=== PATIENT | male | born 1970 | race Caucasian/White ===

== ENCOUNTER 2017-08-06 13:43 | Inpatient (IN) | payer OTHER ==
[2017-08-06 13:56] VITALS: BMI 22.1
--- NOTE | 2017-08-06 14:54 | HP ---
COWS - Scale Resting Pulse: 0= [place] 80 or Below Sweatin=Flushed/Facial Moisture Restless Observation: 3= Extraneous Movement Pupil Size: 1= Pupils >than Normal Bone or Joint Aches: 2= Severe Diffuse Aches Runny Nose/ Eye Tearin= Nasal Congestion GI Upset > 30mins: 1= Stomach Cramp Tremor Observation: 2= Slight Tremor Visible Yawning Observation: 1= 1-2x During Session Anxiety or Irritability: 2=Irritable/Anxious Goose Flesh Skin: 3=Piloerection COWS Score: 18 CIWA Score - CIWA Score Nausea/Vomitin Muscle Tremors: 3 Anxiety: 3 Agitation: 3 Paroxysmal Sweats: 3 Orientation: 0-Oriented Tacttile Disturbances: 1-Very Mild Itch/Numbness Auditory Disturbances: 0-None Visual Disturbances: 0-None Headache: 2-Mild CIWA-Ar Total Score: 17 Admission ROS BHS - HPI Chief Complaint: I want to stay clean Allergies/Adverse Reactions: Allergies Allergy/AdvReac Type Severity Reaction Status Date / Time No Known Allergies Allergy Verified 08/28/14 18:22 History of Present Illness: 47 y/o male with alcohol and opiate dependence presents for detox. His last treatment was in January of 2017 at [facility]. Exam Limitations: No Limitations - Ebola screening Have you traveled outside of the country in the last 21 days: No Have you had contact with anyone from an Ebola affected area: No Have you been sick,other than usual withdrawal symptoms: No Do you have a fever: No - Review of Systems Constitutional: Chills, Loss of Appetite, Changes in sleep EENT: reports: Blurred Vision, Nose Congestion Respiratory: reports: No Symptoms reported Cardiac: reports: Lightheadedness GI: reports: Poor Appetite, Poor Fluid Intake, Abdominal cramping : reports: No Symptoms Reported Musculoskeletal: reports: Back Pain, Joint Pain, Muscle Pain Integumentary: reports: No Symptoms Reported Neuro: reports: Headache, Tremors Endocrine: reports: No Symptoms Reported Hematology: reports: No Symptoms Reported Psychiatric: reports: Anxious, Depressed Other Systems: Reviewed and Negative Patient History - Patient Medical History Hx Anemia: No Hx Asthma: No Hx Chronic Obstructive Pulmonary Disease (COPD): No Hx Cancer: No Hx Cardiac Disorders: No Hx Congestive Heart Failure: No Hx Hypertension: No Hx Hypercholesterolemia: No Hx Pacemaker: No HX Cerebrovascular Accident: No Hx Seizures: No Hx Dementia: No Hx Diabetes: No Hx Gastrointestinal Disorders: No Hx Liver Disease: No Hx Genitourinary Disorders: No Hx Sexually Transmitted Disorders: No Hx Renal Disease (ESRD): No Hx Thyroid Disease: No Hx Human Immunodeficiency Virus (HIV): No Hx Hepatitis C: No Hx Depression: Yes Hx Suicide Attempt: No Hx Bipolar Disorder: No Hx Schizophrenia: No Other Medical History: Insomnia on Trazodone - Patient Surgical History Past Surgical History: No Hx Neurologic Surgery: No Hx Cataract Extraction: No Hx Cardiac Surgery: No Hx Lung Surgery: No Hx Breast Surgery: No Hx Breast Biopsy: No Hx Abdominal Surgery: No Hx Appendectomy: No Hx Cholecystectomy: No Hx Genitourinary Surgery: No Hx Section: No Hx Orthopedic Surgery: No Anesthesia Reaction: No - PPD History Previous Implant?: Yes Documented Results: Negative w/o proof Implanted On Prior R Admission?: Yes Date: 08/30/14 Results: 0 mm PPD to be Administered?: Yes - Smoking Cessation Smoking history: Current every day smoker Have you smoked in the past 12 months: Yes Aproximately how many cigarettes per day: 20 Cigars Per Day: 0 Hx Chewing Tobacco Use: No Initiated information on smoking cessation: Yes 'Breaking Loose' booklet given: 08/06/17 - Substance & Tx. History Hx Alcohol Use: Yes Hx Substance Use: Yes Substance Use Type: Alcohol, Heroin, Marijuana Hx Substance Use Treatment: Yes - Substances Abused Alcohol Route: Oral Frequency: Daily Amount used: 2 pints Age of first use: 16 Date of Last Use: 08/05/17 Heroin Route: Injection Frequency: Daily Amount used: 10 bags Age of first use: 21 Date of Last Use: 08/06/17 Marijuana/Hashish Route: Smoking Frequency: 3-6 times per week Amount used: 7 joints Age of first use: 14 Date of Last Use: 08/01/17 Family Disease History - Family Disease History Family Disease History: Heart Disease: Mother (htn,ovarian ca.), CA: Mother Admission Physical Exam BHS - Vital Signs Vital Signs: Vital Signs - 24 hr 08/06/17 13:49 Temperature 96.4 F L Pulse Rate 74 Respiratory 20 Rate Blood Pressure 123/77 - Physical General Appearance: Yes: No Apparent Distress, Appropriately Dressed HEENTM: Yes: EOMI, Hearing grossly Normal, Normal ENT Inspection, Normocephalic , Normal Voice, MADELYN Respiratory: Yes: Chest Non-Tender, Lungs Clear, Normal Breath Sounds, No Respiratory Distress, No Accessory Muscle Use Neck: Yes: No masses,lesions,Nodules, Trachea in good position Breast: Yes: Breast Exam Deferred Cardiology: Yes: Regular Rhythm, Regular Rate Abdominal: Yes: Normal Bowel Sounds, Non Tender, Soft Genitourinary: Yes: Within Normal Limits Back: Yes: Normal Inspection Extremities: Yes: Normal Capillary Refill, Normal Inspection, Normal Range of Motion, Non-Tender Neurological: Yes: wardrobe stylist II-XII NML intact, Fully Oriented, Alert, Motor Strength 5/5, Normal Mood/Affect, Normal Response Integumentary: Yes: Normal Color, Warm Lymphatic: Yes: Within Normal Limits - Diagnostic (1) Opioid dependence with withdrawal Current Visit: Yes Status: Acute (2) Alcohol dependence with uncomplicated withdrawal Current Visit: Yes Status: Acute (3) Nicotine dependence Current Visit: Yes Status: Acute Qualifiers: Nicotine product type: cigarettes Substance use status: uncomplicated Qualified Code(s): F17.210 - Nicotine dependence, cigarettes, uncomplicated (4) Marijuana dependence Current Visit: Yes Status: Acute (5) Insomnia Current Visit: Yes Status: Active BHS Breath Alcohol Content Breath Alcohol Content: 0 Urine Drug Screen - Results Drug Screen Negative: No Urine Drug Screen Results: OPI-Opiates
[2017-08-06] MEDS ORDERED: LOPERAMIDE HCL 2 MG CAPSULE PO PRN (15:02)
[2017-08-06] MEDS ORDERED: NICOTINE POLACRILEX 2 MG GUM BUC PRN (15:02)
[2017-08-06] MEDS ORDERED: chlordiazePOXIDE HCL 25 MG CAPSULE PO ONE (15:02)
[2017-08-06] MEDS ORDERED: MAGNESIUM CITRATE 300 ML BOTTLE PO PRN (15:02)
[2017-08-06] MEDS ORDERED: MAG HYDROX/AL HYDROX/SIMETH 30 ML UNIT-DOSE CUP PO PRN (15:02)
[2017-08-06] MEDS ORDERED: guaiFENesin/D-METHORPHAN HB 10 ML UNIT-DOSE CUPS PO PRN (15:02)
[2017-08-06] MEDS ORDERED: METHADONE HCL 10 MG TABLET (FOR DETOX USE ONLY) PO ONE ×2 (15:02→23:00)
[2017-08-06] MEDS ORDERED: MENTHOL/PHENOL 1 EACH UD MM PRN (15:02)
[2017-08-06] MEDS ORDERED: MAGNESIUM HYDROX 2400MG/30ML ORAL SUSPENSION 30 ML CUP PO PRN (15:02)
[2017-08-06] MEDS ORDERED: P-EPHED 60MG/TRIPROLIDI 2.5MG TABLET PO PRN (15:02)
[2017-08-06] MEDS ORDERED: METHADONE HCL 10 MG TABLET (FOR DETOX USE ONLY) ONE (18:05)
[2017-08-06] MEDS: NICOTINE 21 MG/24 HOURS TOPICAL PATCH TD SCH (18:10)
[2017-08-06] MEDS: chlordiazePOXIDE HCL 25 MG CAPSULE PO SCH ×2 (18:10→22:47)
[2017-08-06] MEDS: IBUPROFEN 400 MG TABLET (FP) PO PRN (18:15)
[2017-08-06] MEDS: THIAMINE HCL 100 MG TABLET (FP) PO SCH (22:47)
[2017-08-06] MEDS: diphenhydrAMINE HCL 50 MG CAPSULE PO PRN (22:49)
[2017-08-07 00:25] LABS: URINE APPEARANCE CLEAR; URINE BILIRUBIN NEGATIVE (NEGATIVE); URINE BLOOD 1+ (NEGATIVE); URINE COLOR YELLOW; URINE GLUCOSE (UA) NEGATIVE (NEGATIVE); URINE KETONE NEGATIVE (NEGATIVE); URINE LEUK ESTERASE NEGATIVE (NEGATIVE); URINE NITRITE NEGATIVE (NEGATIVE); URINE PROTEIN NEGATIVE (NEGATIVE); URINE UROBILINOGEN NEGATIVE mg/dL (0.2-1.0)
[2017-08-07 00:39] LABS: URINE MUCUS RARE; URINE RBC 6 /hpf (0-3); URINE WBC 2 /hpf (3-5)
[2017-08-07] MEDS: chlordiazePOXIDE HCL 25 MG CAPSULE PO SCH ×4 (05:57→22:29)
--- NOTE | 2017-08-07 09:54 | EKG ---
Test Reason : Blood Pressure : / mmHG Vent. Rate : 066 BPM Atrial Rate : 066 BPM P-R Int : 138 ms QRS Dur : 070 ms QT Int : 366 ms P-R-T Axes : 076 077 070 degrees QTc Int : 383 ms NORMAL SINUS RHYTHM POSSIBLE SEPTAL INFARCT , AGE UNDETERMINED NONSPECIFIC T WAVE ABNORMALITY ABNORMAL ECG NO PREVIOUS ECGS AVAILABLE Confirmed by MD MEG, ELSA ([id number]) on 08/07/2017 9:54:21 AM Referred By: Confirmed By:ELSA WEAVER MD
[2017-08-07 09:56] LABS: MCH 27.9 pg (25.7-33.7); MCHC 33.9 g/dl (32.0-35.9); MEAN CELL VOLUME 82.4 fl (80-96); MEAN PLT VOLUME 8.4 fl (7.5-11.1); PLATELET COUNT 137 K/MM3 (134-434); RDW 15.1 % (11.9-15.9); WHITE BLOOD COUNT 7.3 K/mm3 (4.0-10.0)
[2017-08-07] MEDS ORDERED: METHADONE HCL 10 MG TABLET (FOR DETOX USE ONLY) PO SCH (10:00)
[2017-08-07 10:17] LABS: ALBUMIN 3.3 g/dl (3.4-5.0); ALK PHOS 59 U/L (45-117); ANION GAP 8 (8-16); BILIRUBIN,TOTAL 0.5 mg/dL (0.2-1.0); CALCIUM 8.3 mg/dL (8.5-10.1); CO2 28 mmol/L (21-32); CREATININE 0.7 mg/dL (0.7-1.3); GLUCOSE,RANDOM 73 mg/dL (74-106); SGOT/AST 11 U/L (15-37); SGPT/ALT 18 U/L (12-78); TOT PROT 6.1 g/dl (6.4-8.2)
[2017-08-07] MEDS: PRENATAL VITAMINS W/ FOLIC ACID TABLET (FP) PO SCH (10:27)
[2017-08-07] MEDS: NICOTINE 21 MG/24 HOURS TOPICAL PATCH TD SCH (10:28)
[2017-08-07] MEDS: chlordiazePOXIDE HCL 25 MG CAPSULE PO PRN (14:47)
--- NOTE | 2017-08-07 14:55 | PN ---
S CIWA - CIWA Score Nausea/Vomitin Muscle Tremors: 4-Moderate,w/Arms Extend Anxiety: 4-Mod. Anxious/Guarded Agitation: 4-Moderately Restless Paroxysmal Sweats: 3 Orientation: 0-Oriented Tacttile Disturbances: 1-Very Mild Itch/Numbness Auditory Disturbances: 0-None Visual Disturbances: 0-None Headache: 1-Very Mild CIWA-Ar Total Score: 20 S COWS - Scale Resting Pulse: 0= [place] 80 or Below Sweatin=Flushed/Facial Moisture Restless Observation: 3= Extraneous Movement Pupil Size: 0= Normal to Room Light Bone or Joint Aches: 2= Severe Diffuse Aches Runny Nose/ Eye Tearin= Nasal Congestion GI Upset > 30mins: 1= Stomach Cramp Tremor Observation of Outstretched Hands: 2= Slight Tremor Visible Yawning Observation: 1= 1-2x During Session Anxiety or Irritability: 2=Irritable/Anxious Goose Flesh Skin: 0=Smooth Skin COWS Score: 14 S Progress Note (SOAP) Subjective: Body aches, sweating, chills, tremor, interrupted sleep, nausea Objective: 08/07/17 14:52 Last Vital Signs Temp Pulse Resp BP Pulse Ox 98.9 F 73 18 112/74 08/07/17 13:18 08/07/17 13:18 08/07/17 13:18 08/07/17 13:18 Laboratory Tests 08/06/17 08/07/17 08/07/17 21:19 07:50 07:50 WBC 7.3 RBC 4.03 Hgb 11.3 L D Hct 33.3 L MCV 82.4 MCH 27.9 MCHC 33.9 RDW 15.1 Plt Count 137 MPV 8.4 Sodium 140 Potassium 4.1 Chloride 104 Carbon Dioxide 28 Anion Gap 8 BUN 10 Creatinine 0.7 Creat Clearance w eGFR > 60 Random Glucose 73 L Calcium 8.3 L Total Bilirubin 0.5 AST 11 L D ALT 18 Alkaline Phosphatase 59 D Total Protein 6.1 L Albumin 3.3 L Urine Color Yellow Urine Appearance Clear Urine pH 5.0 D Ur Specific [place] 1.020 Urine Protein Negative Urine Glucose (UA) Negative Urine Ketones Negative Urine Blood 1+ H Urine Nitrite Negative Urine Bilirubin Negative Urine Urobilinogen Negative Ur Leukocyte Esterase Negative Urine RBC 6 Urine WBC 2 Urine Mucus Rare RPR Titer 08/07/17 07:50 WBC RBC Hgb Hct MCV MCH MCHC RDW Plt Count MPV Sodium Potassium Chloride Carbon Dioxide Anion Gap BUN Creatinine Creat Clearance w eGFR Random Glucose Calcium Total Bilirubin AST ALT Alkaline Phosphatase Total Protein Albumin Urine Color Urine Appearance Urine pH Ur Specific [place] Urine Protein Urine Glucose (UA) Urine Ketones Urine Blood Urine Nitrite Urine Bilirubin Urine Urobilinogen Ur Leukocyte Esterase Urine RBC Urine WBC Urine Mucus RPR Titer Nonreactive Labs noted: UA shows 1+ blood Assessment: 08/07/17 14:53 Withdrawal symptoms Noted with microscopic hematuria Plan: Continue detox Microscopic hematuria: encouraged to drink lots of water, repeat UA
[2017-08-07] MEDS: IBUPROFEN 400 MG TABLET (FP) PO PRN (17:52)
[2017-08-07] MEDS: THIAMINE HCL 100 MG TABLET (FP) PO SCH (22:28)
[2017-08-07] MEDS: diphenhydrAMINE HCL 50 MG CAPSULE PO PRN (22:29)
[2017-08-08] MEDS: chlordiazePOXIDE HCL 25 MG CAPSULE PO SCH ×2 (04:37→10:32)
[2017-08-08] MEDS: IBUPROFEN 400 MG TABLET (FP) PO PRN ×2 (04:37→10:30)
--- NOTE | 2017-08-08 10:26 | PN ---
S CIWA - CIWA Score Nausea/Vomitin Muscle Tremors: 4-Moderate,w/Arms Extend Anxiety: 4-Mod. Anxious/Guarded Agitation: 4-Moderately Restless Paroxysmal Sweats: 3 Orientation: 0-Oriented Tacttile Disturbances: 6-Extreme Hallucinations Visual Disturbances: 0-None Headache: 0-None Present S COWS - Scale Resting Pulse: 1= [place] 81-100 Sweatin= Chills/Flushing Restless Observation: 1= Difficult to Sit Still Pupil Size: 1= Pupils >than Normal Bone or Joint Aches: 1= Mild Discomfort Runny Nose/ Eye Tearin= Nasal Congestion GI Upset > 30mins: 2= Nausea/Diarrhea Tremor Observation of Outstretched Hands: 2= Slight Tremor Visible Yawning Observation: 1= 1-2x During Session Anxiety or Irritability: 2=Irritable/Anxious Goose Flesh Skin: 3=Piloerection COWS Score: 16 S Progress Note (SOAP) Subjective: nausea, sweats, interrupted sleep, anxiety, tremors Objective: 08/08/17 10:26 Vital Signs - 8 hr 08/08/17 08/08/17 08/08/17 03:36 06:24 09:10 Temperature 97.3 F L 98.7 F Pulse Rate 74 78 Respiratory 18 18 18 Rate Blood Pressure 129/85 107/72 Laboratory Tests 08/06/17 08/07/17 08/07/17 21:19 07:50 07:50 WBC 7.3 RBC 4.03 Hgb 11.3 L D Hct 33.3 L MCV 82.4 MCH 27.9 MCHC 33.9 RDW 15.1 Plt Count 137 MPV 8.4 Sodium 140 Potassium 4.1 Chloride 104 Carbon Dioxide 28 Anion Gap 8 BUN 10 Creatinine 0.7 Creat Clearance w eGFR > 60 Random Glucose 73 L Calcium 8.3 L Total Bilirubin 0.5 AST 11 L D ALT 18 Alkaline Phosphatase 59 D Total Protein 6.1 L Albumin 3.3 L Urine Color Yellow Urine Appearance Clear Urine pH 5.0 D Ur Specific [place] 1.020 Urine Protein Negative Urine Glucose (UA) Negative Urine Ketones Negative Urine Blood 1+ H Urine Nitrite Negative Urine Bilirubin Negative Urine Urobilinogen Negative Ur Leukocyte Esterase Negative Urine RBC 6 Urine WBC 2 Urine Mucus Rare RPR Titer 08/07/17 07:50 WBC RBC Hgb Hct MCV MCH MCHC RDW Plt Count MPV Sodium Potassium Chloride Carbon Dioxide Anion Gap BUN Creatinine Creat Clearance w eGFR Random Glucose Calcium Total Bilirubin AST ALT Alkaline Phosphatase Total Protein Albumin Urine Color Urine Appearance Urine pH Ur Specific [place] Urine Protein Urine Glucose (UA) Urine Ketones Urine Blood Urine Nitrite Urine Bilirubin Urine Urobilinogen Ur Leukocyte Esterase Urine RBC Urine WBC Urine Mucus RPR Titer Nonreactive Assessment: 08/08/17 10:26 withdrawal sx Plan: cont detox
[2017-08-08] MEDS: METHADONE HCL 5 MG TABLET (FOR DETOX USE ONLY) PO SCH (10:28)
[2017-08-08] MEDS: PRENATAL VITAMINS W/ FOLIC ACID TABLET (FP) PO SCH (10:28)
[2017-08-08] MEDS: NICOTINE 21 MG/24 HOURS TOPICAL PATCH TD SCH (10:29)
--- NOTE | 2017-08-08 11:01 | PN ---
BHS Progress Note Note: patient reports swollen painful tooth r side, start antibiotics, naprosy and protonix, referred for dental care when dischargeed
[2017-08-08] MEDS: AMOXICILLIN 250 MG CAPSULE PO SCH ×2 (13:03→22:16)
[2017-08-08] MEDS: PANTOPRAZOLE 40 MG TABLET (FP) PO SCH (13:04)
[2017-08-08] MEDS: NAPROXEN 500 MG TABLET (FP) PO SCH ×2 (13:04→22:17)
[2017-08-08] MEDS: chlordiazePOXIDE HCL 25 MG CAPSULE PO PRN (13:06)
--- NOTE | 2017-08-08 15:29 | CONSULT ---
[facility] Psychiatric Consult - Data Date of interview: 08/08/17 Admission source: [facility] Identifying data: Readmission to [facility] for this 47 y/o male seeking detox treatment on for alcohol,marihuana and heroin dependence.Patient is single without children,homeless,unemployed and supported on food stamps. Substance Abuse History: Confirmed by patient. Smoking Cessation. Smoking history: Current every day smoker. Have you smoked in the past 12 months: Yes. Aproximately how many cigarettes per day: 20. Cigars Per Day: 0. Hx Chewing Tobacco Use: No. Initiated information on smoking cessation: Yes. 'Breaking Loose' booklet given: 08/06/17. - Substance & Tx. History. Hx Alcohol Use: Yes. Hx Substance Use: Yes. Substance Use Type: Alcohol, Heroin, Marijuana. Hx Substance Use Treatment: Yes. - Substances Abused. Alcohol. Route: Oral. Frequency: Daily. Amount used: 2 pints. Age of first use: 16. Date of Last Use: 08/05/17. Heroin. Route: Injection. Frequency: Daily. Amount used: 10 bags. Age of first use: 21. Date of Last Use: 08/06/17. Marijuana /Hashish. Route: Smoking. Frequency: 3-6 times per week. Amount used: 7 joints. Age of first use: 14. Date of Last Use: 08/01/17 Medical History: Patient endorses good general health. Psychiatric History: Patient admits to one psychiatric hospitalization at [facility] in December 2016.Diagnosed with MDD and Anxiety Disorder.Mr Oconnor indicates that he sees a psychiatrist at [facility] in [facility] [place].Managed with zoloft " and another medication." No reported history of suicide attempts. Physical/Sexual Abuse/Trauma History: Patient denies. Additional Comment: Urine Drug Screen Results: OPI-Opiates.Noted. Mental Status Exam - Mental Status Exam Alert and Oriented to: Time, Place, Person Cognitive Function: Good Patient Appearance: Well Groomed Mood: Nervous, Withdrawn Affect: Mood Congruent Patient Behavior: Fatigued, Cooperative Speech Pattern: Clear (bilingual) Voice Loudness: Normal Thought Process: Goal Oriented Thought Disorder: Not Present Hallucinations: Denies Suicidal Ideation: Denies Homicidal Ideation: Denies Insight/Judgement: Poor Sleep: Poorly, Difficulty falling asleep (wants trazodone) Appetite: Good Muscle strength/Tone: Normal Gait/Station: Normal Psychiatric Findings - Problem List ([place] 1, 2,3) (1) Alcohol dependence with uncomplicated withdrawal Current Visit: Yes Status: Acute (2) Opioid dependence with withdrawal Current Visit: Yes Status: Acute (3) Nicotine dependence Current Visit: Yes Status: Acute Qualifiers: Nicotine product type: cigarettes Substance use status: in withdrawal Qualified Code(s): F17.213 - Nicotine dependence, cigarettes, with withdrawal (4) Drug-induced mood disorder Current Visit: Yes Status: Acute (5) Depressive disorder Current Visit: Yes Status: Chronic (6) Insomnia Current Visit: Yes Status: Chronic - Initial Treatment Plan Initial Treatment Plan: Psychoeducation.Detoxification.Medication : trazodone 100 mg po hs (patient's request).Patient is made aware of risk for priapism.He states that he has been on that medication for several years (self-medicated) .Good tolerability and efficacy,as per patient.Observation.
[2017-08-08] MEDS: chlordiazePOXIDE 5 MG CAPSULE PO SCH ×2 (17:47→22:17)
[2017-08-08] MEDS: ACETAMINOPHEN 325 MG TABLET (FP) PO PRN (17:49)
[2017-08-08 20:01] LABS: PH,URINE 7.5 (5.0-8.0); URINE APPEARANCE CLEAR; URINE BILIRUBIN NEGATIVE (NEGATIVE); URINE BLOOD NEGATIVE (NEGATIVE); URINE COLOR LT. YELLOW; URINE GLUCOSE (UA) NEGATIVE (NEGATIVE); URINE KETONE NEGATIVE (NEGATIVE); URINE LEUK ESTERASE NEGATIVE (NEGATIVE); URINE NITRITE NEGATIVE (NEGATIVE); URINE PROTEIN NEGATIVE (NEGATIVE); URINE UROBILINOGEN 0.2 mg/dL (0.2-1.0)
[2017-08-08] MEDS ORDERED: traZODone HCL 100 MG TABLET (FP) PO SCH (22:00)
[2017-08-08] MEDS: THIAMINE HCL 100 MG TABLET (FP) PO SCH (22:16)
[2017-08-08] MEDS: diphenhydrAMINE HCL 50 MG CAPSULE PO PRN (22:18)
[2017-08-09] MEDS: chlordiazePOXIDE 5 MG CAPSULE PO SCH ×2 (05:22→10:46)
[2017-08-09] MEDS: PANTOPRAZOLE 40 MG TABLET (FP) PO SCH (10:46)
[2017-08-09] MEDS: METHADONE HCL 5 MG TABLET (FOR DETOX USE ONLY) PO SCH (10:46)
[2017-08-09] MEDS: NAPROXEN 500 MG TABLET (FP) PO SCH ×2 (10:47→22:25)
[2017-08-09] MEDS: PRENATAL VITAMINS W/ FOLIC ACID TABLET (FP) PO SCH (10:47)
[2017-08-09] MEDS: NICOTINE 21 MG/24 HOURS TOPICAL PATCH TD SCH (10:47)
[2017-08-09] MEDS: AMOXICILLIN 250 MG CAPSULE PO SCH ×2 (10:47→22:24)
--- NOTE | 2017-08-09 11:55 | PN ---
S Progress Note (SOAP) Subjective: IRRITABILITY,AGITATIONS,ANXIETY,INTERMITTENT SLEEP Objective: 08/09/17 11:55 Vital Signs Temperature 96.5 F L 08/09/17 09:15 Pulse Rate 66 08/09/17 09:15 Respiratory Rate 18 08/09/17 09:15 Blood Pressure 96/61 08/09/17 09:15 O2 Sat by Pulse Oximetry (%) Laboratory Last Values WBC 7.3 K/mm3 (4.0-10.0) 08/07/17 07:50 RBC 4.03 M/mm3 (4.00-5.60) 08/07/17 07:50 Hgb 11.3 GM/dL (11.7-16.9) L D 08/07/17 07:50 Hct 33.3 % (35.4-49) L 08/07/17 07:50 MCV 82.4 fl (80-96) 08/07/17 07:50 MCH 27.9 pg (25.7-33.7) 08/07/17 07:50 MCHC 33.9 g/dl (32.0-35.9) 08/07/17 07:50 RDW 15.1 % (11.9-15.9) 08/07/17 07:50 Plt Count 137 K/MM3 (134-434) 08/07/17 07:50 MPV 8.4 fl (7.5-11.1) 08/07/17 07:50 Sodium 140 mmol/L (136-145) 08/07/17 07:50 Potassium 4.1 mmol/L (3.5-5.1) 08/07/17 07:50 Chloride 104 mmol/L (98-107) 08/07/17 07:50 Carbon Dioxide 28 mmol/L (21-32) 08/07/17 07:50 Anion Gap 8 (8-16) 08/07/17 07:50 BUN 10 mg/dL (7-18) 08/07/17 07:50 Creatinine 0.7 mg/dL (0.7-1.3) 08/07/17 07:50 Creat Clearance w eGFR > 60 (>60) 08/07/17 07:50 Random Glucose 73 mg/dL (74-106) L 08/07/17 07:50 Calcium 8.3 mg/dL (8.5-10.1) L 08/07/17 07:50 Total Bilirubin 0.5 mg/dL (0.2-1.0) 08/07/17 07:50 AST 11 U/L (15-37) L D 08/07/17 07:50 ALT 18 U/L (12-78) 08/07/17 07:50 Alkaline Phosphatase 59 U/L (45-117) D 08/07/17 07:50 Total Protein 6.1 g/dl (6.4-8.2) L 08/07/17 07:50 Albumin 3.3 g/dl (3.4-5.0) L 08/07/17 07:50 Urine Color Lt. yellow 08/08/17 15:39 Urine Appearance Clear 08/08/17 15:39 Urine pH 7.5 (5.0-8.0) D 08/08/17 15:39 Ur Specific [place] 1.015 (1.005-1.025) 08/08/17 15:39 Urine Protein Negative (NEGATIVE) 08/08/17 15:39 Urine Glucose (UA) Negative (NEGATIVE) 08/08/17 15:39 Urine Ketones Negative (NEGATIVE) 08/08/17 15:39 Urine Blood Negative (NEGATIVE) 08/08/17 15:39 Urine Nitrite Negative (NEGATIVE) 08/08/17 15:39 Urine Bilirubin Negative (NEGATIVE) 08/08/17 15:39 Urine Urobilinogen 0.2 mg/dL (0.2-1.0) 08/08/17 15:39 Ur Leukocyte Esterase Negative (NEGATIVE) 08/06/17 21:19 Urine RBC 6 /hpf (0-3) 08/06/17 21:19 Urine WBC 2 /hpf (3-5) 08/06/17 21:19 Urine Mucus Rare 08/06/17 21:19 RPR Titer Nonreactive (NONREACTIVE) 08/07/17 07:50 Assessment: 08/09/17 11:55 WITHDRAWAL SX Plan: CONTINUE DETOX
[2017-08-09] MEDS: ACETAMINOPHEN 325 MG TABLET (FP) PO PRN ×2 (13:38→17:25)
[2017-08-09] MEDS: chlordiazePOXIDE HCL 25 MG CAPSULE PO PRN (13:39)
[2017-08-09] MEDS: chlordiazePOXIDE HCL 10 MG CAPSULE PO SCH ×2 (17:22→22:25)
[2017-08-09] MEDS: traZODone HCL 50 MG TABLET (FP) PO SCH (22:25)
[2017-08-09] MEDS: THIAMINE HCL 100 MG TABLET (FP) PO SCH (22:25)
[2017-08-10] MEDS: chlordiazePOXIDE HCL 10 MG CAPSULE PO SCH ×2 (05:30→10:19)
[2017-08-10] MEDS ORDERED: METHADONE HCL 10 MG TABLET (FOR DETOX USE ONLY) PO SCH (10:00)
[2017-08-10] MEDS: PANTOPRAZOLE 40 MG TABLET (FP) PO SCH (10:19)
[2017-08-10] MEDS: PRENATAL VITAMINS W/ FOLIC ACID TABLET (FP) PO SCH (10:19)
[2017-08-10] MEDS: AMOXICILLIN 250 MG CAPSULE PO SCH ×2 (10:19→22:26)
[2017-08-10] MEDS: NICOTINE 21 MG/24 HOURS TOPICAL PATCH TD SCH (10:19)
[2017-08-10] MEDS: NAPROXEN 500 MG TABLET (FP) PO SCH ×2 (10:20→22:24)
--- NOTE | 2017-08-10 11:09 | PN ---
BHS Progress Note (SOAP) Subjective: SLIGHT ANXIETY,IRRITABILITY,"WOOZY". Objective: 08/10/17 11:08 Vital Signs Temperature 97.2 F L 08/10/17 09:55 Pulse Rate 71 08/10/17 09:55 Respiratory Rate 18 08/10/17 09:55 Blood Pressure 98/63 08/10/17 09:55 O2 Sat by Pulse Oximetry (%) Laboratory Last Values WBC 7.3 K/mm3 (4.0-10.0) 08/07/17 07:50 RBC 4.03 M/mm3 (4.00-5.60) 08/07/17 07:50 Hgb 11.3 GM/dL (11.7-16.9) L D 08/07/17 07:50 Hct 33.3 % (35.4-49) L 08/07/17 07:50 MCV 82.4 fl (80-96) 08/07/17 07:50 MCH 27.9 pg (25.7-33.7) 08/07/17 07:50 MCHC 33.9 g/dl (32.0-35.9) 08/07/17 07:50 RDW 15.1 % (11.9-15.9) 08/07/17 07:50 Plt Count 137 K/MM3 (134-434) 08/07/17 07:50 MPV 8.4 fl (7.5-11.1) 08/07/17 07:50 Sodium 140 mmol/L (136-145) 08/07/17 07:50 Potassium 4.1 mmol/L (3.5-5.1) 08/07/17 07:50 Chloride 104 mmol/L (98-107) 08/07/17 07:50 Carbon Dioxide 28 mmol/L (21-32) 08/07/17 07:50 Anion Gap 8 (8-16) 08/07/17 07:50 BUN 10 mg/dL (7-18) 08/07/17 07:50 Creatinine 0.7 mg/dL (0.7-1.3) 08/07/17 07:50 Creat Clearance w eGFR > 60 (>60) 08/07/17 07:50 Random Glucose 73 mg/dL (74-106) L 08/07/17 07:50 Calcium 8.3 mg/dL (8.5-10.1) L 08/07/17 07:50 Total Bilirubin 0.5 mg/dL (0.2-1.0) 08/07/17 07:50 AST 11 U/L (15-37) L D 08/07/17 07:50 ALT 18 U/L (12-78) 08/07/17 07:50 Alkaline Phosphatase 59 U/L (45-117) D 08/07/17 07:50 Total Protein 6.1 g/dl (6.4-8.2) L 08/07/17 07:50 Albumin 3.3 g/dl (3.4-5.0) L 08/07/17 07:50 Urine Color Lt. yellow 08/08/17 15:39 Urine Appearance Clear 08/08/17 15:39 Urine pH 7.5 (5.0-8.0) D 08/08/17 15:39 Ur Specific [place] 1.015 (1.005-1.025) 08/08/17 15:39 Urine Protein Negative (NEGATIVE) 08/08/17 15:39 Urine Glucose (UA) Negative (NEGATIVE) 08/08/17 15:39 Urine Ketones Negative (NEGATIVE) 08/08/17 15:39 Urine Blood Negative (NEGATIVE) 08/08/17 15:39 Urine Nitrite Negative (NEGATIVE) 08/08/17 15:39 Urine Bilirubin Negative (NEGATIVE) 08/08/17 15:39 Urine Urobilinogen 0.2 mg/dL (0.2-1.0) 08/08/17 15:39 Ur Leukocyte Esterase Negative (NEGATIVE) 08/06/17 21:19 Urine RBC 6 /hpf (0-3) 08/06/17 21:19 Urine WBC 2 /hpf (3-5) 08/06/17 21:19 Urine Mucus Rare 08/06/17 21:19 RPR Titer Nonreactive (NONREACTIVE) 08/07/17 07:50 Assessment: 08/10/17 11:08 WITHDRAWAL SX Plan: CONTINUE DETOX
[2017-08-10] MEDS: traZODone HCL 50 MG TABLET (FP) PO SCH (22:24)
[2017-08-10] MEDS: THIAMINE HCL 100 MG TABLET (FP) PO SCH (22:24)
[2017-08-11] MEDS ORDERED: METHADONE HCL 5 MG TABLET (FOR DETOX USE ONLY) PO SCH (06:00)
--- NOTE | 2017-08-11 08:42 | DS ---
[facility] Detox Discharge Summary Admission Date: 08/06/17 Discharge Date: 08/11/17 - History Present History: Alcohol Dependence, Opioid Dependence Additional Comments: DETOX COMPLETED. ALERT O X 3. NAD. PT ENCOURAGED TO FOLLOW UP WITH PMD. DR RESENDIZ [id number] [facility]. PT ALSO INSTRUCTED TO FOLLOW UP WITH HIS PHARMACY TO SCHEDULING ASSISTANT RX AMOXICILLIN RE: TOOTH INFECTION TO COMPLETE THERAPY. Pertinent Past History: TOOTH INFECTION - Physical Exam Results Vital Signs: Vital Signs Temperature 98.5 F 08/11/17 05:00 Pulse Rate 76 08/11/17 05:00 Respiratory Rate 16 08/11/17 05:00 Blood Pressure 99/69 08/11/17 05:00 O2 Sat by Pulse Oximetry (%) Pertinent Admission Physical Exam Findings: WITHDRAWAL SX Laboratory Last Values WBC 7.3 K/mm3 (4.0-10.0) 08/07/17 07:50 RBC 4.03 M/mm3 (4.00-5.60) 08/07/17 07:50 Hgb 11.3 GM/dL (11.7-16.9) L D 08/07/17 07:50 Hct 33.3 % (35.4-49) L 08/07/17 07:50 MCV 82.4 fl (80-96) 08/07/17 07:50 MCH 27.9 pg (25.7-33.7) 08/07/17 07:50 MCHC 33.9 g/dl (32.0-35.9) 08/07/17 07:50 RDW 15.1 % (11.9-15.9) 08/07/17 07:50 Plt Count 137 K/MM3 (134-434) 08/07/17 07:50 MPV 8.4 fl (7.5-11.1) 08/07/17 07:50 Sodium 140 mmol/L (136-145) 08/07/17 07:50 Potassium 4.1 mmol/L (3.5-5.1) 08/07/17 07:50 Chloride 104 mmol/L (98-107) 08/07/17 07:50 Carbon Dioxide 28 mmol/L (21-32) 08/07/17 07:50 Anion Gap 8 (8-16) 08/07/17 07:50 BUN 10 mg/dL (7-18) 08/07/17 07:50 Creatinine 0.7 mg/dL (0.7-1.3) 08/07/17 07:50 Creat Clearance w eGFR > 60 (>60) 08/07/17 07:50 Random Glucose 73 mg/dL (74-106) L 08/07/17 07:50 Calcium 8.3 mg/dL (8.5-10.1) L 08/07/17 07:50 Total Bilirubin 0.5 mg/dL (0.2-1.0) 08/07/17 07:50 AST 11 U/L (15-37) L D 08/07/17 07:50 ALT 18 U/L (12-78) 08/07/17 07:50 Alkaline Phosphatase 59 U/L (45-117) D 08/07/17 07:50 Total Protein 6.1 g/dl (6.4-8.2) L 08/07/17 07:50 Albumin 3.3 g/dl (3.4-5.0) L 08/07/17 07:50 Urine Color Lt. yellow 08/08/17 15:39 Urine Appearance Clear 08/08/17 15:39 Urine pH 7.5 (5.0-8.0) D 08/08/17 15:39 Ur Specific [place] 1.015 (1.005-1.025) 08/08/17 15:39 Urine Protein Negative (NEGATIVE) 08/08/17 15:39 Urine Glucose (UA) Negative (NEGATIVE) 08/08/17 15:39 Urine Ketones Negative (NEGATIVE) 08/08/17 15:39 Urine Blood Negative (NEGATIVE) 08/08/17 15:39 Urine Nitrite Negative (NEGATIVE) 08/08/17 15:39 Urine Bilirubin Negative (NEGATIVE) 08/08/17 15:39 Urine Urobilinogen 0.2 mg/dL (0.2-1.0) 08/08/17 15:39 Ur Leukocyte Esterase Negative (NEGATIVE) 08/06/17 21:19 Urine RBC 6 /hpf (0-3) 08/06/17 21:19 Urine WBC 2 /hpf (3-5) 08/06/17 21:19 Urine Mucus Rare 08/06/17 21:19 RPR Titer Nonreactive (NONREACTIVE) 08/07/17 07:50 TOOTHACHE/INFECTION - Treatment Hospital Course: Detox Protocol Followed, Detoxed Safely, Responded well, Discharged Condition Good - Medication Discharge Medications: Ambulatory Orders Trazodone HCl [Desyrel -] 150 mg PO HS 08/28/14 Trazodone HCl [Desyrel -] 150 mg PO HS #30 tablet 08/29/14 Trazodone HCl [Desyrel -] 150 mg PO HS #30 tablet 08/08/17 Amoxicillin - [Amoxicillin 250mg Capsule -] 750 mg PO BID #10 cap 08/11/17 - Diagnosis (1) Alcohol dependence with uncomplicated withdrawal Status: Acute (2) Nicotine dependence Status: Acute Qualifiers: Nicotine product type: cigarettes Substance use status: in withdrawal Qualified Code(s): F17.213 - Nicotine dependence, cigarettes, with withdrawal (3) Opioid dependence with withdrawal Status: Acute (4) Drug-induced mood disorder Status: Acute (5) Depressive disorder Status: Chronic (6) Insomnia Status: Chronic (7) Gingival abscess Status: Acute - AMA Did Patient Leave Against Medical Advice: No
[2017-08-11 09:57] VITALS: BP 112/77; PULSE 78; TEMP 97.8
[2017-08-11] MEDS: PRENATAL VITAMINS W/ FOLIC ACID TABLET (FP) PO SCH (10:15)
[2017-08-11] MEDS: NAPROXEN 500 MG TABLET (FP) PO SCH (10:16)
[2017-08-11] MEDS: AMOXICILLIN 250 MG CAPSULE PO SCH (10:16)
[2017-08-11] MEDS: PANTOPRAZOLE 40 MG TABLET (FP) PO SCH (10:16)
[2017-08-11] MEDS: NICOTINE 21 MG/24 HOURS TOPICAL PATCH TD SCH (10:16)
== END 2017-08-11 10:41 | disposition home or self-care (01) | DRG 773 ==
LOC: YASAS 13:43 → Y3N 16:34
PROVIDERS: ADMIT Internal Medicine Addiction Medicine; ATTEND Internal Medicine Addiction Medicine
PROC: HZ2ZZZZ Detoxification Services for Substance Abuse Treatment (ICD-10-PCS; principal; 2017-08-06)
DX: F11.23 Opioid dependence with withdrawal (principal); F10.230 Alcohol dependence with withdrawal, uncomplicated; F12.20 Cannabis dependence, uncomplicated; F17.213 Nicotine dependence, cigarettes, with withdrawal; F19.24 Other psychoactive substance dependence with psychoactive substance-induced mood disorder; F32.9 Major depressive disorder, single episode, unspecified; G47.00 Insomnia, unspecified; K05.219 Aggressive periodontitis, localized, unspecified severity
CPT/HCPCS: 36415; 80053; 81003; 81015; 85027; 86593; 93005; 93010

== ENCOUNTER 2017-10-06 10:41 | Inpatient (IN) | payer OTHER ==
[2017-10-06 11:53] VITALS: BMI 22.1
--- NOTE | 2017-10-06 15:00 | HP ---
COWS - Scale Resting Pulse: 1= [place] 81-100 Sweatin=Flushed/Facial Moisture Restless Observation: 1= Difficult to Sit Still Pupil Size: 0= Normal to Room Light Bone or Joint Aches: 2= Severe Diffuse Aches Runny Nose/ Eye Tearin= Runny Nose/Eyes GI Upset > 30mins: 1= Stomach Cramp Tremor Observation: 2= Slight Tremor Visible Yawning Observation: 2= >3x During Session Anxiety or Irritability: 2=Irritable/Anxious Goose Flesh Skin: 3=Piloerection COWS Score: 18 CIWA Score - CIWA Score Nausea/Vomitin-Mild Nausea/No Vomiting Muscle Tremors: 4-Moderate,w/Arms Extend Anxiety: 4-Mod. Anxious/Guarded Agitation: 4-Moderately Restless Paroxysmal Sweats: 3 Orientation: 0-Oriented Tacttile Disturbances: 0-None Auditory Disturbances: 0-None Visual Disturbances: 0-None Headache: 1-Very Mild CIWA-Ar Total Score: 17 Admission ROS S - HPI Chief Complaint: I am here for detox. Allergies/Adverse Reactions: Allergies Allergy/AdvReac Type Severity Reaction Status Date / Time Fish Containing Products Allergy Severe Swelling Verified 10/06/17 13:14 No Known Drug Allergies Allergy Verified 10/06/17 13:14 History of Present Illness: pt is a 47yr old male with a history of alcohol and heroin dependence seeking detox for treatment. Exam Limitations: No Limitations - Ebola screening Have you traveled outside of the country in the last 21 days: No Have you had contact with anyone from an Ebola affected area: No Have you been sick,other than usual withdrawal symptoms: No Do you have a fever: No - Review of Systems Constitutional: Chills, Diaphoresis, Loss of Appetite, Changes in sleep EENT: reports: Blurred Vision, Tearing, Nose Congestion Respiratory: reports: No Symptoms reported Cardiac: reports: No Symptoms Reported GI: reports: Diarrhea, Poor Appetite, Poor Fluid Intake : reports: No Symptoms Reported Musculoskeletal: reports: No Symptoms Reported Integumentary: reports: Flushing, Sweating Neuro: reports: Tingling, Tremors Endocrine: reports: Excessive Sweating, Flushing, Intolerance to Cold, Intolerance to Heat Hematology: reports: No Symptoms Reported Psychiatric: reports: Judgement Intact, Mood/Affect Appropiate, Orientated x3, Agitated, Anxious Other Systems: Reviewed and Negative Patient History - Patient Medical History Hx Anemia: No Hx Asthma: No Hx Chronic Obstructive Pulmonary Disease (COPD): No Hx Cancer: No Hx Cardiac Disorders: No Hx Congestive Heart Failure: No Hx Hypertension: No Hx Hypercholesterolemia: No Hx Pacemaker: No HX Cerebrovascular Accident: No Hx Seizures: No Hx Dementia: No Hx Diabetes: No Hx Gastrointestinal Disorders: No Hx Liver Disease: No Hx Genitourinary Disorders: No Hx Sexually Transmitted Disorders: No Hx Renal Disease (ESRD): No Hx Thyroid Disease: No Hx Human Immunodeficiency Virus (HIV): No (negative) Hx Hepatitis C: No (negative) Hx Depression: Yes Hx Suicide Attempt: No (denies) Hx Bipolar Disorder: No Hx Schizophrenia: No - Patient Surgical History Past Surgical History: No Hx Neurologic Surgery: No Hx Cataract Extraction: No Hx Cardiac Surgery: No Hx Lung Surgery: No Hx Breast Surgery: No Hx Breast Biopsy: No Hx Abdominal Surgery: No Hx Appendectomy: No Hx Cholecystectomy: No Hx Genitourinary Surgery: No Hx Section: No Hx Orthopedic Surgery: No Anesthesia Reaction: No - PPD History Previous Implant?: Yes Documented Results: Negative w/proof Implanted On Prior R Admission?: Yes Date: 08/08/17 Results: 0 MM PPD to be Administered?: No - Reproductive History Patient is a Female of Child Bearing Age (11 -55 yrs old): No - Smoking Cessation Smoking history: Current every day smoker Have you smoked in the past 12 months: Yes Aproximately how many cigarettes per day: 20 Cigars Per Day: 0 Hx Chewing Tobacco Use: No Initiated information on smoking cessation: Yes 'Breaking Loose' booklet given: 10/06/17 - Substance & Tx. History Hx Alcohol Use: Yes Hx Substance Use: Yes Substance Use Type: Alcohol, Heroin Hx Substance Use Treatment: Yes (last detox 08/14 [facility]) - Substances Abused Heroin Route: Injection Frequency: Daily Amount used: 10-12 BAGS Age of first use: 21 Date of Last Use: 10/06/17 Alcohol Route: Oral Frequency: Daily Amount used: 2 PINTS Age of first use: 16 Date of Last Use: 10/05/17 Family Disease History - Family Disease History Family Disease History: Heart Disease: Mother (htn,ovarian ca.), CA: Mother Admission Physical Exam BHS - Vital Signs Vital Signs: Vital Signs - 24 hr 10/06/17 11:51 Temperature 97.4 F L Pulse Rate 83 Respiratory 20 Rate Blood Pressure 122/80 - Physical General Appearance: Yes: Appropriately Dressed, Moderate Distress, Tremorous, Irritable, Sweating, Anxious HEENTM: Yes: Hearing grossly Normal, Normal Voice, Nasal Congestion, Rhinorrhea Respiratory: Yes: Lungs Clear, Normal Breath Sounds, No Respiratory Distress Neck: Yes: No masses,lesions,Nodules Breast: Yes: Within Normal Limits Cardiology: Yes: Regular Rhythm, Regular Rate, S1, S2 Abdominal: Yes: Normal Bowel Sounds, Non Tender, Soft Genitourinary: Yes: Within Normal Limits Back: Yes: Normal Inspection Musculoskeletal: Yes: full range of Motion, Back pain Extremities: Yes: Normal Capillary Refill, Normal Inspection, Tremors Neurological: Yes: Fully Oriented, Alert, Normal Response Integumentary: Yes: Normal Color, Diaphoresis, Track Patel Lymphatic: Yes: Within Normal Limits - Diagnostic (1) Alcohol dependence with uncomplicated withdrawal Current Visit: Yes Status: Chronic (2) Nicotine dependence Current Visit: Yes Status: Chronic Qualifiers: Nicotine product type: cigarettes Substance use status: uncomplicated Qualified Code(s): F17.210 - Nicotine dependence, cigarettes, uncomplicated (3) Opioid dependence with withdrawal Current Visit: Yes Status: Chronic Cleared for Admission [facility] - Detox or Rehab [facility] Level of Care: Medically Managed Detox Regimen/Protocol: Methadone/Librium [facility] Breath Alcohol Content Breath Alcohol Content: 0 Urine Drug Screen - Results Drug Screen Negative: No Urine Drug Screen Results: OPI-Opiates, BZO-Benzodiazepines
[2017-10-06] MEDS ORDERED: MAGNESIUM CITRATE 300 ML BOTTLE PO PRN (15:02)
[2017-10-06] MEDS ORDERED: MAG HYDROX/AL HYDROX/SIMETH 30 ML UNIT-DOSE CUP PO PRN (15:02)
[2017-10-06] MEDS ORDERED: MAGNESIUM HYDROX 2400MG/30ML ORAL SUSPENSION 30 ML CUP PO PRN (15:02)
[2017-10-06] MEDS ORDERED: guaiFENesin/D-METHORPHAN HB 10 ML UNIT-DOSE CUPS PO PRN (15:02)
[2017-10-06] MEDS ORDERED: IBUPROFEN 400 MG TABLET (FP) PO PRN (15:02)
[2017-10-06] MEDS ORDERED: LOPERAMIDE HCL 2 MG CAPSULE PO PRN (15:02)
[2017-10-06] MEDS ORDERED: NICOTINE POLACRILEX 4 MG GUM BC PRN (15:02)
[2017-10-06] MEDS ORDERED: P-EPHED 60MG/TRIPROLIDI 2.5MG TABLET PO PRN (15:02)
[2017-10-06] MEDS ORDERED: MENTHOL/PHENOL 1 EACH UD MM PRN (15:02)
[2017-10-06] MEDS ORDERED: ACETAMINOPHEN 325 MG TABLET (FP) PO PRN (15:02)
[2017-10-06] MEDS ORDERED: chlordiazePOXIDE HCL 25 MG CAPSULE PO ONE (15:39)
[2017-10-06] MEDS ORDERED: METHADONE HCL 10 MG TABLET (FOR DETOX USE ONLY) PO ONE ×2 (15:39→23:00)
[2017-10-06] MEDS: chlordiazePOXIDE HCL 25 MG CAPSULE PO SCH ×2 (17:13→22:51)
[2017-10-06 22:08] LABS: URINE APPEARANCE SLCLOUDY; URINE BILIRUBIN NEGATIVE (NEGATIVE); URINE BLOOD NEGATIVE (NEGATIVE); URINE COLOR YELLOW; URINE GLUCOSE (UA) NEGATIVE (NEGATIVE); URINE KETONE NEGATIVE (NEGATIVE); URINE NITRITE NEGATIVE (NEGATIVE); URINE PROTEIN NEGATIVE (NEGATIVE); URINE UROBILINOGEN NEGATIVE mg/dL (0.2-1.0)
[2017-10-06] MEDS: THIAMINE HCL 100 MG TABLET (FP) PO SCH (22:50)
[2017-10-07] MEDS: chlordiazePOXIDE HCL 25 MG CAPSULE PO SCH ×4 (05:50→22:20)
[2017-10-07 09:45] LABS: MCH 28.1 pg (25.7-33.7); MCHC 33.4 g/dl (32.0-35.9); MEAN CELL VOLUME 84.2 fl (80-96); MEAN PLT VOLUME 8.4 fl (7.5-11.1); PLATELET COUNT 170 K/MM3 (134-434); RDW 15.3 % (11.9-15.9); WHITE BLOOD COUNT 8.3 K/mm3 (4.0-10.0)
[2017-10-07] MEDS ORDERED: METHADONE HCL 10 MG TABLET (FOR DETOX USE ONLY) PO SCH (10:00)
--- NOTE | 2017-10-07 10:37 | PN ---
[facility] CIWA - CIWA Score Nausea/Vomitin Muscle Tremors: 3 Anxiety: 3 Agitation: 3 Paroxysmal Sweats: 1-Minimal Palms Moist Orientation: 0-Oriented Tacttile Disturbances: 1-Very Mild Itch/Numbness Auditory Disturbances: 1-Very Mild Visual Disturbances: 0-None Headache: 2-Mild CIWA-Ar Total Score: 17 BHS COWS - Scale Resting Pulse: 0= [place] 80 or Below Sweatin= Chills/Flushing Restless Observation: 3= Extraneous Movement Pupil Size: 1= Pupils >than Normal Bone or Joint Aches: 2= Severe Diffuse Aches Runny Nose/ Eye Tearin= Runny Nose/Eyes GI Upset > 30mins: 2= Nausea/Diarrhea Tremor Observation of Outstretched Hands: 2= Slight Tremor Visible Yawning Observation: 1= 1-2x During Session Anxiety or Irritability: 2=Irritable/Anxious Goose Flesh Skin: 0=Smooth Skin COWS Score: 16 S Progress Note (SOAP) Subjective: alert,irritable,anxious,interrupted sleep,pain in the body and back,tremor Objective: 10/07/17 10:35 Vital Signs Temperature 94.6 F L 10/07/17 10:18 Pulse Rate 73 10/07/17 10:18 Respiratory Rate 20 10/07/17 10:18 Blood Pressure 107/73 10/07/17 10:18 O2 Sat by Pulse Oximetry (%) ekg nsr,normal ecg Laboratory Last Values WBC 8.3 K/mm3 (4.0-10.0) 10/07/17 06:05 RBC 4.87 M/mm3 (4.00-5.60) D 10/07/17 06:05 Hgb 13.7 GM/dL (11.7-16.9) D 10/07/17 06:05 Hct 41.0 % (35.4-49) D 10/07/17 06:05 MCV 84.2 fl (80-96) 10/07/17 06:05 MCH 28.1 pg (25.7-33.7) 10/07/17 06:05 MCHC 33.4 g/dl (32.0-35.9) 10/07/17 06:05 RDW 15.3 % (11.9-15.9) 10/07/17 06:05 Plt Count 170 K/MM3 (134-434) D 10/07/17 06:05 MPV 8.4 fl (7.5-11.1) 10/07/17 06:05 Urine Color Yellow 10/06/17 21:50 Urine Appearance Slcloudy 10/06/17 21:50 Urine pH 5.0 (5.0-8.0) D 10/06/17 21:50 Ur Specific [place] 1.016 (1.001-1.035) 10/06/17 21:50 Urine Protein Negative (NEGATIVE) 10/06/17 21:50 Urine Glucose (UA) Negative (NEGATIVE) 10/06/17 21:50 Urine Ketones Negative (NEGATIVE) 10/06/17 21:50 Urine Blood Negative (NEGATIVE) 10/06/17 21:50 Urine Nitrite Negative (NEGATIVE) 10/06/17 21:50 Urine Bilirubin Negative (NEGATIVE) 10/06/17 21:50 Urine Urobilinogen Negative mg/dL (0.2-1.0) 10/06/17 21:50 labs pending Assessment: 10/07/17 10:36 withdrawal symptom Plan: continue detox
[2017-10-07 10:51] LABS: URINE LEUK ESTERASE Negative (NEGATIVE)
[2017-10-07] MEDS: PRENATAL VITAMINS W/ FOLIC ACID TABLET (FP) PO SCH (10:53)
[2017-10-07] MEDS: NICOTINE 21 MG/24 HOURS TOPICAL PATCH TD SCH (10:56)
[2017-10-07 11:09] LABS: ALBUMIN 4.1 g/dl (3.4-5.0); ANION GAP 5 (8-16); CALCIUM 8.4 mg/dL (8.5-10.1); CO2 31 mmol/L (21-32); GLUCOSE,RANDOM 95 mg/dL (74-106)
[2017-10-07 11:11] LABS: ALK PHOS 76 U/L (45-117); BILIRUBIN,TOTAL 0.8 mg/dL (0.2-1.0); SGOT/AST 15 U/L (15-37); SGPT/ALT 21 U/L (12-78); TOT PROT 7.3 g/dl (6.4-8.2)
[2017-10-07] MEDS: chlordiazePOXIDE HCL 25 MG CAPSULE PO PRN (14:22)
--- NOTE | 2017-10-07 17:45 | CONSULT ---
[facility] Psychiatric Consult - Data Date of interview: 10/07/17 Admission source: [facility] Identifying data: Another admission to [facility] for this 47 y/o male seeking detox treatment on for alcohol,marihuana and heroin dependence.Patient is single without children,homeless,unemployed and supported on food stamps. Substance Abuse History: Mr Oconnor admits to active use of alcohol,heroin and occasional exposure to cannabis. Smoking history: Current every day smoker. Have you smoked in the past 12 months: Yes. Aproximately how many cigarettes per day: 20. Cigars Per Day: 0. Hx Chewing Tobacco Use: No. Initiated information on smoking cessation: Yes. 'Breaking Loose' booklet given: . - Substance & Tx. History. Hx Alcohol Use: Yes. Hx Substance Use: Yes. Substance Use Type: Alcohol, Heroin. Hx Substance Use Treatment: Yes (last detox 08/14 [facility]). - Substances Abused. Heroin. Route: Injection. Frequency: Daily. Amount used: 10-12 BAGS. Age of first use: 21. Date of Last Use: 10/06/17. Alcohol. Route: Oral. Frequency: Daily. Amount used: 2 PINTS. Age of first use: 16. Date of Last Use: 10/05/17 Medical History: No report of medical problems. Psychiatric History: History of one psychiatric hospitalization at [facility] (December 2016).Diagnosed with MDD and Anxiety Disorder.Mr Oconnor indicates that he sees a psychiatrist at [facility] [place].Managed with zoloft and trazodone. No reported history of suicide attempts. Physical/Sexual Abuse/Trauma History: Patient denies. Additional Comment: Urine Drug Screen Results: OPI-Opiates, BZO- Benzodiazepines.Noted. Mental Status Exam - Mental Status Exam Alert and Oriented to: Time, Place, Person Cognitive Function: Good Patient Appearance: Well Groomed Mood: Hopeful, Euthymic Affect: Appropriate, Normal Range Patient Behavior: Fatigued, Appropriate, Cooperative Speech Pattern: Clear, Appropriate Voice Loudness: Normal Thought Process: Intact, Goal Oriented Thought Disorder: Not Present Hallucinations: Denies Suicidal Ideation: Denies Homicidal Ideation: Denies Insight/Judgement: Poor Sleep: Poorly, Difficulty falling asleep (wants trazodone) Appetite: Good Muscle strength/Tone: Normal Gait/Station: Normal Psychiatric Findings - Problem List ([place] 1, 2,3) (1) Alcohol dependence with uncomplicated withdrawal Current Visit: Yes Status: Acute (2) Opioid dependence with withdrawal Current Visit: Yes Status: Chronic (3) Nicotine dependence Current Visit: Yes Status: Acute Qualifiers: Nicotine product type: cigarettes Substance use status: uncomplicated Qualified Code(s): F17.210 - Nicotine dependence, cigarettes, uncomplicated (4) Drug-induced mood disorder Current Visit: Yes Status: Acute (5) Insomnia Current Visit: No Status: Acute - Initial Treatment Plan Initial Treatment Plan: Psychoeducation.Sleep hygiene.Detoxification in progress.Trazodone 100 mg po hs.Patient is made aware of potential for priapism.He agrees with this plan of care.Declines to resume sertraline.Observation.
[2017-10-07] MEDS: THIAMINE HCL 100 MG TABLET (FP) PO SCH (22:20)
[2017-10-08] MEDS: traZODone HCL 100 MG TABLET (FP) PO SCH ×2 (00:20→22:37)
[2017-10-08] MEDS: chlordiazePOXIDE HCL 25 MG CAPSULE PO SCH ×2 (06:20→10:50)
[2017-10-08] MEDS: PRENATAL VITAMINS W/ FOLIC ACID TABLET (FP) PO SCH (10:50)
[2017-10-08] MEDS: METHADONE HCL 5 MG TABLET (FOR DETOX USE ONLY) PO SCH (10:50)
[2017-10-08] MEDS: NICOTINE 21 MG/24 HOURS TOPICAL PATCH TD SCH (10:51)
--- NOTE | 2017-10-08 11:42 | PN ---
BHS COWS - Scale Resting Pulse: 0= [place] 80 or Below Sweatin= Chills/Flushing Restless Observation: 3= Extraneous Movement Pupil Size: 1= Pupils >than Normal Bone or Joint Aches: 2= Severe Diffuse Aches Runny Nose/ Eye Tearin= Runny Nose/Eyes GI Upset > 30mins: 2= Nausea/Diarrhea Tremor Observation of Outstretched Hands: 2= Slight Tremor Visible Yawning Observation: 1= 1-2x During Session Anxiety or Irritability: 2=Irritable/Anxious Goose Flesh Skin: 0=Smooth Skin COWS Score: 16 BHS Progress Note (SOAP) Subjective: alert,irritable,anxious,interrupted sleep,pain in the body and back Objective: 10/08/17 11:42 Vital Signs Temperature 97.3 F L 10/08/17 10:37 Pulse Rate 76 10/08/17 10:37 Respiratory Rate 18 10/08/17 10:37 Blood Pressure 116/79 10/08/17 10:37 O2 Sat by Pulse Oximetry (%) Laboratory Last Values WBC 8.3 K/mm3 (4.0-10.0) 10/07/17 06:05 RBC 4.87 M/mm3 (4.00-5.60) D 10/07/17 06:05 Hgb 13.7 GM/dL (11.7-16.9) D 10/07/17 06:05 Hct 41.0 % (35.4-49) D 10/07/17 06:05 MCV 84.2 fl (80-96) 10/07/17 06:05 MCH 28.1 pg (25.7-33.7) 10/07/17 06:05 MCHC 33.4 g/dl (32.0-35.9) 10/07/17 06:05 RDW 15.3 % (11.9-15.9) 10/07/17 06:05 Plt Count 170 K/MM3 (134-434) D 10/07/17 06:05 MPV 8.4 fl (7.5-11.1) 10/07/17 06:05 Sodium 138 mmol/L (136-145) 10/07/17 06:05 Potassium 4.2 mmol/L (3.5-5.1) 10/07/17 06:05 Chloride 102 mmol/L (98-107) 10/07/17 06:05 Carbon Dioxide 31 mmol/L (21-32) 10/07/17 06:05 Anion Gap 5 (8-16) L 10/07/17 06:05 BUN 10 mg/dL (7-18) 10/07/17 06:05 Creatinine 1.0 mg/dL (0.7-1.3) D 10/07/17 06:05 Creat Clearance w eGFR > 60 (>60) 10/07/17 06:05 Random Glucose 95 mg/dL (74-106) D 10/07/17 06:05 Calcium 8.4 mg/dL (8.5-10.1) L 10/07/17 06:05 Total Bilirubin 0.8 mg/dL (0.2-1.0) D 10/07/17 06:05 AST 15 U/L (15-37) D 10/07/17 06:05 ALT 21 U/L (12-78) 10/07/17 06:05 Alkaline Phosphatase 76 U/L (45-117) D 10/07/17 06:05 Total Protein 7.3 g/dl (6.4-8.2) 10/07/17 06:05 Albumin 4.1 g/dl (3.4-5.0) D 10/07/17 06:05 Urine Color Yellow 10/06/17 21:50 Urine Appearance Slcloudy 10/06/17 21:50 Urine pH 5.0 (5.0-8.0) D 10/06/17 21:50 Ur Specific [place] 1.016 (1.001-1.035) 10/06/17 21:50 Urine Protein Negative (NEGATIVE) 10/06/17 21:50 Urine Glucose (UA) Negative (NEGATIVE) 10/06/17 21:50 Urine Ketones Negative (NEGATIVE) 10/06/17 21:50 Urine Blood Negative (NEGATIVE) 10/06/17 21:50 Urine Nitrite Negative (NEGATIVE) 10/06/17 21:50 Urine Bilirubin Negative (NEGATIVE) 10/06/17 21:50 Urine Urobilinogen Negative mg/dL (0.2-1.0) 10/06/17 21:50 Ur Leukocyte Esterase Negative (NEGATIVE) 10/06/17 21:50 RPR Titer Nonreactive (NONREACTIVE) 10/07/17 06:05 Assessment: 10/08/17 11:43 withdrawal symptom Plan: continue detox
[2017-10-08] MEDS: chlordiazePOXIDE HCL 25 MG CAPSULE PO PRN (14:17)
[2017-10-08] MEDS: hydrOXYzine PAMOATE 50 MG CAPSULE (FP) PO PRN (14:17)
--- NOTE | 2017-10-08 16:46 | EKG ---
Test Reason : Blood Pressure : / mmHG Vent. Rate : 077 BPM Atrial Rate : 077 BPM P-R Int : 128 ms QRS Dur : 082 ms QT Int : 362 ms P-R-T Axes : 069 070 065 degrees QTc Int : 409 ms POOR DATA QUALITY, INTERPRETATION MAY BE ADVERSELY AFFECTED NORMAL SINUS RHYTHM NORMAL ECG WHEN COMPARED WITH ECG OF 06-AUG-2017 18:25, NO SIGNIFICANT CHANGE WAS FOUND Confirmed by BERNARDA WHYTE MD ([id number]) on 10/08/2017 4:45:56 PM Referred By: ASTRID WARD Confirmed By:BERNARDA WHYTE MD
[2017-10-08] MEDS: chlordiazePOXIDE 5 MG CAPSULE PO SCH ×2 (17:19→22:36)
[2017-10-08] MEDS: THIAMINE HCL 100 MG TABLET (FP) PO SCH (22:36)
[2017-10-09] MEDS: chlordiazePOXIDE 5 MG CAPSULE PO SCH ×2 (06:03→10:51)
--- NOTE | 2017-10-09 10:19 | PN ---
BHS Progress Note (SOAP) Subjective: alert,irritable,anxious,interrupted sleep,tremor,pain in the body Objective: 10/09/17 10:18 Vital Signs Temperature 98.1 F 10/09/17 06:07 Pulse Rate 70 10/09/17 06:07 Respiratory Rate 18 10/09/17 06:07 Blood Pressure 102/56 10/09/17 06:07 O2 Sat by Pulse Oximetry (%) Assessment: 10/09/17 10:18 withdrawal symptom Plan: continue detox
[2017-10-09] MEDS: hydrOXYzine PAMOATE 50 MG CAPSULE (FP) PO PRN ×2 (10:51→18:06)
[2017-10-09] MEDS: PRENATAL VITAMINS W/ FOLIC ACID TABLET (FP) PO SCH (10:51)
[2017-10-09] MEDS: METHADONE HCL 5 MG TABLET (FOR DETOX USE ONLY) PO SCH (10:51)
[2017-10-09] MEDS: NICOTINE 21 MG/24 HOURS TOPICAL PATCH TD SCH (10:56)
[2017-10-09] MEDS: chlordiazePOXIDE HCL 25 MG CAPSULE PO PRN (15:02)
[2017-10-09] MEDS: chlordiazePOXIDE HCL 10 MG CAPSULE PO SCH ×2 (18:06→22:30)
[2017-10-09] MEDS: THIAMINE HCL 100 MG TABLET (FP) PO SCH (22:30)
[2017-10-09] MEDS: traZODone HCL 100 MG TABLET (FP) PO SCH (22:30)
[2017-10-10] MEDS: chlordiazePOXIDE HCL 10 MG CAPSULE PO SCH ×2 (06:25→10:38)
--- NOTE | 2017-10-10 09:53 | PN ---
S Progress Note (SOAP) Subjective: alert,irritable,anxious,interrupted sleep Objective: 10/10/17 09:52 Vital Signs Temperature 97.5 F L 10/10/17 09:39 Pulse Rate 79 10/10/17 09:39 Respiratory Rate 18 10/10/17 09:39 Blood Pressure 106/70 10/10/17 09:39 O2 Sat by Pulse Oximetry (%) Assessment: 10/10/17 09:52 withdrawal symptom Plan: continue detox,discharge in am
[2017-10-10] MEDS ORDERED: METHADONE HCL 10 MG TABLET (FOR DETOX USE ONLY) PO SCH (10:00)
[2017-10-10] MEDS: PRENATAL VITAMINS W/ FOLIC ACID TABLET (FP) PO SCH (10:38)
[2017-10-10] MEDS: NICOTINE 21 MG/24 HOURS TOPICAL PATCH TD SCH (10:38)
[2017-10-10] MEDS: hydrOXYzine PAMOATE 50 MG CAPSULE (FP) PO PRN ×2 (10:40→22:10)
[2017-10-10] MEDS: traZODone HCL 100 MG TABLET (FP) PO SCH (22:09)
[2017-10-10] MEDS: THIAMINE HCL 100 MG TABLET (FP) PO SCH (22:09)
[2017-10-11] MEDS: hydrOXYzine PAMOATE 50 MG CAPSULE (FP) PO PRN ×2 (05:51→10:26)
[2017-10-11] MEDS ORDERED: METHADONE HCL 5 MG TABLET (FOR DETOX USE ONLY) PO SCH (06:00)
--- NOTE | 2017-10-11 08:52 | DS ---
[facility] Detox Discharge Summary Admission Date: 10/06/17 Discharge Date: 10/11/17 - History Present History: Alcohol Dependence, Opioid Dependence Additional Comments: follow up with after care program as arrangement Pertinent Past History: nicotine dependence - Physical Exam Results Vital Signs: Vital Signs Temperature 98.1 F 10/11/17 06:00 Pulse Rate 75 10/11/17 06:00 Respiratory Rate 18 10/11/17 06:00 Blood Pressure 106/65 10/11/17 06:00 O2 Sat by Pulse Oximetry (%) Pertinent Admission Physical Exam Findings: withdrawal symptom - Treatment Hospital Course: Detox Protocol Followed, Detoxed Safely, Responded well, Discharged Condition Good, Rehab Referral Accepted Patient has Accepted [facility] - Medication Discharge Medications: Ambulatory Orders Trazodone HCl [Desyrel -] 150 mg PO HS #30 tablet 08/08/17 - Diagnosis (1) Alcohol dependence with uncomplicated withdrawal Current Visit: Yes Status: Acute (2) Nicotine dependence Current Visit: Yes Status: Acute Qualifiers: Nicotine product type: cigarettes Substance use status: uncomplicated Qualified Code(s): F17.210 - Nicotine dependence, cigarettes, uncomplicated (3) Opioid dependence with withdrawal Current Visit: Yes Status: Chronic - AMA Did Patient Leave Against Medical Advice: No
[2017-10-11] MEDS: PRENATAL VITAMINS W/ FOLIC ACID TABLET (FP) PO SCH (10:24)
[2017-10-11] MEDS: NICOTINE 21 MG/24 HOURS TOPICAL PATCH TD SCH (10:24)
[2017-10-11 13:02] VITALS: BP 111/76; PULSE 90; TEMP 98.3
== END 2017-10-11 14:40 | disposition other institution (70) | DRG 773 ==
LOC: YASAS 10:41 → Y6N 15:24
PROVIDERS: ADMIT Internal Medicine; ATTEND Internal Medicine
PROC: HZ2ZZZZ Detoxification Services for Substance Abuse Treatment (ICD-10-PCS; principal; 2017-10-06)
DX: F11.23 Opioid dependence with withdrawal (principal); F10.230 Alcohol dependence with withdrawal, uncomplicated; F17.210 Nicotine dependence, cigarettes, uncomplicated; F19.24 Other psychoactive substance dependence with psychoactive substance-induced mood disorder; G47.00 Insomnia, unspecified; Z59.0 Homelessness
CPT/HCPCS: 36415; 80053; 81003; 85027; 86593; 93005; 93010

== ENCOUNTER 2017-10-11 14:44 | Inpatient (IN) | payer OTHER ==
[2017-10-11] MEDS ORDERED: LOPERAMIDE HCL 2 MG CAPSULE PO PRN (14:59)
[2017-10-11] MEDS ORDERED: NICOTINE POLACRILEX 2 MG GUM BUC PRN (14:59)
[2017-10-11] MEDS ORDERED: MAGNESIUM HYDROX 2400MG/30ML ORAL SUSPENSION 30 ML CUP PO PRN (14:59)
[2017-10-11] MEDS ORDERED: IBUPROFEN 400 MG TABLET (FP) PO PRN (14:59)
[2017-10-11] MEDS ORDERED: MENTHOL/PHENOL 1 EACH UD MM PRN (14:59)
[2017-10-11] MEDS ORDERED: MAGNESIUM CITRATE 300 ML BOTTLE PO PRN (14:59)
[2017-10-11] MEDS ORDERED: ACETAMINOPHEN 325 MG TABLET (FP) PO PRN (14:59)
[2017-10-11] MEDS ORDERED: guaiFENesin/D-METHORPHAN HB 10 ML UNIT-DOSE CUPS PO PRN (14:59)
[2017-10-11] MEDS ORDERED: P-EPHED 60MG/TRIPROLIDI 2.5MG TABLET PO PRN (14:59)
--- NOTE | 2017-10-11 14:59 | HP ---
[facility] Rehab Assess/Revision - Admission History Admitted to Rehab from: [facility] Date of Admission to Rehab: 10/11/2017 - Vital signs Vital Signs: as per medical record - Findings Detox History & Physical reviewed: Yes Concur with findings: Yes Inpatient Rehab Admission - Initial Determination Are CD services needed?: Yes Free of communicable disease: Yes Not in need of hospitalization: Yes - Rehab Admission Criteria Comorbidities: Yes Patient is meeting Inpatient Rehab admission criteria:: Yes
--- NOTE | 2017-10-11 15:21 | HP ---
Psychiatrist Admission - Data Date of interview: 10/11/17 Admission source: 6N Identifying data: This is the first 5N inpatient rehabilitation admision for this 47 year old single male who is unemployed, supported on food stamps and homeless. Medical History: Reports a good physical healith, smokes cigaretets 1 PPD. Psychiatric History: Patient reports that while attending outpatient treatment program he was referred to [facility] due to severe depression, crying spell in 01/14 was aditted for 7 days, discgnosed as MDD and Anxiety, treated with Zoloft and Atarax. Reports he sees the psychiatrist at [facility] in [place], reports most recent medications Tazodone 150 mg, seen by and continued meds. Physical/Sexual Abuse/Trauma History: Denies history of sexual, physical and verbal abuse. Allergies/Adverse Reactions: Allergies Allergy/AdvReac Type Severity Reaction Status Date / Time Fish Containing Products Allergy Severe Swelling Verified 10/06/17 13:14 No Known Drug Allergies Allergy Verified 10/06/17 13:14 Concur with the findings of this exam: Yes - Substance Abuse/Tx History Hx Alcohol Use: Yes (first drink at age of 16, daily 2 pints) Hx Substance Use: Yes Substance Use Type: Heroin (started at age of 21, daily injecting 10-12 bags) Hx Substance Use Treatment: Yes ([facility]) Mental Status Exam - Mental Status Exam Alert and Oriented to: Time, Place, Person Cognitive Function: Grossly Intact Patient Appearance: Well Groomed Mood: Sad, Anxious Affect: Appropriate, Mood Congruent Patient Behavior: Appropriate, Cooperative Speech Pattern: Clear, Appropriate Voice Loudness: Normal Thought Process: Intact, Goal Oriented Thought Disorder: Not Present Hallucinations: Denies Suicidal Ideation: Denies Homicidal Ideation: Denies Insight/Judgement: Fair Sleep: Fair Appetite: Fair Muscle strength/Tone: Normal Gait/Station: Normal Psychiatric Findings - Problem List ([place] 1, 2,3) (1) Alcohol dependence Current Visit: Yes Status: Acute (2) Opioid dependence Current Visit: Yes Status: Acute (3) Drug-induced mood disorder Current Visit: No Status: Acute (4) Nicotine dependence Current Visit: No Status: Acute Qualifiers: Nicotine product type: cigarettes Substance use status: uncomplicated Qualified Code(s): F17.210 - Nicotine dependence, cigarettes, uncomplicated - Initial Treatment Plan Initial Treatment Plan: Will continue his medications, monitor progress as needed.
[2017-10-11] MEDS: traZODone HCL 50 MG TABLET (FP) PO SCH (21:04)
[2017-10-11] MEDS: THIAMINE HCL 100 MG TABLET (FP) PO SCH (21:04)
[2017-10-11] MEDS: hydrOXYzine PAMOATE 50 MG CAPSULE (FP) PO PRN (21:05)
[2017-10-12] MEDS: PRENATAL VITAMINS W/ FOLIC ACID TABLET (FP) PO SCH (09:37)
[2017-10-12] MEDS: NICOTINE 14 MG/24 HOURS TOPICAL PATCH TD SCH (09:37)
[2017-10-12] MEDS: hydrOXYzine PAMOATE 50 MG CAPSULE (FP) PO PRN ×2 (09:38→21:04)
[2017-10-12 11:03] LABS: HIV 1 & 2 AB NEGATIVE; HIV 1 AGp24 NEGATIVE
[2017-10-12] MEDS: THIAMINE HCL 100 MG TABLET (FP) PO SCH (21:03)
[2017-10-12] MEDS: traZODone HCL 50 MG TABLET (FP) PO SCH (21:03)
[2017-10-12] MEDS: NAPROXEN 500 MG TABLET (FP) PO PRN (21:05)
[2017-10-13] MEDS: MAG HYDROX/AL HYDROX/SIMETH 30 ML UNIT-DOSE CUP PO PRN ×2 (04:05→18:41)
[2017-10-13] MEDS: PRENATAL VITAMINS W/ FOLIC ACID TABLET (FP) PO SCH (09:46)
[2017-10-13] MEDS: NAPROXEN 500 MG TABLET (FP) PO PRN ×2 (09:47→21:06)
[2017-10-13] MEDS: hydrOXYzine PAMOATE 50 MG CAPSULE (FP) PO PRN ×2 (09:47→21:06)
[2017-10-13] MEDS: NICOTINE 14 MG/24 HOURS TOPICAL PATCH TD SCH (09:48)
[2017-10-13] MEDS: THIAMINE HCL 100 MG TABLET (FP) PO SCH (21:06)
[2017-10-13] MEDS: traZODone HCL 50 MG TABLET (FP) PO SCH (21:06)
[2017-10-14] MEDS: NICOTINE 14 MG/24 HOURS TOPICAL PATCH TD SCH (09:37)
[2017-10-14] MEDS: PRENATAL VITAMINS W/ FOLIC ACID TABLET (FP) PO SCH (09:37)
[2017-10-14] MEDS: NAPROXEN 500 MG TABLET (FP) PO PRN ×2 (09:37→21:09)
[2017-10-14] MEDS: hydrOXYzine PAMOATE 50 MG CAPSULE (FP) PO PRN ×2 (09:37→21:09)
[2017-10-14] MEDS: traZODone HCL 50 MG TABLET (FP) PO SCH (21:08)
[2017-10-14] MEDS: THIAMINE HCL 100 MG TABLET (FP) PO SCH (21:08)
[2017-10-15] MEDS: hydrOXYzine PAMOATE 50 MG CAPSULE (FP) PO PRN ×2 (09:44→21:02)
[2017-10-15] MEDS: NICOTINE 14 MG/24 HOURS TOPICAL PATCH TD SCH (09:44)
[2017-10-15] MEDS: NAPROXEN 500 MG TABLET (FP) PO PRN ×2 (09:44→21:02)
[2017-10-15] MEDS: PRENATAL VITAMINS W/ FOLIC ACID TABLET (FP) PO SCH (09:44)
[2017-10-15] MEDS: traZODone HCL 50 MG TABLET (FP) PO SCH (21:02)
[2017-10-15] MEDS: THIAMINE HCL 100 MG TABLET (FP) PO SCH (21:02)
[2017-10-16 06:45] VITALS: TEMP 97.9
[2017-10-16] MEDS: NAPROXEN 500 MG TABLET (FP) PO PRN ×2 (09:39→21:08)
[2017-10-16] MEDS: PRENATAL VITAMINS W/ FOLIC ACID TABLET (FP) PO SCH (09:39)
[2017-10-16] MEDS: NICOTINE 14 MG/24 HOURS TOPICAL PATCH TD SCH (09:40)
[2017-10-16] MEDS: hydrOXYzine PAMOATE 50 MG CAPSULE (FP) PO PRN ×2 (09:40→21:08)
[2017-10-16] MEDS: traZODone HCL 50 MG TABLET (FP) PO SCH (21:06)
[2017-10-16] MEDS: THIAMINE HCL 100 MG TABLET (FP) PO SCH (21:06)
[2017-10-17] MEDS: PRENATAL VITAMINS W/ FOLIC ACID TABLET (FP) PO SCH (09:57)
[2017-10-17] MEDS: NICOTINE 14 MG/24 HOURS TOPICAL PATCH TD SCH (09:57)
[2017-10-17] MEDS: NAPROXEN 500 MG TABLET (FP) PO PRN ×2 (09:58→21:07)
[2017-10-17] MEDS: hydrOXYzine PAMOATE 50 MG CAPSULE (FP) PO PRN ×2 (09:58→21:07)
[2017-10-17] MEDS: THIAMINE HCL 100 MG TABLET (FP) PO SCH (21:08)
[2017-10-17] MEDS: traZODone HCL 50 MG TABLET (FP) PO SCH (21:08)
[2017-10-18 06:36] VITALS: BP 102/63; PULSE 79
[2017-10-18] MEDS: NAPROXEN 500 MG TABLET (FP) PO PRN (09:59)
[2017-10-18] MEDS: hydrOXYzine PAMOATE 50 MG CAPSULE (FP) PO PRN (09:59)
[2017-10-18] MEDS: NICOTINE 14 MG/24 HOURS TOPICAL PATCH TD SCH (09:59)
[2017-10-18] MEDS: PRENATAL VITAMINS W/ FOLIC ACID TABLET (FP) PO SCH (09:59)
--- NOTE | 2017-10-18 14:20 | PN ---
Psychiatric Progress Note Vital Signs: Vital Signs Period Temp Pulse Resp BP Sys/Morrell Pulse Ox Last 24 Hr 97.9 F 79 18-18 102/63 Date of Session: 10/18/17 Chief Complaint:: discharge visit HPI: Patient adressed Alcohol dependence, Opioid dependence , Nicotine dependence comorbid Drug-induced mood disorder. ROS: WNL Current Medications: Active Medications Generic Name Dose Route Start Last Admin Trade Name Freq PRN Reason Stop Dose Admin Acetaminophen 650 mg 10/11/17 14:59 10/12/17 09:38 Tylenol - PO 650 mg Q4H PRN Administration FEVER OR PAIN Al Hydroxide/Mg Hydroxide 30 ml 10/11/17 14:59 10/13/17 18:41 Mylanta Oral Suspension - PO 30 ml Q6H PRN Administration DYSPEPSIA Eucalyptus/Menthol/Phenol/Sorbitol 1 each 10/11/17 14:59 Cepastat Lozenge - MM Q4H PRN SORE THROAT Guaifenesin 10 ml 10/11/17 14:59 Robitussin Dm - PO Q6H PRN COUGH Hydroxyzine Pamoate 50 mg 10/11/17 14:59 10/18/17 09:59 Vistaril - PO 50 mg Q4H PRN Administration AGITATION Loperamide HCl 4 mg 10/11/17 14:59 Imodium - PO Q6H PRN DIARRHEA Magnesium Citrate 300 ml 10/11/17 14:59 Citroma - PO Q48H PRN CONSTIPATION Magnesium Hydroxide 30 ml 10/11/17 14:59 Milk Of Magnesia - PO DAILY PRN CONSTIPATION Naproxen 500 mg 10/12/17 15:11 10/18/17 09:59 Naprosyn - PO 500 mg BID PRN Administration PAIN Nicotine 14 mg 10/12/17 10:00 10/18/17 09:59 Nicoderm Patch - TD Not Given DAILY JEROME Nicotine Polacrilex 2 mg 10/11/17 14:59 Nicorette Gum - BUC Q2H PRN NICOTINE REPLACEMENT RX Multivit/Folic Acid/Iron 1 tab 10/12/17 10:00 10/18/17 09:59 Vitamins (Sjr) - PO 1 tab DAILY JEROME Administration Pseudoephedrine/Triprolidine 1 combo 10/11/17 14:59 Actifed - PO TID PRN NASAL CONGESTION Thiamine HCl 100 mg 10/11/17 22:00 10/17/17 21:08 Vitamin B1 - PO 100 mg HS JEROME Administration Trazodone HCl 150 mg 10/11/17 22:00 10/17/17 21:08 Desyrel - PO 150 mg HS JEROME Administration Current Side Effect: No Lab tests ordered: No Lab tests reviewed: Yes Provider note:: Patient requested to be discharged today, this is his 7's day of rehabilitation treatment, he currently on Trazodone 150 mg po hs, medication is well tolerated, no side-effects reported, scripts provided, patient is stable for discharge today. Encouraged patient to follow his referral for aftercare([facility]), patient verbalized understanding. Total face to face time:: 10 Mental Status Exam - Mental Status Exam Alert and Oriented to: Time, Place, Person Cognitive Function: Good Patient Appearance: Well Groomed Mood: Hopeful Affect: Appropriate, Mood Congruent Patient Behavior: Appropriate, Cooperative Speech Pattern: Clear, Appropriate Voice Loudness: Normal Thought Process: Intact, Goal Oriented Thought Disorder: Not Present Hallucinations: Denies Suicidal Ideation: Denies Homicidal Ideation: Denies Insight/Judgement: Fair Sleep: Fair Appetite: Fair Muscle strength/Tone: Normal Psychiatric Treatment Plan - Problem List (1) Alcohol dependence Current Visit: Yes (2) Opioid dependence Current Visit: Yes (3) Drug-induced mood disorder Current Visit: No (4) Nicotine dependence Current Visit: No Qualifiers: Nicotine product type: cigarettes Substance use status: uncomplicated Qualified Code(s): F17.210 - Nicotine dependence, cigarettes, uncomplicated
== END 2017-10-18 14:50 | disposition home or self-care (01) | DRG 772 ==
LOC: YASAS 14:44 → Y5N 14:45
PROVIDERS: ADMIT Psychiatry & Neurology Psychiatry; ATTEND Psychiatry & Neurology Psychiatry
PROC: HZ42ZZZ Group Counseling for Substance Abuse Treatment, Cognitive-Behavioral (ICD-10-PCS; principal; 2017-10-11)
DX: F11.20 Opioid dependence, uncomplicated (principal); F10.20 Alcohol dependence, uncomplicated; F17.210 Nicotine dependence, cigarettes, uncomplicated; F19.24 Other psychoactive substance dependence with psychoactive substance-induced mood disorder; F33.9 Major depressive disorder, recurrent, unspecified
CPT/HCPCS: 36415; 87389

== ENCOUNTER 2018-11-10 11:18 | Inpatient (IN) | payer OTHER ==
[2018-11-10 11:43] VITALS: BMI 24.0
--- NOTE | 2018-11-10 13:57 | HP ---
COWS - Scale Resting Pulse: 0= [place] 80 or Below Sweatin= Chills/Flushing Restless Observation: 1= Difficult to Sit Still Pupil Size: 1= Pupils >than Normal Bone or Joint Aches: 2= Severe Diffuse Aches Runny Nose/ Eye Tearin= Nasal Congestion GI Upset > 30mins: 2= Nausea/Diarrhea Tremor Observation: 1= Tremor [place], Not Seen Yawning Observation: 0= None Anxiety or Irritability: 1=Feels Anxious/Irritable Goose Flesh Skin: 0=Smooth Skin COWS Score: 10 CIWA Score Nausea/Vomitin Muscle Tremors: 2 Anxiety: 2 Agitation: 2 Paroxysmal Sweats: 3 Orientation: 0-Oriented Tacttile Disturbances: 2-Mild Itch/Numbness/Burn Auditory Disturbances: 0-None Visual Disturbances: 0-None Headache: 0-None Present CIWA-Ar Total Score: 14 - Admission Criteria [facility]ASAS Guidelines: Admission for Medically Managed Detox: Requires at least one of the followin. CIWA greater than 12 2. Seizures within the past 24 hours 3. Delirium tremens within the past 24 hours 4. Hallucinations within the past 24 hours 5. Acute intervention needed for co occurring medical disorder 6. Acute intervention needed for co occurring psychiatric disorder 7. Severe withdrawal that cannot be handled at a lower level of care (continued vomiting, continued diarrhea, abnormal vital signs) requiring intravenous medication and/or fluids 8. Patient presents the following: CIWA greater than 12 Admission Criteria Met: Admission criteria met Admission ROS [facility] Chief Complaint: i need to stop using drugs and alcohol . Allergies/Adverse Reactions: Allergies Allergy/AdvReac Type Severity Reaction Status Date / Time Fish Containing Products Allergy Severe Swelling Verified 11/10/18 13:57 No Known Drug Allergies Allergy Verified 11/10/18 13:57 History of Present Illness: 48 y/o m pt with a h/o opioid dep, chronic alcoholism and marijuana abuse seeking detox. Exam Limitations: No Limitations - Ebola screening Have you traveled outside of the country in the last 21 days: No Have you had contact with anyone from an Ebola affected area: No Have you been sick,other than usual withdrawal symptoms: No Do you have a fever: No - Review of Systems Constitutional: Malaise, Changes in sleep, Unintentional Wgt. Loss (10 lbs over 6 weeks) EENT: reports: Ear Pain (h/o infections and ear pain on left), Dental Problems ( multiple missing teeth), Other (c/o sore throat no fever) Respiratory: reports: No Symptoms reported Cardiac: reports: No Symptoms Reported GI: reports: Abdominal cramping : reports: Frequency Musculoskeletal: reports: Muscle Pain Integumentary: reports: Other (track fam montserrat cubital fossa) Neuro: reports: Headache Endocrine: reports: No Symptoms Reported Hematology: reports: No Symptoms Reported Psychiatric: reports: Depressed Other Systems: Reviewed and Negative Patient History - Patient Medical History Hx Anemia: No Hx Asthma: No Hx Chronic Obstructive Pulmonary Disease (COPD): No Hx Cancer: No Hx Cardiac Disorders: No Hx Congestive Heart Failure: No Hx Hypertension: No Hx Hypercholesterolemia: No Hx Pacemaker: No HX Cerebrovascular Accident: No Hx Seizures: No Hx Dementia: No Hx Diabetes: No Hx Gastrointestinal Disorders: No Hx Liver Disease: No Hx Genitourinary Disorders: No Hx Sexually Transmitted Disorders: No Hx Renal Disease (ESRD): No Hx Thyroid Disease: No Hx Human Immunodeficiency Virus (HIV): No (negative) Hx Hepatitis C: No (negative) Hx Depression: Yes (no meds x 6 months - was on zoloft ) Hx Suicide Attempt: No Hx Bipolar Disorder: No Hx Schizophrenia: No - Patient Surgical History Past Surgical History: No Hx Neurologic Surgery: No Hx Cataract Extraction: No Hx Cardiac Surgery: No Hx Lung Surgery: No Hx Breast Surgery: No Hx Breast Biopsy: No Hx Abdominal Surgery: No Hx Appendectomy: No Hx Cholecystectomy: No Hx Genitourinary Surgery: No Hx Section: No Hx Orthopedic Surgery: No Anesthesia Reaction: No - PPD History Previous Implant?: Yes Documented Results: Negative w/o proof Date: 08/08/17 Results: 0mm PPD to be Administered?: Yes - Reproductive History Patient is a Female of Child Bearing Age (11 -55 yrs old): No - Smoking Cessation Smoking history: Current every day smoker Have you smoked in the past 12 months: Yes Aproximately how many cigarettes per day: 20 Cigars Per Day: 0 Hx Chewing Tobacco Use: No Initiated information on smoking cessation: Yes 'Breaking Loose' booklet given: 11/10/18 - Substance & Tx. History Hx Alcohol Use: Yes Hx Substance Use: Yes Substance Use Type: Alcohol, Heroin Hx Substance Use Treatment: Yes ( [facility]) - Substances Abused Alcohol Route: Oral Frequency: Daily Amount used: beer 24 oz x 2 Age of first use: 15 Date of Last Use: 11/09/18 Heroin Route: Injection Frequency: Daily Amount used: 8 bags/d Age of first use: 21 Date of Last Use: 11/10/18 Marijuana/Hashish Route: Smoking Frequency: Daily Amount used: $10.00 Age of first use: 13 Date of Last Use: 11/03/18 Family Disease History - Family Disease History Family Disease History: Heart Disease: Mother (htn,ovarian ca.), CA: Mother Admission Physical Exam S - Vital Signs Vital Signs: Vital Signs - 24 hr 11/10/18 11:36 Temperature 97.6 F Pulse Rate 80 Respiratory 18 Rate Blood Pressure 128/71 48 y/o anxious m pt in nad ambulating well and cooperative with exam . - Physical General Appearance: Yes: No Apparent Distress, Appropriately Dressed, Thin, Anxious HEENTM: Yes: EOMI, Hearing grossly Normal, Normocephalic, Normal Voice, MADELYN, Nasal Congestion, Other (multiple missing teeth) Respiratory: Yes: Chest Non-Tender, Lungs Clear, Normal Breath Sounds, No Respiratory Distress Neck: Yes: Supple, Trachea in good position, Other (shoody cx nodes montserrat) Breast: Yes: Within Normal Limits Cardiology: Yes: Regular Rhythm, Regular Rate, S1, S2 Abdominal: Yes: Non Tender, Flat, Soft, Increased Bowel Sounds Genitourinary: Yes: Frequency Back: Yes: Decreased Range of Motion Musculoskeletal: Yes: Back pain, Muscle Pain (low back) Extremities: Yes: Within Normal Limits Neurological: Yes: restaurant hostess II-XII NML intact, Fully Oriented, Alert, Motor Strength 5/5, Finger to Nose, Depressed Affect Integumentary: Yes: Track Fam (montserrat arm/ cubital fossa) Lymphatic: Yes: Within Normal Limits - Diagnostic (1) Alcohol dependence with uncomplicated withdrawal Current Visit: No Status: Chronic (2) Marijuana dependence Current Visit: No Status: Chronic (3) Nicotine dependence Current Visit: No Status: Chronic Qualifiers: Nicotine product type: cigarettes Substance use status: uncomplicated Qualified Code(s): F17.210 - Nicotine dependence, cigarettes, uncomplicated (4) Opioid dependence Current Visit: No Status: Chronic Qualifiers: Substance use status: uncomplicated Qualified Code(s): F11.20 - Opioid dependence, uncomplicated (5) Depressive disorder Current Visit: Yes Status: Chronic Cleared for Admission [facility] - Detox or Rehab [facility] Level of Care: Medically Managed Detox Regimen/Protocol: Methadone/Librium [facility] Breath Alcohol Content Breath Alcohol Content: 0.013 Urine Drug Screen - Results Drug Screen Negative: No Urine Drug Screen Results: THC-Marijuana, OPI-Opiates, BZO-Benzodiazepines, MTD- Methadone, OXY-Oxycodone
[2018-11-10] MEDS ORDERED: IBUPROFEN 400 MG TABLET (FP) PO PRN (13:59)
[2018-11-10] MEDS ORDERED: P-EPHED 60MG/TRIPROLIDI 2.5MG TABLET PO PRN (13:59)
[2018-11-10] MEDS ORDERED: MAGNESIUM HYDROX 2400MG/30ML ORAL SUSPENSION 30 ML CUP PO PRN (13:59)
[2018-11-10] MEDS ORDERED: NICOTINE POLACRILEX 4 MG GUM BUC PRN (13:59)
[2018-11-10] MEDS ORDERED: LOPERAMIDE HCL 2 MG CAPSULE PO PRN (13:59)
[2018-11-10] MEDS ORDERED: hydrOXYzine PAMOATE 25 MG CAPSULE (FP) PO PRN (13:59)
[2018-11-10] MEDS ORDERED: MENTHOL/PHENOL 1 EACH UD MM PRN (13:59)
[2018-11-10] MEDS ORDERED: MAG HYDROX/AL HYDROX/SIMETH 30 ML UNIT-DOSE CUP PO PRN (13:59)
[2018-11-10] MEDS ORDERED: MAGNESIUM CITRATE 300 ML BOTTLE PO PRN (13:59)
[2018-11-10] MEDS ORDERED: ACETAMINOPHEN 325 MG TABLET (FP) PO PRN (13:59)
[2018-11-10] MEDS ORDERED: guaiFENesin/D-METHORPHAN HB 10 ML UNIT-DOSE CUPS PO PRN (13:59)
[2018-11-10] MEDS ORDERED: chlordiazePOXIDE HCL 25 MG CAPSULE PO PRN (13:59)
[2018-11-10] MEDS ORDERED: METHADONE HCL 10 MG TABLET (FOR DETOX USE ONLY) PO ONE ×2 (14:30→23:00)
--- NOTE | 2018-11-10 16:24 | CONSULT ---
[facility] Psychiatric Consult - Data Date of interview: 11/10/18 Admission source: [facility] Identifying data: Readmission to [facility] for this 48 y/o male seeking detoxification treatment on for alcohol, marihuana and heroin dependence. Patient is single without children, homeless, unemployed and deprived of income. Substance Abuse History: Confirmed by the patient in this interview. Details in current [facility] report : Smoking history: Current every day smoker. Have you smoked in the past 12 months: Yes. Aproximately how many cigarettes per day: 20. Cigars Per Day: 0. Hx Chewing Tobacco Use: No. Initiated information on smoking cessation: Yes. 'Breaking Loose' booklet given: 11/10/18. - Substance & Tx. History. Hx Alcohol Use: Yes. Hx Substance Use: Yes. Substance Use Type : Alcohol, Heroin. Hx Substance Use Treatment: Yes ([facility]). - Substances Abused. Alcohol. Route: Oral. Frequency: Daily. Amount used: beer 24 oz x 2. Age of first use: 15. Date of Last Use: 11/09/18. Heroin. Route: Injection. Frequency: Daily. Amount used: 8 bags/d. Age of first use: 21. Date of Last Use: 11/10/18. Marijuana/Hashish. Route: Smoking. Frequency: Daily. Amount used: $10.00. Age of first use: 13. Date of Last Use: 11/03/18 Medical History: Patient denies medical problems. Psychiatric History: Patient admits to a history of two psychiatric hospitalizations at [facility]. Diagnosed with MDD, PTSD and Anxiety Disorder. Mr Oconnor indicates that he used to see a psychiatrist at [facility] in [facility]. Managed, in the past, with zoloft and trazodone. Reported history of one suicide attempt via deliberate overdose with heroin (2016). No current psychiatric OPD care. Physical/Sexual Abuse/Trauma History: Patient declines to discuss this domain. Additional Comment: Urine Drug Screen Results: THC-Marijuana, OPI-Opiates, BZO- Benzodiazepines, MTD-Methadone, OXY-Oxycodone. Noted. Mental Status Exam - Mental Status Exam Alert and Oriented to: Time, Place, Person Cognitive Function: Good Patient Appearance: Well Groomed Mood: Nervous, Anxious Affect: Appropriate, Normal Range Patient Behavior: Fatigued, Cooperative Speech Pattern: Clear Voice Loudness: Normal Thought Process: Goal Oriented Thought Disorder: Not Present Hallucinations: Denies Suicidal Ideation: Denies Homicidal Ideation: Denies Insight/Judgement: Poor Sleep: Poorly, Difficulty falling asleep Appetite: Good Muscle strength/Tone: Normal Gait/Station: Normal Psychiatric Findings - Problem List (Ada 1, 2,3) (1) Opioid dependence with withdrawal Current Visit: Yes Status: Acute (2) Alcohol dependence with uncomplicated withdrawal Current Visit: Yes Status: Acute (3) Marijuana dependence Current Visit: Yes Status: Chronic (4) Nicotine dependence Current Visit: Yes Status: Chronic Qualifiers: Nicotine product type: cigarettes Substance use status: uncomplicated Qualified Code(s): F17.210 - Nicotine dependence, cigarettes, uncomplicated (5) Drug-induced mood disorder Current Visit: Yes Status: Acute (6) Insomnia Current Visit: Yes Status: Chronic - Initial Treatment Plan Initial Treatment Plan: Psychoeducation. Sleep hygiene. NA/AA meetings. Detoxification in progress. Trazodone 100 mg po hs. resumed at patient's request. Made aware of risk of priapism. Patient agrees to follow this careplan. Observation.
[2018-11-10] MEDS: chlordiazePOXIDE HCL 25 MG CAPSULE PO SCH ×2 (16:43→22:10)
[2018-11-10 18:08] LABS: URINE APPEARANCE CLEAR; URINE BILIRUBIN NEGATIVE (<2.0 mg/dL); URINE COLOR YELLOW; URINE GLUCOSE (UA) NEGATIVE (NEGATIVE); URINE KETONE NEGATIVE (NEGATIVE); URINE LEUK ESTERASE NEGATIVE (NEGATIVE); URINE NITRITE NEGATIVE (NEGATIVE); URINE PROTEIN 1+ (NEGATIVE); URINE UROBILINOGEN NEGATIVE mg/dL (0.2-1.0)
[2018-11-10 18:12] LABS: URINE MUCUS RARE
[2018-11-10] MEDS: THIAMINE HCL 100 MG TABLET (FP) PO SCH (22:10)
[2018-11-10] MEDS: MELATONIN 5 MG TABLETS PO PRN (23:21)
[2018-11-11] MEDS: chlordiazePOXIDE HCL 25 MG CAPSULE PO SCH ×4 (06:12→22:05)
[2018-11-11] MEDS ORDERED: METHADONE HCL 10 MG TABLET (FOR DETOX USE ONLY) PO SCH (10:00)
--- NOTE | 2018-11-11 10:07 | PN ---
[facility] CIWA - CIWA Score Nausea/Vomitin Muscle Tremors: 2 Anxiety: 2 Agitation: 2 Paroxysmal Sweats: 2 Orientation: 0-Oriented Tacttile Disturbances: 2-Mild Itch/Numbness/Burn Auditory Disturbances: 1-Very Mild Visual Disturbances: 0-None Headache: 1-Very Mild CIWA-Ar Total Score: 14 S COWS - Scale Resting Pulse: 0= [place] 80 or Below Sweatin= Chills/Flushing Restless Observation: 1= Difficult to Sit Still Pupil Size: 0= Normal to Room Light Bone or Joint Aches: 2= Severe Diffuse Aches Runny Nose/ Eye Tearin= Nasal Congestion GI Upset > 30mins: 2= Nausea/Diarrhea Tremor Observation of Outstretched Hands: 1= Tremor [place], Not Seen Yawning Observation: 0= None Anxiety or Irritability: 2=Irritable/Anxious Goose Flesh Skin: 0=Smooth Skin COWS Score: 10 S Progress Note (SOAP) Subjective: Tremors, sweats, body aches, interrupted sleep and cramps Objective: 11/11/18 10:06 Vital Signs 11/11/18 11/11/18 11/11/18 03:30 06:09 06:30 Temperature 97.2 F L Pulse Rate 63 Respiratory 18 18 18 Rate Blood Pressure 99/64 11/11/18 09:31 Temperature 97.3 F L Pulse Rate 69 Respiratory 18 Rate Blood Pressure 99/72 Laboratory Last Values Urine Color Yellow 11/10/18 15:15 Urine Appearance Clear 11/10/18 15:15 Urine pH 6.0 (5.0-8.0) 11/10/18 15:15 Ur Specific [place] 1.018 (1.010-1.035) 11/10/18 15:15 Urine Protein 1+ (NEGATIVE) H 11/10/18 15:15 Urine Glucose (UA) Negative (NEGATIVE) 11/10/18 15:15 Urine Ketones Negative (NEGATIVE) 11/10/18 15:15 Urine Blood Negative (NEGATIVE) 11/10/18 15:15 Urine Nitrite Negative (NEGATIVE) 11/10/18 15:15 Urine Bilirubin Negative (<2.0 mg/dL) 11/10/18 15:15 Urine Urobilinogen Negative mg/dL (0.2-1.0) 11/10/18 15:15 Ur Leukocyte Esterase Negative (NEGATIVE) 11/10/18 15:15 Urine WBC (Auto) 1 /hpf (3-5) 11/10/18 15:15 Urine RBC (Auto) 2 /hpf (0-3) 11/10/18 15:15 Urine Mucus Rare 11/10/18 15:15 Labs pending UA noted Assessment: 11/11/18 10:07 Withdrawal sx Plan: Continue detox
[2018-11-11] MEDS: NICOTINE 21 MG/24 HOURS TOPICAL PATCH TD SCH (10:38)
[2018-11-11] MEDS: PRENATAL VITAMINS W/ FOLIC ACID TABLET (FP) PO SCH (10:38)
[2018-11-11 10:41] LABS: HEMOGLOBIN 13.7 GM/dL (11.7-16.9); MCH 26.7 pg (25.7-33.7)
[2018-11-11 10:44] LABS: MCHC 32.7 g/dl (32.0-35.9); MEAN CELL VOLUME 81.8 fl (80-96); PLATELET COUNT 192 K/MM3 (134-434); RBC 5.13 M/mm3 (4.00-5.60)
[2018-11-11 10:51] LABS: ALBUMIN 4.5 g/dl (3.4-5.0); ALK PHOS 98 U/L (45-117); ANION GAP 4 MMOL/L (8-16); BILIRUBIN,TOTAL 0.5 mg/dL (0.2-1); BLOOD UREA NITROGEN 9 mg/dL (7-18); CALCIUM 9.3 mg/dL (8.5-10.1); CHLORIDE 101 mmol/L (98-107); CO2 32 mmol/L (21-32); GLUCOSE,RANDOM 99 mg/dL (74-106); POTASSIUM 4.4 mmol/L (3.5-5.1); SGOT/AST 42 U/L (15-37); SGPT/ALT 51 U/L (13-61); SODIUM 138 mmol/L (136-145)
[2018-11-11] MEDS ORDERED: traZODone HCL 100 MG TABLET (FP) PO SCH (22:00)
[2018-11-11] MEDS: MELATONIN 5 MG TABLETS PO PRN (22:05)
[2018-11-11] MEDS: THIAMINE HCL 100 MG TABLET (FP) PO SCH (22:05)
[2018-11-11] MEDS: traZODone HCL 50 MG TABLET (FP) PO SCH (23:29)
[2018-11-11] MEDS: cloNIDine HCL 0.1 MG TABLET PO PRN (23:29)
[2018-11-12] MEDS: chlordiazePOXIDE HCL 25 MG CAPSULE PO SCH ×2 (07:20→10:04)
[2018-11-12] MEDS: METHADONE HCL 5 MG TABLET (FOR DETOX USE ONLY) PO SCH (10:04)
[2018-11-12] MEDS: NICOTINE 21 MG/24 HOURS TOPICAL PATCH TD SCH (10:04)
[2018-11-12] MEDS: PRENATAL VITAMINS W/ FOLIC ACID TABLET (FP) PO SCH (10:04)
[2018-11-12] MEDS ORDERED: ONDANSETRON *ODT* 4 MG TABLET SL PRN (10:26)
--- NOTE | 2018-11-12 15:07 | PN ---
[facility] CIWA - CIWA Score Nausea/Vomitin-Mild Nausea/No Vomiting Muscle Tremors: 2 Anxiety: 2 Agitation: 2 Paroxysmal Sweats: 2 Orientation: 0-Oriented Tacttile Disturbances: 0-None Auditory Disturbances: 0-None Visual Disturbances: 0-None Headache: 0-None Present CIWA-Ar Total Score: 9 [facility] COWS - Scale Resting Pulse: 0= [place] 80 or Below Sweatin= Chills/Flushing Restless Observation: 1= Difficult to Sit Still Pupil Size: 0= Normal to Room Light Bone or Joint Aches: 1= Mild Discomfort Runny Nose/ Eye Tearin= Runny Nose/Eyes GI Upset > 30mins: 1= Stomach Cramp Tremor Observation of Outstretched Hands: 2= Slight Tremor Visible Yawning Observation: 1= 1-2x During Session Anxiety or Irritability: 2=Irritable/Anxious Goose Flesh Skin: 0=Smooth Skin COWS Score: 11 S Progress Note (SOAP) Subjective: Body aches, stomachache, diarrhea, nausea, anxious Objective: 11/12/18 15:04 Last Vital Signs Temp Pulse Resp BP Pulse Ox 97.4 F L 69 18 100/59 L 11/12/18 13:12 11/12/18 13:12 11/12/18 13:12 11/12/18 13:12 Laboratory Tests 11/10/18 11/11/18 11/11/18 15:15 05:30 05:30 WBC 8.0 RBC 5.13 Hgb 13.7 Hct 42.0 MCV 81.8 MCH 26.7 MCHC 32.7 RDW 14.0 Plt Count 192 MPV 9.0 Sickle Cell Screen Sodium 138 Potassium 4.4 Chloride 101 Carbon Dioxide 32 Anion Gap 4 L BUN 9 Creatinine 1.0 Creat Clearance w eGFR > 60 Random Glucose 99 Calcium 9.3 Total Bilirubin 0.5 AST 42 H ALT 51 Alkaline Phosphatase 98 Total Protein 8.0 Albumin 4.5 Urine Color Yellow Urine Appearance Clear Urine pH 6.0 Ur Specific [place] 1.018 Urine Protein 1+ H Urine Glucose (UA) Negative Urine Ketones Negative Urine Blood Negative Urine Nitrite Negative Urine Bilirubin Negative Urine Urobilinogen Negative Ur Leukocyte Esterase Negative Urine WBC (Auto) 1 Urine RBC (Auto) 2 Urine Mucus Rare RPR Titer HIV 1&2 Antibody Screen HIV P24 Antigen 1211/11/18 11/11/18 05:30 06:00 10:30 WBC RBC Hgb Hct MCV MCH MCHC RDW Plt Count MPV Sickle Cell Screen Positive Sodium Potassium Chloride Carbon Dioxide Anion Gap BUN Creatinine Creat Clearance w eGFR Random Glucose Calcium Total Bilirubin AST ALT Alkaline Phosphatase Total Protein Albumin Urine Color Urine Appearance Urine pH Ur Specific [place] Urine Protein Urine Glucose (UA) Urine Ketones Urine Blood Urine Nitrite Urine Bilirubin Urine Urobilinogen Ur Leukocyte Esterase Urine WBC (Auto) Urine RBC (Auto) Urine Mucus RPR Titer Nonreactive HIV 1&2 Antibody Screen Negative HIV P24 Antigen Negative Labs reviewed: abnormal UA Assessment: 11/12/18 15:05 Withdrawal symptoms Abnormal UA noted Plan: Continue detox Abnormal UA: encouraged PO water intake, repeat UA
[2018-11-12] MEDS: chlordiazePOXIDE 5 MG CAPSULE PO SCH ×2 (17:44→22:20)
[2018-11-12] MEDS: traZODone HCL 50 MG TABLET (FP) PO SCH (22:20)
[2018-11-12] MEDS: cloNIDine HCL 0.1 MG TABLET PO PRN (22:20)
[2018-11-12] MEDS: THIAMINE HCL 100 MG TABLET (FP) PO SCH (22:20)
[2018-11-12] MEDS: MELATONIN 5 MG TABLETS PO PRN (22:21)
[2018-11-13] MEDS: chlordiazePOXIDE 5 MG CAPSULE PO SCH ×2 (06:19→10:42)
--- NOTE | 2018-11-13 09:23 | PN ---
[facility] Progress Note (SOAP) Subjective: tremor sweat back aches body aches joints pain anxiety Objective: 11/13/18 09:20 Vital Signs Temperature 97 F L 11/13/18 05:54 Pulse Rate 61 11/13/18 05:54 Respiratory Rate 18 11/13/18 05:54 Blood Pressure 95/62 11/13/18 05:54 O2 Sat by Pulse Oximetry (%) Laboratory Last Values WBC 8.0 K/mm3 (4.0-10.0) 11/11/18 05:30 RBC 5.13 M/mm3 (4.00-5.60) 11/11/18 05:30 Hgb 13.7 GM/dL (11.7-16.9) 11/11/18 05:30 Hct 42.0 % (35.4-49) 11/11/18 05:30 MCV 81.8 fl (80-96) 11/11/18 05:30 MCH 26.7 pg (25.7-33.7) 11/11/18 05:30 MCHC 32.7 g/dl (32.0-35.9) 11/11/18 05:30 RDW 14.0 % (11.9-15.9) 11/11/18 05:30 Plt Count 192 K/MM3 (134-434) 11/11/18 05:30 MPV 9.0 fl (7.5-11.1) 11/11/18 05:30 Sickle Cell Screen Positive (NEGATIVE) 11/11/18 06:00 Sodium 138 mmol/L (136-145) 11/11/18 05:30 Potassium 4.4 mmol/L (3.5-5.1) 11/11/18 05:30 Chloride 101 mmol/L (98-107) 11/11/18 05:30 Carbon Dioxide 32 mmol/L (21-32) 11/11/18 05:30 Anion Gap 4 MMOL/L (8-16) L 11/11/18 05:30 BUN 9 mg/dL (7-18) 11/11/18 05:30 Creatinine 1.0 mg/dL (0.55-1.3) 11/11/18 05:30 Creat Clearance w eGFR > 60 (>60) 11/11/18 05:30 Random Glucose 99 mg/dL (74-106) 11/11/18 05:30 Calcium 9.3 mg/dL (8.5-10.1) 11/11/18 05:30 Total Bilirubin 0.5 mg/dL (0.2-1) 11/11/18 05:30 AST 42 U/L (15-37) H 11/11/18 05:30 ALT 51 U/L (13-61) 11/11/18 05:30 Alkaline Phosphatase 98 U/L (45-117) 11/11/18 05:30 Total Protein 8.0 g/dl (6.4-8.2) 11/11/18 05:30 Albumin 4.5 g/dl (3.4-5.0) 11/11/18 05:30 Urine Color Yellow 11/10/18 15:15 Urine Appearance Clear 11/10/18 15:15 Urine pH 6.0 (5.0-8.0) 11/10/18 15:15 Ur Specific [place] 1.018 (1.010-1.035) 11/10/18 15:15 Urine Protein 1+ (NEGATIVE) H 11/10/18 15:15 Urine Glucose (UA) Negative (NEGATIVE) 11/10/18 15:15 Urine Ketones Negative (NEGATIVE) 11/10/18 15:15 Urine Blood Negative (NEGATIVE) 11/10/18 15:15 Urine Nitrite Negative (NEGATIVE) 11/10/18 15:15 Urine Bilirubin Negative (<2.0 mg/dL) 11/10/18 15:15 Urine Urobilinogen Negative mg/dL (0.2-1.0) 11/10/18 15:15 Ur Leukocyte Esterase Negative (NEGATIVE) 11/10/18 15:15 Urine WBC (Auto) 1 /hpf (3-5) 11/10/18 15:15 Urine RBC (Auto) 2 /hpf (0-3) 11/10/18 15:15 Urine Mucus Rare 11/10/18 15:15 RPR Titer Nonreactive (NONREACTIVE) 11/11/18 05:30 HIV 1&2 Antibody Screen Negative 11/11/18 10:30 HIV P24 Antigen Negative 11/11/18 10:30 lab noted Assessment: 11/13/18 09:22 withdrawal sx Plan: [id number] detox
[2018-11-13] MEDS: PRENATAL VITAMINS W/ FOLIC ACID TABLET (FP) PO SCH (10:41)
[2018-11-13] MEDS: METHADONE HCL 5 MG TABLET (FOR DETOX USE ONLY) PO SCH (10:41)
[2018-11-13] MEDS: NICOTINE 21 MG/24 HOURS TOPICAL PATCH TD SCH (10:42)
[2018-11-13] MEDS: chlordiazePOXIDE HCL 10 MG CAPSULE PO SCH ×2 (18:14→22:18)
[2018-11-13] MEDS: THIAMINE HCL 100 MG TABLET (FP) PO SCH (22:18)
[2018-11-13] MEDS: traZODone HCL 50 MG TABLET (FP) PO SCH (22:18)
[2018-11-13] MEDS: MELATONIN 5 MG TABLETS PO PRN (22:19)
[2018-11-14] MEDS: chlordiazePOXIDE HCL 10 MG CAPSULE PO SCH ×2 (05:28→10:04)
--- NOTE | 2018-11-14 09:14 | PN ---
[facility] Progress Note (SOAP) Subjective: feeling better no body aches no tremor less sweat sleep better at night discuss aftercare with staff Objective: 11/14/18 09:13 Vital Signs Temperature 98.2 F 11/14/18 06:10 Pulse Rate 61 11/14/18 06:10 Respiratory Rate 18 11/14/18 06:10 Blood Pressure 100/64 11/14/18 06:10 O2 Sat by Pulse Oximetry (%) Laboratory Last Values WBC 8.0 K/mm3 (4.0-10.0) 11/11/18 05:30 RBC 5.13 M/mm3 (4.00-5.60) 11/11/18 05:30 Hgb 13.7 GM/dL (11.7-16.9) 11/11/18 05:30 Hct 42.0 % (35.4-49) 11/11/18 05:30 MCV 81.8 fl (80-96) 11/11/18 05:30 MCH 26.7 pg (25.7-33.7) 11/11/18 05:30 MCHC 32.7 g/dl (32.0-35.9) 11/11/18 05:30 RDW 14.0 % (11.9-15.9) 11/11/18 05:30 Plt Count 192 K/MM3 (134-434) 11/11/18 05:30 MPV 9.0 fl (7.5-11.1) 11/11/18 05:30 Sickle Cell Screen Positive (NEGATIVE) 11/11/18 06:00 Sodium 138 mmol/L (136-145) 11/11/18 05:30 Potassium 4.4 mmol/L (3.5-5.1) 11/11/18 05:30 Chloride 101 mmol/L (98-107) 11/11/18 05:30 Carbon Dioxide 32 mmol/L (21-32) 11/11/18 05:30 Anion Gap 4 MMOL/L (8-16) L 11/11/18 05:30 BUN 9 mg/dL (7-18) 11/11/18 05:30 Creatinine 1.0 mg/dL (0.55-1.3) 11/11/18 05:30 Creat Clearance w eGFR > 60 (>60) 11/11/18 05:30 Random Glucose 99 mg/dL (74-106) 11/11/18 05:30 Calcium 9.3 mg/dL (8.5-10.1) 11/11/18 05:30 Total Bilirubin 0.5 mg/dL (0.2-1) 11/11/18 05:30 AST 42 U/L (15-37) H 11/11/18 05:30 ALT 51 U/L (13-61) 11/11/18 05:30 Alkaline Phosphatase 98 U/L (45-117) 11/11/18 05:30 Total Protein 8.0 g/dl (6.4-8.2) 11/11/18 05:30 Albumin 4.5 g/dl (3.4-5.0) 11/11/18 05:30 Urine Color Yellow 11/10/18 15:15 Urine Appearance Clear 11/10/18 15:15 Urine pH 6.0 (5.0-8.0) 11/10/18 15:15 Ur Specific [place] 1.018 (1.010-1.035) 11/10/18 15:15 Urine Protein 1+ (NEGATIVE) H 11/10/18 15:15 Urine Glucose (UA) Negative (NEGATIVE) 11/10/18 15:15 Urine Ketones Negative (NEGATIVE) 11/10/18 15:15 Urine Blood Negative (NEGATIVE) 11/10/18 15:15 Urine Nitrite Negative (NEGATIVE) 11/10/18 15:15 Urine Bilirubin Negative (<2.0 mg/dL) 11/10/18 15:15 Urine Urobilinogen Negative mg/dL (0.2-1.0) 11/10/18 15:15 Ur Leukocyte Esterase Negative (NEGATIVE) 11/10/18 15:15 Urine WBC (Auto) 1 /hpf (3-5) 11/10/18 15:15 Urine RBC (Auto) 2 /hpf (0-3) 11/10/18 15:15 Urine Mucus Rare 11/10/18 15:15 RPR Titer Nonreactive (NONREACTIVE) 11/11/18 05:30 HIV 1&2 Antibody Screen Negative 11/11/18 10:30 HIV P24 Antigen Negative 11/11/18 10:30 lab noted Assessment: 11/14/18 09:14 mild withdrawal sx Plan: medically supervised detox
[2018-11-14] MEDS ORDERED: METHADONE HCL 10 MG TABLET (FOR DETOX USE ONLY) PO SCH (10:00)
[2018-11-14] MEDS: PRENATAL VITAMINS W/ FOLIC ACID TABLET (FP) PO SCH (10:04)
[2018-11-14] MEDS: NICOTINE 21 MG/24 HOURS TOPICAL PATCH TD SCH (10:04)
[2018-11-14 10:12] VITALS: BP 98/58; PULSE 60; TEMP 98.6
--- NOTE | 2018-11-14 13:29 | DS ---
[facility] Detox Discharge Summary Admission Date: 11/10/18 Discharge Date: 11/14/18 - History Present History: Alcohol Dependence, Opioid Dependence Additional Comments: 48 years old male admitted on 11/10/18 for alcohol and opiate withdrawal stabilization reported feeling much better after lunch preferred go home today and continue aftercare at [facility] tomorrow 11/15/18 alert no acute distress - Physical Exam Results Vital Signs: Vital Signs Temperature 98.6 F 11/14/18 10:11 Pulse Rate 60 11/14/18 10:11 Respiratory Rate 18 11/14/18 10:11 Blood Pressure 98/58 L 11/14/18 10:11 O2 Sat by Pulse Oximetry (%) Pertinent Admission Physical Exam Findings: alcohol and opiate withdrawal sx Vital Signs Temperature 98.6 F 11/14/18 10:11 Pulse Rate 60 11/14/18 10:11 Respiratory Rate 18 11/14/18 10:11 Blood Pressure 98/58 L 11/14/18 10:11 O2 Sat by Pulse Oximetry (%) Laboratory Last Values WBC 8.0 K/mm3 (4.0-10.0) 11/11/18 05:30 RBC 5.13 M/mm3 (4.00-5.60) 11/11/18 05:30 Hgb 13.7 GM/dL (11.7-16.9) 11/11/18 05:30 Hct 42.0 % (35.4-49) 11/11/18 05:30 MCV 81.8 fl (80-96) 11/11/18 05:30 MCH 26.7 pg (25.7-33.7) 11/11/18 05:30 MCHC 32.7 g/dl (32.0-35.9) 11/11/18 05:30 RDW 14.0 % (11.9-15.9) 11/11/18 05:30 Plt Count 192 K/MM3 (134-434) 11/11/18 05:30 MPV 9.0 fl (7.5-11.1) 11/11/18 05:30 Sickle Cell Screen Positive (NEGATIVE) 11/11/18 06:00 Sodium 138 mmol/L (136-145) 11/11/18 05:30 Potassium 4.4 mmol/L (3.5-5.1) 11/11/18 05:30 Chloride 101 mmol/L (98-107) 11/11/18 05:30 Carbon Dioxide 32 mmol/L (21-32) 11/11/18 05:30 Anion Gap 4 MMOL/L (8-16) L 11/11/18 05:30 BUN 9 mg/dL (7-18) 11/11/18 05:30 Creatinine 1.0 mg/dL (0.55-1.3) 11/11/18 05:30 Creat Clearance w eGFR > 60 (>60) 11/11/18 05:30 Random Glucose 99 mg/dL (74-106) 11/11/18 05:30 Calcium 9.3 mg/dL (8.5-10.1) 11/11/18 05:30 Total Bilirubin 0.5 mg/dL (0.2-1) 11/11/18 05:30 AST 42 U/L (15-37) H 11/11/18 05:30 ALT 51 U/L (13-61) 11/11/18 05:30 Alkaline Phosphatase 98 U/L (45-117) 11/11/18 05:30 Total Protein 8.0 g/dl (6.4-8.2) 11/11/18 05:30 Albumin 4.5 g/dl (3.4-5.0) 11/11/18 05:30 Urine Color Yellow 11/10/18 15:15 Urine Appearance Clear 11/10/18 15:15 Urine pH 6.0 (5.0-8.0) 11/10/18 15:15 Ur Specific Warren 1.018 (1.010-1.035) 11/10/18 15:15 Urine Protein 1+ (NEGATIVE) H 11/10/18 15:15 Urine Glucose (UA) Negative (NEGATIVE) 11/10/18 15:15 Urine Ketones Negative (NEGATIVE) 11/10/18 15:15 Urine Blood Negative (NEGATIVE) 11/10/18 15:15 Urine Nitrite Negative (NEGATIVE) 11/10/18 15:15 Urine Bilirubin Negative (<2.0 mg/dL) 11/10/18 15:15 Urine Urobilinogen Negative mg/dL (0.2-1.0) 11/10/18 15:15 Ur Leukocyte Esterase Negative (NEGATIVE) 11/10/18 15:15 Urine WBC (Auto) 1 /hpf (3-5) 11/10/18 15:15 Urine RBC (Auto) 2 /hpf (0-3) 11/10/18 15:15 Urine Mucus Rare 11/10/18 15:15 RPR Titer Nonreactive (NONREACTIVE) 11/11/18 05:30 HIV 1&2 Antibody Screen Negative 11/11/18 10:30 HIV P24 Antigen Negative 11/11/18 10:30 lab noted patient agrees to bring in lab results to [facility] aftercare - Treatment Hospital Course: Detox Protocol Followed, Detoxed Safely, Responded well, Discharged Condition Good, Rehab Referral Accepted Patient has Accepted a Rehab Referral to: [facility] - Medication Discharge Medications: Ambulatory Orders Ibuprofen 800 mg PO Q8H PRN 11/10/18 Trazodone HCl 150 mg PO HS 11/10/18 - Diagnosis (1) Alcohol dependence with uncomplicated withdrawal Current Visit: Yes Status: Acute (2) Drug-induced mood disorder Current Visit: Yes Status: Suspected (3) Opioid dependence with withdrawal Current Visit: Yes Status: Acute (4) Nicotine dependence Current Visit: Yes Status: Acute Qualifiers: Nicotine product type: cigarettes Substance use status: in withdrawal Qualified Code(s): F17.213 - Nicotine dependence, cigarettes, with withdrawal (5) Weight decreased Current Visit: Yes Status: Active - AMA Did Patient Leave Against Medical Advice: No
[2018-11-15] MEDS ORDERED: METHADONE HCL 5 MG TABLET (FOR DETOX USE ONLY) PO SCH (06:00)
== END 2018-11-14 14:14 | disposition home or self-care (01) | DRG 773 ==
LOC: YASAS 11:18 → Y3N 14:08
PROC: HZ2ZZZZ Detoxification Services for Substance Abuse Treatment (ICD-10-PCS; principal; 2018-11-10)
DX: F11.23 Opioid dependence with withdrawal (principal); F10.230 Alcohol dependence with withdrawal, uncomplicated; F12.20 Cannabis dependence, uncomplicated; F17.210 Nicotine dependence, cigarettes, uncomplicated; F19.24 Other psychoactive substance dependence with psychoactive substance-induced mood disorder; F32.9 Major depressive disorder, single episode, unspecified; F41.9 Anxiety disorder, unspecified; G47.00 Insomnia, unspecified; R82.90 Unspecified abnormal findings in urine; Z91.013 Allergy to seafood
CPT/HCPCS: 36415; 80053; 81003; 81015; 83021; 85027; 85660; 86593; 87389; J0735

== ENCOUNTER 2018-12-30 17:33 | Inpatient (IN) | payer OTHER ==
[2018-12-30 18:00] VITALS: BMI 23.6
--- NOTE | 2018-12-30 20:38 | HP ---
COWS - Scale Resting Pulse: 0= [place] 80 or Below Sweatin=Flushed/Facial Moisture Restless Observation: 1= Difficult to Sit Still Pupil Size: 0= Normal to Room Light Bone or Joint Aches: 2= Severe Diffuse Aches Runny Nose/ Eye Tearin= Runny Nose/Eyes GI Upset > 30mins: 1= Stomach Cramp Tremor Observation: 4= Gross Tremor/Twitching Yawning Observation: 1= 1-2x During Session Anxiety or Irritability: 2=Irritable/Anxious Goose Flesh Skin: 3=Piloerection COWS Score: 18 CIWA Score Nausea/Vomitin-Mild Nausea/No Vomiting Muscle Tremors: 4-Moderate,w/Arms Extend Anxiety: 3 Agitation: 4-Moderately Restless Paroxysmal Sweats: 1-Minimal Palms Moist Orientation: 0-Oriented Tacttile Disturbances: 0-None Auditory Disturbances: 0-None Visual Disturbances: 0-None Headache: 4-Moderately Severe CIWA-Ar Total Score: 17 - Admission Criteria OASAS Guidelines: Admission for Medically Managed Detox: Requires at least one of the followin. CIWA greater than 12 2. Seizures within the past 24 hours 3. Delirium tremens within the past 24 hours 4. Hallucinations within the past 24 hours 5. Acute intervention needed for co occurring medical disorder 6. Acute intervention needed for co occurring psychiatric disorder 7. Severe withdrawal that cannot be handled at a lower level of care (continued vomiting, continued diarrhea, abnormal vital signs) requiring intravenous medication and/or fluids 8. Admission ROS [facility] Chief Complaint: Heroin and alcohol withdrawal symptoms Allergies/Adverse Reactions: Allergies Allergy/AdvReac Type Severity Reaction Status Date / Time Fish Containing Products Allergy Severe Swelling Verified 12/30/18 21:09 No Known Drug Allergies Allergy Verified 12/30/18 21:09 History of Present Illness: 48 years old male with a long history of heroin and alcohol dependence is seeking admission to detox. Patient's last detox was 11/10/2018 - 11/14/2018 at [facility]. He reports 3 years of sobriety and a history of depression and anxiety. Patient denies suicide attempt and suicidal ideation at this time. Exam Limitations: No Limitations - Ebola screening Have you traveled outside of the country in the last 21 days: No (N) Have you had contact with anyone from an Ebola affected area: No Have you been sick,other than usual withdrawal symptoms: No Do you have a fever: No - Review of Systems Constitutional: Chills, Loss of Appetite, Malaise, Changes in sleep, Unintentional Wgt. Loss (Reports 15 pounds weight loss) EENT: reports: Sinus Pressure Respiratory: reports: No Symptoms reported Cardiac: reports: No Symptoms Reported GI: reports: Nausea, Poor Appetite, Poor Fluid Intake, Abdominal cramping : reports: No Symptoms Reported Musculoskeletal: reports: Back Pain, Joint Pain, Muscle Pain Integumentary: reports: Dryness, Flushing Neuro: reports: Tremors Endocrine: reports: No Symptoms Reported Hematology: reports: No Symptoms Reported Psychiatric: reports: Anxious, Depressed Other Systems: Reviewed and Negative Patient History - Patient Medical History Hx Anemia: No Hx Asthma: No Hx Chronic Obstructive Pulmonary Disease (COPD): No Hx Cancer: No Hx Cardiac Disorders: No Hx Congestive Heart Failure: No Hx Hypertension: No Hx Hypercholesterolemia: No Hx Pacemaker: No HX Cerebrovascular Accident: No Hx Seizures: No Hx Dementia: No Hx Diabetes: No Hx Gastrointestinal Disorders: No Hx Liver Disease: No Hx Genitourinary Disorders: No Hx Sexually Transmitted Disorders: No Hx Renal Disease (ESRD): No Hx Thyroid Disease: No Hx Human Immunodeficiency Virus (HIV): No (Negative 2017) Hx Hepatitis C: No (Negative) Hx Depression: Yes (no meds x 6 months - was on zoloft ) Hx Suicide Attempt: No (Denies suicidal ideation at this time) Hx Bipolar Disorder: No Hx Schizophrenia: No Other Medical History: Anxiety - Not on medication - Patient Surgical History Past Surgical History: No Hx Neurologic Surgery: No Hx Cataract Extraction: No Hx Cardiac Surgery: No Hx Lung Surgery: No Hx Breast Surgery: No Hx Breast Biopsy: No Hx Abdominal Surgery: No Hx Appendectomy: No Hx Cholecystectomy: No Hx Genitourinary Surgery: No Hx Section: No Hx Orthopedic Surgery: No Anesthesia Reaction: No - PPD History Previous Implant?: Yes Documented Results: Positive w/o proof Implanted On Prior R Admission?: Yes Date: 11/12/18 Results: 0mm PPD to be Administered?: No - Reproductive History Patient is a Female of Child Bearing Age (11 -55 yrs old): No (Male) - Smoking Cessation Smoking history: Current every day smoker Have you smoked in the past 12 months: Yes Aproximately how many cigarettes per day: 20 Cigars Per Day: 0 Hx Chewing Tobacco Use: No Initiated information on smoking cessation: Yes 'Breaking Loose' booklet given: 12/30/18 - Substance & Tx. History Hx Alcohol Use: Yes Hx Substance Use: Yes Substance Use Type: Alcohol, Heroin, Marijuana Hx Substance Use Treatment: Yes ([facility]) - Substances Abused Heroin Route: Injection Frequency: Daily Amount used: 10 bags Age of first use: 21 Date of Last Use: 12/30/18 Alcohol Route: Oral Frequency: Daily Amount used: VODKA - 2 PINTS, BEER 14 x 12 oz Age of first use: 15 Date of Last Use: 12/30/18 Marijuana/Hashish Route: Smoking Frequency: Daily Amount used: $10 Age of first use: 14 Date of Last Use: 12/29/18 Family Disease History - Family Disease History Family Disease History: Heart Disease: Mother (Htn,ovarian ca.), CA: Mother Admission Physical Exam [facility] - Vital Signs Vital Signs: Vital Signs - 24 hr 12/30/18 17:58 Temperature 98.2 F Pulse Rate 79 Respiratory 18 Rate Blood Pressure 132/82 - Physical General Appearance: Yes: Moderate Distress HEENTM: Yes: EOMI, Normal ENT Inspection, Normal Voice, MADELYN Respiratory: Yes: Lungs Clear, Normal Breath Sounds, No Respiratory Distress Neck: Yes: Supple Breast: Yes: Breast Exam Deferred Cardiology: Yes: Regular Rhythm, Regular Rate Abdominal: Yes: Normal Bowel Sounds Genitourinary: Yes: Within Normal Limits Back: Yes: Normal Inspection Musculoskeletal: Yes: Back pain, Muscle Pain Extremities: Yes: Tremors Neurological: Yes: Alert, Normal Mood/Affect Integumentary: Yes: Warm Lymphatic: Yes: Within Normal Limits - Diagnostic (1) Anxiety disorder Current Visit: Yes Status: Acute (2) Alcohol dependence with uncomplicated withdrawal Current Visit: Yes Status: Chronic (3) Nicotine dependence Current Visit: Yes Status: Chronic Qualifiers: Nicotine product type: cigarettes Substance use status: uncomplicated Qualified Code(s): F17.210 - Nicotine dependence, cigarettes, uncomplicated (4) Opioid dependence with withdrawal Current Visit: Yes Status: Chronic (5) DEPRESSION Status: Chronic (6) Marijuana dependence Current Visit: Yes Status: Chronic Cleared for Admission [facility] - Detox or Rehab [facility] Level of Care: Medically Managed Detox Regimen/Protocol: Methadone/Valium [facility] Breath Alcohol Content Breath Alcohol Content: 0 Urine Drug Screen - Results Drug Screen Negative: No Urine Drug Screen Results: THC-Marijuana, OPI-Opiates, BZO-Benzodiazepines, MTD- Methadone, OXY-Oxycodone, FEN-Fentanyl
[2018-12-30] MEDS ORDERED: LOPERAMIDE HCL 2 MG CAPSULE PO PRN (20:50)
[2018-12-30] MEDS ORDERED: MAG HYDROX/AL HYDROX/SIMETH 30 ML UNIT-DOSE CUP PO PRN (20:50)
[2018-12-30] MEDS ORDERED: MAGNESIUM CITRATE 300 ML BOTTLE PO PRN (20:50)
[2018-12-30] MEDS ORDERED: P-EPHED 60MG/TRIPROLIDI 2.5MG TABLET PO PRN (20:50)
[2018-12-30] MEDS ORDERED: MENTHOL/PHENOL 1 EACH UD MM PRN (20:50)
[2018-12-30] MEDS ORDERED: NICOTINE POLACRILEX 2 MG GUM BC PRN (20:50)
[2018-12-30] MEDS ORDERED: MAGNESIUM HYDROX 2400MG/30ML ORAL SUSPENSION 30 ML CUP PO PRN (20:50)
[2018-12-30] MEDS ORDERED: METHADONE HCL 10 MG TABLET (FOR DETOX USE ONLY) PO ONE ×2 (20:50→23:00)
[2018-12-30] MEDS ORDERED: IBUPROFEN 400 MG TABLET (FP) PO PRN (20:50)
[2018-12-30] MEDS ORDERED: MELATONIN 5 MG TABLETS PO PRN (22:00)
[2018-12-30] MEDS: THIAMINE HCL 100 MG TABLET (FP) PO SCH (22:44)
[2018-12-30] MEDS: chlordiazePOXIDE HCL 25 MG CAPSULE PO SCH (22:45)
[2018-12-31] MEDS: chlordiazePOXIDE HCL 25 MG CAPSULE PO SCH ×4 (06:22→22:18)
[2018-12-31] MEDS: ACETAMINOPHEN 325 MG TABLET (FP) PO PRN (06:22)
[2018-12-31] MEDS: guaiFENesin/D-METHORPHAN HB 10 ML UNIT-DOSE CUPS PO PRN (06:22)
[2018-12-31] MEDS ORDERED: METHADONE HCL 10 MG TABLET (FOR DETOX USE ONLY) PO SCH (10:00)
[2018-12-31] MEDS: PRENATAL VITAMINS W/ FOLIC ACID TABLET (FP) PO SCH (10:11)
[2018-12-31] MEDS: NICOTINE 14 MG/24 HOURS TOPICAL PATCH TD SCH (10:12)
[2018-12-31 10:28] LABS: ALBUMIN 4.4 g/dl (3.4-5.0); ALK PHOS 94 U/L (45-117); ANION GAP 10 MMOL/L (8-16); BILIRUBIN,TOTAL 0.7 mg/dL (0.2-1); BLOOD UREA NITROGEN 9 mg/dL (7-18); CALCIUM 8.8 mg/dL (8.5-10.1); CHLORIDE 98 mmol/L (98-107); CO2 27 mmol/L (21-32); GLUCOSE,RANDOM 83 mg/dL (74-106); POTASSIUM 4.3 mmol/L (3.5-5.1); SGOT/AST 21 U/L (15-37); SGPT/ALT 25 U/L (13-61); SODIUM 136 mmol/L (136-145); TOT PROT 7.9 g/dl (6.4-8.2)
[2018-12-31 10:38] LABS: HEMATOCRIT 42.3 % (35.4-49); HEMOGLOBIN 14.3 GM/dL (11.7-16.9); MCH 28.2 pg (25.7-33.7); MCHC 33.8 g/dl (32.0-35.9); MEAN CELL VOLUME 83.5 fl (80-96); MEAN PLT VOLUME 8.5 fl (7.5-11.1); PLATELET COUNT 156 K/MM3 (134-434); RBC 5.07 M/mm3 (4.00-5.60); RDW 15.4 % (11.9-15.9); WHITE BLOOD COUNT 7.5 K/mm3 (4.0-10.0)
--- NOTE | 2018-12-31 10:38 | CONSULT ---
[facility] Psychiatric Consult - Data Date of interview: 12/31/18 Admission source: [facility] Identifying data: Patient is a 38 y/o male, single, unemployed, homeless, shildless, receives public assistance Substance Abuse History: This is one of his multiple Detox admissions to [facility] for substance use disorder . his most recent detox treatment was in October 2918 prior relapsing. Admitted today for ETOH, marijuana, and heroin dependence. Drinks Vodka and beer daily , self-inject heroin. Refer to addiction counselor note for more detailed drug use history Medical History: He has no active medcial problem. No past surgical history Psychiatric History: He suffered from anxiety,depression and PTSD. He has been admitted twice to a psych benitez unit for his depression. His most recent psych hospitalixzation was July 2016. He reported one prior suicide attempt by OD of heroin. Currently denies feeling depressed , a litlle bit anxious , insomnia , denies suicide ideation or homicidal ideation. He has been non compliant with his out patient care, he is connected with [facility]" and his last vist at the clinic was 5 months ago. he is medicated with Trazodone Physical/Sexual Abuse/Trauma History: He denies history of abuse Additional Comment: Past history of incarceration and longterm time Mental Status Exam - Mental Status Exam Alert and Oriented to: Place, Person Cognitive Function: Fair Patient Appearance: Unkempt Mood: Anxious Affect: Appropriate Patient Behavior: Cooperative Speech Pattern: Clear Voice Loudness: Normal Thought Process: Intact Thought Disorder: Not Present Hallucinations: Denies Suicidal Ideation: Denies Homicidal Ideation: Denies Insight/Judgement: Poor Sleep: Poorly Appetite: Fair Muscle strength/Tone: Normal Gait/Station: Normal Psychiatric Findings - Problem List (Randall 1, 2,3) (1) Anxiety disorder Current Visit: Yes Status: Acute (2) Alcohol dependence with uncomplicated withdrawal Current Visit: Yes Status: Chronic (3) Marijuana dependence Current Visit: Yes Status: Chronic (4) Nicotine dependence Current Visit: Yes Status: Chronic Qualifiers: Nicotine product type: cigarettes Substance use status: uncomplicated Qualified Code(s): F17.210 - Nicotine dependence, cigarettes, uncomplicated (5) Insomnia Current Visit: No Status: Chronic (6) Opioid dependence Current Visit: No Status: Chronic Qualifiers: Substance use status: uncomplicated Qualified Code(s): F11.20 - Opioid dependence, uncomplicated (7) Drug-induced mood disorder Current Visit: No Status: Suspected
--- NOTE | 2018-12-31 12:39 | PN ---
[facility] CIWA - CIWA Score Nausea/Vomitin-Mild Nausea/No Vomiting Muscle Tremors: 3 Anxiety: 3 Agitation: 3 Paroxysmal Sweats: 1-Minimal Palms Moist Orientation: 1-Uncertain about Date Tacttile Disturbances: 0-None Auditory Disturbances: 0-None Visual Disturbances: 0-None Headache: 2-Mild CIWA-Ar Total Score: 14 [facility] COWS - Scale Resting Pulse: 1= [place] 81-100 Sweatin= Chills/Flushing Restless Observation: 0= Sits Still Pupil Size: 0= Normal to Room Light Bone or Joint Aches: 2= Severe Diffuse Aches Runny Nose/ Eye Tearin= Nasal Congestion GI Upset > 30mins: 2= Nausea/Diarrhea Tremor Observation of Outstretched Hands: 2= Slight Tremor Visible Yawning Observation: 1= 1-2x During Session Anxiety or Irritability: 1=Feels Anxious/Irritable Goose Flesh Skin: 3=Piloerection COWS Score: 14 [facility] Progress Note (SOAP) Subjective: body aches joints pain tremor sweating Objective: 12/31/18 12:41 Vital Signs Temperature 97.8 F 12/31/18 09:22 Pulse Rate 60 12/31/18 09:22 Respiratory Rate 18 12/31/18 09:22 Blood Pressure 108/70 12/31/18 09:22 O2 Sat by Pulse Oximetry (%) Laboratory Last Values WBC 7.5 K/mm3 (4.0-10.0) 12/31/18 07:50 RBC 5.07 M/mm3 (4.00-5.60) 12/31/18 07:50 Hgb 14.3 GM/dL (11.7-16.9) 12/31/18 07:50 Hct 42.3 % (35.4-49) 12/31/18 07:50 MCV 83.5 fl (80-96) 12/31/18 07:50 MCH 28.2 pg (25.7-33.7) 12/31/18 07:50 MCHC 33.8 g/dl (32.0-35.9) 12/31/18 07:50 RDW 15.4 % (11.9-15.9) 12/31/18 07:50 Plt Count 156 K/MM3 (134-434) 12/31/18 07:50 MPV 8.5 fl (7.5-11.1) 12/31/18 07:50 Sodium 136 mmol/L (136-145) 12/31/18 07:50 Potassium 4.3 mmol/L (3.5-5.1) 12/31/18 07:50 Chloride 98 mmol/L (98-107) 12/31/18 07:50 Carbon Dioxide 27 mmol/L (21-32) 12/31/18 07:50 Anion Gap 10 MMOL/L (8-16) 12/31/18 07:50 BUN 9 mg/dL (7-18) 12/31/18 07:50 Creatinine 1.0 mg/dL (0.55-1.3) 12/31/18 07:50 Creat Clearance w eGFR > 60 (>60) 12/31/18 07:50 Random Glucose 83 mg/dL (74-106) 12/31/18 07:50 Calcium 8.8 mg/dL (8.5-10.1) 12/31/18 07:50 Total Bilirubin 0.7 mg/dL (0.2-1) 12/31/18 07:50 AST 21 U/L (15-37) 12/31/18 07:50 ALT 25 U/L (13-61) 12/31/18 07:50 Alkaline Phosphatase 94 U/L (45-117) 12/31/18 07:50 Total Protein 7.9 g/dl (6.4-8.2) 12/31/18 07:50 Albumin 4.4 g/dl (3.4-5.0) 12/31/18 07:50 RPR Titer Nonreactive (NONREACTIVE) 12/31/18 07:50 HIV 1&2 Antibody Screen Negative 12/31/18 07:50 HIV P24 Antigen Negative 12/31/18 07:50 lab noted Assessment: 12/31/18 12:41 withdrawal sx Plan: continue detox
[2018-12-31] MEDS: chlordiazePOXIDE HCL 25 MG CAPSULE PO PRN (13:30)
[2018-12-31] MEDS: THIAMINE HCL 100 MG TABLET (FP) PO SCH (21:50)
[2018-12-31] MEDS: traZODone HCL 50 MG TABLET (FP) PO SCH (21:50)
[2019-01-01] MEDS: chlordiazePOXIDE HCL 25 MG CAPSULE PO SCH ×3 (05:56→17:40)
--- NOTE | 2019-01-01 09:15 | PN ---
[facility] CIWA - CIWA Score Nausea/Vomitin-No Nausea/No Vomiting Muscle Tremors: 3 Anxiety: 2 Agitation: 2 Paroxysmal Sweats: 1-Minimal Palms Moist Orientation: 0-Oriented Tacttile Disturbances: 1-Very Mild Itch/Numbness Auditory Disturbances: 0-None Visual Disturbances: 0-None Headache: 1-Very Mild CIWA-Ar Total Score: 10 [facility] COWS - Scale Resting Pulse: 0= [place] 80 or Below Sweatin= Chills/Flushing Restless Observation: 0= Sits Still Pupil Size: 0= Normal to Room Light Bone or Joint Aches: 1= Mild Discomfort Runny Nose/ Eye Tearin= Nasal Congestion GI Upset > 30mins: 2= Nausea/Diarrhea Tremor Observation of Outstretched Hands: 2= Slight Tremor Visible Yawning Observation: 1= 1-2x During Session Anxiety or Irritability: 2=Irritable/Anxious Goose Flesh Skin: 0=Smooth Skin COWS Score: 10 [facility] Progress Note (SOAP) Subjective: body aches mild tremor less sweating able to sleep through the night Objective: 01/01/19 09:17 Vital Signs Temperature 97 F L 01/01/19 09:02 Pulse Rate 65 01/01/19 09:02 Respiratory Rate 20 01/01/19 09:02 Blood Pressure 95/62 01/01/19 09:02 O2 Sat by Pulse Oximetry (%) Laboratory Last Values WBC 7.5 K/mm3 (4.0-10.0) 12/31/18 07:50 RBC 5.07 M/mm3 (4.00-5.60) 12/31/18 07:50 Hgb 14.3 GM/dL (11.7-16.9) 12/31/18 07:50 Hct 42.3 % (35.4-49) 12/31/18 07:50 MCV 83.5 fl (80-96) 12/31/18 07:50 MCH 28.2 pg (25.7-33.7) 12/31/18 07:50 MCHC 33.8 g/dl (32.0-35.9) 12/31/18 07:50 RDW 15.4 % (11.9-15.9) 12/31/18 07:50 Plt Count 156 K/MM3 (134-434) 12/31/18 07:50 MPV 8.5 fl (7.5-11.1) 12/31/18 07:50 Sodium 136 mmol/L (136-145) 12/31/18 07:50 Potassium 4.3 mmol/L (3.5-5.1) 12/31/18 07:50 Chloride 98 mmol/L (98-107) 12/31/18 07:50 Carbon Dioxide 27 mmol/L (21-32) 12/31/18 07:50 Anion Gap 10 MMOL/L (8-16) 12/31/18 07:50 BUN 9 mg/dL (7-18) 12/31/18 07:50 Creatinine 1.0 mg/dL (0.55-1.3) 12/31/18 07:50 Creat Clearance w eGFR > 60 (>60) 12/31/18 07:50 Random Glucose 83 mg/dL (74-106) 12/31/18 07:50 Calcium 8.8 mg/dL (8.5-10.1) 12/31/18 07:50 Total Bilirubin 0.7 mg/dL (0.2-1) 12/31/18 07:50 AST 21 U/L (15-37) 12/31/18 07:50 ALT 25 U/L (13-61) 12/31/18 07:50 Alkaline Phosphatase 94 U/L (45-117) 12/31/18 07:50 Total Protein 7.9 g/dl (6.4-8.2) 12/31/18 07:50 Albumin 4.4 g/dl (3.4-5.0) 12/31/18 07:50 RPR Titer Nonreactive (NONREACTIVE) 12/31/18 07:50 HIV 1&2 Antibody Screen Negative 12/31/18 07:50 HIV P24 Antigen Negative 12/31/18 07:50 lab noted Assessment: 01/01/19 09:17 withdrawal sx Plan: continue detox
[2019-01-01] MEDS: METHADONE HCL 5 MG TABLET (FOR DETOX USE ONLY) PO SCH (10:21)
[2019-01-01] MEDS: PRENATAL VITAMINS W/ FOLIC ACID TABLET (FP) PO SCH (10:21)
[2019-01-01] MEDS: NICOTINE 14 MG/24 HOURS TOPICAL PATCH TD SCH (10:23)
[2019-01-01] MEDS: guaiFENesin/D-METHORPHAN HB 10 ML UNIT-DOSE CUPS PO PRN (19:12)
[2019-01-01] MEDS: chlordiazePOXIDE HCL 25 MG CAPSULE PO PRN (19:17)
[2019-01-01] MEDS: traZODone HCL 50 MG TABLET (FP) PO SCH (23:16)
[2019-01-01] MEDS: chlordiazePOXIDE 5 MG CAPSULE PO SCH (23:16)
[2019-01-01] MEDS: THIAMINE HCL 100 MG TABLET (FP) PO SCH (23:16)
[2019-01-01] MEDS: ACETAMINOPHEN 325 MG TABLET (FP) PO PRN (23:19)
[2019-01-02] MEDS: chlordiazePOXIDE 5 MG CAPSULE PO SCH ×3 (07:08→17:25)
[2019-01-02] MEDS: PRENATAL VITAMINS W/ FOLIC ACID TABLET (FP) PO SCH (10:53)
[2019-01-02] MEDS: METHADONE HCL 5 MG TABLET (FOR DETOX USE ONLY) PO SCH (10:54)
[2019-01-02] MEDS: NICOTINE 14 MG/24 HOURS TOPICAL PATCH TD SCH (10:56)
--- NOTE | 2019-01-02 15:03 | PN ---
[facility] Progress Note (SOAP) Subjective: body ache tremor joints pain sweating restlessness Objective: 01/02/19 15:01 Vital Signs Temperature 96.0 F L 01/02/19 13:37 Pulse Rate 64 01/02/19 13:37 Respiratory Rate 20 01/02/19 13:37 Blood Pressure 88/63 L 01/02/19 13:37 O2 Sat by Pulse Oximetry (%) Laboratory Last Values WBC 7.5 K/mm3 (4.0-10.0) 12/31/18 07:50 RBC 5.07 M/mm3 (4.00-5.60) 12/31/18 07:50 Hgb 14.3 GM/dL (11.7-16.9) 12/31/18 07:50 Hct 42.3 % (35.4-49) 12/31/18 07:50 MCV 83.5 fl (80-96) 12/31/18 07:50 MCH 28.2 pg (25.7-33.7) 12/31/18 07:50 MCHC 33.8 g/dl (32.0-35.9) 12/31/18 07:50 RDW 15.4 % (11.9-15.9) 12/31/18 07:50 Plt Count 156 K/MM3 (134-434) 12/31/18 07:50 MPV 8.5 fl (7.5-11.1) 12/31/18 07:50 Sodium 136 mmol/L (136-145) 12/31/18 07:50 Potassium 4.3 mmol/L (3.5-5.1) 12/31/18 07:50 Chloride 98 mmol/L (98-107) 12/31/18 07:50 Carbon Dioxide 27 mmol/L (21-32) 12/31/18 07:50 Anion Gap 10 MMOL/L (8-16) 12/31/18 07:50 BUN 9 mg/dL (7-18) 12/31/18 07:50 Creatinine 1.0 mg/dL (0.55-1.3) 12/31/18 07:50 Creat Clearance w eGFR > 60 (>60) 12/31/18 07:50 Random Glucose 83 mg/dL (74-106) 12/31/18 07:50 Calcium 8.8 mg/dL (8.5-10.1) 12/31/18 07:50 Total Bilirubin 0.7 mg/dL (0.2-1) 12/31/18 07:50 AST 21 U/L (15-37) 12/31/18 07:50 ALT 25 U/L (13-61) 12/31/18 07:50 Alkaline Phosphatase 94 U/L (45-117) 12/31/18 07:50 Total Protein 7.9 g/dl (6.4-8.2) 12/31/18 07:50 Albumin 4.4 g/dl (3.4-5.0) 12/31/18 07:50 RPR Titer Nonreactive (NONREACTIVE) 12/31/18 07:50 HIV 1&2 Antibody Screen Negative 12/31/18 07:50 HIV P24 Antigen Negative 12/31/18 07:50 lab noted Assessment: 01/02/19 15:03 withdrawal sx Plan: continue detox
[2019-01-02] MEDS: guaiFENesin/D-METHORPHAN HB 10 ML UNIT-DOSE CUPS PO PRN (17:27)
[2019-01-02] MEDS: THIAMINE HCL 100 MG TABLET (FP) PO SCH (22:26)
[2019-01-02] MEDS: traZODone HCL 50 MG TABLET (FP) PO SCH (22:26)
[2019-01-02] MEDS: chlordiazePOXIDE HCL 10 MG CAPSULE PO SCH (22:26)
[2019-01-03] MEDS: chlordiazePOXIDE HCL 10 MG CAPSULE PO SCH ×2 (06:02→10:29)
[2019-01-03] MEDS ORDERED: METHADONE HCL 10 MG TABLET (FOR DETOX USE ONLY) PO SCH (10:00)
[2019-01-03] MEDS: PRENATAL VITAMINS W/ FOLIC ACID TABLET (FP) PO SCH (10:29)
[2019-01-03] MEDS: NICOTINE 14 MG/24 HOURS TOPICAL PATCH TD SCH (10:30)
[2019-01-03] MEDS: guaiFENesin/D-METHORPHAN HB 10 ML UNIT-DOSE CUPS PO PRN (10:31)
--- NOTE | 2019-01-03 11:08 | PN ---
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 mild tremor less body aches sleep better at night Objective: 01/03/19 11:10 Vital Signs Temperature 97.1 F L 01/03/19 09:11 Pulse Rate 59 L 01/03/19 09:11 Respiratory Rate 16 01/03/19 09:11 Blood Pressure 77/58 L 01/03/19 09:11 O2 Sat by Pulse Oximetry (%) Laboratory Last Values WBC 7.5 K/mm3 (4.0-10.0) 12/31/18 07:50 RBC 5.07 M/mm3 (4.00-5.60) 12/31/18 07:50 Hgb 14.3 GM/dL (11.7-16.9) 12/31/18 07:50 Hct 42.3 % (35.4-49) 12/31/18 07:50 MCV 83.5 fl (80-96) 12/31/18 07:50 MCH 28.2 pg (25.7-33.7) 12/31/18 07:50 MCHC 33.8 g/dl (32.0-35.9) 12/31/18 07:50 RDW 15.4 % (11.9-15.9) 12/31/18 07:50 Plt Count 156 K/MM3 (134-434) 12/31/18 07:50 MPV 8.5 fl (7.5-11.1) 12/31/18 07:50 Sodium 136 mmol/L (136-145) 12/31/18 07:50 Potassium 4.3 mmol/L (3.5-5.1) 12/31/18 07:50 Chloride 98 mmol/L (98-107) 12/31/18 07:50 Carbon Dioxide 27 mmol/L (21-32) 12/31/18 07:50 Anion Gap 10 MMOL/L (8-16) 12/31/18 07:50 BUN 9 mg/dL (7-18) 12/31/18 07:50 Creatinine 1.0 mg/dL (0.55-1.3) 12/31/18 07:50 Creat Clearance w eGFR > 60 (>60) 12/31/18 07:50 Random Glucose 83 mg/dL (74-106) 12/31/18 07:50 Calcium 8.8 mg/dL (8.5-10.1) 12/31/18 07:50 Total Bilirubin 0.7 mg/dL (0.2-1) 12/31/18 07:50 AST 21 U/L (15-37) 12/31/18 07:50 ALT 25 U/L (13-61) 12/31/18 07:50 Alkaline Phosphatase 94 U/L (45-117) 12/31/18 07:50 Total Protein 7.9 g/dl (6.4-8.2) 12/31/18 07:50 Albumin 4.4 g/dl (3.4-5.0) 12/31/18 07:50 RPR Titer Nonreactive (NONREACTIVE) 12/31/18 07:50 HIV 1&2 Antibody Screen Negative 12/31/18 07:50 HIV P24 Antigen Negative 12/31/18 07:50 lab noted Assessment: 01/03/19 11:10 mild withdrawal sx Plan: continue detox
[2019-01-03 13:04] VITALS: BP 111/72; PULSE 78; TEMP 96.1
--- NOTE | 2019-01-03 15:36 | DS ---
[facility] Detox Discharge Summary Admission Date: 12/30/18 Discharge Date: 01/03/19 - History Present History: Alcohol Dependence, Opioid Dependence Additional Comments: 48 years old male preferred begin chemical rehab process today that feeling better after lunch and napping able to manage mild alcohol and opiate withdrawal sx alert no acute distress denies suicidal ideation aftercare [facility] patient agrees to consider return to [facility] for [facility] admission Pertinent Past History: encourage the patient keeps a list of medication in his wallet and bring the list of medication to aftercare appointment brings the medication bottles to medical mental follow up appointments - Physical Exam Results Vital Signs: Vital Signs Temperature 96.1 F L 01/03/19 13:03 Pulse Rate 78 01/03/19 13:03 Respiratory Rate 16 01/03/19 13:03 Blood Pressure 111/72 01/03/19 13:03 O2 Sat by Pulse Oximetry (%) Pertinent Admission Physical Exam Findings: alcohol and opiate withdrawal sx Laboratory Last Values WBC 7.5 K/mm3 (4.0-10.0) 12/31/18 07:50 RBC 5.07 M/mm3 (4.00-5.60) 12/31/18 07:50 Hgb 14.3 GM/dL (11.7-16.9) 12/31/18 07:50 Hct 42.3 % (35.4-49) 12/31/18 07:50 MCV 83.5 fl (80-96) 12/31/18 07:50 MCH 28.2 pg (25.7-33.7) 12/31/18 07:50 MCHC 33.8 g/dl (32.0-35.9) 12/31/18 07:50 RDW 15.4 % (11.9-15.9) 12/31/18 07:50 Plt Count 156 K/MM3 (134-434) 12/31/18 07:50 MPV 8.5 fl (7.5-11.1) 12/31/18 07:50 Sodium 136 mmol/L (136-145) 12/31/18 07:50 Potassium 4.3 mmol/L (3.5-5.1) 12/31/18 07:50 Chloride 98 mmol/L (98-107) 12/31/18 07:50 Carbon Dioxide 27 mmol/L (21-32) 12/31/18 07:50 Anion Gap 10 MMOL/L (8-16) 12/31/18 07:50 BUN 9 mg/dL (7-18) 12/31/18 07:50 Creatinine 1.0 mg/dL (0.55-1.3) 12/31/18 07:50 Creat Clearance w eGFR > 60 (>60) 12/31/18 07:50 Random Glucose 83 mg/dL (74-106) 12/31/18 07:50 Calcium 8.8 mg/dL (8.5-10.1) 12/31/18 07:50 Total Bilirubin 0.7 mg/dL (0.2-1) 12/31/18 07:50 AST 21 U/L (15-37) 12/31/18 07:50 ALT 25 U/L (13-61) 12/31/18 07:50 Alkaline Phosphatase 94 U/L (45-117) 12/31/18 07:50 Total Protein 7.9 g/dl (6.4-8.2) 12/31/18 07:50 Albumin 4.4 g/dl (3.4-5.0) 12/31/18 07:50 RPR Titer Nonreactive (NONREACTIVE) 12/31/18 07:50 HIV 1&2 Antibody Screen Negative 12/31/18 07:50 HIV P24 Antigen Negative 12/31/18 07:50 lab noted - Treatment Hospital Course: Detox Protocol Followed, Detoxed Safely, Responded well, Discharged Condition Good, Rehab Referral Accepted Patient has Accepted a Rehab Referral to: [facility] - Medication Discharge Medications: Ambulatory Orders Ibuprofen 800 mg PO Q8H PRN 11/10/18 Trazodone HCl 150 mg PO HS 11/10/18 Naloxone HCl [Narcan] 4 mg NS ASDIR PRN #1 spray 01/03/19 - Diagnosis (1) Alcohol dependence with uncomplicated withdrawal Current Visit: Yes Status: Acute (2) Nicotine dependence Current Visit: Yes Status: Acute Qualifiers: Nicotine product type: cigarettes Substance use status: in withdrawal Qualified Code(s): F17.213 - Nicotine dependence, cigarettes, with withdrawal (3) Opioid dependence with withdrawal Current Visit: Yes Status: Acute (4) Weight decreased Current Visit: Yes Status: Active - AMA Did Patient Leave Against Medical Advice: No
[2019-01-04] MEDS ORDERED: METHADONE HCL 5 MG TABLET (FOR DETOX USE ONLY) PO SCH (06:00)
== END 2019-01-03 15:41 | disposition home or self-care (01) | DRG 773 ==
LOC: YASAS 17:33 → Y3N 20:50
PROVIDERS: ADMIT Neuromusculoskeletal Medicine & OMM; ATTEND Neuromusculoskeletal Medicine & OMM
PROC: HZ2ZZZZ Detoxification Services for Substance Abuse Treatment (ICD-10-PCS; principal; 2018-12-30)
DX: F11.23 Opioid dependence with withdrawal (principal); F10.230 Alcohol dependence with withdrawal, uncomplicated; F12.20 Cannabis dependence, uncomplicated; F17.213 Nicotine dependence, cigarettes, with withdrawal; F41.9 Anxiety disorder, unspecified; F19.24 Other psychoactive substance dependence with psychoactive substance-induced mood disorder; F32.9 Major depressive disorder, single episode, unspecified; G47.00 Insomnia, unspecified; Z91.013 Allergy to seafood
CPT/HCPCS: 36415; 80053; 85027; 86593; 87389

== ENCOUNTER 2019-03-09 19:42 | Inpatient (IN) | payer OTHER ==
[2019-03-09 20:49] VITALS: BMI 24.3
--- NOTE | 2019-03-09 22:27 | HP ---
COWS - Scale Resting Pulse: 0= [place] 80 or Below Sweatin=Flushed/Facial Moisture Restless Observation: 3= Extraneous Movement Pupil Size: 2= Moderately Dilated (Pupils = 6 mm) Bone or Joint Aches: 1= Mild Discomfort Runny Nose/ Eye Tearin= Runny Nose/Eyes (Runny nose) GI Upset > 30mins: 0= None Tremor Observation: 2= Slight Tremor Visible Yawning Observation: 0= None Anxiety or Irritability: 1=Feels Anxious/Irritable Goose Flesh Skin: 0=Smooth Skin COWS Score: 13 CIWA Score Nausea/Vomitin-No Nausea/No Vomiting Muscle Tremors: 4-Moderate,w/Arms Extend Anxiety: 1-Mildly Anxious Agitation: 4-Moderately Restless Paroxysmal Sweats: 3 Orientation: 0-Oriented Tacttile Disturbances: 0-None Auditory Disturbances: 0-None Visual Disturbances: 0-None Headache: 2-Mild CIWA-Ar Total Score: 14 - Admission Criteria [facility]ASAS Guidelines: Admission for Medically Managed Detox: Requires at least one of the followin. CIWA greater than 12 2. Seizures within the past 24 hours 3. Delirium tremens within the past 24 hours 4. Hallucinations within the past 24 hours 5. Acute intervention needed for co occurring medical disorder 6. Acute intervention needed for co occurring psychiatric disorder 7. Severe withdrawal that cannot be handled at a lower level of care (continued vomiting, continued diarrhea, abnormal vital signs) requiring intravenous medication and/or fluids 8. Patient presents the following: CIWA greater than 12 Admission Criteria Met: Admission criteria met Admission ROS [facility] Chief Complaint: Here for heroin and alcohol withdrawal. Allergies/Adverse Reactions: Allergies Allergy/AdvReac Type Severity Reaction Status Date / Time Fish Containing Products Allergy Severe Swelling Verified 03/09/19 20:35 No Known Drug Allergies Allergy Verified 03/09/19 20:35 History of Present Illness: Here for detox. Heroin use began at age 21. Uses IV. [facility] does not share needles or works. [facility] has a Narcan Kit at home. Alcohol use began at age 16. Xanax use began at age 42. Just 1-2 pieces 2-3x/wk Cocaine use began at age 17. A few times a month. [facility] sometimes binges. Marijuana use began at age 14. Nicotine use began at age 14. He reports 3 years of sobriety. [facility] has been struggling the past few months and relapsed after 2 days last [facility] discharge. Hx: Blackouts. Denies overdoses. PMHx: Hole in ear drum. Denies other significant PMH. MHHx: Depression, Anxiety. Patient denies suicidal ideation at this time. Patient Name: Thomas Oconnor Date: 1970 Address: [address] [place] [address] Sex: Male Rx Written Rx Dispensed Drug Quantity Days Supply Prescriber Name 03/01/2019 03/02/2019 chlordiazepoxide 25 mg capsule 8 2 Pedro Taylor Exam Limitations: No Limitations - Ebola screening Have you traveled outside of the country in the last 21 days: No (N) Have you had contact with anyone from an Ebola affected area: No Do you have a fever: No - Review of Systems Constitutional: Chills, Diaphoresis, Changes in sleep (Difficulty falling asleep ) EENT: reports: Blurred Vision, Nose Congestion, Dental Problems (poor dentition. No dental pain. Chews and swallows ok), Other (States has a hole in ( L) eardrum - occ severe ear pain when water gets in ear. No pain at this time.) Respiratory: reports: No Symptoms reported Cardiac: reports: No Symptoms Reported GI: reports: No Symptoms Reported : reports: No Symptoms Reported Musculoskeletal: reports: Back Pain (r/t withdrawal), Other (States body aches r /t withdrawal) Integumentary: reports: No Symptoms Reported Neuro: reports: Headache (frontal), Tremors Endocrine: reports: No Symptoms Reported Hematology: reports: No Symptoms Reported Psychiatric: reports: Judgement Intact, Orientated x3, Agitated, Anxious, Depressed (Denies thoughts of harming self or others.) Patient History - Patient Medical History Hx Anemia: No Hx Asthma: No Hx Chronic Obstructive Pulmonary Disease (COPD): No Hx Cancer: No Hx Cardiac Disorders: No Hx Congestive Heart Failure: No Hx Hypertension: No Hx Hypercholesterolemia: No Hx Pacemaker: No HX Cerebrovascular Accident: No Hx Seizures: No Hx Dementia: No Hx Diabetes: No Hx Gastrointestinal Disorders: No Hx Liver Disease: No Hx Genitourinary Disorders: No Hx Sexually Transmitted Disorders: No Hx Renal Disease (ESRD): No Hx Thyroid Disease: No Hx Human Immunodeficiency Virus (HIV): No (Negative 2017) Hx Hepatitis C: No (Negative) Hx Depression: Yes (no meds x 6 months - was on zoloft ) Hx Suicide Attempt: No (Denies suicidal ideation at this time) Hx Bipolar Disorder: No Hx Schizophrenia: No - Patient Surgical History Past Surgical History: No Hx Neurologic Surgery: No Hx Cataract Extraction: No Hx Cardiac Surgery: No Hx Lung Surgery: No Hx Breast Surgery: No Hx Breast Biopsy: No Hx Abdominal Surgery: No Hx Appendectomy: No Hx Cholecystectomy: No Hx Genitourinary Surgery: No Hx Section: No Hx Orthopedic Surgery: No Anesthesia Reaction: No - PPD History Previous Implant?: Yes Documented Results: Negative w/proof Implanted On Prior [facility] Admission?: Yes Date: 11/12/18 Results: 0mm PPD to be Administered?: No - Smoking Cessation Smoking history: Current every day smoker Have you smoked in the past 12 months: Yes Aproximately how many cigarettes per day: 20 Cigars Per Day: 0 Hx Chewing Tobacco Use: No Initiated information on smoking cessation: Yes 'Breaking Loose' booklet given: 03/09/19 - Substance & Tx. History Hx Alcohol Use: Yes Hx Substance Use: Yes Substance Use Type: Alcohol, Cocaine, Heroin, Marijuana, Opiates, Tranquilizers (xanax) Hx Substance Use Treatment: Yes (detox, rehab) - Substances abused Heroin Substance route: Injection Frequency: Daily Amount used: 6 to 7 bags Age of first use: 21 Date of last use: 03/09/19 Alcohol Substance route: Oral Frequency: Daily Amount used: 1 to 1 and a half pint Age of first use: 16 Date of last use: 03/09/19 Marijuana/Hashish Substance route: Smoking Frequency: Daily Amount used: 2 blunts Age of first use: 14 Date of last use: 03/08/19 Alprazolam (Xanax) Substance route: Oral Frequency: 1-2 times per week Amount used: 1 pill Age of first use: 42 Date of last use: 03/07/19 Family Disease History - Family Disease History Family Disease History: Heart Disease: Mother (Htn,ovarian ca.), CA: Mother Admission Physical Exam BHS - Vital Signs Vital Signs: Vital Signs - 24 hr 03/09/19 20:35 Temperature 99.4 F Pulse Rate 76 Respiratory 20 Rate Blood Pressure 117/82 - Physical General Appearance: Yes: Nourished, Mild Distress, Tremorous, Irritable, Sweating, Anxious HEENTM: Yes: EOMI, Hearing grossly Normal, Normocephalic, MADELYN (Pupils = 6 mm), Pharynx Normal Respiratory: Yes: Lungs Clear, Normal Breath Sounds, No Respiratory Distress Neck: Yes: No masses,lesions,Nodules, Supple Breast: Yes: Breast Exam Deferred Cardiology: Yes: Regular Rhythm, Regular Rate, S1, S2 Abdominal: Yes: Non Tender, Soft, Increased Bowel Sounds Genitourinary: Yes: Within Normal Limits Back: Yes: Normal Inspection Musculoskeletal: Yes: full range of Motion, Gait Steady Extremities: Yes: Normal Capillary Refill, Normal Range of Motion, Tremors Neurological: Yes: .net programmer II-XII NML intact, Fully Oriented, Alert, Motor Strength 5/5, Normal Mood/Affect Integumentary: Yes: Normal Color, Warm Lymphatic: Yes: Within Normal Limits - Diagnostic (1) Sedative, hypnotic or anxiolytic use disorder, mild, abuse Current Visit: Yes Status: Chronic (2) Alcohol dependence with uncomplicated withdrawal Current Visit: Yes Status: Acute (3) Nicotine dependence Current Visit: Yes Status: Chronic Qualifiers: Nicotine product type: cigarettes Substance use status: in withdrawal Qualified Code(s): F17.213 - Nicotine dependence, cigarettes, with withdrawal (4) Opioid dependence with withdrawal Current Visit: Yes Status: Acute (5) Marijuana dependence Current Visit: Yes Status: Chronic (6) Cocaine abuse Current Visit: Yes Status: Chronic (7) Insomnia Current Visit: Yes Status: Chronic Cleared for Admission [facility] - Detox or Rehab [facility] Level of Care: Medically Managed Detox Regimen/Protocol: Methadone/Librium Breathalyzer - Breathalyzer Breathalyzer: 0 Urine Drug Screen - Test Device Lot number: [id number] Expiration date: 10/27/20 - Control Is test valid?: Yes - Results Drug screen NEGATIVE: No Urine drug screen results: THC-Marijuana, HIMANSHU-Cocaine, FEN-Fentanyl, MOP-Opiates , BZO-Benzodiazepines Inpatient Rehab Admission - Rehab Decision to Admit Inpatient rehab admission?: No
[2019-03-09] MEDS ORDERED: NICOTINE POLACRILEX 2 MG GUM BUC PRN (23:24)
[2019-03-09] MEDS ORDERED: guaiFENesin 200 MG/10 ML 10 ML UNIT-DOSE CUPS PO PRN (23:24)
[2019-03-09] MEDS ORDERED: ACETAMINOPHEN 325 MG TABLET (FP) PO PRN ×2 (23:24)
[2019-03-09] MEDS ORDERED: BISMUTH SUBSALICYLATE 524 MG/30 ML UD PO PRN (23:24)
[2019-03-09] MEDS ORDERED: MENTHOL/PHENOL 1 EACH UD MM PRN (23:24)
[2019-03-09] MEDS ORDERED: MAG HYDROX/AL HYDROX/SIMETH 30 ML UNIT-DOSE CUP PO PRN (23:24)
[2019-03-09] MEDS ORDERED: MAGNESIUM CITRATE 300 ML BOTTLE PO PRN (23:24)
[2019-03-09] MEDS ORDERED: MAGNESIUM HYDROX 2400MG/30ML ORAL SUSPENSION 30 ML CUP PO PRN (23:24)
[2019-03-10] MEDS ORDERED: chlordiazePOXIDE HCL 25 MG CAPSULE PO ONE (00:12)
[2019-03-10] MEDS ORDERED: cloNIDine HCL 0.1 MG TABLET PO PRN (00:12)
[2019-03-10] MEDS ORDERED: METHADONE HCL 5 MG TABLET (FOR DETOX USE ONLY) PO ONE ×2 (00:12→10:00)
[2019-03-10] MEDS ORDERED: chlordiazePOXIDE HCL 10 MG CAPSULE PO PRN (00:12)
[2019-03-10] MEDS ORDERED: NALOXONE HCL 0.4 MG/ML VIAL IVPUSH PRN (00:12)
[2019-03-10] MEDS: MELATONIN 5 MG TABLETS PO PRN (00:26)
[2019-03-10] MEDS: IBUPROFEN 400 MG TABLET (FP) PO PRN ×2 (00:35→22:41)
[2019-03-10] MEDS ORDERED: traZODone HCL 100 MG TABLET (FP) PO ONE (00:44)
[2019-03-10] MEDS: chlordiazePOXIDE HCL 25 MG CAPSULE PO SCH ×3 (05:32→22:36)
[2019-03-10] MEDS: PRENATAL VITAMINS W/ FOLIC ACID TABLET (FP) PO SCH (10:34)
[2019-03-10] MEDS: NICOTINE 21 MG/24 HOURS TOPICAL PATCH TD SCH (10:36)
[2019-03-10 10:59] LABS: ALBUMIN 3.5 g/dl (3.4-5.0); ALK PHOS 71 U/L (45-117); ANION GAP 5 MMOL/L (8-16); BILIRUBIN,TOTAL 0.5 mg/dL (0.2-1); BLOOD UREA NITROGEN 12 mg/dL (7-18); CHLORIDE 104 mmol/L (98-107); CO2 32 mmol/L (21-32); GLUCOSE,RANDOM 84 mg/dL (74-106); POTASSIUM 3.9 mmol/L (3.5-5.1); SGOT/AST 22 U/L (15-37); SGPT/ALT 24 U/L (13-61); SODIUM 140 mmol/L (136-145); TOT PROT 6.1 g/dl (6.4-8.2)
[2019-03-10 11:05] LABS: HEMATOCRIT 36.2 % (35.4-49); HEMOGLOBIN 12.2 GM/dL (11.7-16.9); MCH 27.8 pg (25.7-33.7); MCHC 33.7 g/dl (32.0-35.9); MEAN CELL VOLUME 82.3 fl (80-96); MEAN PLT VOLUME 8.7 fl (7.5-11.1); PLATELET COUNT 142 K/MM3 (134-434); RDW 14.9 % (11.9-15.9); WHITE BLOOD COUNT 5.9 K/mm3 (4.0-10.0)
--- NOTE | 2019-03-10 14:26 | PN ---
S CIWA - CIWA Score Nausea/Vomitin-No Nausea/No Vomiting Muscle Tremors: 2 Anxiety: 3 Agitation: 0-Normal Activity Paroxysmal Sweats: 3 Orientation: 0-Oriented Tacttile Disturbances: 2-Mild Itch/Numbness/Burn Auditory Disturbances: 0-None Visual Disturbances: 3-Moderate Sensitivity Headache: 0-None Present CIWA-Ar Total Score: 13 BHS COWS - Scale Resting Pulse: 0= [place] 80 or Below Sweatin= Chills/Flushing Restless Observation: 0= Sits Still Pupil Size: 1= Pupils >than Normal Bone or Joint Aches: 2= Severe Diffuse Aches Runny Nose/ Eye Tearin= Nasal Congestion GI Upset > 30mins: 0= None Tremor Observation of Outstretched Hands: 0= None Yawning Observation: 1= 1-2x During Session Anxiety or Irritability: 2=Irritable/Anxious Goose Flesh Skin: 3=Piloerection COWS Score: 11 S Progress Note (SOAP) Subjective: Body Aches, Anxious, Interrupted Sleep, Nasal Congestion. Objective: PATIENT A & O X 3, OBSERVED AMBULATING ON UNIT. IN NO ACUTE DISTRESS. 03/10/19 14:25 Vital Signs Temperature 97.2 F L 03/10/19 10:25 Pulse Rate 66 03/10/19 10:25 Respiratory Rate 18 03/10/19 10:25 Blood Pressure 106/73 03/10/19 10:25 O2 Sat by Pulse Oximetry (%) Laboratory Tests 03/10/19 03/10/19 03/10/19 07:30 07:30 07:30 WBC 5.9 RBC 4.40 Hgb 12.2 Hct 36.2 MCV 82.3 MCH 27.8 MCHC 33.7 RDW 14.9 Plt Count 142 MPV 8.7 Sodium 140 Potassium 3.9 Chloride 104 Carbon Dioxide 32 Anion Gap 5 L BUN 12 Creatinine 1.0 Creat Clearance w eGFR 80.44 Random Glucose 84 Calcium 8.0 L Total Bilirubin 0.5 AST 22 ALT 24 Alkaline Phosphatase 71 Total Protein 6.1 L Albumin 3.5 RPR Titer Nonreactive HIV 1&2 Antibody Screen HIV P24 Antigen 03/10/19 07:30 WBC RBC Hgb Hct MCV MCH MCHC RDW Plt Count MPV Sodium Potassium Chloride Carbon Dioxide Anion Gap BUN Creatinine Creat Clearance w eGFR Random Glucose Calcium Total Bilirubin AST ALT Alkaline Phosphatase Total Protein Albumin RPR Titer HIV 1&2 Antibody Screen Negative HIV P24 Antigen Negative LABS NOTED. Assessment: 03/10/19 14:25 WITHDRAWAL SYMPTOMS. HYPOCALCEMIA. Plan: CONTINUE DETOX. OSCAL, 500 MG PO BID.
--- NOTE | 2019-03-10 14:44 | CONSULT ---
[facility] Psychiatric Consult - Data Date of interview: 03/10/19 Admission source: [facility] Identifying data: This is one of multiple admissions to [facility] for this 48 y/ o male self-referred for detoxification treatment (alcohol, marihuana, heroin). Patient is single without children, homeless, unemployed and deprived of income. Substance Abuse History: Confirmed by the patient in this interview. Details in the current [facility] report : Smoking history: Current every day smoker. Have you smoked in the past 12 months: Yes. Aproximately how many cigarettes per day: 20. Cigars Per Day: 0. Hx Chewing Tobacco Use: No. Initiated information on smoking cessation: Yes. 'Breaking Loose' booklet given: 03/09/19. - Substance & Tx. History. Hx Alcohol Use: Yes. Hx Substance Use: Yes. Substance Use Type : Alcohol, Cocaine, Heroin, Marijuana, Opiates, Tranquilizers (xanax). Hx Substance Use Treatment: Yes (detox, rehab). - Substances abused. Heroin. Substance route: Injection. Frequency: Daily. Amount used: 6 to 7 bags. Age of first use: 21. Date of last use: 03/09/19. Alcohol. Substance route: Oral. Frequency: Daily. Amount used: 1 to 1 and a half pint. Age of first use : 16. Date of last use: 03/09/19. Marijuana/Hashish. Substance route: Smoking. Frequency: Daily. Amount used: 2 blunts. Age of first use: 14. Date of last use: 03/08/19. Alprazolam (Xanax). Substance route: Oral. Frequency: 1-2 times per week. Amount used: 1 pill. Age of first use: 42. Date of last use: 03/07/19. Family Disease History Medical History: Patient endorses good general health. Psychiatric History: History of two psychiatric hospitalizations at [facility]. Diagnosed with MDD, PTSD and Anxiety Disorder. Mr Oconnor indicates that he used to see a psychiatrist at [facility] in [facility]. Managed, in the past, with zoloft and trazodone. Patient requests to resume trazodone but not sertraline (side-effects). History of one suicide attempt via deliberate overdose with heroin (2015). No psychiatric OPD care for more than six months (self-report). Physical/Sexual Abuse/Trauma History: Not discussed. Patient declines. Additional Comment: Urine drug screen results: THC-Marijuana, HIMANSHU-Cocaine, FEN- Fentanyl, MOP-Opiates, BZO-Benzodiazepines. Noted. Mental Status Exam - Mental Status Exam Alert and Oriented to: Time, Place, Person Cognitive Function: Good Patient Appearance: Well Groomed Mood: Apprehensive (mildly anxious), Hopeful Affect: Appropriate, Normal Range Patient Behavior: Fatigued, Appropriate, Cooperative Speech Pattern: Appropriate, Rambling Voice Loudness: Normal Thought Process: Goal Oriented Thought Disorder: Not Present Hallucinations: Denies Suicidal Ideation: Denies Homicidal Ideation: Denies Insight/Judgement: Poor Sleep: Poorly, Difficulty falling asleep Appetite: Good Muscle strength/Tone: Normal Gait/Station: Normal Psychiatric Findings - Problem List ([place] 1, 2,3) (1) Alcohol dependence with uncomplicated withdrawal Current Visit: Yes Status: Acute (2) Opioid dependence with withdrawal Current Visit: Yes Status: Acute (3) Sedative, hypnotic or anxiolytic use disorder, mild, abuse Current Visit: Yes Status: Chronic (4) Cocaine abuse Current Visit: Yes Status: Chronic (5) Marijuana dependence Current Visit: Yes Status: Chronic (6) Nicotine dependence Current Visit: Yes Status: Chronic Qualifiers: Nicotine product type: cigarettes Substance use status: in withdrawal Qualified Code(s): F17.213 - Nicotine dependence, cigarettes, with withdrawal (7) Drug-induced mood disorder Current Visit: Yes Status: Chronic (8) Insomnia Current Visit: Yes Status: Chronic (9) Non-compliance Current Visit: Yes Status: Chronic - Initial Treatment Plan Initial Treatment Plan: Psychoeducation. Sleep hygiene. Detoxification in progress. AA/NA meetings. Support. Groups. Relapse prevention (MAT) : discussed with the patient. Trazodone 100 mg po hs. Ordered at patient's specific request. Mr Oconnor is made aware of the risk of priapism. No prior history of adverse event from trazodone (self-report). Consent (verbal) granted to MD. Floyd
[2019-03-10] MEDS: THIAMINE HCL 100 MG TABLET (FP) PO SCH (22:35)
[2019-03-10] MEDS: traZODone HCL 100 MG TABLET (FP) PO SCH (22:36)
[2019-03-10] MEDS: CALCIUM 500MG/VIT-D 200 UNITS COMBO TABLET (FP) PO SCH (22:36)
[2019-03-10] MEDS: METHOCARBAMOL 500 MG TABLET PO PRN (22:38)
[2019-03-11] MEDS: chlordiazePOXIDE 5 MG CAPSULE PO SCH ×3 (05:59→21:50)
[2019-03-11] MEDS ORDERED: METHADONE HCL 5 MG TABLET (FOR DETOX USE ONLY) PO ONE (10:00)
[2019-03-11] MEDS: PRENATAL VITAMINS W/ FOLIC ACID TABLET (FP) PO SCH (10:06)
[2019-03-11] MEDS: CALCIUM 500MG/VIT-D 200 UNITS COMBO TABLET (FP) PO SCH ×2 (10:06→22:15)
[2019-03-11] MEDS: NICOTINE 21 MG/24 HOURS TOPICAL PATCH TD SCH (10:07)
[2019-03-11] MEDS: IBUPROFEN 600 MG TABLET (FP) PO PRN ×2 (10:08→22:14)
--- NOTE | 2019-03-11 15:40 | PN ---
[facility] CIWA - CIWA Score Nausea/Vomitin-Mild Nausea/No Vomiting Muscle Tremors: 1-None Visible, but [place] Anxiety: 3 Agitation: 2 Paroxysmal Sweats: 1-Minimal Palms Moist Orientation: 0-Oriented Tacttile Disturbances: 0-None Auditory Disturbances: 0-None Visual Disturbances: 0-None Headache: 1-Very Mild CIWA-Ar Total Score: 9 BHS COWS - Scale Resting Pulse: 0= [place] 80 or Below Sweatin= Chills/Flushing Restless Observation: 0= Sits Still Pupil Size: 0= Normal to Room Light Bone or Joint Aches: 1= Mild Discomfort Runny Nose/ Eye Tearin= None GI Upset > 30mins: 1= Stomach Cramp Tremor Observation of Outstretched Hands: 2= Slight Tremor Visible Yawning Observation: 1= 1-2x During Session Anxiety or Irritability: 2=Irritable/Anxious Goose Flesh Skin: 0=Smooth Skin COWS Score: 8 S Progress Note (SOAP) Subjective: patient wants more methadone that he had 15 mg yesterday and today 15 mg again patient wants increase his methadone dosage irritable aggressive threatening 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 patient dose not want librium but higher dose of methadone discuss methadone assisted maintenance treatment program Objective: 03/11/19 15:44 Vital Signs Temperature 97.9 F 03/11/19 09:33 Pulse Rate 63 03/11/19 09:33 Respiratory Rate 18 03/11/19 09:33 Blood Pressure 95/62 03/11/19 09:33 O2 Sat by Pulse Oximetry (%) Laboratory Last Values WBC 5.9 K/mm3 (4.0-10.0) 03/10/19 07:30 RBC 4.40 M/mm3 (4.00-5.60) 03/10/19 07:30 Hgb 12.2 GM/dL (11.7-16.9) 03/10/19 07:30 Hct 36.2 % (35.4-49) 03/10/19 07:30 MCV 82.3 fl (80-96) 03/10/19 07:30 MCH 27.8 pg (25.7-33.7) 03/10/19 07:30 MCHC 33.7 g/dl (32.0-35.9) 03/10/19 07:30 RDW 14.9 % (11.9-15.9) 03/10/19 07:30 Plt Count 142 K/MM3 (134-434) 03/10/19 07:30 MPV 8.7 fl (7.5-11.1) 03/10/19 07:30 Sodium 140 mmol/L (136-145) 03/10/19 07:30 Potassium 3.9 mmol/L (3.5-5.1) 03/10/19 07:30 Chloride 104 mmol/L (98-107) 03/10/19 07:30 Carbon Dioxide 32 mmol/L (21-32) 03/10/19 07:30 Anion Gap 5 MMOL/L (8-16) L 03/10/19 07:30 BUN 12 mg/dL (7-18) 03/10/19 07:30 Creatinine 1.0 mg/dL (0.55-1.3) 03/10/19 07:30 Creat Clearance w eGFR 80.44 (>60) 03/10/19 07:30 Random Glucose 84 mg/dL (74-106) 03/10/19 07:30 Calcium 8.0 mg/dL (8.5-10.1) L 03/10/19 07:30 Total Bilirubin 0.5 mg/dL (0.2-1) 03/10/19 07:30 AST 22 U/L (15-37) 03/10/19 07:30 ALT 24 U/L (13-61) 03/10/19 07:30 Alkaline Phosphatase 71 U/L (45-117) 03/10/19 07:30 Total Protein 6.1 g/dl (6.4-8.2) L 03/10/19 07:30 Albumin 3.5 g/dl (3.4-5.0) 03/10/19 07:30 RPR Titer Nonreactive (NONREACTIVE) 03/10/19 07:30 HIV 1&2 Antibody Screen Negative 03/10/19 07:30 HIV P24 Antigen Negative 03/10/19 07:30 lab noted Assessment: 03/11/19 15:44 withdrawal sx Plan: continue detox
[2019-03-11] MEDS: traZODone HCL 100 MG TABLET (FP) PO SCH (22:15)
[2019-03-11] MEDS: THIAMINE HCL 100 MG TABLET (FP) PO SCH (22:15)
[2019-03-11] MEDS: MELATONIN 5 MG TABLETS PO PRN (22:15)
[2019-03-12] MEDS ORDERED: chlordiazePOXIDE HCL 10 MG CAPSULE PO PRN (05:00)
[2019-03-12] MEDS: chlordiazePOXIDE HCL 10 MG CAPSULE PO SCH ×3 (05:19→22:34)
[2019-03-12] MEDS: IBUPROFEN 600 MG TABLET (FP) PO PRN ×3 (05:19→22:38)
[2019-03-12] MEDS: METHOCARBAMOL 500 MG TABLET PO PRN ×3 (05:20→22:39)
[2019-03-12] MEDS ORDERED: METHADONE HCL 10 MG TABLET (FOR DETOX USE ONLY) PO ONE (10:00)
[2019-03-12] MEDS: CALCIUM 500MG/VIT-D 200 UNITS COMBO TABLET (FP) PO SCH ×2 (10:25→22:35)
[2019-03-12] MEDS: PRENATAL VITAMINS W/ FOLIC ACID TABLET (FP) PO SCH (10:25)
[2019-03-12] MEDS: NICOTINE 21 MG/24 HOURS TOPICAL PATCH TD SCH (10:27)
--- NOTE | 2019-03-12 10:40 | EKG ---
Test Reason : Blood Pressure : / mmHG Vent. Rate : 068 BPM Atrial Rate : 068 BPM P-R Int : 130 ms QRS Dur : 082 ms QT Int : 370 ms P-R-T Axes : 066 052 054 degrees QTc Int : 393 ms NORMAL SINUS RHYTHM NORMAL ECG WHEN COMPARED WITH ECG OF 06-OCT-2017 17:24, NO SIGNIFICANT CHANGE WAS FOUND Confirmed by CHANTELLE BAHENA MD ([id number]) on 03/12/2019 10:39:48 AM Referred By: MARLEEN BAUTISTA Confirmed By:CHANTELLE BAHENA MD
--- NOTE | 2019-03-12 13:22 | PN ---
[facility] CIWA - CIWA Score Nausea/Vomitin-No Nausea/No Vomiting Muscle Tremors: 1-None Visible, but [place] Anxiety: 1-Mildly Anxious Agitation: 1-Slight > Activity Paroxysmal Sweats: 1-Minimal Palms Moist Orientation: 1-Uncertain about Date Tacttile Disturbances: 0-None Auditory Disturbances: 0-None Visual Disturbances: 0-None Headache: 0-None Present CIWA-Ar Total Score: 5 S COWS - Scale Resting Pulse: 0= [place] 80 or Below Sweatin= Chills/Flushing Restless Observation: 0= Sits Still Pupil Size: 0= Normal to Room Light Bone or Joint Aches: 1= Mild Discomfort Runny Nose/ Eye Tearin= Nasal Congestion GI Upset > 30mins: 1= Stomach Cramp Tremor Observation of Outstretched Hands: 0= None Yawning Observation: 0= None Anxiety or Irritability: 0= None Goose Flesh Skin: 0=Smooth Skin COWS Score: 4 S Progress Note (SOAP) Subjective: feeling better mild anxious and restlessness treated with clonidin with good effect Objective: 03/12/19 13:29 Vital Signs Temperature 96.7 F L 03/12/19 13:13 Pulse Rate 64 03/12/19 13:13 Respiratory Rate 18 03/12/19 13:13 Blood Pressure 107/74 03/12/19 13:13 O2 Sat by Pulse Oximetry (%) Laboratory Last Values WBC 5.9 K/mm3 (4.0-10.0) 03/10/19 07:30 RBC 4.40 M/mm3 (4.00-5.60) 03/10/19 07:30 Hgb 12.2 GM/dL (11.7-16.9) 03/10/19 07:30 Hct 36.2 % (35.4-49) 03/10/19 07:30 MCV 82.3 fl (80-96) 03/10/19 07:30 MCH 27.8 pg (25.7-33.7) 03/10/19 07:30 MCHC 33.7 g/dl (32.0-35.9) 03/10/19 07:30 RDW 14.9 % (11.9-15.9) 03/10/19 07:30 Plt Count 142 K/MM3 (134-434) 03/10/19 07:30 MPV 8.7 fl (7.5-11.1) 03/10/19 07:30 Sodium 140 mmol/L (136-145) 03/10/19 07:30 Potassium 3.9 mmol/L (3.5-5.1) 03/10/19 07:30 Chloride 104 mmol/L (98-107) 03/10/19 07:30 Carbon Dioxide 32 mmol/L (21-32) 03/10/19 07:30 Anion Gap 5 MMOL/L (8-16) L 03/10/19 07:30 BUN 12 mg/dL (7-18) 03/10/19 07:30 Creatinine 1.0 mg/dL (0.55-1.3) 03/10/19 07:30 Creat Clearance w eGFR 80.44 (>60) 03/10/19 07:30 Random Glucose 84 mg/dL (74-106) 03/10/19 07:30 Calcium 8.0 mg/dL (8.5-10.1) L 03/10/19 07:30 Total Bilirubin 0.5 mg/dL (0.2-1) 03/10/19 07:30 AST 22 U/L (15-37) 03/10/19 07:30 ALT 24 U/L (13-61) 03/10/19 07:30 Alkaline Phosphatase 71 U/L (45-117) 03/10/19 07:30 Total Protein 6.1 g/dl (6.4-8.2) L 03/10/19 07:30 Albumin 3.5 g/dl (3.4-5.0) 03/10/19 07:30 RPR Titer Nonreactive (NONREACTIVE) 03/10/19 07:30 HIV 1&2 Antibody Screen Negative 03/10/19 07:30 HIV P24 Antigen Negative 03/10/19 07:30 lab noted Assessment: 03/12/19 13:30 mild alcohol and opiate withdrawal sx Plan: continue detox
[2019-03-12] MEDS: THIAMINE HCL 100 MG TABLET (FP) PO SCH (22:35)
[2019-03-12] MEDS: traZODone HCL 100 MG TABLET (FP) PO SCH (22:35)
[2019-03-13] MEDS: METHOCARBAMOL 500 MG TABLET PO PRN (05:29)
[2019-03-13] MEDS: chlordiazePOXIDE HCL 10 MG CAPSULE PO SCH (05:29)
[2019-03-13] MEDS: IBUPROFEN 600 MG TABLET (FP) PO PRN (05:30)
[2019-03-13] MEDS ORDERED: METHADONE HCL 5 MG TABLET (FOR DETOX USE ONLY) PO ONE (06:00)
[2019-03-13 06:16] VITALS: BP 101/59; PULSE 59; TEMP 98.1
--- NOTE | 2019-03-13 10:08 | DS ---
[facility] Detox Discharge Summary Admission Date: 03/09/19 Discharge Date: 03/13/19 - History Present History: Alcohol Dependence, Opioid Dependence Additional Comments: 48 years old male admitted on 03/09/19 for alcohol and opiate withdrawal stabilization completed detox regimen aftercare [facility] Pertinent Past History: bring in medication list and lab report to aftercare appointment - Physical Exam Results Vital Signs: Vital Signs Temperature 98.1 F 03/13/19 06:16 Pulse Rate 59 L 03/13/19 06:16 Respiratory Rate 18 03/13/19 06:16 Blood Pressure 101/59 L 03/13/19 06:16 O2 Sat by Pulse Oximetry (%) Pertinent Admission Physical Exam Findings: alcohol and opiate withdrawal sx Laboratory Last Values WBC 5.9 K/mm3 (4.0-10.0) 03/10/19 07:30 RBC 4.40 M/mm3 (4.00-5.60) 03/10/19 07:30 Hgb 12.2 GM/dL (11.7-16.9) 03/10/19 07:30 Hct 36.2 % (35.4-49) 03/10/19 07:30 MCV 82.3 fl (80-96) 03/10/19 07:30 MCH 27.8 pg (25.7-33.7) 03/10/19 07:30 MCHC 33.7 g/dl (32.0-35.9) 03/10/19 07:30 RDW 14.9 % (11.9-15.9) 03/10/19 07:30 Plt Count 142 K/MM3 (134-434) 03/10/19 07:30 MPV 8.7 fl (7.5-11.1) 03/10/19 07:30 Sodium 140 mmol/L (136-145) 03/10/19 07:30 Potassium 3.9 mmol/L (3.5-5.1) 03/10/19 07:30 Chloride 104 mmol/L (98-107) 03/10/19 07:30 Carbon Dioxide 32 mmol/L (21-32) 03/10/19 07:30 Anion Gap 5 MMOL/L (8-16) L 03/10/19 07:30 BUN 12 mg/dL (7-18) 03/10/19 07:30 Creatinine 1.0 mg/dL (0.55-1.3) 03/10/19 07:30 Creat Clearance w eGFR 80.44 (>60) 03/10/19 07:30 Random Glucose 84 mg/dL (74-106) 03/10/19 07:30 Calcium 8.0 mg/dL (8.5-10.1) L 03/10/19 07:30 Total Bilirubin 0.5 mg/dL (0.2-1) 03/10/19 07:30 AST 22 U/L (15-37) 03/10/19 07:30 ALT 24 U/L (13-61) 03/10/19 07:30 Alkaline Phosphatase 71 U/L (45-117) 03/10/19 07:30 Total Protein 6.1 g/dl (6.4-8.2) L 03/10/19 07:30 Albumin 3.5 g/dl (3.4-5.0) 03/10/19 07:30 RPR Titer Nonreactive (NONREACTIVE) 03/10/19 07:30 HIV 1&2 Antibody Screen Negative 03/10/19 07:30 HIV P24 Antigen Negative 03/10/19 07:30 lab noted - Treatment Hospital Course: Detox Protocol Followed, Detoxed Safely, Responded well, Discharged Condition Good, Rehab Referral Accepted Patient has Accepted a [facility] Ref[facility] - Medication Discharge Medications: Ambulatory Orders Ibuprofen 800 mg PO Q8H PRN 11/10/18 Trazodone HCl 150 mg PO HS 11/10/18 Naloxone HCl [Narcan] 4 mg NS ASDIR PRN #1 spray 01/03/19 - Diagnosis (1) Alcohol dependence with uncomplicated withdrawal Status: Acute (2) Opioid dependence with withdrawal Status: Acute (3) Nicotine dependence Status: Acute Qualifiers: Nicotine product type: cigarettes Substance use status: in withdrawal Qualified Code(s): F17.213 - Nicotine dependence, cigarettes, with withdrawal - AMA Did Patient Leave Against Medical Advice: No
== END 2019-03-13 08:55 | disposition home or self-care (01) | DRG 773 ==
LOC: YASAS 19:42 → Y3N 23:13
PROVIDERS: ADMIT Surgery; ATTEND Surgery
PROC: HZ2ZZZZ Detoxification Services for Substance Abuse Treatment (ICD-10-PCS; principal; 2019-03-09)
DX: F10.230 Alcohol dependence with withdrawal, uncomplicated (principal); F11.23 Opioid dependence with withdrawal; F13.10 Sedative, hypnotic or anxiolytic abuse, uncomplicated; F14.10 Cocaine abuse, uncomplicated; F12.20 Cannabis dependence, uncomplicated; F17.213 Nicotine dependence, cigarettes, with withdrawal; F19.24 Other psychoactive substance dependence with psychoactive substance-induced mood disorder; F41.8 Other specified anxiety disorders; F32.9 Major depressive disorder, single episode, unspecified; E83.51 Hypocalcemia; G47.00 Insomnia, unspecified; Z91.013 Allergy to seafood; Z91.19 Patient's noncompliance with other medical treatment and regimen
CPT/HCPCS: 36415; 80053; 85027; 86593; 87389; 93005; 93010; J0735

== ENCOUNTER 2019-04-17 16:55 | Inpatient (IN) | payer OTHER ==
[2019-04-17 21:32] VITALS: BMI 23.6
[2019-04-17] MEDS ORDERED: METHADONE HCL 10 MG TABLET (FOR DETOX USE ONLY) PO ONE (23:00)
--- NOTE | 2019-04-17 23:40 | HP ---
COWS - Scale Resting Pulse: 1= [place] 81-100 Sweatin=Flushed/Facial Moisture Restless Observation: 0= Sits Still Pupil Size: 1= Pupils >than Normal Bone or Joint Aches: 4=Acute Joint/Muscle Pain Runny Nose/ Eye Tearin= Runny Nose/Eyes GI Upset > 30mins: 2= Nausea/Diarrhea Tremor Observation: 4= Gross Tremor/Twitching Yawning Observation: 0= None Anxiety or Irritability: 4=Extreme Anxiety Goose Flesh Skin: 0=Smooth Skin COWS Score: 20 CIWA Score Nausea/Vomitin Muscle Tremors: 4-Moderate,w/Arms Extend Anxiety: 4-Mod. Anxious/Guarded Agitation: 4-Moderately Restless Paroxysmal Sweats: 2 Orientation: 0-Oriented Tacttile Disturbances: 0-None Auditory Disturbances: 0-None Visual Disturbances: 0-None Headache: 3-Moderate CIWA-Ar Total Score: 19 - Admission Criteria [facility] Guidelines: Admission for Medically Managed Detox: Requires at least one of the followin. CIWA greater than 12 2. Seizures within the past 24 hours 3. Delirium tremens within the past 24 hours 4. Hallucinations within the past 24 hours 5. Acute intervention needed for co occurring medical disorder 6. Acute intervention needed for co occurring psychiatric disorder 7. Severe withdrawal that cannot be handled at a lower level of care (continued vomiting, continued diarrhea, abnormal vital signs) requiring intravenous medication and/or fluids 8. Admission [facility] Chief Complaint: Heroin and alcohol withdrawal symptoms Allergies/Adverse Reactions: Allergies Allergy/AdvReac Type Severity Reaction Status Date / Time Fish Containing Products Allergy Severe Swelling Verified 04/17/19 19:30 No Known Drug Allergies Allergy Verified 04/17/19 19:30 History of Present Illness: 48 years old male with a long history of alcohol and heroin dependence is seeking admission to detox. Patient was in detox for the period 03/09/2019 - . He reports 3 years of sobriety. He reports history of depression and anxiety. Denies suicidal ideation at this time Exam Limitations: No Limitations - Ebola screening Have you traveled outside of the country in the last 21 days: No (N) Have you had contact with anyone from an Ebola affected area: No Do you have a fever: No - Review of Systems Constitutional: Chills, Loss of Appetite, Malaise, Night Sweats EENT: reports: Sinus Pressure Respiratory: reports: No Symptoms reported Cardiac: reports: No Symptoms Reported GI: reports: Nausea, Poor Appetite, Poor Fluid Intake, Abdominal cramping : reports: No Symptoms Reported Musculoskeletal: reports: Back Pain, Joint Pain Integumentary: reports: Dryness, Flushing Neuro: reports: Tremors Endocrine: reports: No Symptoms Reported Hematology: reports: No Symptoms Reported Psychiatric: reports: Judgement Intact, Mood/Affect Appropiate, Orientated x3, Anxious Other Systems: Reviewed and Negative Patient History - Patient Medical History Hx Anemia: No Hx Asthma: No Hx Chronic Obstructive Pulmonary Disease (COPD): No Hx Cancer: No Hx Cardiac Disorders: No Hx Congestive Heart Failure: No Hx Hypertension: No Hx Hypercholesterolemia: No Hx Pacemaker: No HX Cerebrovascular Accident: No Hx Seizures: No Hx Dementia: No Hx Diabetes: No Hx Gastrointestinal Disorders: No Hx Liver Disease: No Hx Genitourinary Disorders: No Hx Sexually Transmitted Disorders: No Hx Renal Disease (ESRD): No Hx Thyroid Disease: No Hx Human Immunodeficiency Virus (HIV): No (Negative 2017) Hx Hepatitis C: No (Negative) Hx Depression: Yes (no meds x 6 months - was on zoloft ) Hx Suicide Attempt: No (Denies suicidal ideation at this time) Hx Bipolar Disorder: No Hx Schizophrenia: No Other Medical History: Anxiety - Not on medication - Patient Surgical History Past Surgical History: No Hx Neurologic Surgery: No Hx Cataract Extraction: No Hx Cardiac Surgery: No Hx Lung Surgery: No Hx Breast Surgery: No Hx Breast Biopsy: No Hx Abdominal Surgery: No Hx Appendectomy: No Hx Cholecystectomy: No Hx Genitourinary Surgery: No Hx Section: No Hx Orthopedic Surgery: No Anesthesia Reaction: No - PPD History Previous Implant?: Yes Documented Results: Negative w/proof Date: 11/12/18 Results: 0mm PPD to be Administered?: No - Reproductive History Patient is a Female of Child Bearing Age (11 -55 yrs old): No (male) - Smoking Cessation Smoking history: Current every day smoker Have you smoked in the past 12 months: Yes Aproximately how many cigarettes per day: 20 Cigars Per Day: 0 Hx Chewing Tobacco Use: No Initiated information on smoking cessation: Yes 'Breaking Loose' booklet given: 04/17/19 - Substance & Tx. History Hx Alcohol Use: Yes Hx Substance Use: Yes Substance Use Type: Alcohol, Heroin, Opiates - Substances abused Heroin Substance route: Injection Frequency: Daily Amount used: 6 to 7 bags Age of first use: 21 Date of last use: 04/17/19 Alcohol Substance route: Oral Frequency: Daily Amount used: 1 to 1 and a half pint Age of first use: 16 Date of last use: 04/17/19 Marijuana/Hashish Substance route: Smoking Frequency: Daily Amount used: 2 blunts Age of first use: 14 Date of last use: 04/17/19 Alprazolam (Xanax) Substance route: Oral Frequency: 1-2 times per week Amount used: 1 pill Age of first use: 42 Date of last use: 04/17/19 Family Disease History - Family Disease History Family Disease History: Heart Disease: Mother (Htn,ovarian ca.), CA: Mother Admission Physical Exam [facility] - Vital Signs Vital Signs: Vital Signs - 24 hr 04/17/19 04/17/19 19:27 21:29 Temperature 98.2 F 98.2 F Pulse Rate 94 H 94 H Respiratory 18 18 Rate Blood Pressure 117/79 117/79 - Physical General Appearance: Yes: Moderate Distress, Tremorous, Anxious HEENTM: Yes: Within Normal Limits Respiratory: Yes: Lungs Clear, Normal Breath Sounds, No Respiratory Distress Neck: Yes: Supple Breast: Yes: Breast Exam Deferred Cardiology: Yes: Tachycardia Abdominal: Yes: Normal Bowel Sounds Genitourinary: Yes: Within Normal Limits Back: Yes: Normal Inspection Musculoskeletal: Yes: Back pain, Muscle Pain Extremities: Yes: Tremors Neurological: Yes: Within Normal Limits, Alert, Normal Mood/Affect Integumentary: Yes: Warm Lymphatic: Yes: Within Normal Limits - Diagnostic (1) Anxiety Current Visit: Yes Status: Chronic (2) Alcohol dependence with uncomplicated withdrawal Current Visit: Yes Status: Chronic (3) Nicotine dependence Current Visit: Yes Status: Chronic Qualifiers: Nicotine product type: cigarettes Substance use status: in withdrawal Qualified Code(s): F17.213 - Nicotine dependence, cigarettes, with withdrawal (4) Opioid dependence with withdrawal Current Visit: Yes Status: Chronic (5) DEPRESSION Current Visit: Yes Status: Chronic Cleared for Admission [facility] - Detox or Rehab [facility] Level of Care: Medically Managed Detox Regimen/Protocol: Methadone/Librium Breathalyzer - Breathalyzer Breathalyzer: 0 Urine Drug Screen - Test Device Lot number: [id number] Expiration date: 12/27/20 - Control Is test valid?: Yes - Results Drug screen NEGATIVE: No Urine drug screen results: FEN-Fentanyl, MOP-Opiates, MTD-Methadone, BZO- Benzodiazepines Inpatient Rehab Admission - Rehab Decision to Admit Inpatient rehab admission?: No
[2019-04-17] MEDS ORDERED: cloNIDine HCL 0.1 MG TABLET PO PRN (23:56)
[2019-04-17] MEDS ORDERED: MAG HYDROX/AL HYDROX/SIMETH 30 ML UNIT-DOSE CUP PO PRN (23:56)
[2019-04-17] MEDS ORDERED: NICOTINE POLACRILEX 2 MG GUM BUC PRN (23:56)
[2019-04-17] MEDS ORDERED: ACETAMINOPHEN 325 MG TABLET (FP) PO PRN ×2 (23:56)
[2019-04-17] MEDS ORDERED: BISMUTH SUBSALICYLATE 524 MG/30 ML UD PO PRN (23:56)
[2019-04-17] MEDS ORDERED: MAGNESIUM HYDROX 2400MG/30ML ORAL SUSPENSION 30 ML CUP PO PRN (23:56)
[2019-04-17] MEDS ORDERED: MAGNESIUM CITRATE 300 ML BOTTLE PO PRN (23:56)
[2019-04-17] MEDS ORDERED: hydrOXYzine PAMOATE 25 MG CAPSULE (FP) PO PRN (23:56)
[2019-04-17] MEDS ORDERED: MENTHOL/PHENOL 1 EACH UD MM PRN (23:56)
[2019-04-17] MEDS ORDERED: MELATONIN 5 MG TABLETS PO PRN (23:56)
[2019-04-17] MEDS ORDERED: IBUPROFEN 400 MG TABLET (FP) PO PRN (23:56)
[2019-04-18] MEDS ORDERED: METHADONE HCL 10 MG TABLET PO ONE (03:06)
[2019-04-18] MEDS ORDERED: METHADONE HCL 10 MG TABLET (FOR DETOX USE ONLY) PO ONE ×2 (03:15→10:00)
[2019-04-18] MEDS: chlordiazePOXIDE HCL 25 MG CAPSULE PO PRN ×2 (03:20→13:30)
[2019-04-18] MEDS: chlordiazePOXIDE HCL 25 MG CAPSULE PO SCH ×5 (03:25→22:19)
--- NOTE | 2019-04-18 10:19 | PN ---
S CIWA - CIWA Score Nausea/Vomitin-Mild Nausea/No Vomiting Muscle Tremors: 4-Moderate,w/Arms Extend Anxiety: 4-Mod. Anxious/Guarded Agitation: 4-Moderately Restless Paroxysmal Sweats: 1-Minimal Palms Moist Orientation: 1-Uncertain about Date Tacttile Disturbances: 0-None Auditory Disturbances: 0-None Visual Disturbances: 0-None Headache: 0-None Present CIWA-Ar Total Score: 15 [facility] COWS - Scale Resting Pulse: 0= [place] 80 or Below Sweatin= Chills/Flushing Restless Observation: 0= Sits Still Pupil Size: 0= Normal to Room Light Bone or Joint Aches: 1= Mild Discomfort Runny Nose/ Eye Tearin= None GI Upset > 30mins: 2= Nausea/Diarrhea Tremor Observation of Outstretched Hands: 2= Slight Tremor Visible Yawning Observation: 4= Several Times/Minute Anxiety or Irritability: 1=Feels Anxious/Irritable Goose Flesh Skin: 3=Piloerection COWS Score: 14 [facility] Progress Note (SOAP) Subjective: ambulating on hallway social with peers on hallway request ensure due to feeling nausea after regular food Objective: 04/18/19 10:18 Vital Signs Temperature 96.8 F L 04/18/19 09:15 Pulse Rate 78 04/18/19 09:15 Respiratory Rate 20 04/18/19 09:15 Blood Pressure 100/69 04/18/19 09:15 O2 Sat by Pulse Oximetry (%) 04/18/19 10:18 lab pending Assessment: 04/18/19 10:19 withdrawal sx Plan: continue detox
[2019-04-18] MEDS: PRENATAL VITAMINS W/ FOLIC ACID TABLET (FP) PO SCH (10:21)
[2019-04-18] MEDS: NICOTINE 14 MG/24 HOURS TOPICAL PATCH TD SCH (10:21)
[2019-04-18 10:31] LABS: HEMATOCRIT 39.6 % (35.4-49); HEMOGLOBIN 13.2 GM/dL (11.7-16.9); MCH 27.7 pg (25.7-33.7); MCHC 33.4 g/dl (32.0-35.9); MEAN CELL VOLUME 83.1 fl (80-96); MEAN PLT VOLUME 8.9 fl (7.5-11.1); PLATELET COUNT 162 K/MM3 (134-434); RBC 4.77 M/mm3 (4.00-5.60); RDW 14.5 % (11.9-15.9); WHITE BLOOD COUNT 5.9 K/mm3 (4.0-10.0)
[2019-04-18 10:36] LABS: BILIRUBIN,TOTAL 0.5 mg/dL (0.2-1); POTASSIUM 4.7 mmol/L (3.5-5.1)
--- NOTE | 2019-04-18 17:38 | CONSULT ---
[facility] Psychiatric Consult - Data Date of interview: 04/18/19 Admission source: [facility] Identifying data: Readmission to [facility] for this 48 y/o male seeking detoxification treatment (alcohol, marihuana, heroin). Patient is single without children, homeless, unemployed and supported on welfare. Substance Abuse History: Confirmed by patient in this interview. Refer to current [facility] report for details : Smoking history: Current every day smoker. Have you smoked in the past 12 months: Yes. Aproximately how many cigarettes per day: 20. Cigars Per Day: 0. Hx Chewing Tobacco Use: No. Initiated information on smoking cessation: Yes. 'Breaking Loose' booklet given: . - Substance & Tx. History. Hx Alcohol Use: Yes. Hx Substance Use: Yes. Substance Use Type: Alcohol, Heroin, Opiates. - Substances abused. Heroin. Substance route: Injection. Frequency: Daily. Amount used: 6 to 7 bags. Age of first use: 21. Date of last use: 04/17/19. Alcohol. Substance route : Oral. Frequency: Daily. Amount used: 1 to 1 and a half pint. Age of first use: 16. Date of last use: 04/17/19. Marijuana/Hashish. Substance route: Smoking. Frequency: Daily. Amount used: 2 blunts. Age of first use: 14. Date of last use: 04/17/19. Alprazolam (Xanax). Substance route: Oral. Frequency: 1-2 times per week. Amount used: 1 pill. Age of first use: 42. Date of last use: 04/17/19 Medical History: No medical problems reported by the patient. Endorses good health. Psychiatric History: No changes in psychiatric profile since encounter of : patient presents with a history of two psychiatric hospitalizations at [facility]. Diagnosed with MDD, PTSD and Anxiety Disorder. Mr Oconnor used to see a psychiatrist at [facility] in [facility]. Managed , in the past, with zoloft and trazodone. Patient requests to resume both medications in this hospital course. History of one suicide attempt via deliberate overdose with heroin (2016). No psychiatric OPD care for more than six months (self-report). Physical/Sexual Abuse/Trauma History: Patient denies. Additional Comment: Urine drug screen results: FEN-Fentanyl, MOP-Opiates, MTD- Methadone, BZO-Benzodiazepines. Noted. Mental Status Exam - Mental Status Exam Alert and Oriented to: Time, Place, Person Cognitive Function: Good Patient Appearance: Well Groomed Mood: Hopeful Affect: Appropriate, Mood Congruent, Normal Range Patient Behavior: Fatigued, Appropriate, Cooperative Speech Pattern: Clear Voice Loudness: Normal Thought Process: Intact, Goal Oriented Thought Disorder: Not Present Hallucinations: Denies Suicidal Ideation: Denies Homicidal Ideation: Denies Insight/Judgement: Poor Sleep: Poorly, Difficulty falling asleep Appetite: Good Muscle strength/Tone: Normal Gait/Station: Normal Psychiatric Findings - Problem List ([place] 1, 2,3) (1) Alcohol dependence with uncomplicated withdrawal Current Visit: Yes Status: Acute (2) Opioid dependence with withdrawal Current Visit: Yes Status: Chronic (3) Nicotine dependence Current Visit: Yes Status: Chronic Qualifiers: Nicotine product type: cigarettes Substance use status: in withdrawal Qualified Code(s): F17.213 - Nicotine dependence, cigarettes, with withdrawal (4) Substance induced mood disorder Current Visit: Yes Status: Chronic (5) History of depression Current Visit: Yes Status: Chronic (6) Insomnia Current Visit: Yes Status: Chronic (7) Non-compliance Current Visit: Yes Status: Chronic - Initial Treatment Plan Initial Treatment Plan: Psychoeducation. Sleep hygiene. Detoxification. Medications : zoloft 50 mg po daily + trazodone 150 mg po hs. Ordered at patient 's request. Made aware of side effects/benefits, including risk of prapism, sexual dysfunction and suicidal ideation. Mr Oconnor consented verbally to resuming these drugs. Observation.
[2019-04-18] MEDS: traZODone HCL 50 MG TABLET (FP) PO SCH (22:19)
[2019-04-18] MEDS: THIAMINE HCL 100 MG TABLET (FP) PO SCH (22:19)
[2019-04-19] MEDS: chlordiazePOXIDE HCL 25 MG CAPSULE PO SCH ×3 (07:38→17:55)
[2019-04-19] MEDS ORDERED: METHADONE HCL 10 MG TABLET (FOR DETOX USE ONLY) PO ONE (10:00)
[2019-04-19] MEDS: NICOTINE 14 MG/24 HOURS TOPICAL PATCH TD SCH (10:39)
[2019-04-19] MEDS: SERTRALINE HCL 50 MG TABLET (FP) PO SCH (10:40)
[2019-04-19] MEDS: PRENATAL VITAMINS W/ FOLIC ACID TABLET (FP) PO SCH (10:40)
--- NOTE | 2019-04-19 14:00 | PN ---
[facility] CIWA - CIWA Score Nausea/Vomitin-Mild Nausea/No Vomiting Muscle Tremors: 3 Anxiety: 1-Mildly Anxious Agitation: 3 Paroxysmal Sweats: 1-Minimal Palms Moist Orientation: 1-Uncertain about Date Tacttile Disturbances: 0-None Auditory Disturbances: 0-None Visual Disturbances: 0-None Headache: 1-Very Mild CIWA-Ar Total Score: 11 BHS COWS - Scale Resting Pulse: 0= [place] 80 or Below Sweatin= Chills/Flushing Restless Observation: 1= Difficult to Sit Still Pupil Size: 0= Normal to Room Light Bone or Joint Aches: 1= Mild Discomfort Runny Nose/ Eye Tearin= Nasal Congestion GI Upset > 30mins: 1= Stomach Cramp Tremor Observation of Outstretched Hands: 2= Slight Tremor Visible Yawning Observation: 2= >3x During Session Anxiety or Irritability: 2=Irritable/Anxious Goose Flesh Skin: 0=Smooth Skin COWS Score: 11 [facility] Progress Note (SOAP) Subjective: patient fears of relapse once been discharged to the community encourage the patient to discuss aftercare with staff strong recommend medication assisted maintenance treatment program Objective: 04/19/19 14:15 Vital Signs Temperature 97.3 F L 04/19/19 14:14 Pulse Rate 65 04/19/19 14:14 Respiratory Rate 18 04/19/19 14:14 Blood Pressure 106/73 04/19/19 14:14 O2 Sat by Pulse Oximetry (%) Laboratory Last Values WBC 5.9 K/mm3 (4.0-10.0) 04/18/19 07:00 RBC 4.77 M/mm3 (4.00-5.60) 04/18/19 07:00 Hgb 13.2 GM/dL (11.7-16.9) 04/18/19 07:00 Hct 39.6 % (35.4-49) 04/18/19 07:00 MCV 83.1 fl (80-96) 04/18/19 07:00 MCH 27.7 pg (25.7-33.7) 04/18/19 07:00 MCHC 33.4 g/dl (32.0-35.9) 04/18/19 07:00 RDW 14.5 % (11.9-15.9) 04/18/19 07:00 Plt Count 162 K/MM3 (134-434) 04/18/19 07:00 MPV 8.9 fl (7.5-11.1) 04/18/19 07:00 Sodium 138 mmol/L (136-145) 04/18/19 07:00 Potassium 4.7 mmol/L (3.5-5.1) 04/18/19 07:00 Chloride 102 mmol/L (98-107) 04/18/19 07:00 Carbon Dioxide 32 mmol/L (21-32) 04/18/19 07:00 Anion Gap 5 MMOL/L (8-16) L 04/18/19 07:00 BUN 13 mg/dL (7-18) 04/18/19 07:00 Creatinine 1.0 mg/dL (0.55-1.3) 04/18/19 07:00 Est GFR (CKD-EPI)AfAm 104.15 04/18/19 07:00 Est GFR (CKD-EPI)NonAf 89.86 04/18/19 07:00 Random Glucose 99 mg/dL (74-106) 04/18/19 07:00 Calcium 9.0 mg/dL (8.5-10.1) 04/18/19 07:00 Total Bilirubin 0.5 mg/dL (0.2-1) 04/18/19 07:00 AST 23 U/L (15-37) 04/18/19 07:00 ALT 26 U/L (13-61) 04/18/19 07:00 Alkaline Phosphatase 83 U/L (45-117) 04/18/19 07:00 Total Protein 7.0 g/dl (6.4-8.2) 04/18/19 07:00 Albumin 4.0 g/dl (3.4-5.0) 04/18/19 07:00 RPR Titer Nonreactive (NONREACTIVE) 04/18/19 07:00 lab noted Assessment: 04/19/19 14:16 withdrawal sx Plan: continue detox
[2019-04-19] MEDS ORDERED: chlordiazePOXIDE HCL 10 MG CAPSULE PO PRN (23:00)
[2019-04-19] MEDS: chlordiazePOXIDE HCL 10 MG CAPSULE PO SCH (23:05)
[2019-04-19] MEDS: THIAMINE HCL 100 MG TABLET (FP) PO SCH (23:05)
[2019-04-19] MEDS: traZODone HCL 50 MG TABLET (FP) PO SCH (23:05)
[2019-04-19] MEDS: METHOCARBAMOL 500 MG TABLET PO PRN (23:06)
[2019-04-20] MEDS: chlordiazePOXIDE HCL 10 MG CAPSULE PO SCH ×4 (05:54→22:20)
[2019-04-20] MEDS ORDERED: METHADONE HCL 10 MG TABLET (FOR DETOX USE ONLY) PO ONE (10:00)
[2019-04-20] MEDS: PRENATAL VITAMINS W/ FOLIC ACID TABLET (FP) PO SCH (10:19)
[2019-04-20] MEDS: SERTRALINE HCL 50 MG TABLET (FP) PO SCH (10:19)
[2019-04-20] MEDS: NICOTINE 14 MG/24 HOURS TOPICAL PATCH TD SCH (10:19)
--- NOTE | 2019-04-20 17:37 | PN ---
[facility] CIWA - CIWA Score Nausea/Vomitin-No Nausea/No Vomiting Muscle Tremors: None Anxiety: 0-No Anxiety, at Ease Agitation: 1-Slight > Activity Paroxysmal Sweats: No Perspiration Orientation: 0-Oriented Tacttile Disturbances: 0-None Auditory Disturbances: 0-None Visual Disturbances: 0-None Headache: 0-None Present CIWA-Ar Total Score: 1 S COWS - Scale Resting Pulse: 0= [place] 80 or Below Sweatin= No chills or Flushing Restless Observation: 1= Difficult to Sit Still Pupil Size: 0= Normal to Room Light Bone or Joint Aches: 0= None Runny Nose/ Eye Tearin= None GI Upset > 30mins: 0= None Tremor Observation of Outstretched Hands: 0= None Yawning Observation: 1= 1-2x During Session Anxiety or Irritability: 0= None Goose Flesh Skin: 0=Smooth Skin COWS Score: 2 S Progress Note (SOAP) Subjective: Patient denies current Withdrawal / Detox symptoms and reports that he feels well overall at this time. Objective: PATIENT A & O X 3. IN NO ACUTE DISTRESS. 04/20/19 17:36 Vital Signs Temperature 98.1 F 04/20/19 17:06 Pulse Rate 71 04/20/19 17:06 Respiratory Rate 17 04/20/19 17:06 Blood Pressure 90/57 L 04/20/19 17:06 O2 Sat by Pulse Oximetry (%) Laboratory Tests 04/18/19 04/18/19 04/18/19 07:00 07:00 07:00 WBC 5.9 RBC 4.77 Hgb 13.2 Hct 39.6 MCV 83.1 MCH 27.7 MCHC 33.4 RDW 14.5 Plt Count 162 MPV 8.9 Sodium 138 Potassium 4.7 Chloride 102 Carbon Dioxide 32 Anion Gap 5 L BUN 13 Creatinine 1.0 Est GFR (CKD-EPI)AfAm 104.15 Est GFR (CKD-EPI)NonAf 89.86 Random Glucose 99 Calcium 9.0 Total Bilirubin 0.5 AST 23 ALT 26 Alkaline Phosphatase 83 Total Protein 7.0 Albumin 4.0 RPR Titer Nonreactive LABS NOTED. Assessment: 04/20/19 17:37 WITHDRAWAL SYMPTOMS. Plan: CONTINUE DETOX. PATIENT SCHEDULED FOR D/C TOMORROW AM.
[2019-04-20] MEDS: THIAMINE HCL 100 MG TABLET (FP) PO SCH (22:20)
[2019-04-20] MEDS: traZODone HCL 50 MG TABLET (FP) PO SCH (22:20)
[2019-04-21] MEDS ORDERED: METHADONE HCL 5 MG TABLET (FOR DETOX USE ONLY) PO ONE (06:00)
[2019-04-21 09:38] VITALS: BP 101/61; PULSE 70; TEMP 97.2
[2019-04-21] MEDS: METHOCARBAMOL 500 MG TABLET PO PRN (10:26)
[2019-04-21] MEDS: chlordiazePOXIDE HCL 10 MG CAPSULE PO SCH (10:26)
[2019-04-21] MEDS: SERTRALINE HCL 50 MG TABLET (FP) PO SCH (10:26)
[2019-04-21] MEDS: NICOTINE 14 MG/24 HOURS TOPICAL PATCH TD SCH (10:27)
[2019-04-21] MEDS: PRENATAL VITAMINS W/ FOLIC ACID TABLET (FP) PO SCH (10:27)
--- NOTE | 2019-04-21 11:28 | PN ---
S Progress Note (SOAP) Subjective: Back pain, anxious about discharge Objective: 04/21/19 11:27 Vital Signs 04/21/19 04/21/19 04/21/19 03:30 07:14 09:38 Temperature 98.2 F 97.2 F L Pulse Rate 66 70 Respiratory 18 18 18 Rate Blood Pressure 93/56 L 101/61 Laboratory Last Values WBC 5.9 K/mm3 (4.0-10.0) 04/18/19 07:00 RBC 4.77 M/mm3 (4.00-5.60) 04/18/19 07:00 Hgb 13.2 GM/dL (11.7-16.9) 04/18/19 07:00 Hct 39.6 % (35.4-49) 04/18/19 07:00 MCV 83.1 fl (80-96) 04/18/19 07:00 MCH 27.7 pg (25.7-33.7) 04/18/19 07:00 MCHC 33.4 g/dl (32.0-35.9) 04/18/19 07:00 RDW 14.5 % (11.9-15.9) 04/18/19 07:00 Plt Count 162 K/MM3 (134-434) 04/18/19 07:00 MPV 8.9 fl (7.5-11.1) 04/18/19 07:00 Sodium 138 mmol/L (136-145) 04/18/19 07:00 Potassium 4.7 mmol/L (3.5-5.1) 04/18/19 07:00 Chloride 102 mmol/L (98-107) 04/18/19 07:00 Carbon Dioxide 32 mmol/L (21-32) 04/18/19 07:00 Anion Gap 5 MMOL/L (8-16) L 04/18/19 07:00 BUN 13 mg/dL (7-18) 04/18/19 07:00 Creatinine 1.0 mg/dL (0.55-1.3) 04/18/19 07:00 Est GFR (CKD-EPI)AfAm 104.15 04/18/19 07:00 Est GFR (CKD-EPI)NonAf 89.86 04/18/19 07:00 Random Glucose 99 mg/dL (74-106) 04/18/19 07:00 Calcium 9.0 mg/dL (8.5-10.1) 04/18/19 07:00 Total Bilirubin 0.5 mg/dL (0.2-1) 04/18/19 07:00 AST 23 U/L (15-37) 04/18/19 07:00 ALT 26 U/L (13-61) 04/18/19 07:00 Alkaline Phosphatase 83 U/L (45-117) 04/18/19 07:00 Total Protein 7.0 g/dl (6.4-8.2) 04/18/19 07:00 Albumin 4.0 g/dl (3.4-5.0) 04/18/19 07:00 RPR Titer Nonreactive (NONREACTIVE) 04/18/19 07:00 Labs noted Assessment: 04/21/19 11:27 Withdrawal sx resolved Plan: Possible discharge later today Continue monitoring
--- NOTE | 2019-04-21 13:38 | DS ---
[facility] Detox Discharge Summary Admission Date: 04/18/19 Discharge Date: 04/21/19 - History Present History: Alcohol Dependence, Opioid Dependence Pertinent Past History: Depression Illicit drug use - Physical Exam Results Vital Signs: Vital Signs Temperature 97.2 F L 04/21/19 09:38 Pulse Rate 70 04/21/19 09:38 Respiratory Rate 18 04/21/19 09:38 Blood Pressure 101/61 04/21/19 09:38 O2 Sat by Pulse Oximetry (%) Pertinent Admission Physical Exam Findings: Withdrawal sx Laboratory Last Values WBC 5.9 K/mm3 (4.0-10.0) 04/18/19 07:00 RBC 4.77 M/mm3 (4.00-5.60) 04/18/19 07:00 Hgb 13.2 GM/dL (11.7-16.9) 04/18/19 07:00 Hct 39.6 % (35.4-49) 04/18/19 07:00 MCV 83.1 fl (80-96) 04/18/19 07:00 MCH 27.7 pg (25.7-33.7) 04/18/19 07:00 MCHC 33.4 g/dl (32.0-35.9) 04/18/19 07:00 RDW 14.5 % (11.9-15.9) 04/18/19 07:00 Plt Count 162 K/MM3 (134-434) 04/18/19 07:00 MPV 8.9 fl (7.5-11.1) 04/18/19 07:00 Sodium 138 mmol/L (136-145) 04/18/19 07:00 Potassium 4.7 mmol/L (3.5-5.1) 04/18/19 07:00 Chloride 102 mmol/L (98-107) 04/18/19 07:00 Carbon Dioxide 32 mmol/L (21-32) 04/18/19 07:00 Anion Gap 5 MMOL/L (8-16) L 04/18/19 07:00 BUN 13 mg/dL (7-18) 04/18/19 07:00 Creatinine 1.0 mg/dL (0.55-1.3) 04/18/19 07:00 Est GFR (CKD-EPI)AfAm 104.15 04/18/19 07:00 Est GFR (CKD-EPI)NonAf 89.86 04/18/19 07:00 Random Glucose 99 mg/dL (74-106) 04/18/19 07:00 Calcium 9.0 mg/dL (8.5-10.1) 04/18/19 07:00 Total Bilirubin 0.5 mg/dL (0.2-1) 04/18/19 07:00 AST 23 U/L (15-37) 04/18/19 07:00 ALT 26 U/L (13-61) 04/18/19 07:00 Alkaline Phosphatase 83 U/L (45-117) 04/18/19 07:00 Total Protein 7.0 g/dl (6.4-8.2) 04/18/19 07:00 Albumin 4.0 g/dl (3.4-5.0) 04/18/19 07:00 RPR Titer Nonreactive (NONREACTIVE) 04/18/19 07:00 - Treatment Hospital Course: Detox Protocol Followed, Detoxed Safely, Responded well, Discharged Condition Good, Rehab Referral Accepted - Medication Discharge Medications: Ambulatory Orders Trazodone HCl 150 mg PO HS 11/10/18 Sertraline HCl [Zoloft] 50 mg PO DAILY 04/17/19 - Diagnosis (1) Alcohol dependence with uncomplicated withdrawal Current Visit: Yes Status: Acute (2) Anxiety Current Visit: Yes Status: Chronic (3) DEPRESSION Current Visit: Yes Status: Chronic (4) Insomnia Current Visit: Yes Status: Chronic (5) Nicotine dependence Current Visit: Yes Status: Chronic Qualifiers: Nicotine product type: cigarettes Substance use status: in withdrawal Qualified Code(s): F17.213 - Nicotine dependence, cigarettes, with withdrawal (6) Opioid dependence with withdrawal Current Visit: Yes Status: Chronic - AMA Did Patient Leave Against Medical Advice: No
== END 2019-04-21 11:25 | disposition home or self-care (01) | DRG 773 ==
LOC: YASAS 16:55 → Y3N 04-18 01:13
PROVIDERS: ADMIT Surgery; ATTEND Surgery
PROC: HZ2ZZZZ Detoxification Services for Substance Abuse Treatment (ICD-10-PCS; principal; 2019-04-18)
DX: F11.23 Opioid dependence with withdrawal (principal); F10.230 Alcohol dependence with withdrawal, uncomplicated; F17.213 Nicotine dependence, cigarettes, with withdrawal; F41.9 Anxiety disorder, unspecified; F32.9 Major depressive disorder, single episode, unspecified; F19.24 Other psychoactive substance dependence with psychoactive substance-induced mood disorder; G47.00 Insomnia, unspecified; R00.0 Tachycardia, unspecified; Z91.013 Allergy to seafood; Z91.19 Patient's noncompliance with other medical treatment and regimen
CPT/HCPCS: 36415; 80053; 85027; 86593; J0735

== ENCOUNTER 2019-06-01 20:19 | Inpatient (IN) | payer OTHER ==
[2019-06-01 22:06] VITALS: BMI 22.1
--- NOTE | 2019-06-01 23:14 | HP ---
COWS - Scale Resting Pulse: 0= [place] 80 or Below Sweatin=Flushed/Facial Moisture Restless Observation: 1= Difficult to Sit Still Pupil Size: 2= Moderately Dilated Bone or Joint Aches: 1= Mild Discomfort Runny Nose/ Eye Tearin= Runny Nose/Eyes GI Upset > 30mins: 2= Nausea/Diarrhea Tremor Observation: 2= Slight Tremor Visible Yawning Observation: 0= None Anxiety or Irritability: 2=Irritable/Anxious Goose Flesh Skin: 0=Smooth Skin COWS Score: 14 CIWA Score Nausea/Vomitin Muscle Tremors: 1-None Visible, but [place] Anxiety: 3 Agitation: 2 Paroxysmal Sweats: 2 Orientation: 0-Oriented Tacttile Disturbances: 0-None Auditory Disturbances: 0-None Visual Disturbances: 0-None Headache: 0-None Present CIWA-Ar Total Score: 11 - Admission Criteria OASAS Guidelines: Admission for Medically Managed Detox: Requires at least one of the followin. CIWA greater than 12 2. Seizures within the past 24 hours 3. Delirium tremens within the past 24 hours 4. Hallucinations within the past 24 hours 5. Acute intervention needed for co occurring medical disorder 6. Acute intervention needed for co occurring psychiatric disorder 7. Severe withdrawal that cannot be handled at a lower level of care (continued vomiting, continued diarrhea, abnormal vital signs) requiring intravenous medication and/or fluids 8. Admission ROS [facility] Chief Complaint: im having very hard times Allergies/Adverse Reactions: Allergies Allergy/AdvReac Type Severity Reaction Status Date / Time Fish Containing Products Allergy Severe Swelling Verified 06/01/19 21:55 No Known Drug Allergies Allergy Verified 06/01/19 21:55 History of Present Illness: 14 yo began using substances heroin use began age 21 has had intermittent periods of abstinence prior episode of mmtp 8-10 bags iv uses benzo's ocassionally - Ebola screening Have you traveled outside of the country in the last 21 days: No Have you had contact with anyone from an Ebola affected area: No - Review of Systems Constitutional: Loss of Appetite, Unintentional Wgt. Loss Patient History - Patient Medical History Hx Anemia: No Hx Asthma: No Hx Chronic Obstructive Pulmonary Disease (COPD): No Hx Cancer: No Hx Cardiac Disorders: No Hx Congestive Heart Failure: No Hx Hypertension: No Hx Hypercholesterolemia: No Hx Pacemaker: No HX Cerebrovascular Accident: No Hx Seizures: No Hx Dementia: No Hx Diabetes: No Hx Gastrointestinal Disorders: No Hx Liver Disease: No Hx Genitourinary Disorders: No Hx Sexually Transmitted Disorders: No Hx Renal Disease (ESRD): No Hx Thyroid Disease: No Hx Human Immunodeficiency Virus (HIV): No (Negative 2018) Hx Hepatitis C: No (Negative) Hx Depression: Yes (no meds x 6 months - was on zoloft ) Hx Suicide Attempt: No (Denies suicidal ideation at this time) Hx Bipolar Disorder: No Hx Schizophrenia: No Other Medical History: perforated eardrum - Patient Surgical History Past Surgical History: No Hx Neurologic Surgery: No Hx Cataract Extraction: No Hx Cardiac Surgery: No Hx Lung Surgery: No Hx Breast Surgery: No Hx Breast Biopsy: No Hx Abdominal Surgery: No Hx Appendectomy: No Hx Cholecystectomy: No Hx Genitourinary Surgery: No Hx Section: No Hx Orthopedic Surgery: No Anesthesia Reaction: No - PPD History Date: 11/12/18 Results: 0mm - Smoking Cessation Smoking history: Current every day smoker Have you smoked in the past 12 months: Yes Aproximately how many cigarettes per day: 20 Cigars Per Day: 0 Hx Chewing Tobacco Use: No Initiated information on smoking cessation: Yes 'Breaking Loose' booklet given: 06/01/19 - Substances abused Heroin Substance route: Injection Frequency: Daily Amount used: 6 to 7 bags Age of first use: 21 Date of last use: 06/01/19 Alcohol Substance route: Oral Frequency: Daily Amount used: 1 to 1 and a half pint Age of first use: 16 Date of last use: 05/30/19 Marijuana/Hashish Substance route: Smoking Frequency: Daily Amount used: 2 blunts Age of first use: 14 Date of last use: 05/30/19 Alprazolam (Xanax) Substance route: Oral Frequency: 1-2 times per week Amount used: 1 pill Age of first use: 42 Date of last use: 05/23/19 Family Disease History - Family Disease History Family Disease History: Heart Disease: Mother (Htn,ovarian ca.), CA: Mother Admission Physical Exam BHS - Vital Signs Vital Signs: Vital Signs - 24 hr 06/01/19 21:58 Temperature 98.8 F Pulse Rate 78 Respiratory 16 Rate Blood Pressure 105/75 - Physical General Appearance: Yes: Disheveled, Mild Distress, Irritable, Sweating, Anxious HEENTM: Yes: EOMI, Normocephalic Respiratory: Yes: Within Normal Limits Neck: Yes: Within Normal Limits Breast: Yes: Breast Exam Deferred Cardiology: Yes: Within Normal Limits Abdominal: Yes: Normal Bowel Sounds, Non Tender, Flat Genitourinary: Yes: Within Normal Limits Back: Yes: Within Normal Limits, Normal Inspection Musculoskeletal: Yes: Within Normal Limits, full range of Motion Extremities: Yes: Normal Capillary Refill Neurological: Yes: Within Normal Limits, 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 NML intact Integumentary: Yes: Within Normal Limits Lymphatic: Yes: Within Normal Limits - Diagnostic (1) Weight decreased Current Visit: Yes Status: Active (2) Drug-induced mood disorder Current Visit: No Status: Chronic (3) Opioid dependence with withdrawal Current Visit: Yes Status: Chronic Breathalyzer - Breathalyzer Breathalyzer: 0 Urine Drug Screen - Test Device Lot number: [id number] Expiration date: 01/25/21 - Control Is test valid?: Yes - Results Drug screen NEGATIVE: No Urine drug screen results: THC-Marijuana, FEN-Fentanyl, MOP-Opiates, OXY- Oxycodone, MTD-Methadone, BZO-Benzodiazepines Inpatient Rehab Admission - Rehab Decision to Admit Inpatient rehab admission?: No
[2019-06-01] MEDS ORDERED: METHADONE HCL 10 MG TABLET (FOR DETOX USE ONLY) PO ONE (23:30)
[2019-06-01] MEDS ORDERED: MAGNESIUM CITRATE 300 ML BOTTLE PO PRN (23:30)
[2019-06-01] MEDS ORDERED: METHOCARBAMOL 500 MG TABLET PO PRN (23:30)
[2019-06-01] MEDS ORDERED: MAG HYDROX/AL HYDROX/SIMETH 30 ML UNIT-DOSE CUP PO PRN (23:30)
[2019-06-01] MEDS ORDERED: MAGNESIUM HYDROX 2400MG/30ML ORAL SUSPENSION 30 ML CUP PO PRN (23:30)
[2019-06-01] MEDS ORDERED: ACETAMINOPHEN 325 MG TABLET (FP) PO PRN ×2 (23:30)
[2019-06-01] MEDS ORDERED: MENTHOL/PHENOL 1 EACH UD MM PRN (23:30)
[2019-06-01] MEDS ORDERED: cloNIDine HCL 0.1 MG TABLET PO PRN (23:30)
[2019-06-01] MEDS ORDERED: hydrOXYzine PAMOATE 25 MG CAPSULE (FP) PO PRN (23:30)
[2019-06-01] MEDS ORDERED: BISMUTH SUBSALICYLATE 524 MG/30 ML UD PO PRN (23:30)
[2019-06-02] MEDS: diazePAM 5 MG TABLET PO PRN ×2 (00:42→11:23)
[2019-06-02] MEDS: MELATONIN 5 MG TABLETS PO PRN (00:42)
[2019-06-02] MEDS ORDERED: METHADONE HCL 5 MG TABLET (FOR DETOX USE ONLY) ONE (09:45)
[2019-06-02] MEDS ORDERED: METHADONE HCL 10 MG TABLET (FOR DETOX USE ONLY) ONE (09:45)
[2019-06-02] MEDS ORDERED: METHADONE (DETOX) 20 MG, METHADONE (DETOX) 5 MG PO ONE (10:00)
--- NOTE | 2019-06-02 10:13 | PN ---
S CIWA - CIWA Score Nausea/Vomitin-No Nausea/No Vomiting Muscle Tremors: 2 Anxiety: 3 Agitation: 2 Paroxysmal Sweats: 3 Orientation: 0-Oriented Tacttile Disturbances: 0-None Auditory Disturbances: 0-None Visual Disturbances: 0-None Headache: 2-Mild CIWA-Ar Total Score: 12 BHS COWS - Scale Resting Pulse: 0= [place] 80 or Below Sweatin=Flushed/Facial Moisture Restless Observation: 1= Difficult to Sit Still Pupil Size: 0= Normal to Room Light Bone or Joint Aches: 4=Acute Joint/Muscle Pain Runny Nose/ Eye Tearin= None GI Upset > 30mins: 0= None Tremor Observation of Outstretched Hands: 2= Slight Tremor Visible Yawning Observation: 1= 1-2x During Session Anxiety or Irritability: 2=Irritable/Anxious Goose Flesh Skin: 0=Smooth Skin COWS Score: 12 BHS Progress Note (SOAP) Subjective: c/o sweats, irritability, anxiety, headache, and body aches. Objective: 06/02/19 10:12 Vital Signs 06/02/19 06/02/19 06/02/19 03:30 07:42 09:17 Temperature 97.7 F 98.1 F Pulse Rate 62 64 Respiratory 18 18 18 Rate Blood Pressure 108/74 98/68 Labs pending. Assessment: 06/02/19 10:12 AOX3, in no acute respiratory distress. Full ROM, ambulating in the unit. withdrawal symptoms Plan: continue detox. increase fluids.
[2019-06-02 11:10] LABS: ALBUMIN 3.7 g/dl (3.4-5.0); BILIRUBIN,TOTAL 0.8 mg/dL (0.2-1); BLOOD UREA NITROGEN 8.4 mg/dL (7-18); CALCIUM 9.3 mg/dL (8.5-10.1); CREATININE 0.8 mg/dL (0.55-1.3)
[2019-06-02 11:12] LABS: HEMATOCRIT 36.5 % (35.4-49); HEMOGLOBIN 12.4 GM/dL (11.7-16.9); MCH 27.8 pg (25.7-33.7); MCHC 33.9 g/dl (32.0-35.9); MEAN CELL VOLUME 82.3 fl (80-96); MEAN PLT VOLUME 8.9 fl (7.5-11.1); RBC 4.44 M/mm3 (4.00-5.60); RDW 13.9 % (11.9-15.9); WHITE BLOOD COUNT 8.2 K/mm3 (4.0-10.0)
[2019-06-02] MEDS: PRENATAL VITAMINS W/ FOLIC ACID TABLET (FP) PO SCH (11:23)
[2019-06-02 12:16] LABS: PLATELET COUNT 184 K/MM3 (134-434)
[2019-06-02] MEDS: THIAMINE HCL 100 MG TABLET (FP) PO SCH (23:12)
[2019-06-03] MEDS ORDERED: METHADONE HCL 10 MG TABLET (FOR DETOX USE ONLY) PO ONE (10:00)
[2019-06-03] MEDS: PRENATAL VITAMINS W/ FOLIC ACID TABLET (FP) PO SCH (10:17)
[2019-06-03] MEDS: diazePAM 5 MG TABLET PO PRN ×2 (10:20→22:42)
[2019-06-03] MEDS: IBUPROFEN 400 MG TABLET (FP) PO PRN ×2 (10:41→22:45)
--- NOTE | 2019-06-03 14:18 | PN ---
S CIWA - CIWA Score Nausea/Vomitin (Stomach Cramping.) Muscle Tremors: 2 Anxiety: 3 Agitation: 1-Slight > Activity Paroxysmal Sweats: No Perspiration Orientation: 0-Oriented Tacttile Disturbances: 2-Mild Itch/Numbness/Burn Auditory Disturbances: 0-None Visual Disturbances: 1-Very Mild Sensitivity Headache: 0-None Present CIWA-Ar Total Score: 11 S COWS - Scale Resting Pulse: 0= [place] 80 or Below Sweatin= No chills or Flushing Restless Observation: 1= Difficult to Sit Still Pupil Size: 0= Normal to Room Light Bone or Joint Aches: 2= Severe Diffuse Aches Runny Nose/ Eye Tearin= None GI Upset > 30mins: 1= Stomach Cramp Tremor Observation of Outstretched Hands: 0= None Yawning Observation: 1= 1-2x During Session Anxiety or Irritability: 2=Irritable/Anxious Goose Flesh Skin: 3=Piloerection COWS Score: 10 S Progress Note (SOAP) Subjective: Anxious, Body Aches, Interrupted Sleep, Stomach Cramping. Objective: PATIENT A & O X 3, OBSERVED AMBULATING ON UNIT UNASSISTED. IN NO ACUTE DISTRESS. 06/03/19 14:18 Vital Signs Temperature 97.9 F 06/03/19 13:16 Pulse Rate 76 06/03/19 13:16 Respiratory Rate 18 06/03/19 13:16 Blood Pressure 121/75 06/03/19 13:16 O2 Sat by Pulse Oximetry (%) Laboratory Tests 06/02/19 06/02/19 06/02/19 08:00 08:00 08:00 WBC 8.2 RBC 4.44 Hgb 12.4 Hct 36.5 MCV 82.3 MCH 27.8 MCHC 33.9 RDW 13.9 Plt Count 184 MPV 8.9 Sodium 138 Potassium 4.0 Chloride 102 Carbon Dioxide 30 Anion Gap 5 L BUN 8.4 Creatinine 0.8 Est GFR (CKD-EPI)AfAm 124.16 Est GFR (CKD-EPI)NonAf 107.13 Random Glucose 91 Calcium 9.3 Total Bilirubin 0.8 AST 22 ALT 24 Alkaline Phosphatase 84 Total Protein 7.0 Albumin 3.7 RPR Titer Nonreactive LABS NOTED. Assessment: 06/03/19 14:19 WITHDRAWAL SYMPTOMS. Plan: CONTINUE DETOX.
--- NOTE | 2019-06-03 14:46 | CONSULT ---
[facility] Psychiatric Consult - Data Date of interview: 06/03/19 Admission source: [facility] Identifying data: Patient is a 49 year old single male, without children, unemployed, homeless, and is not receiving financial assistance. This is one of multiple admissions for patient. Patient admitted to for opiate dependence. Substance Abuse History: Smoking Cessation. Smoking history: Current every day smoker. Have you smoked in the past 12 months: Yes. Aproximately how many cigarettes per day: 20. Cigars Per Day: 0. Hx Chewing Tobacco Use: No. Initiated information on smoking cessation: Yes. 'Breaking Loose' booklet given : 06/01/19. - Substances abused. Heroin. Substance route: Injection. Frequency: Daily. Amount used: 6 to 7 bags. Age of first use: 21. Date of last use: 06/01/19. Alcohol. Substance route: Oral. Frequency: Daily. Amount used: 1 to 1 and a half pint. Age of first use: 16. Date of last use: 05/30/19. Marijuana/Hashish. Substance route: Smoking. Frequency: Daily. Amount used: 2 blunts. Age of first use: 14. Date of last use: 05/30/19. Alprazolam (Xanax). Substance route: Oral. Frequency: 1-2 times per week. Amount used: 1 pill. Age of first use: 42. Date of last use: 05/23/19 Medical History: Perforated eardrum Psychiatric History: Patient reports h/o multiple psychiatric hospitalization most recently in December of 2018 for depression at [facility] ( all psychiatric hospitalizations have occured at [facility]). He reports a diagnosis of depression and was treated with zoloft 50mg + Trazodone 150mg HS. Mr. Oconnor most recent outpatient psychiatric care was provided four months ago at [facility]. He reports last taking zoloft 2-3 months ago although he continues to accept trazodone. He reports having multiple prescriptions of trazodone. At present, patient is experiencing difficulty sleeping. Physical/Sexual Abuse/Trauma History: denies. Mental Status Exam - Mental Status Exam Alert and Oriented to: Time, Place, Person Cognitive Function: Good Patient Appearance: Well Groomed Mood: Withdrawn Affect: Mood Congruent Patient Behavior: Cooperative Speech Pattern: Clear Voice Loudness: Moderately Soft/Quiet Thought Process: Intact, Goal Oriented Thought Disorder: Not Present Hallucinations: Denies Suicidal Ideation: Denies Homicidal Ideation: Denies Insight/Judgement: Poor Sleep: Poorly Appetite: Fair Muscle strength/Tone: Normal Gait/Station: Normal Psychiatric Findings - Problem List ([place] 1, 2,3) (1) Substance-induced sleep disorder Current Visit: Yes Status: Acute (2) Opioid dependence with withdrawal Current Visit: Yes Status: Acute (3) Non-compliance Current Visit: Yes Status: Chronic (4) Substance induced mood disorder Current Visit: Yes Status: Acute - Initial Treatment Plan Initial Treatment Plan: Psychoeducation provided. Detoxification in progress. Will order Trazodone 100mg HS. Benefits and side effects discussed. Verbal consent given.
[2019-06-03] MEDS ORDERED: traZODone HCL 100 MG TABLET (FP) PO SCH (22:00)
[2019-06-03] MEDS: THIAMINE HCL 100 MG TABLET (FP) PO SCH (22:41)
[2019-06-03] MEDS: MELATONIN 5 MG TABLETS PO PRN (22:42)
[2019-06-04] MEDS ORDERED: METHADONE HCL 10 MG TABLET (FOR DETOX USE ONLY) ONE (09:01)
[2019-06-04] MEDS ORDERED: METHADONE HCL 5 MG TABLET (FOR DETOX USE ONLY) ONE (09:01)
[2019-06-04] MEDS ORDERED: METHADONE (DETOX) 10 MG, METHADONE (DETOX) 5 MG PO ONE (10:00)
[2019-06-04] MEDS: PRENATAL VITAMINS W/ FOLIC ACID TABLET (FP) PO SCH (10:15)
[2019-06-04] MEDS: diazePAM 5 MG TABLET PO PRN ×2 (10:17→22:35)
--- NOTE | 2019-06-04 12:45 | PN ---
Psychiatric Progress Note Vital Signs: Vital Signs Period Temp Pulse Resp BP Sys/Morrell Pulse Ox Last 24 Hr 97.7 F-98.1 F 57-78 18-18 90-121/60-79 Date of Session: 06/04/19 Chief Complaint:: " can my trazodone be increased." HPI: Patient admitted to for opiate dependence. Patient is currently reporting difficulty sleeping through the night. ROS: Patient is coherent, alert and oriented X3. Current Medications: Active Medications Generic Name Dose Route Start Last Admin Trade Name Freq PRN Reason Stop Dose Admin Acetaminophen 650 mg 06/01/19 23:30 Tylenol - PO Q6H PRN PAIN LEVEL 4 - 6 Acetaminophen 650 mg 06/01/19 23:30 Tylenol - PO Q6H PRN FEVER Al Hydroxide/Mg Hydroxide 30 ml 06/01/19 23:30 Mylanta Oral Suspension - PO Q6H PRN DYSPEPSIA Bismuth Subsalicylate 524 mg 06/01/19 23:30 Pepto-Bismol - PO Q1H PRN DIARRHEA Diazepam 5 mg 06/01/19 23:33 06/04/19 10:17 Valium - PO 5 mg Q6H PRN Administration WITHDRAWAL(CONT SUBST) Eucalyptus/Menthol/Phenol/Sorbitol 1 each 06/01/19 23:30 Cepastat Lozenge - MM 06/07/19 23:31 Q4H PRN SORE THROAT Hydroxyzine Pamoate 25 mg 06/01/19 23:30 06/03/19 10:45 Vistaril - PO 06/07/19 23:31 25 mg Q6H PRN Administration For Anxiety Ibuprofen 400 mg 06/01/19 23:30 06/03/19 22:45 Motrin - PO 400 mg Q6H PRN Administration PAIN LEVEL 1 - 3 Magnesium Citrate 300 ml 06/01/19 23:30 Citroma - PO Q48H PRN CONSTIPATION Magnesium Hydroxide 30 ml 06/01/19 23:30 Milk Of Magnesia - PO PRN PRN CONSTIPATION Melatonin 5 mg 06/01/19 23:30 06/03/19 22:42 Melatonin PO 5 mg HS PRN Administration INSOMNIA Methadone HCl 5 mg 06/06/19 06:00 Dolophine - PO 06/06/19 06:01 ONCE@0600 ONE Methadone HCl 10 mg 06/05/19 10:00 Dolophine - PO 06/05/19 10:01 ONCE ONE Methocarbamol 500 mg 06/01/19 23:30 Robaxin - PO 06/07/19 23:31 Q6H PRN MUSCLE SPASMS Multivit/Folic Acid/Iron 1 tab 06/02/19 10:00 06/04/19 10:15 Vitamins (Sjr) - PO 1 tab DAILY JEROME Administration Thiamine HCl 100 mg 06/02/19 22:00 06/03/19 22:41 Vitamin B1 - PO 100 mg HS JEROME Administration Trazodone HCl 100 mg 06/03/19 22:00 06/03/19 22:40 Desyrel - PO 100 mg HS JEROME Administration Medication(s) Change(s): Yes. Current Side Effect: No Lab tests ordered: No Lab tests reviewed: Yes Provider note:: Patient able to tolerate trazodone 100mg. No complaints of dizziness or oversedation. Patient reports taking trazodone 150mg HS at home. Will d/c trazodone 100mg and order trazodone 150mg. Benefits and side effects discussed. Verbal consent given. Total face to face time:: 25 Mental Status Exam - Mental Status Exam Alert and Oriented to: Time, Place, Person Cognitive Function: Good Patient Appearance: Well Groomed Mood: Euthymic Affect: Mood Congruent Patient Behavior: Cooperative Speech Pattern: Appropriate Voice Loudness: Normal Thought Process: Goal Oriented Thought Disorder: Not Present Hallucinations: Denies Suicidal Ideation: Denies Homicidal Ideation: Denies Insight/Judgement: Poor Sleep: Poorly Appetite: Fair Muscle strength/Tone: Normal Gait/Station: Normal Psychiatric Treatment Plan - Problem List (1) Substance-induced sleep disorder Current Visit: Yes (2) Opioid dependence with withdrawal Current Visit: Yes (3) Non-compliance Current Visit: Yes (4) Substance induced mood disorder Current Visit: Yes
[2019-06-04] MEDS ORDERED: IBUPROFEN 400 MG TABLET (FP) PO PRN (13:33)
--- NOTE | 2019-06-04 13:38 | PN ---
S CIWA - CIWA Score Nausea/Vomitin-No Nausea/No Vomiting Muscle Tremors: 3 Anxiety: 4-Mod. Anxious/Guarded Agitation: 0-Normal Activity Paroxysmal Sweats: 3 Orientation: 0-Oriented Tacttile Disturbances: 0-None Auditory Disturbances: 3-Moderate Harsh/Frighten Visual Disturbances: 0-None Headache: 0-None Present CIWA-Ar Total Score: 13 S COWS - Scale Resting Pulse: 0= [place] 80 or Below Sweatin= Chills/Flushing Restless Observation: 0= Sits Still Pupil Size: 0= Normal to Room Light Bone or Joint Aches: 2= Severe Diffuse Aches Runny Nose/ Eye Tearin= None GI Upset > 30mins: 0= None Tremor Observation of Outstretched Hands: 2= Slight Tremor Visible Yawning Observation: 1= 1-2x During Session Anxiety or Irritability: 2=Irritable/Anxious Goose Flesh Skin: 3=Piloerection COWS Score: 11 S Progress Note (SOAP) Subjective: Body Aches, Sweating, Sensitivity To Sounds, Chills, Tremors, Interrupted Sleep. Objective: PATIENT A & O X 3, OBSERVED AMBULATING ON UNIT UNASSISTED. IN NO ACUTE DISTRESS. 06/04/19 13:36 Vital Signs Temperature 97.9 F 06/04/19 09:27 Pulse Rate 78 06/04/19 09:27 Respiratory Rate 18 06/04/19 09:27 Blood Pressure 107/65 06/04/19 09:27 O2 Sat by Pulse Oximetry (%) Laboratory Tests 06/02/19 06/02/19 06/02/19 08:00 08:00 08:00 WBC 8.2 RBC 4.44 Hgb 12.4 Hct 36.5 MCV 82.3 MCH 27.8 MCHC 33.9 RDW 13.9 Plt Count 184 MPV 8.9 Sodium 138 Potassium 4.0 Chloride 102 Carbon Dioxide 30 Anion Gap 5 L BUN 8.4 Creatinine 0.8 Est GFR (CKD-EPI)AfAm 124.16 Est GFR (CKD-EPI)NonAf 107.13 Random Glucose 91 Calcium 9.3 Total Bilirubin 0.8 AST 22 ALT 24 Alkaline Phosphatase 84 Total Protein 7.0 Albumin 3.7 RPR Titer Nonreactive LABS NOTED. Assessment: 06/04/19 13:37 WITHDRAWAL SYMPTOMS. Plan: CONTINUE DETOX. INCREASE DAILY PO WATER INTAKE.
[2019-06-04] MEDS: THIAMINE HCL 100 MG TABLET (FP) PO SCH (22:35)
[2019-06-04] MEDS: traZODone HCL 50 MG TABLET (FP) PO SCH (22:36)
[2019-06-04] MEDS: hydrOXYzine HCL 25 MG TABLET (FP) PO PRN (22:41)
[2019-06-05] MEDS: PRENATAL VITAMINS W/ FOLIC ACID TABLET (FP) PO SCH (09:34)
[2019-06-05] MEDS: hydrOXYzine HCL 25 MG TABLET (FP) PO PRN ×2 (09:39→22:44)
[2019-06-05] MEDS: diazePAM 5 MG TABLET PO PRN ×2 (09:39→22:44)
[2019-06-05] MEDS ORDERED: METHADONE HCL 10 MG TABLET (FOR DETOX USE ONLY) PO ONE (10:00)
--- NOTE | 2019-06-05 12:00 | PN ---
BHS COWS - Scale Resting Pulse: 0= [place] 80 or Below Sweatin= No chills or Flushing Restless Observation: 1= Difficult to Sit Still Pupil Size: 1= Pupils >than Normal Bone or Joint Aches: 1= Mild Discomfort Runny Nose/ Eye Tearin= Nasal Congestion GI Upset > 30mins: 1= Stomach Cramp Tremor Observation of Outstretched Hands: 1= Tremor [place], Not Seen Yawning Observation: 1= 1-2x During Session Anxiety or Irritability: 1=Feels Anxious/Irritable Goose Flesh Skin: 0=Smooth Skin COWS Score: 8 BHS Progress Note (SOAP) Subjective: alert,irritable,anxious,interrupted sleep,pain in the body Objective: 06/05/19 12:02 Vital Signs Temperature 98.6 F 06/05/19 09:33 Pulse Rate 68 06/05/19 09:33 Respiratory Rate 18 06/05/19 09:33 Blood Pressure 99/73 06/05/19 09:33 O2 Sat by Pulse Oximetry (%) Assessment: 06/05/19 12:02 withdrawal symptom Plan: continue detox,discharge in am
[2019-06-05] MEDS: traZODone HCL 50 MG TABLET (FP) PO SCH (22:43)
[2019-06-05] MEDS: THIAMINE HCL 100 MG TABLET (FP) PO SCH (22:44)
[2019-06-05] MEDS: MELATONIN 5 MG TABLETS PO PRN (22:44)
[2019-06-06] MEDS ORDERED: METHADONE HCL 5 MG TABLET (FOR DETOX USE ONLY) PO ONE (06:00)
[2019-06-06 06:25] VITALS: TEMP 97.7
--- NOTE | 2019-06-06 09:00 | DS ---
[facility] Detox Discharge Summary Admission Date: 06/01/19 Discharge Date: 06/06/19 - History Present History: Alcohol Dependence, Cannabis Dependence, Cocaine Dependence, Opioid Dependence - Physical Exam Results Vital Signs: Vital Signs Temperature 97.7 F 06/06/19 06:24 Pulse Rate 60 06/06/19 06:24 Respiratory Rate 18 06/06/19 06:24 Blood Pressure 98/61 06/06/19 06:24 O2 Sat by Pulse Oximetry (%) - Treatment Hospital Course: Detox Protocol Followed, Detoxed Safely, Responded well, Discharged Condition Good, Rehab Referral Accepted - Medication Discharge Medications: Ambulatory Orders Trazodone HCl 150 mg PO HS 11/10/18 Sertraline HCl [Zoloft] 50 mg PO DAILY 04/17/19 - Diagnosis (1) Opioid dependence with withdrawal Current Visit: Yes Status: Chronic (2) Substance induced mood disorder Current Visit: Yes Status: Acute (3) Substance-induced sleep disorder Current Visit: Yes Status: Acute (4) Alcohol dependence with uncomplicated withdrawal Current Visit: Yes Status: Chronic (5) Anxiety disorder Current Visit: No Status: Acute (6) Cocaine abuse Current Visit: Yes Status: Chronic (7) Depressive disorder Current Visit: No Status: Chronic (8) History of depression Current Visit: No Status: Chronic (9) Marijuana dependence Current Visit: Yes Status: Chronic (10) Nicotine dependence Current Visit: Yes Status: Chronic Qualifiers: Nicotine product type: cigarettes Substance use status: uncomplicated Qualified Code(s): F17.210 - Nicotine dependence, cigarettes, uncomplicated (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
[2019-06-06 09:27] VITALS: BP 90/65; PULSE 66
[2019-06-06] MEDS: PRENATAL VITAMINS W/ FOLIC ACID TABLET (FP) PO SCH (10:33)
== END 2019-06-06 10:57 | disposition home or self-care (01) | DRG 773 ==
LOC: YASAS 20:19 → Y6N 23:38
PROVIDERS: ADMIT Surgery; ATTEND Surgery
PROC: HZ2ZZZZ Detoxification Services for Substance Abuse Treatment (ICD-10-PCS; principal; 2019-06-01)
DX: F11.23 Opioid dependence with withdrawal (principal); F10.230 Alcohol dependence with withdrawal, uncomplicated; F14.20 Cocaine dependence, uncomplicated; F12.20 Cannabis dependence, uncomplicated; F13.10 Sedative, hypnotic or anxiolytic abuse, uncomplicated; F17.210 Nicotine dependence, cigarettes, uncomplicated; F19.24 Other psychoactive substance dependence with psychoactive substance-induced mood disorder; F19.282 Other psychoactive substance dependence with psychoactive substance-induced sleep disorder; F41.8 Other specified anxiety disorders; F32.9 Major depressive disorder, single episode, unspecified; Z91.013 Allergy to seafood; Z91.19 Patient's noncompliance with other medical treatment and regimen
CPT/HCPCS: 36415; 80053; 85027; 86593

== ENCOUNTER 2019-08-02 15:26 | Inpatient (IN) | payer OTHER ==
--- NOTE | 2019-08-02 23:32 | HP ---
COWS - Scale Resting Pulse: 0= [place] 80 or Below Sweatin=Flushed/Facial Moisture Restless Observation: 1= Difficult to Sit Still Pupil Size: 1= Pupils >than Normal Bone or Joint Aches: 4=Acute Joint/Muscle Pain Runny Nose/ Eye Tearin= Runny Nose/Eyes GI Upset > 30mins: 1= Stomach Cramp Tremor Observation: 2= Slight Tremor Visible Yawning Observation: 1= 1-2x During Session Anxiety or Irritability: 2=Irritable/Anxious Goose Flesh Skin: 0=Smooth Skin COWS Score: 16 CIWA Score Nausea/Vomitin Muscle Tremors: 3 Anxiety: 3 Agitation: 3 Paroxysmal Sweats: 3 Orientation: 0-Oriented Tacttile Disturbances: 0-None Auditory Disturbances: 0-None Visual Disturbances: 0-None Headache: 3-Moderate CIWA-Ar Total Score: 17 - Admission Criteria OASAS Guidelines: Admission for Medically Managed Detox: Requires at least one of the followin. CIWA greater than 12 2. Seizures within the past 24 hours 3. Delirium tremens within the past 24 hours 4. Hallucinations within the past 24 hours 5. Acute intervention needed for co occurring medical disorder 6. Acute intervention needed for co occurring psychiatric disorder 7. Severe withdrawal that cannot be handled at a lower level of care (continued vomiting, continued diarrhea, abnormal vital signs) requiring intravenous medication and/or fluids 8. Admission [facility] Chief Complaint: Heroin and alcohol withdrawal symptoms Allergies/Adverse Reactions: Allergies Allergy/AdvReac Type Severity Reaction Status Date / Time Fish Containing Products Allergy Severe Swelling Verified 08/02/19 21:43 No Known Drug Allergies Allergy Verified 08/02/19 21:43 History of Present Illness: 49 years old male with 26 years of heroin dependence and 33 years of alcohol dependence is seeking admission to detox. Patient reports that his last detox was 2 months ago at this facility and that he started using again due to problems. He reports history of depression and anxiety. Patient denies suicide attempt / suicidal ideation at this time Exam Limitations: No Limitations - Ebola screening Have you traveled outside of the country in the last 21 days: No (N) Have you had contact with anyone from an Ebola affected area: No Do you have a fever: No - Review of Systems Constitutional: Chills, Loss of Appetite, Malaise, Changes in sleep EENT: reports: No Symptoms Reported, Sinus Pressure Respiratory: reports: No Symptoms reported Cardiac: reports: No Symptoms Reported GI: reports: Nausea, Poor Appetite, Poor Fluid Intake, Abdominal cramping : reports: No Symptoms Reported Musculoskeletal: reports: Back Pain, Joint Pain, Muscle Pain Integumentary: reports: Dryness, Flushing Neuro: reports: Tremors Endocrine: reports: No Symptoms Reported Hematology: reports: No Symptoms Reported Psychiatric: reports: No Sypmtoms Reported, Anxious, Depressed Other Systems: Reviewed and Negative Patient History - Patient Medical History Hx Anemia: No Hx Asthma: No Hx Chronic Obstructive Pulmonary Disease (COPD): No Hx Cancer: No Hx Cardiac Disorders: No Hx Congestive Heart Failure: No Hx Hypertension: No Hx Hypercholesterolemia: No Hx Pacemaker: No HX Cerebrovascular Accident: No Hx Seizures: No Hx Dementia: No Hx Diabetes: No Hx Gastrointestinal Disorders: No Hx Liver Disease: No Hx Genitourinary Disorders: No Hx Sexually Transmitted Disorders: No Hx Renal Disease (ESRD): No Hx Thyroid Disease: No Hx Human Immunodeficiency Virus (HIV): No (Negative 2017) Hx Hepatitis C: No (Negative) Hx Depression: Yes (no meds x 6 months - was on zoloft ) Hx Suicide Attempt: No (Denies suicidal ideation at this time) Hx Bipolar Disorder: No Hx Schizophrenia: No Other Medical History: Anxiety - Not on medication - Patient Surgical History Past Surgical History: No Hx Neurologic Surgery: No Hx Cataract Extraction: No Hx Cardiac Surgery: No Hx Lung Surgery: No Hx Breast Surgery: No Hx Breast Biopsy: No Hx Abdominal Surgery: No Hx Appendectomy: No Hx Cholecystectomy: No Hx Genitourinary Surgery: No Hx Section: No Hx Orthopedic Surgery: No Anesthesia Reaction: No - PPD History Date: 11/12/18 Results: 0mm - Smoking Cessation Smoking history: Current every day smoker Have you smoked in the past 12 months: Yes Aproximately how many cigarettes per day: 20 Cigars Per Day: 0 Hx Chewing Tobacco Use: No Initiated information on smoking cessation: Yes 'Breaking Loose' booklet given: 08/02/19 - Substances abused Heroin Substance route: Injection Frequency: Daily Amount used: 10 bags Age of first use: 21 Date of last use: 08/02/19 Alcohol Substance route: Oral Frequency: Daily Amount used: 1 pint and half of vodka and 10 beers Age of first use: 16 Date of last use: 08/02/19 Marijuana/Hashish Substance route: Smoking Frequency: Daily Amount used: 2 blunts Age of first use: 14 Date of last use: 08/01/19 Alprazolam (Xanax) Substance route: Oral Frequency: 3-6 times per week Amount used: 4 mg total Age of first use: 42 Date of last use: 07/30/19 Family Disease History - Family Disease History Family Disease History: Heart Disease: Mother (Htn,ovarian ca.), [place]: Mother Admission Physical Exam [facility] - Vital Signs Vital Signs: Vital Signs - 24 hr 08/02/19 21:49 Temperature 98.6 F Pulse Rate 72 Respiratory 16 Rate Blood Pressure 132/80 - Physical General Appearance: Yes: Moderate Distress, Tremorous, Irritable, Anxious HEENTM: Yes: Within Normal Limits Respiratory: Yes: Lungs Clear, Normal Breath Sounds, No Respiratory Distress Neck: Yes: Supple Breast: Yes: Breast Exam Deferred Cardiology: Yes: Regular Rhythm, Regular Rate Abdominal: Yes: Normal Bowel Sounds, Soft Genitourinary: Yes: Within Normal Limits Back: Yes: Normal Inspection Musculoskeletal: Yes: Back pain, Muscle Pain, Muscle weakness Extremities: Yes: Tremors Neurological: Yes: Within Normal Limits Integumentary: Yes: Warm Lymphatic: Yes: Within Normal Limits - Diagnostic (1) Anxiety disorder Current Visit: Yes Status: Chronic (2) Alcohol dependence with uncomplicated withdrawal Current Visit: Yes Status: Chronic (3) Cocaine abuse Current Visit: Yes Status: Chronic (4) Depressive disorder Current Visit: Yes Status: Chronic (5) Marijuana dependence Current Visit: No Status: Chronic (6) Nicotine dependence Current Visit: Yes Status: Chronic Qualifiers: Nicotine product type: cigarettes Substance use status: uncomplicated Qualified Code(s): F17.210 - Nicotine dependence, cigarettes, uncomplicated (7) Opioid dependence with withdrawal Current Visit: Yes Status: Chronic (8) Sedative, hypnotic or anxiolytic use disorder, mild, abuse Current Visit: Yes Status: Chronic Cleared for Admission [facility] - Detox or Rehab [facility] Level of Care: Medically Managed Detox Regimen/Protocol: Methadone/Librium Claeared for Rehab Admission: No Breathalyzer - Breathalyzer Breathalyzer: 0 Urine Drug Screen - Test Device Lot number: [id number] Expiration date: 05/31/21 - Control Is test valid?: Yes - Results Drug screen NEGATIVE: No Urine drug screen results: THC-Marijuana, FEN-Fentanyl, MOP-Opiates, OXY- Oxycodone, MTD-Methadone, BZO-Benzodiazepines Inpatient Rehab Admission - Rehab Decision to Admit Inpatient rehab admission?: No
[2019-08-02] MEDS ORDERED: hydrOXYzine PAMOATE 25 MG CAPSULE (FP) PO PRN (23:39)
[2019-08-02] MEDS ORDERED: IBUPROFEN 400 MG TABLET (FP) PO PRN (23:39)
[2019-08-02] MEDS ORDERED: BISMUTH SUBSALICYLATE 524 MG/30 ML UD PO PRN (23:39)
[2019-08-02] MEDS ORDERED: MENTHOL/PHENOL 1 EACH UD MM PRN (23:39)
[2019-08-02] MEDS ORDERED: MAGNESIUM CITRATE 300 ML BOTTLE PO PRN (23:39)
[2019-08-02] MEDS ORDERED: ACETAMINOPHEN 325 MG TABLET (FP) PO PRN ×2 (23:39)
[2019-08-02] MEDS ORDERED: METHOCARBAMOL 500 MG TABLET PO PRN (23:39)
[2019-08-02] MEDS ORDERED: MAGNESIUM HYDROX 2400MG/30ML ORAL SUSPENSION 30 ML CUP PO PRN (23:39)
[2019-08-02] MEDS ORDERED: MAG HYDROX/AL HYDROX/SIMETH 30 ML UNIT-DOSE CUP PO PRN (23:39)
[2019-08-02] MEDS ORDERED: NICOTINE POLACRILEX 2 MG GUM BUC PRN (23:39)
[2019-08-02] MEDS ORDERED: MELATONIN 5 MG TABLETS PO PRN (23:39)
[2019-08-02] MEDS ORDERED: chlordiazePOXIDE HCL 25 MG CAPSULE PO PRN (23:43)
[2019-08-02] MEDS ORDERED: cloNIDine HCL 0.1 MG TABLET PO PRN (23:43)
[2019-08-02] MEDS ORDERED: METHADONE HCL 10 MG TABLET (FOR DETOX USE ONLY) PO ONE (23:57)
[2019-08-03] MEDS ORDERED: METHADONE HCL 10 MG TABLET PO ONE (01:39)
[2019-08-03] MEDS: chlordiazePOXIDE HCL 25 MG CAPSULE PO SCH ×5 (01:41→22:15)
[2019-08-03] MEDS ORDERED: METHADONE (DETOX) 20 MG, METHADONE (DETOX) 5 MG PO ONE (10:00)
[2019-08-03] MEDS ORDERED: METHADONE HCL 10 MG TABLET (FOR DETOX USE ONLY) ONE (10:14)
[2019-08-03] MEDS ORDERED: METHADONE HCL 5 MG TABLET (FOR DETOX USE ONLY) ONE (10:15)
[2019-08-03] MEDS: PRENATAL VITAMINS W/ FOLIC ACID TABLET (FP) PO SCH (10:35)
[2019-08-03] MEDS: NICOTINE 14 MG/24 HOURS TOPICAL PATCH TD SCH (10:38)
[2019-08-03] MEDS ORDERED: TRIMETHOBENZAMIDE HCL 300 MG CAPSULE PO PRN (11:24)
[2019-08-03 12:09] LABS: HEMATOCRIT 35.6 % (35.4-49); HEMOGLOBIN 12.1 GM/dL (11.7-16.9); MCH 28.2 pg (25.7-33.7); MCHC 33.9 g/dl (32.0-35.9); MEAN CELL VOLUME 83.1 fl (80-96); MEAN PLT VOLUME 9.3 fl (7.5-11.1); PLATELET COUNT 127 K/MM3 (134-434); RBC 4.29 M/mm3 (4.00-5.60); RDW 14.9 % (11.9-15.9); WHITE BLOOD COUNT 5.3 K/mm3 (4.0-10.0)
[2019-08-03 12:22] LABS: ALBUMIN 3.5 g/dl (3.4-5.0); BILIRUBIN,TOTAL 0.5 mg/dL (0.2-1); BLOOD UREA NITROGEN 7.3 mg/dL (7-18); CALCIUM 8.8 mg/dL (8.5-10.1); CREATININE 0.8 mg/dL (0.55-1.3); TOT PROT 6.7 g/dl (6.4-8.2)
--- NOTE | 2019-08-03 12:36 | CONSULT ---
[facility] Psychiatric Consult - Data Date of interview: 08/03/19 Admission source: [facility] Identifying data: Readmission to [facility] for this 48 y/o male seeking detoxification treatment (alcohol, marihuana, xanax, heroin). Patient is single without children, homeless, unemployed and supported on welfare. Substance Abuse History: Discussed in this interview. Patient confirms use of alcohol and heroin. Details as follows : Smoking history: Current every day smoker. Have you smoked in the past 12 months: Yes. Aproximately how many cigarettes per day: 20. Cigars Per Day: 0. Hx Chewing Tobacco Use: No. Initiated information on smoking cessation: Yes. 'Breaking Loose' booklet given : 08/02/19. - Substances abused. Heroin. Substance route: Injection. Frequency: Daily. Amount used: 10 bags. Age of first use: 21. Date of last use: 08/02/19. Alcohol. Substance route: Oral. Frequency: Daily. Amount used: 1 pint and half of vodka and 10 beers. Age of first use: 16. Date of last use: 08/02/19. Marijuana/Hashish. Substance route: Smoking. Frequency : Daily. Amount used: 2 blunts. Age of first use: 14. Date of last use: 08/01. Alprazolam (Xanax). Substance route: Oral. Frequency: 3-6 times per week. Amount used: 4 mg total. Age of first use: 42. Date of last use: Medical History: Patient denies medical problems. Psychiatric History: History of psychiatric hospitalizations at [facility] [place]. Patient is diagnosed with MDD, PTSD and Anxiety Disorder. Mr Oconnor reports his medications as follows : trazodone 150 mg/hs + gabapentin 300 mg/tid + zyprexa 10 mg/hs. He admits to being in OPD treatment at the [facility] mental health clinic in [facility]. History of one suicide attempt via deliberate overdose with heroin (2016). Physical/Sexual Abuse/Trauma History: Patient denies. Additional Comment: Urine drug screen results: THC-Marijuana, FEN-Fentanyl, MOP- Opiates, OXY-Oxycodone, MTD-Methadone, BZO-Benzodiazepines. Noted. Mental Status Exam - Mental Status Exam Alert and Oriented to: Time, Place, Person Cognitive Function: Good Patient Appearance: Well Groomed Mood: Nervous, Withdrawn Affect: Mood Congruent, Constricted Patient Behavior: Fatigued, Cooperative Speech Pattern: Clear Voice Loudness: Normal Thought Process: Intact, Goal Oriented Thought Disorder: Not Present Hallucinations: Denies Suicidal Ideation: Denies Homicidal Ideation: Denies Insight/Judgement: Poor Sleep: Poorly, Difficulty falling asleep Appetite: Good Muscle strength/Tone: Normal Gait/Station: Normal Psychiatric Findings - Problem List ([place] 1, 2,3) (1) Alcohol dependence with uncomplicated withdrawal Current Visit: Yes Status: Acute (2) Opioid dependence with withdrawal Current Visit: Yes Status: Acute (3) Sedative, hypnotic or anxiolytic use disorder, mild, abuse Current Visit: Yes Status: Chronic (4) Marijuana dependence Current Visit: Yes Status: Chronic (5) Nicotine dependence Current Visit: Yes Status: Chronic Qualifiers: Nicotine product type: cigarettes Substance use status: uncomplicated Qualified Code(s): F17.210 - Nicotine dependence, cigarettes, uncomplicated (6) Substance induced mood disorder Current Visit: Yes Status: Chronic (7) Mood disorder Current Visit: Yes Status: Chronic (8) Insomnia Current Visit: Yes Status: Chronic (9) Non-compliance Current Visit: Yes Status: Chronic - Initial Treatment Plan Initial Treatment Plan: Psychoeducation. Sleep hygiene. Detoxification. Aa/NA meetings. Resumed : trazodone 150 mg po hs + olanzapine 10 mg po hs. Side effects/benefits of these medications are discussed with patient. Mr Oconnor is made aware of risk of metabolic syndrome and priapism (in particular). gave verbal consent to MD. Harrison.
--- NOTE | 2019-08-03 16:34 | PN ---
S CIWA - CIWA Score Nausea/Vomitin Muscle Tremors: 3 Anxiety: 3 Agitation: 1-Slight > Activity Paroxysmal Sweats: No Perspiration Orientation: 0-Oriented Tacttile Disturbances: 0-None Auditory Disturbances: 2-Mild Harshness/Frighten Visual Disturbances: 0-None Headache: 0-None Present CIWA-Ar Total Score: 12 BHS COWS - Scale Resting Pulse: 1= [place] 81-100 Sweatin= No chills or Flushing Restless Observation: 1= Difficult to Sit Still Pupil Size: 0= Normal to Room Light Bone or Joint Aches: 2= Severe Diffuse Aches Runny Nose/ Eye Tearin= None GI Upset > 30mins: 2= Nausea/Diarrhea Tremor Observation of Outstretched Hands: 2= Slight Tremor Visible Yawning Observation: 1= 1-2x During Session Anxiety or Irritability: 2=Irritable/Anxious Goose Flesh Skin: 3=Piloe[place] COWS Score: 14 BHS Progress Note (SOAP) Subjective: Nausea, Tremors, Body Aches, Anxious. Objective: PATIENT A & O X 3, OBSERVED AMBULATING ON UNIT UNASSISTED. IN NO ACUTE DISTRESS. 08/03/19 16:31 Vital Signs Temperature 97.1 F L 08/03/19 13:41 Pulse Rate 81 08/03/19 13:41 Respiratory Rate 18 08/03/19 13:41 Blood Pressure 122/82 08/03/19 13:41 O2 Sat by Pulse Oximetry (%) Laboratory Tests 08/03/19 08/03/19 08/03/19 08:50 08:50 08:50 WBC 5.3 RBC 4.29 Hgb 12.1 Hct 35.6 MCV 83.1 MCH 28.2 MCHC 33.9 RDW 14.9 Plt Count 127 L D MPV 9.3 Sodium 140 Potassium 5.0 Chloride 106 Carbon Dioxide 31 Anion Gap 4 L BUN 7.3 Creatinine 0.8 Est GFR (CKD-EPI)AfAm 123.29 Est GFR (CKD-EPI)NonAf 106.38 Random Glucose 70 L Calcium 8.8 Total Bilirubin 0.5 AST 31 ALT 22 Alkaline Phosphatase 74 Total Protein 6.7 Albumin 3.5 RPR Titer Nonreactive LABS NOTED. Assessment: 08/03/19 16:33 WITHDRAWAL SYMPTOMS. THROMBOCYTOPENIA. Plan: CONTINUE DETOX. PRN TIGAN PO FOR NAUSEA.
[2019-08-03] MEDS: OLANZapine 10 MG TABLET PO SCH (22:15)
[2019-08-03] MEDS: THIAMINE HCL 100 MG TABLET (FP) PO SCH (22:15)
[2019-08-03] MEDS: traZODone HCL 50 MG TABLET (FP) PO SCH (22:15)
[2019-08-04] MEDS: chlordiazePOXIDE HCL 25 MG CAPSULE PO SCH ×4 (07:55→22:13)
[2019-08-04] MEDS ORDERED: METHADONE HCL 10 MG TABLET (FOR DETOX USE ONLY) PO ONE (10:00)
[2019-08-04] MEDS: SERTRALINE HCL 50 MG TABLET (FP) PO SCH (10:57)
[2019-08-04] MEDS: NICOTINE 14 MG/24 HOURS TOPICAL PATCH TD SCH (10:57)
[2019-08-04] MEDS: PRENATAL VITAMINS W/ FOLIC ACID TABLET (FP) PO SCH (10:57)
--- NOTE | 2019-08-04 15:56 | PN ---
S CIWA - CIWA Score Nausea/Vomitin Muscle Tremors: 3 Anxiety: 2 Agitation: 2 Paroxysmal Sweats: No Perspiration Orientation: 0-Oriented Tacttile Disturbances: 1-Very Mild Itch/Numbness Auditory Disturbances: 0-None Visual Disturbances: 1-Very Mild Sensitivity Headache: 0-None Present CIWA-Ar Total Score: 11 BHS COWS - Scale Resting Pulse: 0= [place] 80 or Below Sweatin= Chills/Flushing Restless Observation: 1= Difficult to Sit Still Pupil Size: 0= Normal to Room Light Bone or Joint Aches: 2= Severe Diffuse Aches Runny Nose/ Eye Tearin= None GI Upset > 30mins: 2= Nausea/Diarrhea Tremor Observation of Outstretched Hands: 2= Slight Tremor Visible Yawning Observation: 1= 1-2x During Session Anxiety or Irritability: 2=Irritable/Anxious Goose Flesh Skin: 0=Smooth Skin COWS Score: 11 S Progress Note (SOAP) Subjective: Nausea (Improving), Tremors, Body Aches. Objective: PATIENT A & O X 3, OBSERVED AMBULATING ON DETOX UNIT UNASSISTED. IN NO ACUTE DISTRESS. 08/04/19 15:58 Vital Signs Temperature 98.0 F 08/04/19 13:42 Pulse Rate 57 L 08/04/19 13:42 Respiratory Rate 16 08/04/19 13:42 Blood Pressure 100/73 08/04/19 13:42 O2 Sat by Pulse Oximetry (%) Laboratory Tests 08/03/19 08/03/19 08/03/19 08:50 08:50 08:50 WBC 5.3 RBC 4.29 Hgb 12.1 Hct 35.6 MCV 83.1 MCH 28.2 MCHC 33.9 RDW 14.9 Plt Count 127 L D MPV 9.3 Sodium 140 Potassium 5.0 Chloride 106 Carbon Dioxide 31 Anion Gap 4 L BUN 7.3 Creatinine 0.8 Est GFR (CKD-EPI)AfAm 123.29 Est GFR (CKD-EPI)NonAf 106.38 Random Glucose 70 L Calcium 8.8 Total Bilirubin 0.5 AST 31 ALT 22 Alkaline Phosphatase 74 Total Protein 6.7 Albumin 3.5 RPR Titer Nonreactive LABS NOTED. Assessment: 08/04/19 15:58 WITHDRAWAL SYMPTOMS. THROMBOCYTOPENIA. Plan: CONTINUE DETOX.
[2019-08-04] MEDS: traZODone HCL 50 MG TABLET (FP) PO SCH (22:13)
[2019-08-04] MEDS: OLANZapine 10 MG TABLET PO SCH (22:14)
[2019-08-04] MEDS: THIAMINE HCL 100 MG TABLET (FP) PO SCH (22:14)
[2019-08-05] MEDS ORDERED: chlordiazePOXIDE HCL 10 MG CAPSULE PO PRN
[2019-08-05] MEDS: chlordiazePOXIDE HCL 10 MG CAPSULE PO SCH ×4 (06:54→23:07)
[2019-08-05] MEDS ORDERED: METHADONE HCL 10 MG TABLET (FOR DETOX USE ONLY) ONE (09:54)
[2019-08-05] MEDS ORDERED: METHADONE HCL 5 MG TABLET (FOR DETOX USE ONLY) ONE (09:55)
[2019-08-05] MEDS ORDERED: METHADONE (DETOX) 10 MG, METHADONE (DETOX) 5 MG PO ONE (10:00)
[2019-08-05] MEDS: SERTRALINE HCL 50 MG TABLET (FP) PO SCH (10:45)
[2019-08-05] MEDS: PRENATAL VITAMINS W/ FOLIC ACID TABLET (FP) PO SCH (10:45)
--- NOTE | 2019-08-05 11:51 | PN ---
S CIWA - CIWA Score Nausea/Vomitin-Mild Nausea/No Vomiting Muscle Tremors: 3 Anxiety: 2 Agitation: 2 Paroxysmal Sweats: 1-Minimal Palms Moist Orientation: 0-Oriented Tacttile Disturbances: 0-None Auditory Disturbances: 0-None Visual Disturbances: 0-None Headache: 0-None Present CIWA-Ar Total Score: 9 BHS COWS - Scale Resting Pulse: 0= [place] 80 or Below Sweatin= Chills/Flushing Restless Observation: 0= Sits Still Pupil Size: 0= Normal to Room Light Bone or Joint Aches: 1= Mild Discomfort Runny Nose/ Eye Tearin= Nasal Congestion GI Upset > 30mins: 1= Stomach Cramp Tremor Observation of Outstretched Hands: 2= Slight Tremor Visible Yawning Observation: 1= 1-2x During Session Anxiety or Irritability: 2=Irritable/Anxious Goose Flesh Skin: 0=Smooth Skin COWS Score: 9 S Progress Note (SOAP) Subjective: 49 years old male multiple patient [facility] admission since 2017 was admitted on 08/02/19 for alcohol and opiate withdrawal sx management doing well with librium and methadone detox regimen discuss aftercare with staff prefers [facility] Objective: 08/05/19 12:06 Vital Signs Temperature 97.8 F 08/05/19 11:12 Pulse Rate 72 08/05/19 11:12 Respiratory Rate 18 08/05/19 11:12 Blood Pressure 65/63 L 08/05/19 11:12 O2 Sat by Pulse Oximetry (%) Laboratory Last Values WBC 5.3 K/mm3 (4.0-10.0) 08/03/19 08:50 RBC 4.29 M/mm3 (4.00-5.60) 08/03/19 08:50 Hgb 12.1 GM/dL (11.7-16.9) 08/03/19 08:50 Hct 35.6 % (35.4-49) 08/03/19 08:50 MCV 83.1 fl (80-96) 08/03/19 08:50 MCH 28.2 pg (25.7-33.7) 08/03/19 08:50 MCHC 33.9 g/dl (32.0-35.9) 08/03/19 08:50 RDW 14.9 % (11.9-15.9) 08/03/19 08:50 Plt Count 127 K/MM3 (134-434) L D 08/03/19 08:50 MPV 9.3 fl (7.5-11.1) 08/03/19 08:50 Sodium 140 mmol/L (136-145) 08/03/19 08:50 Potassium 5.0 mmol/L (3.5-5.1) 08/03/19 08:50 Chloride 106 mmol/L (98-107) 08/03/19 08:50 Carbon Dioxide 31 mmol/L (21-32) 08/03/19 08:50 Anion Gap 4 MMOL/L (8-16) L 08/03/19 08:50 BUN 7.3 mg/dL (7-18) 08/03/19 08:50 Creatinine 0.8 mg/dL (0.55-1.3) 08/03/19 08:50 Est GFR (CKD-EPI)AfAm 123.29 08/03/19 08:50 Est GFR (CKD-EPI)NonAf 106.38 08/03/19 08:50 Random Glucose 70 mg/dL (74-106) L 08/03/19 08:50 Calcium 8.8 mg/dL (8.5-10.1) 08/03/19 08:50 Total Bilirubin 0.5 mg/dL (0.2-1) 08/03/19 08:50 AST 31 U/L (15-37) 08/03/19 08:50 ALT 22 U/L (13-61) 08/03/19 08:50 Alkaline Phosphatase 74 U/L (45-117) 08/03/19 08:50 Total Protein 6.7 g/dl (6.4-8.2) 08/03/19 08:50 Albumin 3.5 g/dl (3.4-5.0) 08/03/19 08:50 RPR Titer Nonreactive (NONREACTIVE) 08/03/19 08:50 lab noted Assessment: 08/05/19 12:06 alcohol and opiate withdrawal sx alert 08/05/19 12:07 S1S2 regular rate rhythm encourage oral fluid Plan: continue libirum and methadone detox
[2019-08-05] MEDS: NICOTINE 14 MG/24 HOURS TOPICAL PATCH TD SCH (12:11)
[2019-08-05] MEDS: OLANZapine 10 MG TABLET PO SCH (23:06)
[2019-08-05] MEDS: THIAMINE HCL 100 MG TABLET (FP) PO SCH (23:07)
[2019-08-05] MEDS: traZODone HCL 50 MG TABLET (FP) PO SCH (23:07)
[2019-08-06] MEDS: chlordiazePOXIDE HCL 10 MG CAPSULE PO SCH ×2 (07:35→17:29)
[2019-08-06] MEDS ORDERED: METHADONE HCL 10 MG TABLET (FOR DETOX USE ONLY) PO ONE (10:00)
[2019-08-06] MEDS: SERTRALINE HCL 50 MG TABLET (FP) PO SCH (10:36)
[2019-08-06] MEDS: PRENATAL VITAMINS W/ FOLIC ACID TABLET (FP) PO SCH (10:36)
[2019-08-06] MEDS: NICOTINE 14 MG/24 HOURS TOPICAL PATCH TD SCH (10:38)
--- NOTE | 2019-08-06 14:28 | PN ---
S CIWA - CIWA Score Nausea/Vomitin-No Nausea/No Vomiting Muscle Tremors: 2 Anxiety: 2 Agitation: 2 Paroxysmal Sweats: No Perspiration Orientation: 0-Oriented Tacttile Disturbances: 0-None Auditory Disturbances: 0-None Visual Disturbances: 0-None Headache: 0-None Present CIWA-Ar Total Score: 6 BHS COWS - Scale Resting Pulse: 0= [place] 80 or Below Sweatin= Chills/Flushing Restless Observation: 1= Difficult to Sit Still Pupil Size: 0= Normal to Room Light Bone or Joint Aches: 1= Mild Discomfort Runny Nose/ Eye Tearin= None GI Upset > 30mins: 0= None Tremor Observation of Outstretched Hands: 1= Tremor [place], Not Seen Yawning Observation: 1= 1-2x During Session Anxiety or Irritability: 1=Feels Anxious/Irritable Goose Flesh Skin: 0=Smooth Skin COWS Score: 6 S Progress Note (SOAP) Subjective: doing well with librium and methadone detox regimen less tremor mild body ache sleep better at night Objective: 08/06/19 14:29 Vital Signs Temperature 97.8 F 08/06/19 09:40 Pulse Rate 61 08/06/19 09:40 Respiratory Rate 18 08/06/19 09:40 Blood Pressure 101/65 08/06/19 09:40 O2 Sat by Pulse Oximetry (%) Laboratory Last Values WBC 5.3 K/mm3 (4.0-10.0) 08/03/19 08:50 RBC 4.29 M/mm3 (4.00-5.60) 08/03/19 08:50 Hgb 12.1 GM/dL (11.7-16.9) 08/03/19 08:50 Hct 35.6 % (35.4-49) 08/03/19 08:50 MCV 83.1 fl (80-96) 08/03/19 08:50 MCH 28.2 pg (25.7-33.7) 08/03/19 08:50 MCHC 33.9 g/dl (32.0-35.9) 08/03/19 08:50 RDW 14.9 % (11.9-15.9) 08/03/19 08:50 Plt Count 127 K/MM3 (134-434) L D 08/03/19 08:50 MPV 9.3 fl (7.5-11.1) 08/03/19 08:50 Sodium 140 mmol/L (136-145) 08/03/19 08:50 Potassium 5.0 mmol/L (3.5-5.1) 08/03/19 08:50 Chloride 106 mmol/L (98-107) 08/03/19 08:50 Carbon Dioxide 31 mmol/L (21-32) 08/03/19 08:50 Anion Gap 4 MMOL/L (8-16) L 08/03/19 08:50 BUN 7.3 mg/dL (7-18) 08/03/19 08:50 Creatinine 0.8 mg/dL (0.55-1.3) 08/03/19 08:50 Est GFR (CKD-EPI)AfAm 123.29 08/03/19 08:50 Est GFR (CKD-EPI)NonAf 106.38 08/03/19 08:50 Random Glucose 70 mg/dL (74-106) L 08/03/19 08:50 Calcium 8.8 mg/dL (8.5-10.1) 08/03/19 08:50 Total Bilirubin 0.5 mg/dL (0.2-1) 08/03/19 08:50 AST 31 U/L (15-37) 08/03/19 08:50 ALT 22 U/L (13-61) 08/03/19 08:50 Alkaline Phosphatase 74 U/L (45-117) 08/03/19 08:50 Total Protein 6.7 g/dl (6.4-8.2) 08/03/19 08:50 Albumin 3.5 g/dl (3.4-5.0) 08/03/19 08:50 RPR Titer Nonreactive (NONREACTIVE) 08/03/19 08:50 lab noted Assessment: 08/06/19 14:30 alcohol and opiate withdrawal sx Plan: continue libirum and methadone detox
[2019-08-06] MEDS: traZODone HCL 50 MG TABLET (FP) PO SCH (22:09)
[2019-08-06] MEDS: THIAMINE HCL 100 MG TABLET (FP) PO SCH (22:09)
[2019-08-06] MEDS: OLANZapine 10 MG TABLET PO SCH (22:09)
[2019-08-07] MEDS ORDERED: chlordiazePOXIDE HCL 10 MG CAPSULE PO ONE (05:00)
[2019-08-07] MEDS ORDERED: METHADONE HCL 5 MG TABLET (FOR DETOX USE ONLY) PO ONE (06:00)
[2019-08-07 06:18] VITALS: BP 99/53; PULSE 58; TEMP 98.2
[2019-08-07] MEDS: SERTRALINE HCL 50 MG TABLET (FP) PO SCH (09:34)
[2019-08-07] MEDS: NICOTINE 14 MG/24 HOURS TOPICAL PATCH TD SCH (09:34)
[2019-08-07] MEDS: PRENATAL VITAMINS W/ FOLIC ACID TABLET (FP) PO SCH (09:34)
--- NOTE | 2019-08-07 11:17 | DS ---
[facility] Detox Discharge Summary Admission Date: 08/02/19 Discharge Date: 08/07/19 - History Present History: Alcohol Dependence, Opioid Dependence Additional Comments: 49 years old male multiple patient [facility] admission since 2017 was admitted on 08/02/19 for alcohol and opiate withdrawal sx management did well with librium and methadone detox regimen seen by psychiatrist treated with zyprexa and trazodone tolerate well no complication through out the detox stay patient is alert oriented x 3 cardiac S1S2 regular rhythm respiratory clear lung sound bilaterally on auscultation abdomen soft no rebound tenderness - Physical Exam Results Vital Signs: Vital Signs Temperature 98.2 F 08/07/19 06:17 Pulse Rate 58 L 08/07/19 06:17 Respiratory Rate 18 08/07/19 06:17 Blood Pressure 99/53 L 08/07/19 06:17 O2 Sat by Pulse Oximetry (%) Pertinent Admission Physical Exam Findings: alcohol and opiate withdrawal sx Laboratory Last Values WBC 5.3 K/mm3 (4.0-10.0) 08/03/19 08:50 RBC 4.29 M/mm3 (4.00-5.60) 08/03/19 08:50 Hgb 12.1 GM/dL (11.7-16.9) 08/03/19 08:50 Hct 35.6 % (35.4-49) 08/03/19 08:50 MCV 83.1 fl (80-96) 08/03/19 08:50 MCH 28.2 pg (25.7-33.7) 08/03/19 08:50 MCHC 33.9 g/dl (32.0-35.9) 08/03/19 08:50 RDW 14.9 % (11.9-15.9) 08/03/19 08:50 Plt Count 127 K/MM3 (134-434) L D 08/03/19 08:50 MPV 9.3 fl (7.5-11.1) 08/03/19 08:50 Sodium 140 mmol/L (136-145) 08/03/19 08:50 Potassium 5.0 mmol/L (3.5-5.1) 08/03/19 08:50 Chloride 106 mmol/L (98-107) 08/03/19 08:50 Carbon Dioxide 31 mmol/L (21-32) 08/03/19 08:50 Anion Gap 4 MMOL/L (8-16) L 08/03/19 08:50 BUN 7.3 mg/dL (7-18) 08/03/19 08:50 Creatinine 0.8 mg/dL (0.55-1.3) 08/03/19 08:50 Est GFR (CKD-EPI)AfAm 123.29 08/03/19 08:50 Est GFR (CKD-EPI)NonAf 106.38 08/03/19 08:50 Random Glucose 70 mg/dL (74-106) L 08/03/19 08:50 Calcium 8.8 mg/dL (8.5-10.1) 08/03/19 08:50 Total Bilirubin 0.5 mg/dL (0.2-1) 08/03/19 08:50 AST 31 U/L (15-37) 08/03/19 08:50 ALT 22 U/L (13-61) 08/03/19 08:50 Alkaline Phosphatase 74 U/L (45-117) 08/03/19 08:50 Total Protein 6.7 g/dl (6.4-8.2) 08/03/19 08:50 Albumin 3.5 g/dl (3.4-5.0) 08/03/19 08:50 RPR Titer Nonreactive (NONREACTIVE) 08/03/19 08:50 lab noted - Treatment Hospital Course: Detox Protocol Followed, Detoxed Safely, Responded well, Discharged Condition Good, Rehab Referral Accepted Patient has Accepted a Rehab Referral to: [facility] - Medication Discharge Medications: Ambulatory Orders Trazodone HCl 150 mg PO HS 11/10/18 Sertraline HCl [Zoloft] 50 mg PO DAILY 04/17/19 Gabapentin 300 mg PO TID 08/02/19 Olanzapine [Zyprexa] 10 mg PO HS 08/02/19 hydrOXYzine HCL [Atarax -] 25 mg PO TID PRN 08/02/19 - Diagnosis (1) Alcohol dependence with uncomplicated withdrawal Status: Acute (2) Opioid dependence with withdrawal Status: Acute (3) Nicotine dependence Status: Acute Qualifiers: Nicotine product type: cigarettes Substance use status: in withdrawal Qualified Code(s): F17.213 - Nicotine dependence, cigarettes, with withdrawal (4) Substance induced mood disorder Status: Suspected - AMA Did Patient Leave Against Medical Advice: No CIWA Score - CIWA Score Nausea/Vomitin-No Nausea/No Vomiting Muscle Tremors: 1-None Visible, but [place] Anxiety: 1-Mildly Anxious Agitation: 1-Slight > Activity Paroxysmal Sweats: No Perspiration Orientation: 0-Oriented Tacttile Disturbances: 0-None Auditory Disturbances: 0-None Visual Disturbances: 0-None Headache: 0-None Present CIWA-Ar Total Score: 3 COWS (PN) - Opiate Withdrawal Resting Pulse: 0= [place] 80 or Below Sweatin= Chills/Flushing Restless Observation: 0= Sits Still Pupil Size: 0= Normal to Room Light Bone or Joint Aches: 0= None Runny Nose/ Eye Tearin= None GI Upset > 30mins: 0= None Tremor Observation of Outstretched Hands: 1= Tremor [place], Not Seen Yawning Observation: 0= None Anxiety or Irritability: 1=Feels Anxious/Irritable Goose Flesh Skin: 0=Smooth Skin COWS Score: 3
== END 2019-08-07 09:36 | disposition home or self-care (01) | DRG 773 ==
LOC: YASAS 15:26 → Y3N 23:53
PROVIDERS: ADMIT Surgery; ATTEND Surgery
PROC: HZ2ZZZZ Detoxification Services for Substance Abuse Treatment (ICD-10-PCS; principal; 2019-08-02)
DX: F10.230 Alcohol dependence with withdrawal, uncomplicated (principal); F11.23 Opioid dependence with withdrawal; F13.10 Sedative, hypnotic or anxiolytic abuse, uncomplicated; F12.20 Cannabis dependence, uncomplicated; F17.213 Nicotine dependence, cigarettes, with withdrawal; F19.24 Other psychoactive substance dependence with psychoactive substance-induced mood disorder; F39 Unspecified mood [affective] disorder; F41.8 Other specified anxiety disorders; F32.9 Major depressive disorder, single episode, unspecified; D69.6 Thrombocytopenia, unspecified; G47.00 Insomnia, unspecified; Z91.19 Patient's noncompliance with other medical treatment and regimen
CPT/HCPCS: 36415; 80053; 85027; 86593

== ENCOUNTER 2019-09-14 14:51 | Inpatient (IN) | payer OTHER ==
[2019-09-14 17:32] VITALS: BMI 23.9
--- NOTE | 2019-09-14 19:34 | HP ---
"COWS - Scale Resting Pulse: 0= [place] 80 or Below Sweatin=Flushed/Facial Moisture Restless Observation: 3= Extraneous Movement Pupil Size: 1= Pupils >than Normal ((L) pupil = 3 mm (R) pupil = 4 mm) Bone or Joint Aches: 1= Mild Discomfort Runny Nose/ Eye Tearin= Nasal Congestion GI Upset > 30mins: 2= Nausea/Diarrhea (Nausea w/o diarrhea) Tremor Observation: 4= Gross Tremor/Twitching Yawning Observation: 1= 1-2x During Session Anxiety or Irritability: 1=Feels Anxious/Irritable Goose Flesh Skin: 0=Smooth Skin COWS Score: 16 CIWA Score Nausea/Vomitin-Mild Nausea/No Vomiting Muscle Tremors: 4-Moderate,w/Arms Extend Anxiety: 1-Mildly Anxious Agitation: 4-Moderately Restless Paroxysmal Sweats: 3 (Increased facial moisture) Orientation: 0-Oriented Tacttile Disturbances: 0-None Auditory Disturbances: 0-None Visual Disturbances: 0-None Headache: 0-None Present CIWA-Ar Total Score: 13 - Admission Criteria OASAS Guidelines: Admission for Medically Managed Detox: Requires at least one of the followin. CIWA greater than 12 2. Seizures within the past 24 hours 3. Delirium tremens within the past 24 hours 4. Hallucinations within the past 24 hours 5. Acute intervention needed for co occurring medical disorder 6. Acute intervention needed for co occurring psychiatric disorder 7. Severe withdrawal that cannot be handled at a lower level of care (continued vomiting, continued diarrhea, abnormal vital signs) requiring intravenous medication and/or fluids 8. Admitting History and Physical - Smoking History Smoking history: Current every day smoker Have you smoked in the past 12 months: Yes Aproximately how many cigarettes per day: 20 - Alcohol/Substance Use Hx Alcohol Use: Yes Admission ROS S - [facility] Chief Complaint: States feeling sick. Trying to stop using heroin and alcohol, and everything. Allergies/Adverse Reactions: Allergies Allergy/AdvReac Type Severity Reaction Status Date / Time Fish Containing Products Allergy Severe Swelling Verified 08/02/19 21:43 No Known Drug Allergies Allergy Verified 08/02/19 21:43 History of Present Illness: 49 yo presents w/ withdrawal symptoms seeking detox for opiate, alcohol, and Xanax use disorder. States relapsed mid-July. Utox: + THC/FEN/MOP/OXY/MTD/BZO LAURIE: 0.0 Heroin use began at age 21. Uses IV. States current use is 10-12 bags/day. [facility] does not share needles or works. States on a MMTP in 2003-; Never been on Suboxone. Encouraged to consider MAT. Methadone - illicit use. [facility] bought a 20 mg pill 3 days ago. [facility] has a Narcan Kit at home. Alcohol use began at age 16. Current use 1-1.5 pints/day w/ beer. Xanax use began at age 42. Just 1 stick 2-3x/wk Marijuana use began at age 14. 1-2 blunts/day. Nicotine use began at age 14. Smokes 1 PPD. He reports 3 years of sobriety [id number]. Hx: Blackouts. Denies seizures. Last overdose 2015. Overdose risks discussed- PMHx: Denies other significant PMH. 08/03/19: RPR: Non-reactive 03/09/19: EKG: NSR MHHx: Depression, Anxiety. [facility] has a MH Provider and sees monthly. On MH meds. Patient denies suicidal ideation at this time. Patient Name: Thomas Oconnor Date: 1970 Address: [place] [address] Sex: Male Rx Written Rx Dispensed Drug Quantity Days Supply Prescriber Name 08/08/2019 08/09/2019 chlordiazepoxide 25 mg capsule 8 2 Ivy George MD 04/09/2019 04/10/2019 chlordiazepoxide 25 mg capsule 8 2 Colby Borja ( FLORECITA) 03/01/2019 03/02/2019 chlordiazepoxide 25 mg capsule 8 2 Pedro Taylor Search Terms: Thomas Oconnor, 1970 Search Date: 09/14/2019 07:34:51 PM States Searched: [place], [place], [place], [place], [place], [place], [place], [place] The Drug Utilization Report below displays the controlled substance prescriptions, if any, that were dispensed in the indicated state(s). The information displayed on this report is compiled from requests submitted to other states' PMPs, and accurately reflects the information as returned by them. Blank taylor indicate data not provided by other state. This report was requested by: Kasia Arriaga | Reference #: [id number] There are no results for the search terms that you entered. Exam Limitations: No Limitations - Ebola screening Have you traveled outside of the country in the last 21 days: No Have you had contact with anyone from an Ebola affected area: No Have you been sick,other than usual withdrawal symptoms: No Do you have a fever: No - Review of Systems Constitutional: Chills, Diaphoresis, Changes in sleep (Difficulty falling and staying asleep) EENT: reports: Nose Congestion, Other (Perforated (L) ear drum.) Respiratory: reports: No Symptoms reported Cardiac: reports: No Symptoms Reported GI: reports: Nausea, Indigestion (Heart burn at night) : reports: No Symptoms Reported Musculoskeletal: reports: Back Pain (r/t withdrawals), Joint Pain (r/t withdrawals), Muscle Pain (r/t withdrawals) Integumentary: reports: No Symptoms Reported Neuro: reports: Tremors Endocrine: reports: Increased Thirst Hematology: reports: No Symptoms Reported Psychiatric: reports: Mood/Affect Appropiate, Orientated x3, Agitated, Anxious ( increases when feels withdrawal), Depressed (Feeling down. Denies thoughts of harming self or others.) Patient History - Patient Medical History Hx Anemia: No Hx Asthma: No Hx Chronic Obstructive Pulmonary Disease (COPD): No Hx Cancer: No Hx Cardiac Disorders: No Hx Congestive Heart Failure: No Hx Hypertension: No Hx Hypercholesterolemia: No Hx Pacemaker: No HX Cerebrovascular Accident: No Hx Seizures: No Hx Dementia: No Hx Diabetes: No Hx Gastrointestinal Disorders: No Hx Liver Disease: No Hx Genitourinary Disorders: No Hx Sexually Transmitted Disorders: No Hx Renal Disease (ESRD): No Hx Thyroid Disease: No Hx Human Immunodeficiency Virus (HIV): No (Negative 2018) Hx Hepatitis C: No (Negative) Hx Depression: Yes (no meds x 6 months - was on zoloft ) Hx Suicide Attempt: No (Denies suicidal ideation at this time) Hx Bipolar Disorder: No Hx Schizophrenia: No - Patient Surgical History Past Surgical History: No Hx Neurologic Surgery: No Hx Cataract Extraction: No Hx Cardiac Surgery: No Hx Lung Surgery: No Hx Breast Surgery: No Hx Breast Biopsy: No Hx Abdominal Surgery: No Hx Appendectomy: No Hx Cholecystectomy: No Hx Genitourinary Surgery: No Hx Section: No Hx Orthopedic Surgery: No Anesthesia Reaction: No - PPD History Previous Implant?: Yes Documented Results: Negative w/proof Implanted On Prior [facility] Admission?: Yes Date: 11/12/18 Results: 0mm PPD to be Administered?: No - Smoking Cessation Smoking history: Current every day smoker Have you smoked in the past 12 months: Yes Aproximately how many cigarettes per day: 20 Cigars Per Day: 0 Hx Chewing Tobacco Use: No Initiated information on smoking cessation: Yes 'Breaking Loose' booklet given: 09/14/19 - Substance & Tx. History Hx Alcohol Use: Yes Hx Substance Use: Yes Substance Use Type: Alcohol, Heroin, Marijuana, Opiates, Tranquilizers (xANAX) Hx Substance Use Treatment: Yes (detox, rehab, past MMTP ) - Substances abused Heroin Substance route: Injection Frequency: Daily Amount used: 10 to 12 bags Age of first use: 21 Date of last use: 09/14/19 Alcohol Substance route: Oral Frequency: Daily Amount used: 1 pint and half of vodka and 10 beers Age of first use: 16 Date of last use: 09/14/19 Marijuana/Hashish Substance route: Smoking Frequency: Daily Amount used: 2 blunts Age of first use: 14 Date of last use: 09/13/19 Alprazolam (Xanax) Substance route: Oral Frequency: 3-6 times per week Amount used: 4 mg total Age of first use: 42 Date of last use: 09/10/19 Admission Physical Exam BHS - Vital Signs Vital Signs: Vital Signs - 24 hr 09/14/19 17:23 Temperature 98.4 F Pulse Rate 69 Respiratory 18 Rate Blood Pressure 120/76 - Physical General Appearance: Yes: Nourished (BMI = 23.9), Mild Distress, Tremorous, Sweating (Increased facial moisture) HEENTM: Yes: EOMI (Jerking movement of eyes upon lateral gaze), Hearing grossly Normal, Normocephalic, Normal Voice, Pharynx Normal, Nasal Congestion, Other ((L ) pupil = 3 mm (R) pupil = 4 mm) Respiratory: Yes: Lungs Clear (Pulse Ox = 99 %), Normal Breath Sounds, No Respiratory Distress Neck: Yes: No masses,lesions,Nodules, Supple Breast: Yes: Breast Exam Deferred Cardiology: Yes: Regular Rhythm, Regular Rate, S1, S2 Abdominal: Yes: Non Tender, Flat, Soft, Increased Bowel Sounds Genitourinary: Yes: Within Normal Limits Back: Yes: Normal Inspection Musculoskeletal: Yes: full range of Motion, Gait Steady Extremities: Yes: Normal Capillary Refill (Peripheral pulses +), Normal Range of Motion, Tremors 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 NML intact (Jerking movement of eyes upon lateral gaze), Fully Oriented, Alert, Motor Strength 5/5, Normal Response Integumentary: Yes: Normal Color, Warm, Diaphoresis (Increased facial moisture) Lymphatic: Yes: Within Normal Limits - Diagnostic (1) Unspecified nystagmus Current Visit: Yes Status: Acute (2) Alcohol dependence with uncomplicated withdrawal Current Visit: Yes Status: Acute (3) Nicotine dependence Current Visit: Yes Status: Chronic Qualifiers: Nicotine product type: cigarettes Substance use status: in withdrawal Qualified Code(s): F17.213 - Nicotine dependence, cigarettes, with withdrawal (4) Opioid dependence with withdrawal Current Visit: Yes Status: Acute (5) Marijuana dependence Current Visit: Yes Status: Chronic (6) Sedative, hypnotic or anxiolytic use disorder, mild, abuse Current Visit: Yes Status: Acute (7) Heartburn Current Visit: Yes Status: Chronic Cleared for Admission [facility] - Detox or Rehab [facility] Level of Care: Medically Managed Detox Regimen/Protocol: Methadone/Librium Claeared for Rehab Admission: No Breathalyzer - Breathalyzer Breathalyzer: 0 Urine Drug Screen - Test Device Lot number: [id number] Expiration date: 04/27/21 - Control Is test valid?: Yes - Results Drug screen NEGATIVE: Yes Urine drug screen results: THC-Marijuana, FEN-Fentanyl, MOP-Opiates, OXY- Oxycodone, MTD-Methadone, BZO-Benzodiazepines Inpatient Rehab Admission - Rehab Decision to Admit Inpatient rehab admission?: No"
[2019-09-14] MEDS ORDERED: ACETAMINOPHEN 325 MG TABLET (FP) PO PRN ×2 (20:07)
[2019-09-14] MEDS ORDERED: IBUPROFEN 400 MG TABLET (FP) PO PRN (20:07)
[2019-09-14] MEDS ORDERED: cloNIDine HCL 0.1 MG TABLET PO PRN (20:07)
[2019-09-14] MEDS ORDERED: MELATONIN 5 MG TABLETS PO PRN (20:07)
[2019-09-14] MEDS ORDERED: METHADONE HCL 10 MG TABLET (FOR DETOX USE ONLY) PO ONE (20:07)
[2019-09-14] MEDS ORDERED: MAGNESIUM CITRATE 300 ML BOTTLE PO PRN (20:07)
[2019-09-14] MEDS ORDERED: chlordiazePOXIDE HCL 10 MG CAPSULE PO PRN (20:07)
[2019-09-14] MEDS ORDERED: MAGNESIUM HYDROX 2400MG/30ML ORAL SUSPENSION 30 ML CUP PO PRN (20:07)
[2019-09-14] MEDS ORDERED: BISMUTH SUBSALICYLATE 524 MG/30 ML UD PO PRN (20:07)
[2019-09-14] MEDS ORDERED: NICOTINE POLACRILEX 2 MG GUM BUC PRN (20:07)
[2019-09-14] MEDS ORDERED: MENTHOL/PHENOL 1 EACH UD MM PRN (20:07)
[2019-09-14] MEDS ORDERED: MAG HYDROX/AL HYDROX/SIMETH 30 ML UNIT-DOSE CUP PO PRN (20:07)
[2019-09-14] MEDS ORDERED: OLANZapine 10 MG TABLET PO ONE (20:19)
[2019-09-14] MEDS: METHOCARBAMOL 500 MG TABLET PO PRN (21:32)
[2019-09-14] MEDS: PANTOPRAZOLE 20 MG TABLET (FP) PO SCH (21:33)
[2019-09-14] MEDS: THIAMINE HCL 100 MG TABLET (FP) PO SCH (21:33)
[2019-09-14] MEDS: chlordiazePOXIDE HCL 25 MG CAPSULE PO SCH (21:33)
[2019-09-14] MEDS ORDERED: traZODone HCL 100 MG TABLET (FP) PO ONE (22:00)
[2019-09-15] MEDS: chlordiazePOXIDE HCL 25 MG CAPSULE PO SCH ×3 (06:10→22:20)
[2019-09-15] MEDS ORDERED: METHADONE HCL 10 MG TABLET (FOR DETOX USE ONLY) ONE (08:18)
[2019-09-15] MEDS ORDERED: METHADONE HCL 5 MG TABLET (FOR DETOX USE ONLY) ONE (08:18)
[2019-09-15] MEDS ORDERED: METHADONE (DETOX) 20 MG, METHADONE (DETOX) 5 MG PO ONE (10:00)
[2019-09-15] MEDS: NICOTINE 21 MG/24 HOURS TOPICAL PATCH TD SCH (10:37)
[2019-09-15] MEDS: PRENATAL VITAMINS W/ FOLIC ACID TABLET (FP) PO SCH (10:37)
[2019-09-15] MEDS: METHOCARBAMOL 500 MG TABLET PO PRN ×2 (10:38→22:24)
--- NOTE | 2019-09-15 13:57 | PN ---
[facility] CIWA - CIWA Score Nausea/Vomitin-Mild Nausea/No Vomiting Muscle Tremors: 2 Anxiety: 2 Agitation: 2 Paroxysmal Sweats: 2 Orientation: 0-Oriented Tacttile Disturbances: 0-None Auditory Disturbances: 0-None Visual Disturbances: 0-None Headache: 1-Very Mild CIWA-Ar Total Score: 10 BHS COWS - Scale Resting Pulse: 2= [place] 101-120 Sweatin= Chills/Flushing Restless Observation: 3= Extraneous Movement Pupil Size: 1= Pupils >than Normal Bone or Joint Aches: 2= Severe Diffuse Aches Runny Nose/ Eye Tearin= Runny Nose/Eyes GI Upset > 30mins: 2= Nausea/Diarrhea Tremor Observation of Outstretched Hands: 1= Tremor [place], Not Seen Yawning Observation: 1= 1-2x During Session Anxiety or Irritability: 1=Feels Anxious/Irritable Goose Flesh Skin: 3=Piloerection COWS Score: 19 S Progress Note (SOAP) Subjective: pt came in yesterday, requesting ensure O: Vital Signs - 24 hr 09/14/19 09/14/19 09/15/19 17:23 21:19 00:35 Temperature 98.4 F 98.2 F Pulse Rate 69 62 Respiratory 18 18 18 Rate Blood Pressure 120/76 120/81 09/15/19 09/15/19 09/15/19 03:30 06:14 13:19 Temperature 97.1 F L 97.5 F L Pulse Rate 55 L 59 L Respiratory 18 18 18 Rate Blood Pressure 93/65 95/57 L a/p: continue alcohol and heroin detox; pt doing well ensure wiht meals
--- NOTE | 2019-09-15 17:44 | CONSULT ---
[facility] Psychiatric Consult - Data Date of interview: 09/15/19 Admission source: [facility] Identifying data: Another admission to [facility] for this 49 y/o male self-referred for detoxification treatment. YENY issues : alcohol, marihuana, xanax, heroin, nicotine. Patient is single without children, homeless (intermediate) , unemployed and supported on welfare. Substance Abuse History: Details in current [facility] report. Discussed with the patient. Smoking history: Current every day smoker. Have you smoked in the past 12 months: Yes. Aproximately how many cigarettes per day: 20. Cigars Per Day: 0. Hx Chewing Tobacco Use: No. Initiated information on smoking cessation : Yes. 'Breaking Loose' booklet given: 09/14/19. - Substance & Tx. History. Hx Alcohol Use: Yes. Hx Substance Use: Yes. Substance Use Type: Alcohol, Heroin, Marijuana, Opiates, Tranquilizers (xANAX). Hx Substance Use Treatment: Yes (detox, rehab, past MMTP ). - Substances abused. Heroin. Substance route: Injection. Frequency: Daily. Amount used: 10 to 12 bags. Age of first use: 21. Date of last use: 09/14/19. Alcohol. Substance route: Oral. Frequency: Daily. Amount used: 1 pint and half of vodka and 10 beers. Age of first use: 16. Date of last use: 09/14/19. Marijuana/Hashish. Substance route: Smoking. Frequency: Daily. Amount used: 2 blunts. Age of first use: 14. Date of last use: 09/13/19. Alprazolam (Xanax). Substance route: Oral. Frequency: 3-6 times per week. Amount used: 4 mg total. Age of first use: 42. Date of last use: 09/10/19 Medical History: Patient endorses good general health. Psychiatric History: Multiple psychiatric hospitalizations at [facility]. Patient is diagnosed with MDD, PTSD and Anxiety Disorder. Mr Oconnor reports his medications as follows : zoloft 100 mg/day + trazodone 100 mg/ hs + gabapentin 300 mg/tid + zyprexa 10 mg/hs. Currently in OPD care at the [facility] outpatient program in [facility]. In this interview, the patient denies history of suicide attempts (records, however, indicate a history of one suicide attempt via deliberate overdose with heroin in 2016). Physical/Sexual Abuse/Trauma History: Patient denies. Additional Comment: Urine drug screen results: THC-Marijuana, FEN-Fentanyl, MOP- Opiates, OXY-Oxycodone, MTD-Methadone, BZO-Benzodiazepines. Noted. Mental Status Exam - Mental Status Exam Alert and Oriented to: Time, Place, Person Cognitive Function: Grossly Intact Patient Appearance: Unkempt, Disheveled Mood: Nervous, Withdrawn Affect: Mood Congruent, Constricted Patient Behavior: Fatigued, Cooperative Speech Pattern: Clear Voice Loudness: Normal Thought Process: Goal Oriented Thought Disorder: Not Present Hallucinations: Denies Suicidal Ideation: Denies Homicidal Ideation: Denies Insight/Judgement: Poor Sleep: Poorly, Difficulty falling asleep Appetite: Good Gait/Station: Normal Psychiatric Findings - Problem List ([place] 1, 2,3) (1) Alcohol dependence with uncomplicated withdrawal Current Visit: Yes Status: Acute (2) Opioid dependence with withdrawal Current Visit: Yes Status: Acute (3) Marijuana dependence Current Visit: Yes Status: Chronic (4) Sedative, hypnotic or anxiolytic use disorder, mild, abuse Current Visit: Yes Status: Chronic (5) Nicotine dependence Current Visit: Yes Status: Chronic Qualifiers: Nicotine product type: cigarettes Substance use status: in withdrawal Qualified Code(s): F17.213 - Nicotine dependence, cigarettes, with withdrawal (6) History of depression Current Visit: Yes Status: Chronic (7) Substance induced mood disorder Current Visit: Yes Status: Chronic (8) Insomnia Current Visit: Yes Status: Chronic (9) Non-compliance Current Visit: Yes Status: Chronic - Initial Treatment Plan Initial Treatment Plan: Psychoeducation. Sleep hygiene. Detoxification. Medications reconciled. Ordered : trazodone 100 mg po hs + olanzapine 10 mg po hs + zoloft 50 mg po daily + gabapentin 300 mg po tid. Side effects/benefits of each drug are discussed with the patient. Mr Oconnor is in agreement with this plan of care. Verbal consent is granted to MD. Harrison.
[2019-09-15] MEDS: PANTOPRAZOLE 20 MG TABLET (FP) PO SCH (20:20)
[2019-09-15] MEDS: traZODone HCL 50 MG TABLET (FP) PO SCH (22:20)
[2019-09-15] MEDS: THIAMINE HCL 100 MG TABLET (FP) PO SCH (22:20)
[2019-09-15] MEDS: GABAPENTIN 300 MG CAPSULE (FP) PO SCH (22:20)
[2019-09-15] MEDS: OLANZapine 10 MG TABLET PO SCH (22:20)
[2019-09-16] MEDS: GABAPENTIN 300 MG CAPSULE (FP) PO SCH ×3 (06:30→22:18)
[2019-09-16] MEDS: chlordiazePOXIDE 5 MG CAPSULE PO SCH ×3 (06:30→22:18)
[2019-09-16] MEDS ORDERED: METHADONE HCL 10 MG TABLET (FOR DETOX USE ONLY) PO ONE (10:00)
[2019-09-16] MEDS ORDERED: SERTRALINE HCL 25 MG TABLET (FP) PO SCH (10:00)
[2019-09-16] MEDS: PRENATAL VITAMINS W/ FOLIC ACID TABLET (FP) PO SCH (10:51)
[2019-09-16] MEDS: NICOTINE 21 MG/24 HOURS TOPICAL PATCH TD SCH (10:51)
[2019-09-16 11:02] LABS: BASO % 0.5 % (0-2.0); EOS % 4.2 % (0-4.5); HEMATOCRIT 38.5 % (35.4-49); HEMOGLOBIN 13.1 GM/dL (11.7-16.9); LYMPH % 46.7 % (8-40); MCH 28.2 pg (25.7-33.7); MEAN CELL VOLUME 82.9 fl (80-96); MEAN PLT VOLUME 8.4 fl (7.5-11.1); MONO % 5.9 % (3.8-10.2); NEUT % 42.7 % (42.8-82.8); PLATELET COUNT 149 K/MM3 (134-434); RBC 4.64 M/mm3 (4.00-5.60); RDW 14.4 % (11.9-15.9); WHITE BLOOD COUNT 5.4 K/mm3 (4.0-10.0)
[2019-09-16 11:09] LABS: ALBUMIN 3.7 g/dl (3.4-5.0); BILIRUBIN,TOTAL 0.4 mg/dL (0.2-1); BLOOD UREA NITROGEN 12.2 mg/dL (7-18); CALCIUM 8.8 mg/dL (8.5-10.1); POTASSIUM 4.2 mmol/L (3.5-5.1); TOT PROT 6.6 g/dl (6.4-8.2)
--- NOTE | 2019-09-16 11:16 | PN ---
[facility] CIWA - CIWA Score Nausea/Vomitin-Mild Nausea/No Vomiting Muscle Tremors: 2 Anxiety: 3 Agitation: 2 Paroxysmal Sweats: 1-Minimal Palms Moist Orientation: 0-Oriented Tacttile Disturbances: 1-Very Mild Itch/Numbness Auditory Disturbances: 0-None Visual Disturbances: 0-None Headache: 0-None Present CIWA-Ar Total Score: 10 BHS COWS - Scale Resting Pulse: 0= [place] 80 or Below Sweatin= Chills/Flushing Restless Observation: 0= Sits Still Pupil Size: 0= Normal to Room Light Bone or Joint Aches: 1= Mild Discomfort Runny Nose/ Eye Tearin= Nasal Congestion GI Upset > 30mins: 2= Nausea/Diarrhea (no diarrhea) Tremor Observation of Outstretched Hands: 2= Slight Tremor Visible Yawning Observation: 2= >3x During Session Anxiety or Irritability: 2=Irritable/Anxious Goose Flesh Skin: 3=Piloerection COWS Score: 14 S Progress Note (SOAP) Subjective: doing well with librium and methadone detox regimen tolerate ensure well with some solid food resting on bed feeling tired Objective: 09/16/19 11:15 Vital Signs Temperature 96.8 F L 09/16/19 06:35 Pulse Rate 55 L 09/16/19 06:35 Respiratory Rate 18 09/16/19 06:35 Blood Pressure 99/51 L 09/16/19 06:35 O2 Sat by Pulse Oximetry (%) Laboratory Last Values WBC 5.4 K/mm3 (4.0-10.0) 09/16/19 08:00 RBC 4.64 M/mm3 (4.00-5.60) 09/16/19 08:00 Hgb 13.1 GM/dL (11.7-16.9) 09/16/19 08:00 Hct 38.5 % (35.4-49) 09/16/19 08:00 MCV 82.9 fl (80-96) 09/16/19 08:00 MCH 28.2 pg (25.7-33.7) 09/16/19 08:00 MCHC 34.0 g/dl (32.0-35.9) 09/16/19 08:00 RDW 14.4 % (11.9-15.9) 09/16/19 08:00 Plt Count 149 K/MM3 (134-434) 09/16/19 08:00 MPV 8.4 fl (7.5-11.1) 09/16/19 08:00 Absolute Neuts (auto) 2.3 K/mm3 (1.5-8.0) 09/16/19 08:00 Neutrophils % 42.7 % (42.8-82.8) L 09/16/19 08:00 Lymphocytes % 46.7 % (8-40) H 09/16/19 08:00 Monocytes % 5.9 % (3.8-10.2) 09/16/19 08:00 Eosinophils % 4.2 % (0-4.5) 09/16/19 08:00 Basophils % 0.5 % (0-2.0) 09/16/19 08:00 Nucleated RBC % 0 % (0-0) 09/16/19 08:00 Sodium 141 mmol/L (136-145) 09/16/19 08:00 Potassium 4.2 mmol/L (3.5-5.1) 09/16/19 08:00 Chloride 106 mmol/L (98-107) 09/16/19 08:00 Carbon Dioxide 30 mmol/L (21-32) 09/16/19 08:00 Anion Gap 6 MMOL/L (8-16) L 09/16/19 08:00 BUN 12.2 mg/dL (7-18) 09/16/19 08:00 Creatinine 1.0 mg/dL (0.55-1.3) 09/16/19 08:00 Est GFR (CKD-EPI)AfAm 103.42 09/16/19 08:00 Est GFR (CKD-EPI)NonAf 89.23 09/16/19 08:00 Random Glucose 74 mg/dL (74-106) 09/16/19 08:00 Calcium 8.8 mg/dL (8.5-10.1) 09/16/19 08:00 Total Bilirubin 0.4 mg/dL (0.2-1) 09/16/19 08:00 AST 13 U/L (15-37) L 09/16/19 08:00 ALT 23 U/L (13-61) 09/16/19 08:00 Alkaline Phosphatase 79 U/L (45-117) 09/16/19 08:00 Total Protein 6.6 g/dl (6.4-8.2) 09/16/19 08:00 Albumin 3.7 g/dl (3.4-5.0) 09/16/19 08:00 lab noted ambulating from bed to bathroom steady gait Assessment: 09/16/19 11:15 alcohol benzo and opiate withdrawal sx Plan: continue librium and methadone detox regimen
[2019-09-16] MEDS: THIAMINE HCL 100 MG TABLET (FP) PO SCH (22:18)
[2019-09-16] MEDS: traZODone HCL 50 MG TABLET (FP) PO SCH (22:18)
[2019-09-16] MEDS: PANTOPRAZOLE 20 MG TABLET (FP) PO SCH (22:18)
[2019-09-16] MEDS: OLANZapine 10 MG TABLET PO SCH (22:18)
[2019-09-17] MEDS ORDERED: chlordiazePOXIDE HCL 10 MG CAPSULE PO PRN
[2019-09-17] MEDS: GABAPENTIN 300 MG CAPSULE (FP) PO SCH ×3 (06:21→22:33)
[2019-09-17] MEDS: chlordiazePOXIDE HCL 10 MG CAPSULE PO SCH ×3 (06:21→22:33)
[2019-09-17] MEDS ORDERED: METHADONE HCL 5 MG TABLET (FOR DETOX USE ONLY) ONE (09:53)
[2019-09-17] MEDS ORDERED: METHADONE HCL 10 MG TABLET (FOR DETOX USE ONLY) ONE (09:53)
[2019-09-17] MEDS ORDERED: METHADONE (DETOX) 10 MG, METHADONE (DETOX) 5 MG PO ONE (10:00)
[2019-09-17] MEDS: SERTRALINE HCL 50 MG TABLET (FP) PO SCH (10:12)
[2019-09-17] MEDS: PRENATAL VITAMINS W/ FOLIC ACID TABLET (FP) PO SCH (10:12)
[2019-09-17] MEDS: NICOTINE 21 MG/24 HOURS TOPICAL PATCH TD SCH (10:12)
--- NOTE | 2019-09-17 12:12 | PN ---
[facility] CIWA - CIWA Score Nausea/Vomitin-Mild Nausea/No Vomiting Muscle Tremors: 3 Anxiety: 2 Agitation: 2 Paroxysmal Sweats: 1-Minimal Palms Moist Orientation: 0-Oriented Tacttile Disturbances: 1-Very Mild Itch/Numbness Auditory Disturbances: 0-None Visual Disturbances: 0-None Headache: 0-None Present CIWA-Ar Total Score: 10 BHS COWS - Scale Resting Pulse: 0= [place] 80 or Below Sweatin= Chills/Flushing Restless Observation: 0= Sits Still Pupil Size: 0= Normal to Room Light Bone or Joint Aches: 1= Mild Discomfort Runny Nose/ Eye Tearin= Nasal Congestion GI Upset > 30mins: 2= Nausea/Diarrhea (no diarrhea) Tremor Observation of Outstretched Hands: 2= Slight Tremor Visible Yawning Observation: 1= 1-2x During Session Anxiety or Irritability: 2=Irritable/Anxious Goose Flesh Skin: 0=Smooth Skin COWS Score: 10 S Progress Note (SOAP) Subjective: doing well with librium and methadone detox regimen 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 Objective: 09/17/19 12:11 Vital Signs Temperature 97.2 F L 09/17/19 09:05 Pulse Rate 56 L 09/17/19 09:05 Respiratory Rate 16 09/17/19 09:05 Blood Pressure 97/55 L 09/17/19 09:05 O2 Sat by Pulse Oximetry (%) Laboratory Last Values WBC 5.4 K/mm3 (4.0-10.0) 09/16/19 08:00 RBC 4.64 M/mm3 (4.00-5.60) 09/16/19 08:00 Hgb 13.1 GM/dL (11.7-16.9) 09/16/19 08:00 Hct 38.5 % (35.4-49) 09/16/19 08:00 MCV 82.9 fl (80-96) 09/16/19 08:00 MCH 28.2 pg (25.7-33.7) 09/16/19 08:00 MCHC 34.0 g/dl (32.0-35.9) 09/16/19 08:00 RDW 14.4 % (11.9-15.9) 09/16/19 08:00 Plt Count 149 K/MM3 (134-434) 09/16/19 08:00 MPV 8.4 fl (7.5-11.1) 09/16/19 08:00 Absolute Neuts (auto) 2.3 K/mm3 (1.5-8.0) 09/16/19 08:00 Neutrophils % 42.7 % (42.8-82.8) L 09/16/19 08:00 Lymphocytes % 46.7 % (8-40) H 09/16/19 08:00 Monocytes % 5.9 % (3.8-10.2) 09/16/19 08:00 Eosinophils % 4.2 % (0-4.5) 09/16/19 08:00 Basophils % 0.5 % (0-2.0) 09/16/19 08:00 Nucleated RBC % 0 % (0-0) 09/16/19 08:00 Sodium 141 mmol/L (136-145) 09/16/19 08:00 Potassium 4.2 mmol/L (3.5-5.1) 09/16/19 08:00 Chloride 106 mmol/L (98-107) 09/16/19 08:00 Carbon Dioxide 30 mmol/L (21-32) 09/16/19 08:00 Anion Gap 6 MMOL/L (8-16) L 09/16/19 08:00 BUN 12.2 mg/dL (7-18) 09/16/19 08:00 Creatinine 1.0 mg/dL (0.55-1.3) 09/16/19 08:00 Est GFR (CKD-EPI)AfAm 103.42 09/16/19 08:00 Est GFR (CKD-EPI)NonAf 89.23 09/16/19 08:00 Random Glucose 74 mg/dL (74-106) 09/16/19 08:00 Calcium 8.8 mg/dL (8.5-10.1) 09/16/19 08:00 Total Bilirubin 0.4 mg/dL (0.2-1) 09/16/19 08:00 AST 13 U/L (15-37) L 09/16/19 08:00 ALT 23 U/L (13-61) 09/16/19 08:00 Alkaline Phosphatase 79 U/L (45-117) 09/16/19 08:00 Total Protein 6.6 g/dl (6.4-8.2) 09/16/19 08:00 Albumin 3.7 g/dl (3.4-5.0) 09/16/19 08:00 lab noted Assessment: 09/17/19 12:12 alcohol benzo opiate withdrawal sx Plan: continue librium and methadone detox regimen
[2019-09-17] MEDS: traZODone HCL 50 MG TABLET (FP) PO SCH (22:32)
[2019-09-17] MEDS: THIAMINE HCL 100 MG TABLET (FP) PO SCH (22:32)
[2019-09-17] MEDS: OLANZapine 10 MG TABLET PO SCH (22:33)
[2019-09-17] MEDS: PANTOPRAZOLE 20 MG TABLET (FP) PO SCH (22:33)
[2019-09-18] MEDS ORDERED: chlordiazePOXIDE HCL 10 MG CAPSULE PO ONE (05:00)
[2019-09-18] MEDS: GABAPENTIN 300 MG CAPSULE (FP) PO SCH ×3 (06:41→21:42)
[2019-09-18] MEDS: SERTRALINE HCL 50 MG TABLET (FP) PO SCH (09:39)
[2019-09-18] MEDS: METHOCARBAMOL 500 MG TABLET PO PRN (09:40)
[2019-09-18] MEDS: PRENATAL VITAMINS W/ FOLIC ACID TABLET (FP) PO SCH (09:40)
[2019-09-18] MEDS: NICOTINE 21 MG/24 HOURS TOPICAL PATCH TD SCH (09:40)
[2019-09-18] MEDS ORDERED: METHADONE HCL 10 MG TABLET (FOR DETOX USE ONLY) PO ONE (10:00)
--- NOTE | 2019-09-18 12:38 | PN ---
[facility] CIWA - CIWA Score Nausea/Vomitin-No Nausea/No Vomiting Muscle Tremors: 2 Anxiety: 2 Agitation: 1-Slight > Activity Paroxysmal Sweats: 1-Minimal Palms Moist Orientation: 0-Oriented Tacttile Disturbances: 0-None Auditory Disturbances: 0-None Visual Disturbances: 0-None Headache: 0-None Present CIWA-Ar Total Score: 6 BHS COWS - Scale Resting Pulse: 0= [place] 80 or Below Sweatin= Chills/Flushing Restless Observation: 0= Sits Still Pupil Size: 0= Normal to Room Light Bone or Joint Aches: 1= Mild Discomfort Runny Nose/ Eye Tearin= Nasal Congestion GI Upset > 30mins: 1= Stomach Cramp Tremor Observation of Outstretched Hands: 1= Tremor [place], Not Seen Yawning Observation: 0= None Anxiety or Irritability: 1=Feels Anxious/Irritable Goose Flesh Skin: 0=Smooth Skin COWS Score: 6 [facility] Progress Note (SOAP) Subjective: doing well with librium and methadone detox regimen ate breakfast less tremor mild body ache Objective: 09/18/19 12:53 Vital Signs Temperature 96.7 F L 09/18/19 09:22 Pulse Rate 53 L 09/18/19 09:22 Respiratory Rate 18 09/18/19 09:22 Blood Pressure 90/57 L 09/18/19 09:22 O2 Sat by Pulse Oximetry (%) Laboratory Last Values WBC 5.4 K/mm3 (4.0-10.0) 09/16/19 08:00 RBC 4.64 M/mm3 (4.00-5.60) 09/16/19 08:00 Hgb 13.1 GM/dL (11.7-16.9) 09/16/19 08:00 Hct 38.5 % (35.4-49) 09/16/19 08:00 MCV 82.9 fl (80-96) 09/16/19 08:00 MCH 28.2 pg (25.7-33.7) 09/16/19 08:00 MCHC 34.0 g/dl (32.0-35.9) 09/16/19 08:00 RDW 14.4 % (11.9-15.9) 09/16/19 08:00 Plt Count 149 K/MM3 (134-434) 09/16/19 08:00 MPV 8.4 fl (7.5-11.1) 09/16/19 08:00 Absolute Neuts (auto) 2.3 K/mm3 (1.5-8.0) 09/16/19 08:00 Neutrophils % 42.7 % (42.8-82.8) L 09/16/19 08:00 Lymphocytes % 46.7 % (8-40) H 09/16/19 08:00 Monocytes % 5.9 % (3.8-10.2) 09/16/19 08:00 Eosinophils % 4.2 % (0-4.5) 09/16/19 08:00 Basophils % 0.5 % (0-2.0) 09/16/19 08:00 Nucleated RBC % 0 % (0-0) 09/16/19 08:00 Sodium 141 mmol/L (136-145) 09/16/19 08:00 Potassium 4.2 mmol/L (3.5-5.1) 09/16/19 08:00 Chloride 106 mmol/L (98-107) 09/16/19 08:00 Carbon Dioxide 30 mmol/L (21-32) 09/16/19 08:00 Anion Gap 6 MMOL/L (8-16) L 09/16/19 08:00 BUN 12.2 mg/dL (7-18) 09/16/19 08:00 Creatinine 1.0 mg/dL (0.55-1.3) 09/16/19 08:00 Est GFR (CKD-EPI)AfAm 103.42 09/16/19 08:00 Est GFR (CKD-EPI)NonAf 89.23 09/16/19 08:00 Random Glucose 74 mg/dL (74-106) 09/16/19 08:00 Calcium 8.8 mg/dL (8.5-10.1) 09/16/19 08:00 Total Bilirubin 0.4 mg/dL (0.2-1) 09/16/19 08:00 AST 13 U/L (15-37) L 09/16/19 08:00 ALT 23 U/L (13-61) 09/16/19 08:00 Alkaline Phosphatase 79 U/L (45-117) 09/16/19 08:00 Total Protein 6.6 g/dl (6.4-8.2) 09/16/19 08:00 Albumin 3.7 g/dl (3.4-5.0) 09/16/19 08:00 lab noted Assessment: 09/18/19 12:54 alcohol benzo opiate withdrawal sx Plan: continue librium and methadone detox regimen
[2019-09-18] MEDS: PANTOPRAZOLE 20 MG TABLET (FP) PO SCH (21:42)
[2019-09-18] MEDS: OLANZapine 10 MG TABLET PO SCH (21:42)
[2019-09-18] MEDS: traZODone HCL 50 MG TABLET (FP) PO SCH (21:42)
[2019-09-18] MEDS: THIAMINE HCL 100 MG TABLET (FP) PO SCH (21:42)
[2019-09-19] MEDS ORDERED: METHADONE HCL 5 MG TABLET (FOR DETOX USE ONLY) PO ONE ×2 (06:00→12:30)
[2019-09-19] MEDS: GABAPENTIN 300 MG CAPSULE (FP) PO SCH ×2 (06:06→13:32)
[2019-09-19 09:10] VITALS: BP 107/63; PULSE 54; TEMP 97
[2019-09-19] MEDS: PRENATAL VITAMINS W/ FOLIC ACID TABLET (FP) PO SCH (10:19)
[2019-09-19] MEDS: SERTRALINE HCL 50 MG TABLET (FP) PO SCH (10:19)
[2019-09-19] MEDS: NICOTINE 21 MG/24 HOURS TOPICAL PATCH TD SCH (10:21)
--- NOTE | 2019-09-19 12:29 | DS ---
[facility] Detox Discharge Summary Admission Date: 09/14/19 Discharge Date: 09/19/19 - History Present History: Alcohol Dependence, Opioid Dependence, Sedative Dependence Additional Comments: 49 years old male admitted on 09/14/19 for alcohol benzo opiate withdrawal sx management did well with librium and methadone detox regimen no complication through out the detox stay alert oriented x 3 cardiac s1s2 regular rate rhythm respiratory clear lung bilaterally on auscultation abdomen soft no rebound tenderness Pertinent Past History: Mar indicates no methadone 5 mg today reorder methadone 5mg now - Physical Exam Results Vital Signs: Vital Signs Temperature 97.0 F L 09/19/19 09:09 Pulse Rate 54 L 09/19/19 09:09 Respiratory Rate 18 09/19/19 09:09 Blood Pressure 107/63 09/19/19 09:09 O2 Sat by Pulse Oximetry (%) Pertinent Admission Physical Exam Findings: alcohol benzo opiate withdrawal sx Laboratory Last Values WBC 5.4 K/mm3 (4.0-10.0) 09/16/19 08:00 RBC 4.64 M/mm3 (4.00-5.60) 09/16/19 08:00 Hgb 13.1 GM/dL (11.7-16.9) 09/16/19 08:00 Hct 38.5 % (35.4-49) 09/16/19 08:00 MCV 82.9 fl (80-96) 09/16/19 08:00 MCH 28.2 pg (25.7-33.7) 09/16/19 08:00 MCHC 34.0 g/dl (32.0-35.9) 09/16/19 08:00 RDW 14.4 % (11.9-15.9) 09/16/19 08:00 Plt Count 149 K/MM3 (134-434) 09/16/19 08:00 MPV 8.4 fl (7.5-11.1) 09/16/19 08:00 Absolute Neuts (auto) 2.3 K/mm3 (1.5-8.0) 09/16/19 08:00 Neutrophils % 42.7 % (42.8-82.8) L 09/16/19 08:00 Lymphocytes % 46.7 % (8-40) H 09/16/19 08:00 Monocytes % 5.9 % (3.8-10.2) 09/16/19 08:00 Eosinophils % 4.2 % (0-4.5) 09/16/19 08:00 Basophils % 0.5 % (0-2.0) 09/16/19 08:00 Nucleated RBC % 0 % (0-0) 09/16/19 08:00 Sodium 141 mmol/L (136-145) 09/16/19 08:00 Potassium 4.2 mmol/L (3.5-5.1) 09/16/19 08:00 Chloride 106 mmol/L (98-107) 09/16/19 08:00 Carbon Dioxide 30 mmol/L (21-32) 09/16/19 08:00 Anion Gap 6 MMOL/L (8-16) L 09/16/19 08:00 BUN 12.2 mg/dL (7-18) 09/16/19 08:00 Creatinine 1.0 mg/dL (0.55-1.3) 09/16/19 08:00 Est GFR (CKD-EPI)AfAm 103.42 09/16/19 08:00 Est GFR (CKD-EPI)NonAf 89.23 09/16/19 08:00 Random Glucose 74 mg/dL (74-106) 09/16/19 08:00 Calcium 8.8 mg/dL (8.5-10.1) 09/16/19 08:00 Total Bilirubin 0.4 mg/dL (0.2-1) 09/16/19 08:00 AST 13 U/L (15-37) L 09/16/19 08:00 ALT 23 U/L (13-61) 09/16/19 08:00 Alkaline Phosphatase 79 U/L (45-117) 09/16/19 08:00 Total Protein 6.6 g/dl (6.4-8.2) 09/16/19 08:00 Albumin 3.7 g/dl (3.4-5.0) 09/16/19 08:00 lab noted - Treatment Hospital Course: Detox Protocol Followed, Detoxed Safely, Responded well, Discharged Condition Good, Rehab Referral Accepted Patient has Accepted [facility] - Medication Discharge Medications: Ambulatory Orders Trazodone HCl 150 mg PO HS 11/10/18 Sertraline HCl [Zoloft] 50 mg PO DAILY 04/17/19 Gabapentin 300 mg PO TID 08/02/19 Olanzapine [Zyprexa] 10 mg PO HS 08/02/19 hydrOXYzine HCL [Atarax -] 25 mg PO TID PRN 08/02/19 Naloxone HCl [Narcan] 4 mg NS ASDIR PRN #1 spray 09/17/19 - Diagnosis (1) Alcohol dependence with uncomplicated withdrawal Current Visit: Yes Status: Acute (2) Opioid dependence with withdrawal Current Visit: Yes Status: Acute (3) Nicotine dependence Current Visit: Yes Status: Acute Qualifiers: Nicotine product type: cigarettes Substance use status: in withdrawal Qualified Code(s): F17.213 - Nicotine dependence, cigarettes, with withdrawal (4) Sedative, hypnotic or anxiolytic use disorder, mild, abuse Current Visit: Yes Status: Acute (5) Substance induced mood disorder Current Visit: Yes Status: Suspected - AMA Did Patient Leave Against Medical Advice: No CIWA Score - CIWA Score Nausea/Vomitin-No Nausea/No Vomiting Muscle Tremors: 1-None Visible, but [place] Anxiety: 1-Mildly Anxious Agitation: 0-Normal Activity Paroxysmal Sweats: No Perspiration Orientation: 0-Oriented Tacttile Disturbances: 0-None Auditory Disturbances: 0-None Visual Disturbances: 0-None Headache: 0-None Present CIWA-Ar Total Score: 2 COWS (PN) - Opiate Withdrawal Resting Pulse: 0= [place] 80 or Below Sweatin= Chills/Flushing Restless Observation: 0= Sits Still Pupil Size: 0= Normal to Room Light Bone or Joint Aches: 0= None Runny Nose/ Eye Tearin= None GI Upset > 30mins: 0= None Tremor Observation of Outstretched Hands: 1= Tremor [place], Not Seen Yawning Observation: 0= None Anxiety or Irritability: 1=Feels Anxious/Irritable Goose Flesh Skin: 0=Smooth Skin COWS Score: 3
== END 2019-09-19 13:45 | disposition home or self-care (01) | DRG 773 ==
LOC: YASAS 14:51 → Y3N 20:40
PROVIDERS: ADMIT Allergy & Immunology; ATTEND Allergy & Immunology
PROC: HZ2ZZZZ Detoxification Services for Substance Abuse Treatment (ICD-10-PCS; principal; 2019-09-14)
DX: F11.23 Opioid dependence with withdrawal (principal); F10.230 Alcohol dependence with withdrawal, uncomplicated; F13.230 Sedative, hypnotic or anxiolytic dependence with withdrawal, uncomplicated; F12.20 Cannabis dependence, uncomplicated; F17.213 Nicotine dependence, cigarettes, with withdrawal; F19.24 Other psychoactive substance dependence with psychoactive substance-induced mood disorder; G47.00 Insomnia, unspecified; H55.00 Unspecified nystagmus; R12 Heartburn; Z91.19 Patient's noncompliance with other medical treatment and regimen; Z91.013 Allergy to seafood
CPT/HCPCS: 36415; 80053; 85025

== ENCOUNTER 2019-12-18 14:33 | Inpatient (IN) | payer OTHER ==
[2019-12-18 16:07] VITALS: BMI 25.1
--- NOTE | 2019-12-18 20:23 | HP ---
COWS - Scale Resting Pulse: 1= [place] 81-100 Sweatin=Flushed/Facial Moisture Restless Observation: 1= Difficult to Sit Still Pupil Size: 0= Normal to Room Light Bone or Joint Aches: 4=Acute Joint/Muscle Pain Runny Nose/ Eye Tearin= Runny Nose/Eyes GI Upset > 30mins: 1= Stomach Cramp Tremor Observation: 2= Slight Tremor Visible Yawning Observation: 1= 1-2x During Session Anxiety or Irritability: 2=Irritable/Anxious Goose Flesh Skin: 3=Piloerection COWS Score: 19 CIWA Score Nausea/Vomitin-Mild Nausea/No Vomiting Muscle Tremors: 4-Moderate,w/Arms Extend Anxiety: 3 Agitation: 4-Moderately Restless Paroxysmal Sweats: 2 Orientation: 0-Oriented Tacttile Disturbances: 0-None Auditory Disturbances: 0-None Visual Disturbances: 0-None Headache: 4-Moderately Severe CIWA-Ar Total Score: 18 - Admission Criteria OASAS Guidelines: Admission for Medically Managed Detox: Requires at least one of the followin. CIWA greater than 12 2. Seizures within the past 24 hours 3. Delirium tremens within the past 24 hours 4. Hallucinations within the past 24 hours 5. Acute intervention needed for co occurring medical disorder 6. Acute intervention needed for co occurring psychiatric disorder 7. Severe withdrawal that cannot be handled at a lower level of care (continued vomiting, continued diarrhea, abnormal vital signs) requiring intravenous medication and/or fluids 8. Admitting History and Physical - Smoking History Smoking history: Current every day smoker Have you smoked in the past 12 months: Yes Aproximately how many cigarettes per day: 20 - Alcohol/Substance Use Hx Alcohol Use: Yes History of Substance Use: reports: Heroin, Marijuana, Prescription, Tranquilizers - Social History ADL: Independent History of Recent Travel: No Admission [facility] Chief Complaint: Heroin and alcohol withdrawal symptoms Allergies/Adverse Reactions: Allergies Allergy/AdvReac Type Severity Reaction Status Date / Time Fish Containing Products Allergy Severe Swelling Verified 12/18/19 15:59 No Known Drug Allergies Allergy Verified 12/18/19 15:59 History of Present Illness: 49 years old male with 28 years of heroin dependence and 35 years of alcohol dependence is seeking admission to detox. Patient has been admitted multiple times in detox, last for the period 11/05/2019 - 11/10/2019. He reports that he relapsed immediately after discharge. He denies past medical history and reports psych. of depression, PTSD and anxiety. He denies suicidal ideation at this time. Confidential Drug Utilization Report Search Terms: faiza Oconnor, 1970 Search Date: 12/18/2019 08:14:51 PM The Drug Utilization Report below displays all of the controlled substance prescriptions, if any, that your patient has filled in the last twelve months. The information displayed on this report is compiled from pharmacy submissions to the Department, and accurately reflects the information as submitted by the pharmacies. You have not added a [facility]UNA number. Keeping your ARUNA number(s) up to date on the My ARUNA Numbers page will enable the separation of your prescriptions from others ' in the search results. Others' Prescriptions Patient Name: Faiza Oconnor Date: 1970 Address: [place] [address] Sex: Male Rx Written Rx Dispensed Drug Quantity Days Supply Prescriber Name 12/04/2019 12/05/2019 chlordiazepoxide 25 mg capsule 8 2 Pedro Taylor 08/08/2019 08/09/2019 chlordiazepoxide 25 mg capsule 8 2 Ivy George MD 04/09/2019 04/10/2019 chlordiazepoxide 25 mg capsule 8 2 Colby Sotelo) 03/01/2019 03/02/2019 chlordiazepoxide 25 mg capsule 8 2 Pedro Taylor * - Drugs marked with an asterisk are compound drugs. If the compound drug is made up of more than one controlled substance, then each controlled substance will be a separate row in the table. - Ebola screening Have you traveled outside of the country in the last 21 days: No (N) Have you had contact with anyone from an Ebola affected area: No Do you have a fever: No - Review of Systems Constitutional: Chills, Loss of Appetite, Malaise, Night Sweats, Changes in sleep EENT: reports: Sinus Pressure Respiratory: reports: No Symptoms reported Cardiac: reports: No Symptoms Reported GI: reports: Nausea, Poor Fluid Intake, Abdominal cramping : reports: No Symptoms Reported Musculoskeletal: reports: Back Pain Integumentary: reports: Dryness, Flushing Neuro: reports: Headache, Tremors Endocrine: reports: No Symptoms Reported Hematology: reports: No Symptoms Reported Psychiatric: reports: Orientated x3, Anxious, Depressed Other Systems: Reviewed and Negative Patient History - Patient Medical History Hx Anemia: No Hx Asthma: No Hx Chronic Obstructive Pulmonary Disease (COPD): No Hx Cancer: No Hx Cardiac Disorders: No Hx Congestive Heart Failure: No Hx Hypertension: No Hx Hypercholesterolemia: No Hx Pacemaker: No HX Cerebrovascular Accident: No Hx Seizures: No Hx Dementia: No Hx Diabetes: No Hx Gastrointestinal Disorders: No Hx Liver Disease: No Hx Genitourinary Disorders: No Hx Sexually Transmitted Disorders: No Hx Renal Disease (ESRD): No Hx Thyroid Disease: No Hx Human Immunodeficiency Virus (HIV): No (Negative 2018) Hx Hepatitis C: No (Negative) Hx Depression: Yes Hx Suicide Attempt: No (Denies suicidal ideation at this time) Hx Bipolar Disorder: No Hx Schizophrenia: No Other Medical History: Anxiety - Patient Surgical History Past Surgical History: No Hx Neurologic Surgery: No Hx Cataract Extraction: No Hx Cardiac Surgery: No Hx Lung Surgery: No Hx Abdominal Surgery: No Hx Appendectomy: No Hx Cholecystectomy: No Hx Genitourinary Surgery: No Hx Orthopedic Surgery: No Anesthesia Reaction: No - PPD History Previous Implant?: Yes Documented Results: Negative w/proof Implanted On Prior [facility] Admission?: Yes Date: 11/06/18 Results: 0mm PPD to be Administered?: Yes - Reproductive History Patient is a Female of Child Bearing Age (11 -55 yrs old): No (male) - Smoking Cessation Smoking history: Current every day smoker Have you smoked in the past 12 months: Yes Aproximately how many cigarettes per day: 20 Cigars Per Day: 0 Hx Chewing Tobacco Use: No Initiated information on smoking cessation: Yes 'Breaking Loose' booklet given: 12/18/19 - Substance & Tx. History Hx Alcohol Use: Yes Hx Substance Use: Yes Substance Use Type: Heroin, Marijuana, Opiates Hx Substance Use Treatment: Yes ([facility]) - Substances abused Heroin Substance route: Injection Frequency: Daily Amount used: 10 BAGS Age of first use: 21 Date of last use: 12/18/19 Alcohol Substance route: Oral Frequency: Daily Amount used: VODKA- 1PT, BEERS- 6 CANS OF 12 OZ BEERS Age of first use: 14 Date of last use: 12/18/19 Admission Physical Exam BHS - Vital Signs Vital Signs: Vital Signs - 24 hr 12/18/19 12/18/19 15:58 17:39 Temperature 97.6 F 97.6 F Pulse Rate 88 88 Respiratory 18 18 Rate Blood Pressure 137/75 137/75 - Physical General Appearance: Yes: Moderate Distress, Tremorous, Sweating, Anxious HEENTM: Yes: Within Normal Limits Respiratory: Yes: Lungs Clear, Normal Breath Sounds, No Respiratory Distress Neck: Yes: Within Normal Limits Breast: Yes: Breast Exam Deferred Cardiology: Yes: Regular Rhythm, Regular Rate Abdominal: Yes: Normal Bowel Sounds, Soft Genitourinary: Yes: Within Normal Limits Back: Yes: Normal Inspection Musculoskeletal: Yes: Within Normal Limits Extremities: Yes: Normal Inspection Neurological: Yes: Within Normal Limits Integumentary: Yes: Warm Lymphatic: Yes: Within Normal Limits - Diagnostic (1) Alcohol dependence with uncomplicated withdrawal Current Visit: Yes Status: Acute (2) Opioid dependence with withdrawal Current Visit: Yes Status: Acute (3) Sedative, hypnotic or anxiolytic use disorder, mild, abuse Current Visit: Yes Status: Acute (4) Anxiety disorder Current Visit: No Status: Chronic (5) Depressive disorder Current Visit: No Status: Chronic (6) Marijuana dependence Current Visit: Yes Status: Chronic (7) Nicotine dependence Current Visit: No Status: Chronic Qualifiers: Nicotine product type: cigarettes Substance use status: in withdrawal Qualified Code(s): F17.213 - Nicotine dependence, cigarettes, with withdrawal Cleared for Admission [facility] - Detox or Rehab [facility] Level of Care: Medically Managed Detox Regimen/Protocol: Methadone/Librium Breathalyzer - Breathalyzer Breathalyzer: 0 Urine Drug Screen - Test Device Lot number: [id number] Expiration date: 06/27/21 - Control Is test valid?: Yes - Results Drug screen NEGATIVE: No Urine drug screen results: THC-Marijuana, FEN-Fentanyl, MOP-Opiates, MTD- Methadone, BZO-Benzodiazepines Inpatient Rehab Admission - Rehab Decision to Admit Inpatient rehab admission?: No
[2019-12-18] MEDS ORDERED: chlordiazePOXIDE HCL 25 MG CAPSULE PO PRN (20:40)
[2019-12-18] MEDS ORDERED: MAGNESIUM HYDROX 2400MG/30ML ORAL SUSPENSION 30 ML CUP PO PRN (20:40)
[2019-12-18] MEDS ORDERED: METHADONE HCL 10 MG TABLET (FOR DETOX USE ONLY) PO ONE (20:40)
[2019-12-18] MEDS ORDERED: NICOTINE POLACRILEX 2 MG GUM BUC PRN (20:40)
[2019-12-18] MEDS ORDERED: BISMUTH SUBSALICYLATE 524 MG/30 ML UD PO PRN (20:40)
[2019-12-18] MEDS ORDERED: MAG HYDROX/AL HYDROX/SIMETH 30 ML UNIT-DOSE CUP PO PRN (20:40)
[2019-12-18] MEDS ORDERED: METHOCARBAMOL 500 MG TABLET PO PRN (20:40)
[2019-12-18] MEDS ORDERED: MAGNESIUM CITRATE 300 ML BOTTLE PO PRN (20:40)
[2019-12-18] MEDS ORDERED: ACETAMINOPHEN 325 MG TABLET (FP) PO PRN ×2 (20:40)
[2019-12-18] MEDS ORDERED: cloNIDine HCL 0.1 MG TABLET PO PRN (20:40)
[2019-12-18] MEDS ORDERED: IBUPROFEN 400 MG TABLET (FP) PO PRN (20:40)
[2019-12-18] MEDS ORDERED: MENTHOL/PHENOL 1 EACH UD MM PRN (20:40)
[2019-12-18] MEDS: THIAMINE HCL 100 MG TABLET (FP) PO SCH (22:29)
[2019-12-18] MEDS: chlordiazePOXIDE HCL 25 MG CAPSULE PO SCH (22:29)
[2019-12-18] MEDS: MELATONIN 5 MG TABLETS PO PRN (22:34)
[2019-12-19] MEDS: chlordiazePOXIDE HCL 25 MG CAPSULE PO SCH ×4 (05:10→22:04)
[2019-12-19] MEDS ORDERED: METHADONE HCL 5 MG TABLET (FOR DETOX USE ONLY) ONE (08:56)
[2019-12-19] MEDS ORDERED: METHADONE HCL 10 MG TABLET (FOR DETOX USE ONLY) ONE (08:56)
--- NOTE | 2019-12-19 09:15 | PN ---
S CIWA - CIWA Score Nausea/Vomitin Muscle Tremors: 4-Moderate,w/Arms Extend Anxiety: 3 Agitation: 1-Slight > Activity Paroxysmal Sweats: 2 Orientation: 0-Oriented Tacttile Disturbances: 0-None Auditory Disturbances: 0-None Visual Disturbances: 1-Very Mild Sensitivity Headache: 2-Mild CIWA-Ar Total Score: 15 BHS COWS - Scale Resting Pulse: 0= [place] 80 or Below Sweatin= Chills/Flushing Restless Observation: 0= Sits Still Pupil Size: 1= Pupils >than Normal Bone or Joint Aches: 2= Severe Diffuse Aches Runny Nose/ Eye Tearin= Nasal Congestion GI Upset > 30mins: 2= Nausea/Diarrhea Tremor Observation of Outstretched Hands: 2= Slight Tremor Visible Yawning Observation: 1= 1-2x During Session Anxiety or Irritability: 2=Irritable/Anxious Goose Flesh Skin: 3=Piloerection COWS Score: 15 [facility] Progress Note (SOAP) Subjective: 49 years old male admitted on 12/18/19 for alcohol and opiate withdrawal sx management treating with librium and methadone detox regiments feeling tired resting in bed request ensure as nutrition supplement speech clearly coherently Objective: 12/19/19 09:14 Vital Signs Temperature 97.2 F L 12/19/19 09:05 Pulse Rate 65 12/19/19 09:05 Respiratory Rate 18 12/19/19 09:05 Blood Pressure 113/76 12/19/19 09:05 O2 Sat by Pulse Oximetry (%) lab pending Assessment: 12/19/19 09:14 alcohol and opiate withdrawal Plan: librium and methadone regiments
[2019-12-19] MEDS ORDERED: METHADONE (DETOX) 20 MG, METHADONE (DETOX) 5 MG PO ONE (10:00)
[2019-12-19] MEDS: PRENATAL VITAMINS W/ FOLIC ACID TABLET (FP) PO SCH (10:09)
[2019-12-19] MEDS: NICOTINE 21 MG/24 HOURS TOPICAL PATCH TD SCH (10:11)
--- NOTE | 2019-12-19 10:31 | EKG ---
Test Reason : Blood Pressure : / mmHG Vent. Rate : 071 BPM Atrial Rate : 071 BPM P-R Int : 136 ms QRS Dur : 084 ms QT Int : 388 ms P-R-T Axes : 060 055 054 degrees QTc Int : 421 ms NORMAL SINUS RHYTHM POSSIBLE LEFT ATRIAL ENLARGEMENT BORDERLINE ECG WHEN COMPARED WITH ECG OF 09-MAR-2019 22:40, NO SIGNIFICANT CHANGE WAS FOUND Confirmed by ENOC ARMENTA, YAIMA ([id number]) on 12/19/2019 10:30:56 AM Referred By: KAYLENE Confirmed By:YAIMA STUBBS MD
[2019-12-19 12:16] LABS: HEMATOCRIT 34.4 % (35.4-49); HEMOGLOBIN 11.6 GM/dL (11.7-16.9); MCHC 33.8 g/dl (32.0-35.9); MEAN CELL VOLUME 82.8 fl (80-96); MEAN PLT VOLUME 8.3 fl (7.5-11.1); PLATELET COUNT 174 K/MM3 (134-434); RBC 4.16 M/mm3 (4.00-5.60); RDW 14.5 % (11.9-15.9); WHITE BLOOD COUNT 5.7 K/mm3 (4.0-10.0)
[2019-12-19 12:55] LABS: ALBUMIN 3.6 g/dl (3.4-5.0); BILIRUBIN,TOTAL 0.3 mg/dL (0.2-1); CALCIUM 8.7 mg/dL (8.5-10.1); CREATININE 0.8 mg/dL (0.55-1.3); POTASSIUM 4.2 mmol/L (3.5-5.1); TOT PROT 6.6 g/dl (6.4-8.2)
--- NOTE | 2019-12-19 14:46 | CONSULT ---
[facility] Psychiatric Consult - Data Date of interview: 12/19/19 Admission source: [facility] Identifying data: Readmission to [address] [place] [address] for this 49 y/o male self- referred for detoxification treatment. YENY issues : alcohol, marihuana, xanax, heroin, nicotine. Patient is single without children, usually homeless (longterm resident), unemployed and supported on welfare. Substance Abuse History: Discussed with the patient in this interview. Details in current [facility] report as follows : Smoking history: Current every day smoker. Have you smoked in the past 12 months: Yes. Aproximately how many cigarettes per day: 20. Cigars Per Day: 0. Hx Chewing Tobacco Use: No. Initiated information on smoking cessation: Yes. 'Breaking Loose' booklet given: . - Substance & Tx. History. Hx Alcohol Use: Yes. Hx Substance Use: Yes. Substance Use Type: Heroin, Marijuana, Opiates. Hx Substance Use Treatment: Yes ([facility]). - Substances abused. Heroin. Substance route: Injection. Frequency: Daily. Amount used: 10 BAGS. Age of first use: 21. Date of last use: 12/18/19. Alcohol. Substance route: Oral. Frequency: Daily. Amount used: VODKA- 1PT, BEERS- 6 CANS OF 12 OZ BEERS. Age of first use: 14. Date of last use: 12/18/19 Medical History: Patient endorses good general health. Psychiatric History: No change in psychiatric profile since my most recent interview with this patient (11/06/19). As follows : history of multiple psychiatric hospitalizations (all are reported to be at [facility]). Diagnoses endorsed : MDD, PTSD and Anxiety Disorder. No significant changes in patient's longitudinal history. Mr Oconnor reports his medications as follows : zoloft 100 mg/day + trazodone 100 mg/hs + gabapentin 300 mg/tid + zyprexa 10 mg/hs. No longer in affiliation with [facility] Patient is still under the care of Dr Edmondson at the [facility] mental health clinic in [place], on [address] and [facility]. Patient denies history of suicide attempts (records, however, indicate a history of one suicide attempt via deliberate overdose with heroin in 2016). Physical/Sexual Abuse/Trauma History: Patient denies. Additional Comment: Urine drug screen results: THC-Marijuana, FEN-Fentanyl, MOP- Opiates, MTD-Methadone, BZO-Benzodiazepines. Noted. Mental Status Exam - Mental Status Exam Alert and Oriented to: Time, Place, Person Cognitive Function: Good Patient Appearance: Well Groomed Mood: Nervous, Withdrawn Affect: Mood Congruent, Constricted Patient Behavior: Fatigued, Appropriate, Cooperative Speech Pattern: Clear Voice Loudness: Normal Thought Process: Intact, Goal Oriented Thought Disorder: Not Present Hallucinations: Denies Suicidal Ideation: Denies Homicidal Ideation: Denies Insight/Judgement: Poor Sleep: Poorly, Difficulty falling asleep Appetite: Good Gait/Station: Normal Psychiatric Findings - Problem List ([place] 1, 2,3) (1) Alcohol dependence with uncomplicated withdrawal Current Visit: Yes Status: Acute (2) Opioid dependence with withdrawal Current Visit: Yes Status: Acute (3) Marijuana dependence Current Visit: Yes Status: Chronic (4) Nicotine dependence Current Visit: Yes Status: Chronic Qualifiers: Nicotine product type: cigarettes Substance use status: in withdrawal Qualified Code(s): F17.213 - Nicotine dependence, cigarettes, with withdrawal (5) History of depression Current Visit: Yes Status: Chronic (6) Substance induced mood disorder Current Visit: Yes Status: Chronic (7) Insomnia Current Visit: Yes Status: Chronic (8) Non-compliance Current Visit: Yes Status: Chronic - Initial Treatment Plan Initial Treatment Plan: Psychoeducation. Sleep hygiene. Detoxification. AA/NA meetings. Resumed at patient's request : olanzapine 10 mg po hs + trazodone 100 mg po hs + zoloft 100 mg po daily + gabapentin 300 mg po tid. Side effects/ benefits of these formulations are discussed with the patient. Made, in particular, aware of the potential for metabolic syndrome, priapism, sedation, suicidal ideation and sexual dysfunction. Mr Oconnor is in agreement with this plan of care. Gave consent (verbal) to . Nicholas ([facility]) revisited. I spoke to pharmacist at [facility] (no grain picker since 08/2019). Pharmacist indicated that this patient is restricted to a specific pharmacy. Observation.
[2019-12-19] MEDS ORDERED: traZODone HCL 150 MG TABLET PO SCH (22:00)
[2019-12-19] MEDS: GABAPENTIN 300 MG CAPSULE PO SCH (22:04)
[2019-12-19] MEDS: traZODone HCL 100 MG TABLET (FP) PO SCH (22:04)
[2019-12-19] MEDS: THIAMINE HCL 100 MG TABLET (FP) PO SCH (22:04)
[2019-12-19] MEDS: OLANZapine 10 MG TABLET PO SCH (22:04)
[2019-12-19] MEDS: MELATONIN 5 MG TABLETS PO PRN (22:05)
[2019-12-20] MEDS: chlordiazePOXIDE HCL 25 MG CAPSULE PO SCH ×4 (06:28→22:06)
[2019-12-20] MEDS: GABAPENTIN 300 MG CAPSULE PO SCH ×3 (06:28→22:07)
--- NOTE | 2019-12-20 09:28 | PN ---
[facility] CIWA - CIWA Score Nausea/Vomitin-Mild Nausea/No Vomiting Muscle Tremors: 4-Moderate,w/Arms Extend Anxiety: 3 Agitation: 0-Normal Activity Paroxysmal Sweats: 2 Orientation: 0-Oriented Tacttile Disturbances: 0-None Auditory Disturbances: 0-None Visual Disturbances: 1-Very Mild Sensitivity Headache: 0-None Present CIWA-Ar Total Score: 11 S COWS - Scale Resting Pulse: 0= [place] 80 or Below Sweatin= Chills/Flushing Restless Observation: 0= Sits Still Pupil Size: 1= Pupils >than Normal Bone or Joint Aches: 0= None Runny Nose/ Eye Tearin= None GI Upset > 30mins: 2= Nausea/Diarrhea Tremor Observation of Outstretched Hands: 2= Slight Tremor Visible Yawning Observation: 0= None Anxiety or Irritability: 2=Irritable/Anxious Goose Flesh Skin: 3=Piloerection COWS Score: 11 [facility] Progress Note (SOAP) Subjective: 49 years old male admitted on 12/18/19 for alcohol and opiate withdrawal sx management treating with librium and methadone detox regiments feeling ok today ate breakfast resting in bed encourage to attend behavior and psychosocial therapies while in detox Objective: 12/20/19 09:29 Vital Signs Temperature 97.3 F L 12/20/19 09:11 Pulse Rate 622 H 12/20/19 09:11 Respiratory Rate 18 12/20/19 09:11 Blood Pressure 93/67 12/20/19 09:11 O2 Sat by Pulse Oximetry (%) Laboratory Last Values WBC 5.7 K/mm3 (4.0-10.0) 12/19/19 08:00 RBC 4.16 M/mm3 (4.00-5.60) 12/19/19 08:00 Hgb 11.6 GM/dL (11.7-16.9) L 12/19/19 08:00 Hct 34.4 % (35.4-49) L 12/19/19 08:00 MCV 82.8 fl (80-96) 12/19/19 08:00 MCH 28.0 pg (25.7-33.7) 12/19/19 08:00 MCHC 33.8 g/dl (32.0-35.9) 12/19/19 08:00 RDW 14.5 % (11.9-15.9) 12/19/19 08:00 Plt Count 174 K/MM3 (134-434) 12/19/19 08:00 MPV 8.3 fl (7.5-11.1) 12/19/19 08:00 Sodium 142 mmol/L (136-145) 12/19/19 08:00 Potassium 4.2 mmol/L (3.5-5.1) 12/19/19 08:00 Chloride 105 mmol/L (98-107) 12/19/19 08:00 Carbon Dioxide 32 mmol/L (21-32) 12/19/19 08:00 Anion Gap 5 MMOL/L (8-16) L 12/19/19 08:00 BUN 10.0 mg/dL (7-18) 12/19/19 08:00 Creatinine 0.8 mg/dL (0.55-1.3) 12/19/19 08:00 Est GFR (CKD-EPI)AfAm 123.29 12/19/19 08:00 Est GFR (CKD-EPI)NonAf 106.38 12/19/19 08:00 Random Glucose 81 mg/dL (74-106) 12/19/19 08:00 Calcium 8.7 mg/dL (8.5-10.1) 12/19/19 08:00 Total Bilirubin 0.3 mg/dL (0.2-1) 12/19/19 08:00 AST 25 U/L (15-37) 12/19/19 08:00 ALT 31 U/L (13-61) 12/19/19 08:00 Alkaline Phosphatase 80 U/L (45-117) 12/19/19 08:00 Total Protein 6.6 g/dl (6.4-8.2) 12/19/19 08:00 Albumin 3.6 g/dl (3.4-5.0) 12/19/19 08:00 RPR Titer Nonreactive (NONREACTIVE) 12/19/19 08:00 lab noted Assessment: 12/20/19 09:29 alcohol and opiate withdrawal Plan: librium and methadone regiments
[2019-12-20] MEDS: SERTRALINE HCL 50 MG TABLET (FP) PO SCH (10:00)
[2019-12-20] MEDS: PRENATAL VITAMINS W/ FOLIC ACID TABLET (FP) PO SCH (10:00)
[2019-12-20] MEDS ORDERED: METHADONE HCL 10 MG TABLET (FOR DETOX USE ONLY) PO ONE (10:00)
[2019-12-20] MEDS: NICOTINE 21 MG/24 HOURS TOPICAL PATCH TD SCH (10:01)
[2019-12-20] MEDS: OLANZapine 10 MG TABLET PO SCH (22:07)
[2019-12-20] MEDS: traZODone HCL 100 MG TABLET (FP) PO SCH (22:07)
[2019-12-20] MEDS: MELATONIN 5 MG TABLETS PO PRN (22:07)
[2019-12-20] MEDS: THIAMINE HCL 100 MG TABLET (FP) PO SCH (22:07)
[2019-12-21] MEDS ORDERED: chlordiazePOXIDE HCL 10 MG CAPSULE PO PRN
[2019-12-21] MEDS: chlordiazePOXIDE HCL 10 MG CAPSULE PO SCH ×4 (05:42→22:14)
[2019-12-21] MEDS: GABAPENTIN 300 MG CAPSULE PO SCH ×3 (06:30→22:14)
[2019-12-21] MEDS ORDERED: METHADONE HCL 10 MG TABLET (FOR DETOX USE ONLY) ONE (09:31)
[2019-12-21] MEDS ORDERED: METHADONE HCL 5 MG TABLET (FOR DETOX USE ONLY) ONE (09:32)
[2019-12-21] MEDS ORDERED: METHADONE (DETOX) 10 MG, METHADONE (DETOX) 5 MG PO ONE (10:00)
[2019-12-21] MEDS: SERTRALINE HCL 50 MG TABLET (FP) PO SCH (10:20)
[2019-12-21] MEDS: PRENATAL VITAMINS W/ FOLIC ACID TABLET (FP) PO SCH (10:20)
[2019-12-21] MEDS: NICOTINE 21 MG/24 HOURS TOPICAL PATCH TD SCH (10:20)
--- NOTE | 2019-12-21 12:31 | PN ---
S CIWA - CIWA Score Nausea/Vomitin Muscle Tremors: 2 Anxiety: 2 Agitation: 1-Slight > Activity Paroxysmal Sweats: 2 Orientation: 0-Oriented Tacttile Disturbances: 1-Very Mild Itch/Numbness Auditory Disturbances: 0-None Visual Disturbances: 0-None Headache: 1-Very Mild CIWA-Ar Total Score: 11 [facility] COWS - Scale Resting Pulse: 0= [place] 80 or Below Sweatin= Chills/Flushing Restless Observation: 1= Difficult to Sit Still Pupil Size: 0= Normal to Room Light Bone or Joint Aches: 1= Mild Discomfort Runny Nose/ Eye Tearin= Runny Nose/Eyes GI Upset > 30mins: 2= Nausea/Diarrhea Tremor Observation of Outstretched Hands: 1= Tremor [place], Not Seen Yawning Observation: 1= 1-2x During Session Anxiety or Irritability: 1=Feels Anxious/Irritable Goose Flesh Skin: 0=Smooth Skin COWS Score: 10 S Progress Note (SOAP) Subjective: Patient is a 49 years old male with hx of alcohol and opiate dependence on librium and methadone detox protocol c/o of body aches, chills and night sweats , interrupted sleep. Objective: 12/21/19 13:55 Vital Signs Temperature 97.2 F L 12/21/19 13:03 Pulse Rate 64 12/21/19 13:03 Respiratory Rate 18 12/21/19 13:03 Blood Pressure 95/64 12/21/19 13:03 O2 Sat by Pulse Oximetry (%) Laboratory Last Values WBC 5.7 K/mm3 (4.0-10.0) 12/19/19 08:00 RBC 4.16 M/mm3 (4.00-5.60) 12/19/19 08:00 Hgb 11.6 GM/dL (11.7-16.9) L 12/19/19 08:00 Hct 34.4 % (35.4-49) L 12/19/19 08:00 MCV 82.8 fl (80-96) 12/19/19 08:00 MCH 28.0 pg (25.7-33.7) 12/19/19 08:00 MCHC 33.8 g/dl (32.0-35.9) 12/19/19 08:00 RDW 14.5 % (11.9-15.9) 12/19/19 08:00 Plt Count 174 K/MM3 (134-434) 12/19/19 08:00 MPV 8.3 fl (7.5-11.1) 12/19/19 08:00 Sodium 142 mmol/L (136-145) 12/19/19 08:00 Potassium 4.2 mmol/L (3.5-5.1) 12/19/19 08:00 Chloride 105 mmol/L (98-107) 12/19/19 08:00 Carbon Dioxide 32 mmol/L (21-32) 12/19/19 08:00 Anion Gap 5 MMOL/L (8-16) L 12/19/19 08:00 BUN 10.0 mg/dL (7-18) 12/19/19 08:00 Creatinine 0.8 mg/dL (0.55-1.3) 12/19/19 08:00 Est GFR (CKD-EPI)AfAm 123.29 12/19/19 08:00 Est GFR (CKD-EPI)NonAf 106.38 12/19/19 08:00 Random Glucose 81 mg/dL (74-106) 12/19/19 08:00 Calcium 8.7 mg/dL (8.5-10.1) 12/19/19 08:00 Total Bilirubin 0.3 mg/dL (0.2-1) 12/19/19 08:00 AST 25 U/L (15-37) 12/19/19 08:00 ALT 31 U/L (13-61) 12/19/19 08:00 Alkaline Phosphatase 80 U/L (45-117) 12/19/19 08:00 Total Protein 6.6 g/dl (6.4-8.2) 12/19/19 08:00 Albumin 3.6 g/dl (3.4-5.0) 12/19/19 08:00 RPR Titer Nonreactive (NONREACTIVE) 12/19/19 08:00 Lab reviewed Assessment: 12/21/19 13:57 Patient is Aox3 no acute distress EENT WNL Full ROM, no fait disturbance, ambulating in the unit withdrawal sx Plan: increase fluids continue detox continue to monitor
[2019-12-21] MEDS: OLANZapine 10 MG TABLET PO SCH (22:14)
[2019-12-21] MEDS: traZODone HCL 100 MG TABLET (FP) PO SCH (22:14)
[2019-12-21] MEDS: THIAMINE HCL 100 MG TABLET (FP) PO SCH (22:14)
[2019-12-22] MEDS: chlordiazePOXIDE HCL 10 MG CAPSULE PO SCH ×2 (05:10→17:19)
[2019-12-22] MEDS: GABAPENTIN 300 MG CAPSULE PO SCH ×3 (05:10→22:23)
[2019-12-22] MEDS ORDERED: METHADONE HCL 10 MG TABLET (FOR DETOX USE ONLY) PO ONE (10:00)
[2019-12-22] MEDS: PRENATAL VITAMINS W/ FOLIC ACID TABLET (FP) PO SCH (10:22)
[2019-12-22] MEDS: SERTRALINE HCL 50 MG TABLET (FP) PO SCH (10:22)
[2019-12-22] MEDS: NICOTINE 21 MG/24 HOURS TOPICAL PATCH TD SCH (10:23)
--- NOTE | 2019-12-22 10:32 | PN ---
[facility] CIWA - CIWA Score Nausea/Vomitin-No Nausea/No Vomiting Muscle Tremors: None Anxiety: 2 Agitation: 0-Normal Activity Paroxysmal Sweats: 2 Orientation: 0-Oriented Tacttile Disturbances: 0-None Auditory Disturbances: 0-None Visual Disturbances: 0-None Headache: 0-None Present CIWA-Ar Total Score: 4 S COWS - Scale Resting Pulse: 0= [place] 80 or Below Sweatin= No chills or Flushing Restless Observation: 0= Sits Still Pupil Size: 0= Normal to Room Light Bone or Joint Aches: 1= Mild Discomfort Runny Nose/ Eye Tearin= None GI Upset > 30mins: 0= None Tremor Observation of Outstretched Hands: 0= None Yawning Observation: 0= None Anxiety or Irritability: 2=Irritable/Anxious Goose Flesh Skin: 0=Smooth Skin COWS Score: 3 [facility] Progress Note (SOAP) Subjective: c/o mild withdrawal symptoms. Objective: 12/22/19 10:29 Vital Signs 12/22/19 12/22/19 12/22/19 03:30 06:16 09:24 Temperature 97.3 F L 98.0 F Pulse Rate 60 68 Respiratory 18 18 18 Rate Blood Pressure 99/60 91/59 L Laboratory Last Values WBC 5.7 K/mm3 (4.0-10.0) 12/19/19 08:00 RBC 4.16 M/mm3 (4.00-5.60) 12/19/19 08:00 Hgb 11.6 GM/dL (11.7-16.9) L 12/19/19 08:00 Hct 34.4 % (35.4-49) L 12/19/19 08:00 MCV 82.8 fl (80-96) 12/19/19 08:00 MCH 28.0 pg (25.7-33.7) 12/19/19 08:00 MCHC 33.8 g/dl (32.0-35.9) 12/19/19 08:00 RDW 14.5 % (11.9-15.9) 12/19/19 08:00 Plt Count 174 K/MM3 (134-434) 12/19/19 08:00 MPV 8.3 fl (7.5-11.1) 12/19/19 08:00 Sodium 142 mmol/L (136-145) 12/19/19 08:00 Potassium 4.2 mmol/L (3.5-5.1) 12/19/19 08:00 Chloride 105 mmol/L (98-107) 12/19/19 08:00 Carbon Dioxide 32 mmol/L (21-32) 12/19/19 08:00 Anion Gap 5 MMOL/L (8-16) L 12/19/19 08:00 BUN 10.0 mg/dL (7-18) 12/19/19 08:00 Creatinine 0.8 mg/dL (0.55-1.3) 12/19/19 08:00 Est GFR (CKD-EPI)AfAm 123.29 12/19/19 08:00 Est GFR (CKD-EPI)NonAf 106.38 12/19/19 08:00 Random Glucose 81 mg/dL (74-106) 12/19/19 08:00 Calcium 8.7 mg/dL (8.5-10.1) 12/19/19 08:00 Total Bilirubin 0.3 mg/dL (0.2-1) 12/19/19 08:00 AST 25 U/L (15-37) 12/19/19 08:00 ALT 31 U/L (13-61) 12/19/19 08:00 Alkaline Phosphatase 80 U/L (45-117) 12/19/19 08:00 Total Protein 6.6 g/dl (6.4-8.2) 12/19/19 08:00 Albumin 3.6 g/dl (3.4-5.0) 12/19/19 08:00 RPR Titer Nonreactive (NONREACTIVE) 12/19/19 08:00 Labs noted. Assessment: 12/22/19 10:29 AOX3, in no acute respiratory distress. Full ROM, ambulating in the unit. Withdrawal symptoms. Plan: continue detox. D/C in AM.
[2019-12-22] MEDS: THIAMINE HCL 100 MG TABLET (FP) PO SCH (22:22)
[2019-12-22] MEDS: OLANZapine 10 MG TABLET PO SCH (22:23)
[2019-12-22] MEDS: traZODone HCL 100 MG TABLET (FP) PO SCH (22:23)
[2019-12-22] MEDS: MELATONIN 5 MG TABLETS PO PRN (22:23)
[2019-12-23] MEDS ORDERED: chlordiazePOXIDE HCL 10 MG CAPSULE PO ONE (05:00)
[2019-12-23] MEDS: GABAPENTIN 300 MG CAPSULE PO SCH ×3 (05:54→22:06)
[2019-12-23] MEDS ORDERED: METHADONE HCL 5 MG TABLET (FOR DETOX USE ONLY) PO ONE (06:00)
--- NOTE | 2019-12-23 09:48 | DS ---
[facility] Detox Discharge Summary Admission Date: 12/18/19 Discharge Date: 12/23/19 - History Present History: Alcohol Dependence, Opioid Dependence - Physical Exam Results Vital Signs: Vital Signs Temperature 97.8 F 12/23/19 06:35 Pulse Rate 58 L 12/23/19 06:35 Respiratory Rate 18 12/23/19 06:35 Blood Pressure 102/53 L 12/23/19 06:35 O2 Sat by Pulse Oximetry (%) - Treatment Hospital Course: Detox Protocol Followed, Detoxed Safely, Responded well, Discharged Condition Good, Rehab Referral Accepted - Medication Discharge Medications: Ambulatory Orders Trazodone HCl 150 mg PO HS 11/10/18 Gabapentin 300 mg PO TID 08/02/19 Olanzapine [Zyprexa] 10 mg PO HS 08/02/19 Sertraline HCl [Zoloft] 100 mg PO DAILY 11/05/19 Naloxone HCl [Narcan] 4 mg NS ASDIR PRN #1 spray 12/20/19 - AMA Did Patient Leave Against Medical Advice: No CIWA Score - CIWA Score Nausea/Vomitin-No Nausea/No Vomiting Muscle Tremors: None Anxiety: 1-Mildly Anxious Agitation: 0-Normal Activity Paroxysmal Sweats: 1-Minimal Palms Moist Orientation: 0-Oriented Tacttile Disturbances: 0-None Auditory Disturbances: 0-None Visual Disturbances: 0-None Headache: 0-None Present CIWA-Ar Total Score: 2 COWS (PN) - Opiate Withdrawal Resting Pulse: 0= [place] 80 or Below Sweatin= No chills or Flushing Restless Observation: 0= Sits Still Pupil Size: 0= Normal to Room Light Bone or Joint Aches: 0= None Runny Nose/ Eye Tearin= None GI Upset > 30mins: 0= None Tremor Observation of Outstretched Hands: 2= Slight Tremor Visible Yawning Observation: 0= None Anxiety or Irritability: 0= None Goose Flesh Skin: 0=Smooth Skin COWS Score: 2
[2019-12-23] MEDS: SERTRALINE HCL 50 MG TABLET (FP) PO SCH (10:56)
[2019-12-23] MEDS: PRENATAL VITAMINS W/ FOLIC ACID TABLET (FP) PO SCH (10:56)
--- NOTE | 2019-12-23 11:16 | PN ---
[facility] CIWA - CIWA Score Nausea/Vomitin-No Nausea/No Vomiting Muscle Tremors: None Anxiety: 0-No Anxiety, at Ease Agitation: 0-Normal Activity Paroxysmal Sweats: No Perspiration Orientation: 0-Oriented Tacttile Disturbances: 0-None Auditory Disturbances: 1-Very Mild Visual Disturbances: 2-Mild Sensitivity Headache: 0-None Present CIWA-Ar Total Score: 3 S COWS - Scale Resting Pulse: 0= [place] 80 or Below Sweatin= Chills/Flushing Restless Observation: 0= Sits Still Pupil Size: 0= Normal to Room Light Bone or Joint Aches: 0= None Runny Nose/ Eye Tearin= None GI Upset > 30mins: 0= None Tremor Observation of Outstretched Hands: 0= None Yawning Observation: 0= None Anxiety or Irritability: 1=Feels Anxious/Irritable Goose Flesh Skin: 0=Smooth Skin COWS Score: 2 S Progress Note (SOAP) Subjective: 49 years old male admitted on 12/19/19 for alcohol and opiate withdrawal sx management treating with librium and methadone detox regimen seen by psychiatrist non adherence with zyprexa zoloft and trazadone resume zyprexa feeling better but fear and anxiety with unknown reason denies self harm ideation nor harm others denies hallucinations continue zyprexa psychiatric referral Objective: 12/23/19 11:20 Vital Signs Temperature 97.8 F 12/23/19 06:35 Pulse Rate 58 L 12/23/19 06:35 Respiratory Rate 18 12/23/19 06:35 Blood Pressure 102/53 L 12/23/19 06:35 O2 Sat by Pulse Oximetry (%) Laboratory Last Values WBC 5.7 K/mm3 (4.0-10.0) 12/19/19 08:00 RBC 4.16 M/mm3 (4.00-5.60) 12/19/19 08:00 Hgb 11.6 GM/dL (11.7-16.9) L 12/19/19 08:00 Hct 34.4 % (35.4-49) L 12/19/19 08:00 MCV 82.8 fl (80-96) 12/19/19 08:00 MCH 28.0 pg (25.7-33.7) 12/19/19 08:00 MCHC 33.8 g/dl (32.0-35.9) 12/19/19 08:00 RDW 14.5 % (11.9-15.9) 12/19/19 08:00 Plt Count 174 K/MM3 (134-434) 12/19/19 08:00 MPV 8.3 fl (7.5-11.1) 12/19/19 08:00 Sodium 142 mmol/L (136-145) 12/19/19 08:00 Potassium 4.2 mmol/L (3.5-5.1) 12/19/19 08:00 Chloride 105 mmol/L (98-107) 12/19/19 08:00 Carbon Dioxide 32 mmol/L (21-32) 12/19/19 08:00 Anion Gap 5 MMOL/L (8-16) L 12/19/19 08:00 BUN 10.0 mg/dL (7-18) 12/19/19 08:00 Creatinine 0.8 mg/dL (0.55-1.3) 12/19/19 08:00 Est GFR (CKD-EPI)AfAm 123.29 12/19/19 08:00 Est GFR (CKD-EPI)NonAf 106.38 12/19/19 08:00 Random Glucose 81 mg/dL (74-106) 12/19/19 08:00 Calcium 8.7 mg/dL (8.5-10.1) 12/19/19 08:00 Total Bilirubin 0.3 mg/dL (0.2-1) 12/19/19 08:00 AST 25 U/L (15-37) 12/19/19 08:00 ALT 31 U/L (13-61) 12/19/19 08:00 Alkaline Phosphatase 80 U/L (45-117) 12/19/19 08:00 Total Protein 6.6 g/dl (6.4-8.2) 12/19/19 08:00 Albumin 3.6 g/dl (3.4-5.0) 12/19/19 08:00 RPR Titer Nonreactive (NONREACTIVE) 12/19/19 08:00 lab noted Assessment: 12/23/19 11:21 alcohol and opiate withdrawal 12/23/19 11:21 schizoaffective disorder Plan: librium and methadone regiments zyprexa
[2019-12-23] MEDS: NICOTINE 21 MG/24 HOURS TOPICAL PATCH TD SCH (11:18)
[2019-12-23] MEDS: MELATONIN 5 MG TABLETS PO PRN (22:06)
[2019-12-23] MEDS: THIAMINE HCL 100 MG TABLET (FP) PO SCH (22:06)
[2019-12-23] MEDS: OLANZapine 10 MG TABLET PO SCH (22:06)
[2019-12-23] MEDS: traZODone HCL 100 MG TABLET (FP) PO SCH (22:06)
[2019-12-24] MEDS: GABAPENTIN 300 MG CAPSULE PO SCH (05:16)
[2019-12-24 09:22] VITALS: BP 106/69; PULSE 66; TEMP 97.8
--- NOTE | 2019-12-24 09:39 | DS ---
[facility] Detox Discharge Summary Admission Date: 12/18/19 Discharge Date: 12/24/19 - History Present History: Alcohol Dependence, Opioid Dependence Additional Comments: 49 years old male admitted on 12/18/19 for alcohol and opiate withdrawal sx management treated with librium and methadone detox regiments patient has completed librium and methadone regiment and tolerated well alert oriented x 3 cardiac s1s2 regular rate rhythm ekg indicated left atrial enlargement respiratory clear lungs bilaterally on auscultation skin warm and dry - Physical Exam Results Vital Signs: Vital Signs Temperature 97.8 F 12/24/19 09:21 Pulse Rate 66 12/24/19 09:21 Respiratory Rate 18 12/24/19 09:21 Blood Pressure 106/69 12/24/19 09:21 O2 Sat by Pulse Oximetry (%) Pertinent Admission Physical Exam Findings: alcohol and opiate withdrawal Laboratory Last Values WBC 5.7 K/mm3 (4.0-10.0) 12/19/19 08:00 RBC 4.16 M/mm3 (4.00-5.60) 12/19/19 08:00 Hgb 11.6 GM/dL (11.7-16.9) L 12/19/19 08:00 Hct 34.4 % (35.4-49) L 12/19/19 08:00 MCV 82.8 fl (80-96) 12/19/19 08:00 MCH 28.0 pg (25.7-33.7) 12/19/19 08:00 MCHC 33.8 g/dl (32.0-35.9) 12/19/19 08:00 RDW 14.5 % (11.9-15.9) 12/19/19 08:00 Plt Count 174 K/MM3 (134-434) 12/19/19 08:00 MPV 8.3 fl (7.5-11.1) 12/19/19 08:00 Sodium 142 mmol/L (136-145) 12/19/19 08:00 Potassium 4.2 mmol/L (3.5-5.1) 12/19/19 08:00 Chloride 105 mmol/L (98-107) 12/19/19 08:00 Carbon Dioxide 32 mmol/L (21-32) 12/19/19 08:00 Anion Gap 5 MMOL/L (8-16) L 12/19/19 08:00 BUN 10.0 mg/dL (7-18) 12/19/19 08:00 Creatinine 0.8 mg/dL (0.55-1.3) 12/19/19 08:00 Est GFR (CKD-EPI)AfAm 123.29 12/19/19 08:00 Est GFR (CKD-EPI)NonAf 106.38 12/19/19 08:00 Random Glucose 81 mg/dL (74-106) 12/19/19 08:00 Calcium 8.7 mg/dL (8.5-10.1) 12/19/19 08:00 Total Bilirubin 0.3 mg/dL (0.2-1) 12/19/19 08:00 AST 25 U/L (15-37) 12/19/19 08:00 ALT 31 U/L (13-61) 12/19/19 08:00 Alkaline Phosphatase 80 U/L (45-117) 12/19/19 08:00 Total Protein 6.6 g/dl (6.4-8.2) 12/19/19 08:00 Albumin 3.6 g/dl (3.4-5.0) 12/19/19 08:00 RPR Titer Nonreactive (NONREACTIVE) 12/19/19 08:00 lab noted - Treatment Hospital Course: Detox Protocol Followed, Detoxed Safely, Responded well, Discharged Condition Good, Rehab Referral Accepted Patient has Accepted [facility] - Medication Discharge Medications: Ambulatory Orders Trazodone HCl 150 mg PO HS 11/10/18 Gabapentin 300 mg PO TID 08/02/19 Olanzapine [Zyprexa] 10 mg PO HS 08/02/19 Sertraline HCl [Zoloft] 100 mg PO DAILY 11/05/19 Naloxone HCl [Narcan] 4 mg NS ASDIR PRN #1 spray 12/20/19 - Diagnosis (1) Substance induced mood disorder Current Visit: Yes Status: Suspected (2) Nicotine dependence Current Visit: Yes Status: Acute Qualifiers: Nicotine product type: cigarettes Substance use status: in withdrawal Qualified Code(s): F17.213 - Nicotine dependence, cigarettes, with withdrawal (3) Alcohol dependence with uncomplicated withdrawal Current Visit: Yes Status: Acute (4) Opioid dependence with withdrawal Current Visit: Yes Status: Acute - AMA Did Patient Leave Against Medical Advice: No CIWA Score - CIWA Score Nausea/Vomitin-No Nausea/No Vomiting Muscle Tremors: None Anxiety: 0-No Anxiety, at Ease Agitation: 0-Normal Activity Paroxysmal Sweats: No Perspiration Orientation: 0-Oriented Tacttile Disturbances: 0-None Auditory Disturbances: 0-None Visual Disturbances: 1-Very Mild Sensitivity Headache: 0-None Present CIWA-Ar Total Score: 1 COWS (PN) - Opiate Withdrawal Resting Pulse: 0= [place] 80 or Below Sweatin= No chills or Flushing Restless Observation: 0= Sits Still Pupil Size: 0= Normal to Room Light Bone or Joint Aches: 0= None Runny Nose/ Eye Tearin= None GI Upset > 30mins: 0= None Tremor Observation of Outstretched Hands: 1= Tremor [place], Not Seen Yawning Observation: 0= None Anxiety or Irritability: 0= None Goose Flesh Skin: 0=Smooth Skin COWS Score: 1
[2019-12-24] MEDS: NICOTINE 21 MG/24 HOURS TOPICAL PATCH TD SCH (10:01)
[2019-12-24] MEDS: SERTRALINE HCL 50 MG TABLET (FP) PO SCH (10:01)
[2019-12-24] MEDS: PRENATAL VITAMINS W/ FOLIC ACID TABLET (FP) PO SCH (10:01)
== END 2019-12-24 12:44 | disposition other institution (70) | DRG 773 ==
LOC: YASAS 14:33 → Y3N 20:54
PROVIDERS: ADMIT Allergy & Immunology; ATTEND Allergy & Immunology
PROC: HZ2ZZZZ Detoxification Services for Substance Abuse Treatment (ICD-10-PCS; principal; 2019-12-18)
DX: F11.23 Opioid dependence with withdrawal (principal); F10.230 Alcohol dependence with withdrawal, uncomplicated; F13.230 Sedative, hypnotic or anxiolytic dependence with withdrawal, uncomplicated; F12.20 Cannabis dependence, uncomplicated; F17.213 Nicotine dependence, cigarettes, with withdrawal; F19.24 Other psychoactive substance dependence with psychoactive substance-induced mood disorder; F25.9 Schizoaffective disorder, unspecified; F41.9 Anxiety disorder, unspecified; G47.00 Insomnia, unspecified; Z91.19 Patient's noncompliance with other medical treatment and regimen; Z91.013 Allergy to seafood
CPT/HCPCS: 36415; 80053; 85027; 86593; 93005; 93010

== ENCOUNTER 2019-12-24 12:43 | Inpatient (IN) | payer OTHER ==
--- NOTE | 2019-12-24 09:47 | HP ---
[facility] Re[facility] Assess/Revision - Admission History Admitted to Rehab from: [facility] Date of Admission to Rehab: 12/24/19 - Findings Detox History & Physical reviewed: Yes Concur with findings: Yes Comments/Additional Findings: transferred from detox to rehab admission as per protocol Inpatient Rehab Admission - Rehab Decision to Admit Inpatient rehab admission?: Yes - Initial Determination Are CD services needed?: Yes Free of communicable disease: Yes Not in need of hospitalization: Yes - Rehab Admission Criteria Previous failed treatment: Yes Poor recovery environment: Yes Comorbidities: Yes Lacks judgement: Yes Patient is meeting Inpatient Rehab admission criteria:: Yes
[~2019-12-24 12:43] MED LIST: ACETAMINOPHEN 325 MG TABLET (FP) PO PRN; LOPERAMIDE HCL 2 MG CAPSULE PO PRN; MAG HYDROX/AL HYDROX/SIMETH 30 ML UNIT-DOSE CUP PO PRN; MAGNESIUM CITRATE 300 ML BOTTLE PO PRN; MAGNESIUM HYDROX 2400MG/30ML ORAL SUSPENSION 30 ML CUP PO PRN; MENTHOL/PHENOL 1 EACH UD MM PRN; NICOTINE POLACRILEX 2 MG GUM BUC PRN; P-EPHED 60MG/TRIPROLIDI 2.5MG TABLET PO PRN; guaiFENesin 200 MG/10 ML 10 ML UNIT-DOSE CUPS PO PRN
[2019-12-24] MEDS: GABAPENTIN 300 MG CAPSULE PO SCH ×2 (14:31→21:37)
[2019-12-24] MEDS: NICOTINE 21 MG/24 HOURS TOPICAL PATCH TD SCH (14:32)
[2019-12-24] MEDS: PRENATAL VITAMINS W/ FOLIC ACID TABLET (FP) PO SCH (14:32)
--- NOTE | 2019-12-24 18:01 | CONSULT ---
[facility] Psychiatric Consult - Data Date of interview: 12/24/19 Admission source: Transfer from [address] [place] [address]. Identifying data: Admission to [address] for this 49 y/o male who completed detoxification treatment at [address] [place] [address] and wished for safeguard sobriety + manage his co-morbid issues of MDD, PTSD and insomnia. YENY issues : alcohol, marihuana, xanax, heroin, nicotine. Patient is single without children , usually homeless ([facility] resident), unemployed and supported on welfare. Substance Abuse History: Discussed with the patient in this interview. Details in current [facility] report as follows : Smoking history: Current every day smoker. Have you smoked in the past 12 months: Yes. Aproximately how many cigarettes per day: 20. Cigars Per Day: 0. Hx Chewing Tobacco Use: No. Initiated information on smoking cessation: Yes. 'Breaking Loose' booklet given: . - Substance & Tx. History. Hx Alcohol Use: Yes. Hx Substance Use: Yes. Substance Use Type: Heroin, Marijuana, Opiates. Hx Substance Use Treatment: Yes ([facility]). - Substances abused. Heroin. Substance route: Injection. Frequency: Daily. Amount used: 10 BAGS. Age of first use: 21. Date of last use: 12/18/19. Alcohol. Substance route: Oral. Frequency: Daily. Amount used: VODKA- 1PT, BEERS- 6 CANS OF 12 OZ BEERS. Age of first use: 14. Date of last use: 12/18/19 Medical History: Patient endorses good general health. Psychiatric History: No change in psychiatric profile since my most recent interview with this patient (12/19/19). As follows : history of multiple psychiatric hospitalizations (all are reported to be at [facility]). Diagnoses endorsed : MDD, PTSD and Anxiety Disorder. No significant changes in patient's longitudinal history. Mr Oconnor reports his medications as follows : zoloft 100 mg/day + trazodone 100 mg/hs + gabapentin 300 mg/tid + zyprexa 10 mg/hs. No longer in affiliation with [facility] in [facility]. Patient is still under the care of Dr Edmondson at the [facility] mental health clinic in [place], on [address]. Patient denies history of suicide attempts (records, however, indicate a history of one suicide attempt via deliberate overdose with heroin in 2016). Physical/Sexual Abuse/Trauma History: Patient denies. Additional Comment: Urine drug screen results: THC-Marijuana, FEN-Fentanyl, MOP- Opiates, MTD-Methadone, BZO-Benzodiazepines. Noted on admission to [facility]. Mental Status Exam - Mental Status Exam Alert and Oriented to: Time, Place, Person Cognitive Function: Good Patient Appearance: Well Groomed Mood: Hopeful, Euthymic Affect: Appropriate, Normal Range Patient Behavior: Appropriate, Cooperative Speech Pattern: Clear, Appropriate Voice Loudness: Normal Thought Process: Intact, Goal Oriented Thought Disorder: Not Present Hallucinations: Denies Suicidal Ideation: Denies Homicidal Ideation: Denies Insight/Judgement: Fair Sleep: Poorly, Difficulty falling asleep (want trazodone increased to 150 mg at bedtime, his ususal dose as per self-report) Appetite: Good Gait/Station: Normal Psychiatric Findings - Problem List ([place] 1, 2,3) (1) Opioid use disorder Current Visit: Yes Status: Chronic (2) Alcohol use disorder Current Visit: Yes Status: Chronic (3) Marijuana dependence Current Visit: Yes Status: Chronic (4) Nicotine dependence Current Visit: Yes Status: Chronic Qualifiers: Nicotine product type: cigarettes Substance use status: in withdrawal Qualified Code(s): F17.213 - Nicotine dependence, cigarettes, with withdrawal (5) History of depression Current Visit: Yes Status: Chronic (6) Substance induced mood disorder Current Visit: Yes Status: Suspected (7) Insomnia Current Visit: Yes Status: Chronic - Initial Treatment Plan Initial Treatment Plan: Psychoeducation. Sleep hygiene. Support. Trazodone is raised to 150 mg po hs at patient's request (risk of priapism revisited with the patient). Consent granted to MD (verbal). Groups. Observation.
[2019-12-24] MEDS: THIAMINE HCL 100 MG TABLET (FP) PO SCH (21:37)
[2019-12-24] MEDS: traZODone HCL 50 MG TABLET (FP) PO SCH (21:37)
[2019-12-24] MEDS: OLANZapine 10 MG TABLET PO SCH (21:37)
[2019-12-24] MEDS ORDERED: traZODone HCL 100 MG TABLET (FP) PO SCH (22:00)
[2019-12-25] MEDS: GABAPENTIN 300 MG CAPSULE PO SCH ×3 (06:08→21:34)
[2019-12-25] MEDS: SERTRALINE HCL 50 MG TABLET (FP) PO SCH (10:27)
[2019-12-25] MEDS: PRENATAL VITAMINS W/ FOLIC ACID TABLET (FP) PO SCH (10:27)
[2019-12-25] MEDS: NICOTINE 21 MG/24 HOURS TOPICAL PATCH TD SCH (10:27)
[2019-12-25] MEDS: THIAMINE HCL 100 MG TABLET (FP) PO SCH (21:34)
[2019-12-25] MEDS: MELATONIN 5 MG TABLETS PO PRN (21:34)
[2019-12-25] MEDS: traZODone HCL 50 MG TABLET (FP) PO SCH (21:34)
[2019-12-25] MEDS: OLANZapine 10 MG TABLET PO SCH (21:34)
[2019-12-25 22:15] VITALS: BMI 24.7
[2019-12-26] MEDS: GABAPENTIN 300 MG CAPSULE PO SCH ×3 (06:26→21:06)
[2019-12-26] MEDS: NICOTINE 21 MG/24 HOURS TOPICAL PATCH TD SCH (10:20)
[2019-12-26] MEDS: SERTRALINE HCL 50 MG TABLET (FP) PO SCH (10:20)
[2019-12-26] MEDS: PRENATAL VITAMINS W/ FOLIC ACID TABLET (FP) PO SCH (10:20)
[2019-12-26] MEDS: OLANZapine 10 MG TABLET PO SCH (21:06)
[2019-12-26] MEDS: MELATONIN 5 MG TABLETS PO PRN (21:06)
[2019-12-26] MEDS: THIAMINE HCL 100 MG TABLET (FP) PO SCH (21:06)
[2019-12-26] MEDS: traZODone HCL 50 MG TABLET (FP) PO SCH (21:06)
[2019-12-27] MEDS: GABAPENTIN 300 MG CAPSULE PO SCH ×3 (06:33→21:42)
[2019-12-27] MEDS: SERTRALINE HCL 50 MG TABLET (FP) PO SCH (10:22)
[2019-12-27] MEDS: NICOTINE 21 MG/24 HOURS TOPICAL PATCH TD SCH (10:22)
[2019-12-27] MEDS: PRENATAL VITAMINS W/ FOLIC ACID TABLET (FP) PO SCH (10:22)
[2019-12-27] MEDS: OLANZapine 10 MG TABLET PO SCH (21:42)
[2019-12-27] MEDS: THIAMINE HCL 100 MG TABLET (FP) PO SCH (21:42)
[2019-12-27] MEDS: traZODone HCL 50 MG TABLET (FP) PO SCH (21:42)
[2019-12-28] MEDS: GABAPENTIN 300 MG CAPSULE PO SCH ×3 (07:05→21:12)
[2019-12-28] MEDS: SERTRALINE HCL 50 MG TABLET (FP) PO SCH (10:14)
[2019-12-28] MEDS: PRENATAL VITAMINS W/ FOLIC ACID TABLET (FP) PO SCH (10:14)
[2019-12-28] MEDS: IBUPROFEN 400 MG TABLET (FP) PO PRN ×2 (10:15→21:12)
[2019-12-28] MEDS: NICOTINE 21 MG/24 HOURS TOPICAL PATCH TD SCH (10:16)
[2019-12-28] MEDS: traZODone HCL 50 MG TABLET (FP) PO SCH (21:11)
[2019-12-28] MEDS: THIAMINE HCL 100 MG TABLET (FP) PO SCH (21:11)
[2019-12-28] MEDS: OLANZapine 10 MG TABLET PO SCH (21:11)
[2019-12-29] MEDS: GABAPENTIN 300 MG CAPSULE PO SCH ×3 (06:23→21:52)
[2019-12-29] MEDS: PRENATAL VITAMINS W/ FOLIC ACID TABLET (FP) PO SCH (10:57)
[2019-12-29] MEDS: SERTRALINE HCL 50 MG TABLET (FP) PO SCH (10:57)
[2019-12-29] MEDS: NICOTINE 21 MG/24 HOURS TOPICAL PATCH TD SCH (10:58)
[2019-12-29] MEDS: traZODone HCL 50 MG TABLET (FP) PO SCH (21:52)
[2019-12-29] MEDS: THIAMINE HCL 100 MG TABLET (FP) PO SCH (21:52)
[2019-12-29] MEDS: OLANZapine 10 MG TABLET PO SCH (21:52)
[2019-12-30] MEDS: GABAPENTIN 300 MG CAPSULE PO SCH ×3 (06:58→21:08)
[2019-12-30] MEDS: SERTRALINE HCL 50 MG TABLET (FP) PO SCH (10:27)
[2019-12-30] MEDS: PRENATAL VITAMINS W/ FOLIC ACID TABLET (FP) PO SCH (10:27)
[2019-12-30] MEDS: NICOTINE 21 MG/24 HOURS TOPICAL PATCH TD SCH (10:28)
[2019-12-30] MEDS: traZODone HCL 50 MG TABLET (FP) PO SCH (21:08)
[2019-12-30] MEDS: THIAMINE HCL 100 MG TABLET (FP) PO SCH (21:08)
[2019-12-30] MEDS: OLANZapine 10 MG TABLET PO SCH (21:08)
[2019-12-31] MEDS: GABAPENTIN 300 MG CAPSULE PO SCH ×3 (07:15→21:17)
[2019-12-31] MEDS: NICOTINE 21 MG/24 HOURS TOPICAL PATCH TD SCH (10:22)
[2019-12-31] MEDS: PRENATAL VITAMINS W/ FOLIC ACID TABLET (FP) PO SCH (10:22)
[2019-12-31] MEDS: SERTRALINE HCL 50 MG TABLET (FP) PO SCH (10:22)
[2019-12-31] MEDS: THIAMINE HCL 100 MG TABLET (FP) PO SCH (21:17)
[2019-12-31] MEDS: traZODone HCL 50 MG TABLET (FP) PO SCH (21:17)
[2019-12-31] MEDS: OLANZapine 10 MG TABLET PO SCH (21:17)
[2020-01-01] MEDS: GABAPENTIN 300 MG CAPSULE PO SCH ×3 (06:24→21:04)
[2020-01-01] MEDS: PRENATAL VITAMINS W/ FOLIC ACID TABLET (FP) PO SCH (10:08)
[2020-01-01] MEDS: SERTRALINE HCL 50 MG TABLET (FP) PO SCH (10:08)
[2020-01-01] MEDS: NICOTINE 21 MG/24 HOURS TOPICAL PATCH TD SCH (10:09)
[2020-01-01] MEDS: traZODone HCL 50 MG TABLET (FP) PO SCH (21:04)
[2020-01-01] MEDS: OLANZapine 10 MG TABLET PO SCH (21:04)
[2020-01-01] MEDS: THIAMINE HCL 100 MG TABLET (FP) PO SCH (21:04)
[2020-01-02] MEDS: GABAPENTIN 300 MG CAPSULE PO SCH ×3 (06:32→21:22)
[2020-01-02] MEDS: PRENATAL VITAMINS W/ FOLIC ACID TABLET (FP) PO SCH (09:39)
[2020-01-02] MEDS: SERTRALINE HCL 50 MG TABLET (FP) PO SCH (09:39)
[2020-01-02] MEDS: NICOTINE 21 MG/24 HOURS TOPICAL PATCH TD SCH (09:40)
[2020-01-02] MEDS: THIAMINE HCL 100 MG TABLET (FP) PO SCH (21:21)
[2020-01-02] MEDS: MELATONIN 5 MG TABLETS PO PRN (21:22)
[2020-01-02] MEDS: traZODone HCL 50 MG TABLET (FP) PO SCH (21:22)
[2020-01-02] MEDS: OLANZapine 10 MG TABLET PO SCH (21:22)
[2020-01-03] MEDS: GABAPENTIN 300 MG CAPSULE PO SCH ×2 (06:38→14:08)
[2020-01-03 08:25] VITALS: BP 118/82; PULSE 66; TEMP 98
[2020-01-03] MEDS: SERTRALINE HCL 50 MG TABLET (FP) PO SCH (10:47)
[2020-01-03] MEDS: PRENATAL VITAMINS W/ FOLIC ACID TABLET (FP) PO SCH (10:47)
[2020-01-03] MEDS: NICOTINE 21 MG/24 HOURS TOPICAL PATCH TD SCH (10:48)
--- NOTE | 2020-01-03 15:17 | DS ---
[facility] Re[facility] Discharge Summary - [facility] Discharge Summary Admission Date: 12/24/19 Discharge Date: 01/03/20 - History Present History: Alcohol dependence, Cocaine dependence, Opioid dependence Pertinent Past History: 49 years old male with 28 years of heroin dependence and 35 years of alcohol dependence. Patient has been admitted multiple times, last for the period 2018 - 11/10/2019. He reports that he relapsed immediately after discharge. He denies past medical history and reports psych. of depression, PTSD and anxiety. He denies suicidal ideation at this time. - Discharge Physical Exam Vital Signs: Vital Signs Temperature 98 F 01/03/20 08:24 Pulse Rate 66 01/03/20 08:24 Respiratory Rate 18 01/03/20 08:24 Blood Pressure 118/82 01/03/20 08:24 O2 Sat by Pulse Oximetry (%) Pertinent Admission Physical Exam Findings: hysical General Appearance: No apparent distress HEENTM: Normocephalic Respiratory: Lungs Clear, Neck: supple Cardiology: S1 s2 Abdominal: +Bowel Sounds, Softits Musculoskeletal: full weight bearing, Neurological: CN 2-12 intact - Treatment Discharge Condition: Outpatient referral accepted (Patient will go to ready, willing and able.medically stable for discharge.) Hospital Course: Patient attended groups, had 1:1 with his counselor, was seen by psychiatric service. He had no acute or urgent medical problems while in rehab. - Medication Discharge Medications: Ambulatory Orders Trazodone HCl 150 mg PO HS 11/10/18 Gabapentin 300 mg PO TID 08/02/19 Olanzapine [Zyprexa] 10 mg PO HS 08/02/19 Sertraline HCl [Zoloft] 100 mg PO DAILY 11/05/19 Naloxone HCl [Narcan] 4 mg NS ASDIR PRN #1 spray 12/20/19 - Medication-Assisted Treatment (MAT) Medication-Assisted Treatment (MAT): No - Discharge Instructions Diet, activity, other medical instructions: Diet: as tolerated Activity: as tolerated Other medical instructions: Please follow up with aftercare referral. - Diagnosis (1) Alcohol use disorder Current Visit: Yes Status: Chronic (2) Cocaine abuse Current Visit: Yes Status: Chronic (3) Opioid use disorder Current Visit: Yes Status: Chronic - Follow-up Referral Minutes to complete discharge: 15 - AMA Did Patient Leave Against Medical Advice: No
--- NOTE | 2020-01-03 19:38 | PN ---
S Progress Note Note: Psychiatric nurse practitioner note: Delayed note: Patient discharged today. A 30 day prescription of zoloft 100mg + Zyprexa 10mg + Trazodone 150mg HS + Gabapentin 300mg TID was electronically sent to [facility] [address] [place] [id number].
== END 2020-01-03 15:13 | disposition home or self-care (01) | DRG 772 ==
LOC: YASAS 12:43 → Y3W 12:44
PROVIDERS: ADMIT Allergy & Immunology; ATTEND Allergy & Immunology
PROC: HZ42ZZZ Group Counseling for Substance Abuse Treatment, Cognitive-Behavioral (ICD-10-PCS; principal; 2019-12-24)
DX: F11.20 Opioid dependence, uncomplicated (principal); F10.20 Alcohol dependence, uncomplicated; F12.20 Cannabis dependence, uncomplicated; F13.10 Sedative, hypnotic or anxiolytic abuse, uncomplicated; F17.213 Nicotine dependence, cigarettes, with withdrawal; F19.24 Other psychoactive substance dependence with psychoactive substance-induced mood disorder; F41.9 Anxiety disorder, unspecified; F32.9 Major depressive disorder, single episode, unspecified; Z91.013 Allergy to seafood; Z91.19 Patient's noncompliance with other medical treatment and regimen
CPT/HCPCS: 36415; 87389

== ENCOUNTER 2020-01-22 14:31 | Inpatient (IN) | payer OTHER ==
--- NOTE | 2020-01-22 15:50 | BHS.RME ---
Substance Use & Tx History - Substance Use History Alcohol Substance amount: 1 - 1.5 pints Frequency of use: Daily Substance route: Oral Date of Last Use: 01/22/20 Opiates (Heroin) Substance amount: 10 bags Frequency of use: Daily Substance route: Injection (ex: intravenous or skin popping) Date of Last Use: 01/22/20 - Last Treatment Treatment type: Medical Physical/Psych/Mental Status - Behavior Eye Contact: Normal - Cooperativeness Cooperativeness: Cooperative - Thinking Thought Processes: Logical - Physical Health Problems Is patient presently having any pain?: No Does patient presently have any injuries (include location): No Does patient currently have a fever: No Is patient : No COWS - Scale Resting Pulse: 1= [place] 81-100 Sweatin= Chills/Flushing Restless Observation: 1= Difficult to Sit Still Pupil Size: 1= Pupils >than Normal Bone or Joint Aches: 2= Severe Diffuse Aches Runny Nose/ Eye Tearin= Runny Nose/Eyes GI Upset > 30mins: 2= Nausea/Diarrhea Tremor Observation: 1= Tremor [place], Not Seen Yawning Observation: 1= 1-2x During Session Anxiety or Irritability: 2=Irritable/Anxious Goose Flesh Skin: 0=Smooth Skin COWS Score: 14 CIWA Nausea/Vomitin Muscle Tremors: 2 Anxiety: 3 Agitation: 1-Slight > Activity Paroxysmal Sweats: 2 Orientation: 0-Oriented Tacttile Disturbances: 0-None Auditory Disturbances: 0-None Visual Disturbances: 2-Mild Sensitivity Headache: 0-None Present CIWA-Ar Total Score: 12
[2020-01-22 16:51] VITALS: BMI 25.1
--- NOTE | 2020-01-22 18:34 | HP ---
COWS - Scale Resting Pulse: 0= [place] 80 or Below Sweatin= Chills/Flushing Restless Observation: 1= Difficult to Sit Still Pupil Size: 0= Normal to Room Light Bone or Joint Aches: 2= Severe Diffuse Aches Runny Nose/ Eye Tearin= None GI Upset > 30mins: 2= Nausea/Diarrhea Tremor Observation: 1= Tremor [place], Not Seen Yawning Observation: 0= None Anxiety or Irritability: 2=Irritable/Anxious Goose Flesh Skin: 0=Smooth Skin COWS Score: 9 CIWA Score Nausea/Vomitin-Mild Nausea/No Vomiting Muscle Tremors: 2 Anxiety: 3 Agitation: 1-Slight > Activity Paroxysmal Sweats: 2 Orientation: 0-Oriented Tacttile Disturbances: 0-None Auditory Disturbances: 0-None Visual Disturbances: 2-Mild Sensitivity Headache: 0-None Present CIWA-Ar Total Score: 11 - Admission Criteria OASAS Guidelines: Admission for Medically Managed Detox: Requires at least one of the followin. CIWA greater than 12 2. Seizures within the past 24 hours 3. Delirium tremens within the past 24 hours 4. Hallucinations within the past 24 hours 5. Acute intervention needed for co occurring medical disorder 6. Acute intervention needed for co occurring psychiatric disorder 7. Severe withdrawal that cannot be handled at a lower level of care (continued vomiting, continued diarrhea, abnormal vital signs) requiring intravenous medication and/or fluids 8. Admitting History and Physical - Smoking History Smoking history: Current every day smoker Have you smoked in the past 12 months: Yes Aproximately how many cigarettes per day: 20 - Alcohol/Substance Use Hx Alcohol Use: Yes History of Substance Use: reports: Heroin, Marijuana, Prescription, Tranquilizers - Social History ADL: Independent History of Recent Travel: No Admission [facility] Allergies/Adverse Reactions: Allergies Allergy/AdvReac Type Severity Reaction Status Date / Time Fish Containing Products Allergy Severe Swelling Verified 01/22/20 16:45 No Known Drug Allergies Allergy Verified 01/22/20 16:45 History of Present Illness: This report was requested by: Hali Khan | Reference #: [id number] Others' Prescriptions Patient Name: Thomas Oconnor Date: 1970 Address: [place] [address] Sex: Male Rx Written Rx Dispensed Drug Quantity Days Supply Prescriber Name 01/15/2020 01/16/2020 chlordiazepoxide 25 mg capsule 8 2 Pedro Taylor 12/04/2019 12/05/2019 chlordiazepoxide 25 mg capsule 8 2 Pedro Taylor 08/08/2019 08/09/2019 chlordiazepoxide 25 mg capsule 8 2 Ivy George MD 04/09/2019 04/10/2019 chlordiazepoxide 25 mg capsule 8 2 Colby Sotelo (PA) 03/01/2019 03/02/2019 chlordiazepoxide 25 mg capsule 8 2 Pedro Taylor pt here requesting detox from etoh use , was @ [facility] ([place], [place]) 1 week ago , left Tuesday01/18/2020 . reports use of heroin , cannabis and etoh since d/c heroin : 10 bags/day via iV in UE cannabis " 2-3 blunts/week etoh : 1 pint /day pMHX : denies psych : depression, anxiety Exam Limitations: No Limitations - Review of Systems Constitutional: Loss of Appetite EENT: reports: See HPI Respiratory: reports: No Symptoms reported Cardiac: reports: No Symptoms Reported GI: reports: See HPI : reports: No Symptoms Reported Musculoskeletal: reports: No Symptoms Reported Integumentary: reports: See HPI Neuro: reports: No Symptoms reported Endocrine: reports: No Symptoms Reported Psychiatric: reports: Orientated x3, Agitated, Anxious Patient History - Patient Medical History Hx Anemia: No Hx Asthma: No Hx Chronic Obstructive Pulmonary Disease (COPD): No Hx Cancer: No Hx Cardiac Disorders: No Hx Congestive Heart Failure: No Hx Hypertension: No Hx Hypercholesterolemia: No Hx Pacemaker: No HX Cerebrovascular Accident: No Hx Seizures: No Hx Dementia: No Hx Diabetes: No Hx Gastrointestinal Disorders: No Hx Liver Disease: No Hx Genitourinary Disorders: No Hx Sexually Transmitted Disorders: No Hx Renal Disease (ESRD): No Hx Thyroid Disease: No Hx Human Immunodeficiency Virus (HIV): No (Negative 2017) Hx Hepatitis C: No (Negative) Hx Depression: Yes Hx Suicide Attempt: No Hx Bipolar Disorder: No Hx Schizophrenia: No - Patient Surgical History Past Surgical History: No Hx Neurologic Surgery: No Hx Cataract Extraction: No Hx Cardiac Surgery: No Hx Lung Surgery: No Hx Breast Surgery: No Hx Breast Biopsy: No Hx Abdominal Surgery: No Hx Appendectomy: No Hx Cholecystectomy: No Hx Genitourinary Surgery: No Hx Section: No Hx Orthopedic Surgery: No Anesthesia Reaction: No - PPD History Previous Implant?: Yes Documented Results: Negative w/proof Date: 12/20/19 Results: 0 mm - Smoking Cessation Smoking history: Current every day smoker Have you smoked in the past 12 months: Yes Aproximately how many cigarettes per day: 20 Cigars Per Day: 0 Hx Chewing Tobacco Use: No Initiated information on smoking cessation: Yes 'Breaking Loose' booklet given: 01/22/20 - Substances abused Alcohol Substance route: Oral Frequency: Daily Amount used: 1 PINT OF LIQUOR Age of first use: 16 Date of last use: 01/22/20 Heroin Substance route: Injection Frequency: Daily Amount used: 12 BAGS Age of first use: 21 Date of last use: 01/22/20 Alprazolam (Xanax) Substance route: Oral Frequency: 1-2 times per week Amount used: 2MG Age of first use: 46 Date of last use: 01/18/20 Marijuana/Hashish Substance route: Smoking Frequency: 3-6 times per week Amount used: 3 BLUNTS Age of first use: 14 Date of last use: 01/12/20 Admission Physical Exam S - Vital Signs Vital Signs: Vital Signs - 24 hr 01/22/20 16:46 Temperature 98.1 F Pulse Rate 80 Respiratory 18 Rate Blood Pressure 144/95 - Physical General Appearance: Yes: Mild Distress, Anxious HEENTM: Yes: EOMI, Hearing grossly Normal, Normocephalic, Normal Voice, Nasal Congestion Respiratory: Yes: Chest Non-Tender, Lungs Clear, Normal Breath Sounds, No Respiratory Distress, No Accessory Muscle Use Neck: Yes: No masses,lesions,Nodules, Trachea in good position Cardiology: Yes: Regular Rhythm, Regular Rate, S1, S2 Abdominal: Yes: Non Tender, Soft Musculoskeletal: Yes: Gait Steady Extremities: Yes: Normal Range of Motion, Non-Tender Neurological: Yes: Fully Oriented, Alert Integumentary: Yes: Warm, Track Patel - Diagnostic (1) Alcohol dependence with uncomplicated withdrawal Current Visit: Yes Status: Chronic (2) Opioid dependence with withdrawal Current Visit: Yes Status: Chronic (3) Nicotine dependence Current Visit: Yes Status: Chronic Qualifiers: Nicotine product type: cigarettes Breathalyzer - Breathalyzer Breathalyzer: 0 Urine Drug Screen - Test Device Lot number: [id number] Expiration date: 10/27/21 - Control Is test valid?: Yes - Results Drug screen NEGATIVE: No Urine drug screen results: FEN-Fentanyl, MOP-Opiates, MTD-Methadone, BZO- Benzodiazepines Inpatient Rehab Admission - Rehab Decision to Admit Inpatient rehab admission?: No
[2020-01-22] MEDS ORDERED: MAG HYDROX/AL HYDROX/SIMETH 30 ML UNIT-DOSE CUP PO PRN (18:43)
[2020-01-22] MEDS ORDERED: MAGNESIUM HYDROX 2400MG/30ML ORAL SUSPENSION 30 ML CUP PO PRN (18:43)
[2020-01-22] MEDS ORDERED: NICOTINE POLACRILEX 2 MG GUM BUC PRN (18:43)
[2020-01-22] MEDS ORDERED: BISMUTH SUBSALICYLATE 524 MG/30 ML UD PO PRN (18:43)
[2020-01-22] MEDS ORDERED: MENTHOL/PHENOL 1 EACH UD MM PRN (18:43)
[2020-01-22] MEDS ORDERED: ACETAMINOPHEN 325 MG TABLET (FP) PO PRN ×2 (18:43)
[2020-01-22] MEDS ORDERED: IBUPROFEN 400 MG TABLET (FP) PO PRN (18:43)
[2020-01-22] MEDS ORDERED: MAGNESIUM CITRATE 300 ML BOTTLE PO PRN (18:43)
[2020-01-22] MEDS ORDERED: chlordiazePOXIDE HCL 10 MG CAPSULE PO PRN (18:45)
[2020-01-22] MEDS ORDERED: METOPROLOL TARTRATE 50 MG TABLET (FP) PO ONE (18:47)
[2020-01-22] MEDS ORDERED: METHADONE HCL 10 MG TABLET (FOR DETOX USE ONLY) PO ONE (19:00)
[2020-01-22] MEDS: chlordiazePOXIDE HCL 25 MG CAPSULE PO SCH (22:15)
[2020-01-22] MEDS: THIAMINE HCL 100 MG TABLET (FP) PO SCH (22:15)
[2020-01-22] MEDS: MELATONIN 5 MG TABLETS PO PRN (22:15)
[2020-01-23] MEDS: chlordiazePOXIDE HCL 25 MG CAPSULE PO SCH ×2 (05:13→13:14)
[2020-01-23] MEDS ORDERED: METHADONE HCL 5 MG TABLET (FOR DETOX USE ONLY) PO ONE (10:00)
[2020-01-23] MEDS: PRENATAL VITAMINS W/ FOLIC ACID TABLET (FP) PO SCH (10:11)
[2020-01-23] MEDS: METHOCARBAMOL 500 MG TABLET PO PRN (10:12)
[2020-01-23 10:52] LABS: HEMATOCRIT 34.7 % (35.4-49); HEMOGLOBIN 11.6 GM/dL (11.7-16.9); MCH 28.3 pg (25.7-33.7); MCHC 33.6 g/dl (32.0-35.9); MEAN CELL VOLUME 84.2 fl (80-96); MEAN PLT VOLUME 8.7 fl (7.5-11.1); PLATELET COUNT 150 K/MM3 (134-434); RBC 4.12 M/mm3 (4.00-5.60); RDW 14.7 % (11.9-15.9); WHITE BLOOD COUNT 5.2 K/mm3 (4.0-10.0)
[2020-01-23 11:54] LABS: ALBUMIN 3.7 g/dl (3.4-5.0); BILIRUBIN,TOTAL 0.7 mg/dL (0.2-1); BLOOD UREA NITROGEN 12.8 mg/dL (7-18); CALCIUM 8.7 mg/dL (8.5-10.1); CREATININE 0.9 mg/dL (0.55-1.3); POTASSIUM 4.4 mmol/L (3.5-5.1); TOT PROT 6.8 g/dl (6.4-8.2)
--- NOTE | 2020-01-23 16:12 | PN ---
S CIWA - CIWA Score Nausea/Vomitin-Mild Nausea/No Vomiting Muscle Tremors: 3 Anxiety: 2 Agitation: 1-Slight > Activity Paroxysmal Sweats: 1-Minimal Palms Moist Orientation: 0-Oriented Tacttile Disturbances: 1-Very Mild Itch/Numbness Auditory Disturbances: 0-None Visual Disturbances: 1-Very Mild Sensitivity Headache: 2-Mild CIWA-Ar Total Score: 12 BHS COWS - Scale Resting Pulse: 0= [place] 80 or Below Sweatin= No chills or Flushing Restless Observation: 0= Sits Still Pupil Size: 1= Pupils >than Normal Bone or Joint Aches: 2= Severe Diffuse Aches Runny Nose/ Eye Tearin= None GI Upset > 30mins: 2= Nausea/Diarrhea Tremor Observation of Outstretched Hands: 2= Slight Tremor Visible Yawning Observation: 0= None Anxiety or Irritability: 0= None Goose Flesh Skin: 3=Piloerection COWS Score: 10 S Progress Note (SOAP) Subjective: 49 years old male admitted on 01/22/20 for alcohol benzo opiate withdrawal sx management treating with librium and methadone detox regiments reports general body aches tylenal 650 mg po x 1 Objective: 01/23/20 16:11 Vital Signs Temperature 97.3 F L 01/23/20 12:33 Pulse Rate 62 01/23/20 12:33 Respiratory Rate 18 01/23/20 12:33 Blood Pressure 95/60 01/23/20 12:33 O2 Sat by Pulse Oximetry (%) Laboratory Last Values WBC 5.2 K/mm3 (4.0-10.0) 01/23/20 08:00 RBC 4.12 M/mm3 (4.00-5.60) 01/23/20 08:00 Hgb 11.6 GM/dL (11.7-16.9) L 01/23/20 08:00 Hct 34.7 % (35.4-49) L 01/23/20 08:00 MCV 84.2 fl (80-96) 01/23/20 08:00 MCH 28.3 pg (25.7-33.7) 01/23/20 08:00 MCHC 33.6 g/dl (32.0-35.9) 01/23/20 08:00 RDW 14.7 % (11.9-15.9) 01/23/20 08:00 Plt Count 150 K/MM3 (134-434) 01/23/20 08:00 MPV 8.7 fl (7.5-11.1) 01/23/20 08:00 Sodium 139 mmol/L (136-145) 01/23/20 08:00 Potassium 4.4 mmol/L (3.5-5.1) 01/23/20 08:00 Chloride 102 mmol/L (98-107) 01/23/20 08:00 Carbon Dioxide 31 mmol/L (21-32) 01/23/20 08:00 Anion Gap 6 MMOL/L (8-16) L 01/23/20 08:00 BUN 12.8 mg/dL (7-18) 01/23/20 08:00 Creatinine 0.9 mg/dL (0.55-1.3) 01/23/20 08:00 Est GFR (CKD-EPI)AfAm 117.47 01/23/20 08:00 Est GFR (CKD-EPI)NonAf 101.35 01/23/20 08:00 Random Glucose 90 mg/dL (74-106) 01/23/20 08:00 Calcium 8.7 mg/dL (8.5-10.1) 01/23/20 08:00 Total Bilirubin 0.7 mg/dL (0.2-1) 01/23/20 08:00 AST 186 U/L (15-37) H 01/23/20 08:00 ALT 75 U/L (13-61) H 01/23/20 08:00 Alkaline Phosphatase 78 U/L (45-117) 01/23/20 08:00 Total Protein 6.8 g/dl (6.4-8.2) 01/23/20 08:00 Albumin 3.7 g/dl (3.4-5.0) 01/23/20 08:00 RPR Titer Nonreactive (NONREACTIVE) 01/23/20 08:00 lab noted ast elevation discontinue librium begin ativan Assessment: 01/23/20 16:11 alcohol benzo opiate withdrawal Plan: ativan and methadone regiments
[2020-01-23] MEDS ORDERED: LORazepam 0.5 MG TABLET PO PRN (16:15)
[2020-01-23] MEDS ORDERED: ACETAMINOPHEN 325 MG TABLET (FP) PO ONE (16:45)
[2020-01-23] MEDS ORDERED: LORazepam 0.5 MG TABLET PO SCH (22:00)
[2020-01-23] MEDS: THIAMINE HCL 100 MG TABLET (FP) PO SCH (22:08)
[2020-01-23] MEDS: MELATONIN 5 MG TABLETS PO PRN (22:09)
[2020-01-23] MEDS: hydrOXYzine PAMOATE 25 MG CAPSULE (FP) PO PRN (22:10)
[2020-01-24] MEDS ORDERED: chlordiazePOXIDE HCL 10 MG CAPSULE PO SCH (05:00)
[2020-01-24] MEDS: LORazepam 0.5 MG TABLET PO SCH ×2 (05:33→17:56)
[2020-01-24] MEDS ORDERED: METHADONE HCL 10 MG TABLET (FOR DETOX USE ONLY) PO ONE (10:00)
[2020-01-24] MEDS: PRENATAL VITAMINS W/ FOLIC ACID TABLET (FP) PO SCH (10:15)
[2020-01-24] MEDS: LORazepam 0.5 MG TABLET PO PRN ×2 (10:15→22:14)
--- NOTE | 2020-01-24 15:16 | PN ---
[facility] CIWA - CIWA Score Nausea/Vomitin-No Nausea/No Vomiting Muscle Tremors: 2 Anxiety: 2 Agitation: 0-Normal Activity Paroxysmal Sweats: 1-Minimal Palms Moist Orientation: 0-Oriented Tacttile Disturbances: 0-None Auditory Disturbances: 0-None Visual Disturbances: 2-Mild Sensitivity Headache: 0-None Present CIWA-Ar Total Score: 7 BHS COWS - Scale Resting Pulse: 0= [place] 80 or Below Sweatin= No chills or Flushing Restless Observation: 0= Sits Still Pupil Size: 0= Normal to Room Light Bone or Joint Aches: 1= Mild Discomfort Runny Nose/ Eye Tearin= Nasal Congestion GI Upset > 30mins: 1= Stomach Cramp Tremor Observation of Outstretched Hands: 1= Tremor [place], Not Seen Yawning Observation: 1= 1-2x During Session Anxiety or Irritability: 2=Irritable/Anxious Goose Flesh Skin: 0=Smooth Skin COWS Score: 7 S Progress Note (SOAP) Subjective: 49 years old male admitted on 01/22/20 for alcohol benzo opiate withdrawal sx management treating with ativan and methadone detox regiments discussing medication assisted treatment program that methadone dosage will be titrated up to appropriated level requests ensure encourage administration of ensure Objective: 01/24/20 15:15 Vital Signs Temperature 99.3 F 01/24/20 12:55 Pulse Rate 65 01/24/20 12:55 Respiratory Rate 18 01/24/20 12:55 Blood Pressure 93/61 01/24/20 12:55 O2 Sat by Pulse Oximetry (%) Laboratory Last Values WBC 5.2 K/mm3 (4.0-10.0) 01/23/20 08:00 RBC 4.12 M/mm3 (4.00-5.60) 01/23/20 08:00 Hgb 11.6 GM/dL (11.7-16.9) L 01/23/20 08:00 Hct 34.7 % (35.4-49) L 01/23/20 08:00 MCV 84.2 fl (80-96) 01/23/20 08:00 MCH 28.3 pg (25.7-33.7) 01/23/20 08:00 MCHC 33.6 g/dl (32.0-35.9) 01/23/20 08:00 RDW 14.7 % (11.9-15.9) 01/23/20 08:00 Plt Count 150 K/MM3 (134-434) 01/23/20 08:00 MPV 8.7 fl (7.5-11.1) 01/23/20 08:00 Sodium 139 mmol/L (136-145) 01/23/20 08:00 Potassium 4.4 mmol/L (3.5-5.1) 01/23/20 08:00 Chloride 102 mmol/L (98-107) 01/23/20 08:00 Carbon Dioxide 31 mmol/L (21-32) 01/23/20 08:00 Anion Gap 6 MMOL/L (8-16) L 01/23/20 08:00 BUN 12.8 mg/dL (7-18) 01/23/20 08:00 Creatinine 0.9 mg/dL (0.55-1.3) 01/23/20 08:00 Est GFR (CKD-EPI)AfAm 117.47 01/23/20 08:00 Est GFR (CKD-EPI)NonAf 101.35 01/23/20 08:00 Random Glucose 90 mg/dL (74-106) 01/23/20 08:00 Calcium 8.7 mg/dL (8.5-10.1) 01/23/20 08:00 Total Bilirubin 0.7 mg/dL (0.2-1) 01/23/20 08:00 AST 186 U/L (15-37) H 01/23/20 08:00 ALT 75 U/L (13-61) H 01/23/20 08:00 Alkaline Phosphatase 78 U/L (45-117) 01/23/20 08:00 Total Protein 6.8 g/dl (6.4-8.2) 01/23/20 08:00 Albumin 3.7 g/dl (3.4-5.0) 01/23/20 08:00 RPR Titer Nonreactive (NONREACTIVE) 01/23/20 08:00 lab noted ast elevation Assessment: 01/24/20 15:16 alcohol benzo opiate withdrawal Plan: ativan and methadone regiments
[2020-01-24] MEDS: MELATONIN 5 MG TABLETS PO PRN (22:14)
[2020-01-24] MEDS: THIAMINE HCL 100 MG TABLET (FP) PO SCH (22:14)
[2020-01-24] MEDS: hydrOXYzine PAMOATE 25 MG CAPSULE (FP) PO PRN (22:14)
[2020-01-24] MEDS: METHOCARBAMOL 500 MG TABLET PO PRN (22:15)
[2020-01-25] MEDS ORDERED: chlordiazePOXIDE HCL 10 MG CAPSULE PO ONE (05:00)
[2020-01-25] MEDS ORDERED: LORazepam 0.5 MG TABLET PO ONE (05:00)
[2020-01-25] MEDS ORDERED: METHADONE HCL 5 MG TABLET (FOR DETOX USE ONLY) PO ONE (06:00)
[2020-01-25 09:18] VITALS: BP 100/67; PULSE 59; TEMP 97.4
--- NOTE | 2020-01-25 09:43 | DS ---
[facility] Detox Discharge Summary Admission Date: 01/22/20 Discharge Date: 01/25/20 - History Present History: Alcohol Dependence, Opioid Dependence - Physical Exam Results Vital Signs: Vital Signs Temperature 97.4 F L 01/25/20 08:33 Pulse Rate 59 L 01/25/20 08:33 Respiratory Rate 01/25/20 08:33 Blood Pressure 100/67 01/25/20 08:33 O2 Sat by Pulse Oximetry (%) Pe gnl: WDWN, in no distress mental status: awake, alert, nl language, dressed and ready to leave Motor; nl coord:nl Gait; nl - Treatment Hospital Course: Detox Protocol Followed, Detoxed Safely, Responded well, Discharged Condition Good, Rehab Referral Accepted - Medication Discharge Medications: Ambulatory Orders Olanzapine [Zyprexa] 10 mg PO HS 08/02/19 Gabapentin [Neurontin -] 300 mg PO TID #90 capsule 01/03/20 Sertraline HCl [Zoloft] 100 mg PO DAILY #30 tablet 01/03/20 Trazodone HCl 150 mg PO HS #30 tablet 01/03/20 - AMA Did Patient Leave Against Medical Advice: No
[2020-01-25] MEDS: PRENATAL VITAMINS W/ FOLIC ACID TABLET (FP) PO SCH (10:09)
--- NOTE | 2020-01-25 10:51 | CONSULT ---
[facility] Psychiatric Consult - Data Date of interview: 01/25/20 Admission source: [facility] Identifying data: Revisit to [facility] for this 49 y/o male who completed detoxification treatment (alcohol) today at [address] [place] [address]. Additional YENY issues : cannabis, benzodiazepine (xanax), heroin, nicotine. Psychiatric co- morbidities : MDD, PTSD and insomnia. Patient is single without children, homeless (snf resident), unemployed and supported on welfare. Substance Abuse History: Discussed with the patient. Details in current [facility] report as follows : Smoking history: Current every day smoker. Have you smoked in the past 12 months: Yes. Aproximately how many cigarettes per day: 20. Cigars Per Day: 0. Hx Chewing Tobacco Use: No. Initiated information on smoking cessation: Yes. 'Breaking Loose' booklet given: 01/22/20. - Substances abused. Alcohol. Substance route: Oral. Frequency: Daily. Amount used: 1 PINT OF LIQUOR. Age of first use: 16. Date of last use: . Heroin. Substance route: Injection. Frequency: Daily. Amount used: 12 BAGS. Age of first use: 21. Date of last use: 01/22/20. Alprazolam ( Xanax). Substance route: Oral. Frequency: 1-2 times per week. Amount used: 2MG. Age of first use: 46. Date of last use: 01/18/20. Marijuana/Hashish. Substance route: Smoking. Frequency: 3-6 times per week. Amount used: 3 BLUNTS. Age of first use: 14. Date of last use: 01/12/20 Medical History: Patient endorses good general health. Psychiatric History: Patient is frequent user of [facility] services. Recently seen by this tech writer on 12/19/19. Got discharged from [address] on 01/03/20. Readmitted to [address] [place] [address] on 01/22/20. Mr Oconnor was approached at bedside for psychiatric interview on 01/23/20 but he declined. Has agreed to be interviewed today. " I feel fine. Much better than when I came. I am going to rehab." Longitudinal history as follows : multiple psychiatric hospitalizations (all are reported to be at [facility]). Diagnoses endorsed : MDD, PTSD and Anxiety Disorder. Currrent maintenance medications : zoloft 100 mg/day + trazodone 150 mg/hs + gabapentin 300 mg/tid + zyprexa 10 mg/hs. No longer in affiliation with [facility]. Patient is still under the care of Dr Edmondson at the [facility] [place] [facility] in [place] , on [address] [place] [address] and [facility]. Patient denies history of suicide attempts ( records, however, indicate a history of one suicide attempt via deliberate overdose with heroin in 2016). Physical/Sexual Abuse/Trauma History: Patient denies. Additional Comment: Urine drug screen results: FEN-Fentanyl, MOP-Opiates, MTD- Methadone, BZO-Benzodiazepines. Noted. Mental Status Exam - Mental Status Exam Alert and Oriented to: Time, Place, Person Cognitive Function: Good Patient Appearance: Well Groomed Mood: Hopeful, Euthymic Affect: Appropriate, Normal Range Patient Behavior: Appropriate, Cooperative Speech Pattern: Clear, Appropriate Voice Loudness: Normal Thought Process: Intact, Goal Oriented Thought Disorder: Not Present Hallucinations: Denies Suicidal Ideation: Denies Homicidal Ideation: Denies Insight/Judgement: Fair Sleep: Well Appetite: Good Gait/Station: Normal Psychiatric Findings - Problem List ([place] 1, 2,3) (1) Alcohol use disorder Status: Chronic (2) Opioid use disorder Status: Chronic (3) Sedative, hypnotic or anxiolytic use disorder, mild, abuse Status: Chronic (4) Marijuana dependence Status: Chronic (5) Nicotine dependence Status: Chronic Qualifiers: Nicotine product type: cigarettes (6) Substance induced mood disorder Status: Chronic (7) Depressive disorder Status: Chronic (8) Non-compliance Status: Chronic - Initial Treatment Plan Initial Treatment Plan: Psychoeducation. Support. Principles of sleep hygiene are discussed in session. Detoxification completed. AA/NA meetings. Referral for rehabilitation. Continuity of medications : zoloft 100 mg po daily + olanzapine 10 mg po hs + trazodone 150 mg po hs + gabapentin 300 mg po tid. Side effects/benefits of each drug are discussed with the patient. Mr Oconnor has expressed his agreement with this plan of care. Observation.
[2020-01-25] MEDS ORDERED: SERTRALINE HCL 50 MG TABLET (FP) PO SCH (11:00)
[2020-01-25] MEDS ORDERED: GABAPENTIN 300 MG CAPSULE PO SCH (14:00)
[2020-01-25] MEDS ORDERED: traZODone HCL 50 MG TABLET (FP) PO SCH (22:00)
[2020-01-25] MEDS ORDERED: OLANZapine 10 MG TABLET PO SCH (22:00)
== END 2020-01-25 12:16 | disposition home or self-care (01) | DRG 773 ==
LOC: YASAS 14:31 → Y3N 16:58
PROVIDERS: ADMIT Allergy & Immunology; ATTEND Allergy & Immunology
PROC: HZ2ZZZZ Detoxification Services for Substance Abuse Treatment (ICD-10-PCS; principal; 2020-01-22)
DX: F10.230 Alcohol dependence with withdrawal, uncomplicated (principal); F11.23 Opioid dependence with withdrawal; F13.230 Sedative, hypnotic or anxiolytic dependence with withdrawal, uncomplicated; F12.20 Cannabis dependence, uncomplicated; F17.210 Nicotine dependence, cigarettes, uncomplicated; F19.24 Other psychoactive substance dependence with psychoactive substance-induced mood disorder; F32.9 Major depressive disorder, single episode, unspecified; Z91.013 Allergy to seafood; Z91.19 Patient's noncompliance with other medical treatment and regimen; Z59.0 Homelessness
CPT/HCPCS: 36415; 80053; 85027; 86593

== ENCOUNTER 2020-01-25 19:55 | Inpatient (IN) | payer OTHER ==
--- NOTE | 2020-01-25 21:49 | BHS.RME ---
Substance Use & Tx History - Last Treatment Where was last treatment: Detox (Seeking admission to Rehab.)
--- NOTE | 2020-01-25 21:52 | HP ---
CIWA Score - Admission Criteria [facility]AS Guidelines: Admission for Medically Managed Detox: Requires at least one of the followin. CIWA greater than 12 2. Seizures within the past 24 hours 3. Delirium tremens within the past 24 hours 4. Hallucinations within the past 24 hours 5. Acute intervention needed for co occurring medical disorder 6. Acute intervention needed for co occurring psychiatric disorder 7. Severe withdrawal that cannot be handled at a lower level of care (continued vomiting, continued diarrhea, abnormal vital signs) requiring intravenous medication and/or fluids 8. Admitting History and Physical - Smoking History Smoking history: Current every day smoker Have you smoked in the past 12 months: Yes Aproximately how many cigarettes per day: 20 - Alcohol/Substance Use Hx Alcohol Use: Yes History of Substance Use: reports: Heroin, Marijuana, Prescription, Tranquilizers - Social History ADL: Independent History of Recent Travel: No Admission ROS [facility] Chief Complaint: Seeking admission to Rehab. Allergies/Adverse Reactions: Allergies Allergy/AdvReac Type Severity Reaction Status Date / Time Fish Containing Products Allergy Severe Swelling Verified 01/22/20 16:45 No Known Drug Allergies Allergy Verified 01/22/20 16:45 History of Present Illness: 49 years with a long history of heroin and alcohol dependence is seeking admission to detox. Patient completed detox today at [facility]. He reports medical history of GERD and psych. history of depression and anxiety. He denies suicidal ideation at this time. Exam Limitations: No Limitations - Ebola screening Have you traveled outside of the country in the last 21 days: No Have you had contact with anyone from an Ebola affected area: No Do you have a fever: No - Review of Systems Constitutional: No Symptoms Reported EENT: reports: No Symptoms Reported Respiratory: reports: No Symptoms reported Cardiac: reports: No Symptoms Reported GI: reports: No Symptoms Reported : reports: No Symptoms Reported Musculoskeletal: reports: No Symptoms Reported Integumentary: reports: No Symptoms Reported Neuro: reports: No Symptoms reported Endocrine: reports: No Symptoms Reported Hematology: reports: No Symptoms Reported Psychiatric: reports: No Sypmtoms Reported, Mood/Affect Appropiate, Orientated x3 Other Systems: Reviewed and Negative Patient History - Patient Medical History Hx Anemia: No Hx Asthma: No Hx Chronic Obstructive Pulmonary Disease (COPD): No Hx Cancer: No Hx Cardiac Disorders: No Hx Congestive Heart Failure: No Hx Hypertension: No Hx Hypercholesterolemia: No Hx Pacemaker: No HX Cerebrovascular Accident: No Hx Seizures: No Hx Dementia: No Hx Diabetes: No Hx Gastrointestinal Disorders: Yes (GERD) Hx Liver Disease: No Hx Genitourinary Disorders: No Hx Sexually Transmitted Disorders: No Hx Renal Disease (ESRD): No Hx Thyroid Disease: No Hx Human Immunodeficiency Virus (HIV): No (Negative 2018) Hx Hepatitis C: No Hx Depression: Yes Hx Suicide Attempt: No (Denies suicidal ideation at this time) Hx Bipolar Disorder: No Hx Schizophrenia: No - Patient Surgical History Past Surgical History: No Hx Neurologic Surgery: No Hx Cataract Extraction: No Hx Cardiac Surgery: No Hx Lung Surgery: No Hx Abdominal Surgery: No Hx Appendectomy: No Hx Cholecystectomy: No Hx Genitourinary Surgery: No Hx Orthopedic Surgery: No Anesthesia Reaction: No - PPD History Previous Implant?: Yes Documented Results: Negative w/proof Implanted On Prior [facility] Admission?: Yes Date: 12/20/19 Results: 0 mm PPD to be Administered?: No - Reproductive History Patient is a Female of Child Bearing Age (11 -55 yrs old): No (male) - Smoking Cessation Smoking history: Current every day smoker Have you smoked in the past 12 months: Yes Aproximately how many cigarettes per day: 20 Cigars Per Day: 0 Hx Chewing Tobacco Use: No Initiated information on smoking cessation: Yes 'Breaking Loose' booklet given: 01/25/20 - Substance & Tx. History Hx Alcohol Use: Yes Hx Substance Use: Yes Substance Use Type: Heroin Hx Substance Use Treatment: Yes ([facility]) - Substances abused Alcohol Substance route: Oral Frequency: Daily Amount used: 1 PINT VODKA Age of first use: 16 Date of last use: 01/22/20 Heroin Substance route: Injection Frequency: Daily Amount used: 10-12 bags Age of first use: 21 Date of last use: 01/22/20 Admission Physical Exam BHS - Physical General Appearance: Yes: Within Normal Limits HEENTM: Yes: Within Normal Limits Respiratory: Yes: Lungs Clear, Normal Breath Sounds, No Respiratory Distress Neck: Yes: Within Normal Limits Breast: Yes: Breast Exam Deferred Cardiology: Yes: Regular Rhythm, Regular Rate Abdominal: Yes: Normal Bowel Sounds, Protuberent Genitourinary: Yes: Within Normal Limits Back: Yes: Normal Inspection Musculoskeletal: Yes: Within Normal Limits Extremities: Yes: Normal Inspection Neurological: Yes: Within Normal Limits Integumentary: Yes: Warm Lymphatic: Yes: Within Normal Limits - Diagnostic (1) Alcohol dependence, uncomplicated Current Visit: Yes Status: Chronic (2) Opioid dependence, uncomplicated Current Visit: Yes Status: Chronic (3) Anxiety disorder Current Visit: Yes Status: Chronic (4) Depressive disorder Current Visit: Yes Status: Chronic (5) Heartburn Current Visit: Yes Status: Chronic (6) Nicotine dependence Current Visit: Yes Status: Chronic Qualifiers: Nicotine product type: cigarettes Cleared for Admission [facility] - Detox or Rehab [facility] Level of Care: Observation Bed Claeared for Rehab Admission: Yes Breathalyzer - Breathalyzer Breathalyzer: 0 Urine Drug Screen - Test Device Lot number: [id number] Expiration date: 10/27/21 - Control Is test valid?: Yes - Results Drug screen NEGATIVE: No Urine drug screen results: MOP-Opiates, BZO-Benzodiazepines Inpatient Rehab Admission - Rehab Decision to Admit Inpatient rehab admission?: Yes - Initial Determination Are CD services needed?: No Free of communicable disease: Yes Not in need of hospitalization: Yes - Rehab Admission Criteria Previous failed treatment: Yes Poor recovery environment: Yes Comorbidities: Yes Lacks judgement: No Patient is meeting Inpatient Rehab admission criteria:: Yes
[2020-01-25] MEDS ORDERED: MELATONIN 5 MG TABLETS PO PRN (22:00)
[2020-01-25] MEDS ORDERED: MENTHOL/PHENOL 1 EACH UD MM PRN (22:04)
[2020-01-25] MEDS ORDERED: guaiFENesin 200 MG/10 ML 10 ML UNIT-DOSE CUPS PO PRN (22:04)
[2020-01-25] MEDS ORDERED: ACETAMINOPHEN 325 MG TABLET (FP) PO PRN (22:04)
[2020-01-25] MEDS ORDERED: IBUPROFEN 400 MG TABLET (FP) PO PRN (22:04)
[2020-01-25] MEDS ORDERED: MAGNESIUM HYDROX 2400MG/30ML ORAL SUSPENSION 30 ML CUP PO PRN (22:04)
[2020-01-25] MEDS ORDERED: MAG HYDROX/AL HYDROX/SIMETH 30 ML UNIT-DOSE CUP PO PRN (22:04)
[2020-01-25] MEDS ORDERED: NICOTINE POLACRILEX 2 MG GUM BUC PRN (22:04)
[2020-01-25] MEDS ORDERED: LOPERAMIDE HCL 2 MG CAPSULE PO PRN (22:04)
[2020-01-25] MEDS ORDERED: MAGNESIUM CITRATE 300 ML BOTTLE PO PRN (22:04)
[2020-01-25] MEDS ORDERED: P-EPHED 60MG/TRIPROLIDI 2.5MG TABLET PO PRN (22:04)
[2020-01-25 22:19] VITALS: BMI 25.7
[2020-01-26 09:47] LABS: HEMATOCRIT 33.8 % (35.4-49); HEMOGLOBIN 11.7 GM/dL (11.7-16.9); MCH 28.6 pg (25.7-33.7); MCHC 34.6 g/dl (32.0-35.9); MEAN CELL VOLUME 82.6 fl (80-96); MEAN PLT VOLUME 8.1 fl (7.5-11.1); PLATELET COUNT 181 K/MM3 (134-434); RBC 4.09 M/mm3 (4.00-5.60); RDW 14.7 % (11.9-15.9); WHITE BLOOD COUNT 6.4 K/mm3 (4.0-10.0)
[2020-01-26 10:16] LABS: ALBUMIN 3.7 g/dl (3.4-5.0); BILIRUBIN,TOTAL 0.4 mg/dL (0.2-1); BLOOD UREA NITROGEN 10.1 mg/dL (7-18); CALCIUM 7.9 mg/dL (8.5-10.1); POTASSIUM 4.2 mmol/L (3.5-5.1); TOT PROT 6.9 g/dl (6.4-8.2)
[2020-01-26] MEDS: PRENATAL VITAMINS W/ FOLIC ACID TABLET (FP) PO SCH (10:50)
[2020-01-26] MEDS: NICOTINE 21 MG/24 HOURS TOPICAL PATCH TD SCH (10:53)
--- NOTE | 2020-01-26 14:01 | CONSULT ---
[facility] Psychiatric Consult - Data Date of interview: 01/26/20 Admission source: Transfer from [address] [place] [address]. Identifying data: Readmission to [address] for this 49 y/o male who completed detoxification treatment (alcohol) at [address] [place] [address]. Additional YENY issues : cannabis, benzodiazepine (xanax), heroin, nicotine. Psychiatric co- morbidities : MDD, PTSD and insomnia. Patient is single without children, homeless (snf resident), unemployed and supported on welfare. Substance Abuse History: Discussed with the patient. Details in current [facility] report as follows : Smoking history: Current every day smoker. Have you smoked in the past 12 months: Yes. Aproximately how many cigarettes per day: 20. Cigars Per Day: 0. Hx Chewing Tobacco Use: No. Initiated information on smoking cessation: Yes. 'Breaking Loose' booklet given: 01/22/20. - Substances abused. Alcohol. Substance route: Oral. Frequency: Daily. Amount used: 1 PINT OF LIQUOR. Age of first use: 16. Date of last use: . Heroin. Substance route: Injection. Frequency: Daily. Amount used: 12 BAGS. Age of first use: 21. Date of last use: 01/22/20. Alprazolam ( Xanax). Substance route: Oral. Frequency: 1-2 times per week. Amount used: 2MG. Age of first use: 46. Date of last use: 01/18/20. Marijuana/Hashish. Substance route: Smoking. Frequency: 3-6 times per week. Amount used: 3 BLUNTS. Age of first use: 14. Date of last use: 01/12/20 Medical History: Patient endorses good general health. Psychiatric History: No change in psychiatric history since my interview with patient on 01/25/20. Refer to the following : Patient is frequent user of [facility] services. Recently seen by this racebook writer on 12/19/19. Got discharged from [address] on 01/03/20. Readmitted to [address] [place] [address] on 01/22/20. Mr Oconnor was approached at bedside for psychiatric interview on 01/23/20 but he declined. Has agreed to be interviewed today. " I feel fine. Much better than when I came. I am going to rehab." Longitudinal history as follows : multiple psychiatric hospitalizations (all are reported to be at [facility]). Diagnoses endorsed : MDD, PTSD and Anxiety Disorder. Currrent maintenance medications : zoloft 100 mg/day + trazodone 150 mg/hs + gabapentin 300 mg/tid + zyprexa 10 mg/hs. No longer in affiliation with [facility] program in [facility]. Patient is still under the care of Dr Edmondson at the [facility] mental health clinic in [place], [facility] [address] [place] [facility]. Patient denies history of suicide attempts (records, however, indicate a history of one suicide attempt via deliberate overdose with heroin in 2016). Physical/Sexual Abuse/Trauma History: Patint denies. Additional Comment: Urine drug screen results: FEN-Fentanyl, MOP-Opiates, MTD- Methadone, BZO-Benzodiazepines. Noted. Mental Status Exam - Mental Status Exam Alert and Oriented to: Time, Place, Person Cognitive Function: Good Patient Appearance: Well Groomed Mood: Hopeful, Euthymic Affect: Appropriate, Normal Range Patient Behavior: Appropriate, Cooperative Speech Pattern: Clear, Appropriate Voice Loudness: Normal Thought Process: Intact, Goal Oriented Thought Disorder: Not Present Hallucinations: Denies Suicidal Ideation: Denies Homicidal Ideation: Denies Insight/Judgement: Fair Sleep: Poorly, Difficulty falling asleep Appetite: Good Muscle strength/Tone: Normal Gait/Station: Normal Psychiatric Findings - Problem List ([place] 1, 2,3) (1) Alcohol dependence, uncomplicated Current Visit: Yes Status: Chronic (2) Opioid dependence, uncomplicated Current Visit: Yes Status: Chronic (3) Sedative, hypnotic or anxiolytic use disorder, mild, abuse Current Visit: Yes Status: Chronic (4) Marijuana dependence Current Visit: Yes Status: Chronic (5) Nicotine dependence Current Visit: Yes Status: Chronic Qualifiers: Nicotine product type: cigarettes (6) Depressive disorder Current Visit: Yes Status: Chronic (7) Insomnia Current Visit: Yes Status: Chronic - Initial Treatment Plan Initial Treatment Plan: No acute psychiatric intervention necessary. Psychiatric consult was requested to address continuity of medications already initiated at [address] [place] [address]. Done. See orders (for trazodone + sertraline + gabapentin) . Informed consent obtained from th patient (verbal). Support. Rehabilitation. Observation.
[2020-01-26] MEDS: traZODone HCL 50 MG TABLET (FP) PO SCH (22:02)
[2020-01-26] MEDS: THIAMINE HCL 100 MG TABLET (FP) PO SCH (22:02)
[2020-01-26] MEDS: OLANZapine 10 MG TABLET PO SCH (22:02)
[2020-01-26] MEDS: GABAPENTIN 300 MG CAPSULE PO SCH (22:02)
[2020-01-27] MEDS: GABAPENTIN 300 MG CAPSULE PO SCH ×3 (06:22→22:02)
[2020-01-27 06:28] VITALS: BP 125/77; PULSE 68; TEMP 98.1
[2020-01-27] MEDS: PRENATAL VITAMINS W/ FOLIC ACID TABLET (FP) PO SCH (11:00)
[2020-01-27] MEDS: SERTRALINE HCL 50 MG TABLET (FP) PO SCH (11:00)
[2020-01-27] MEDS: NICOTINE 21 MG/24 HOURS TOPICAL PATCH TD SCH (11:01)
[2020-01-27] MEDS: traZODone HCL 50 MG TABLET (FP) PO SCH (22:02)
[2020-01-27] MEDS: THIAMINE HCL 100 MG TABLET (FP) PO SCH (22:02)
[2020-01-27] MEDS: OLANZapine 10 MG TABLET PO SCH (22:03)
[2020-01-28] MEDS: GABAPENTIN 300 MG CAPSULE PO SCH ×2 (07:23→13:53)
[2020-01-28] MEDS: SERTRALINE HCL 50 MG TABLET (FP) PO SCH (09:32)
[2020-01-28] MEDS: PRENATAL VITAMINS W/ FOLIC ACID TABLET (FP) PO SCH (09:32)
[2020-01-28] MEDS: NICOTINE 21 MG/24 HOURS TOPICAL PATCH TD SCH (09:33)
--- NOTE | 2020-01-28 13:32 | DS ---
[facility] Rehab Discharge Summary - [facility] Rehab Discharge Summary Admission Date: 01/25/20 Discharge Date: 01/28/20 - History Present History: Alcohol dependence, Opioid dependence - Discharge Physical Exam Vital Signs: Vital Signs Temperature 98.1 F 01/27/20 06:27 Pulse Rate 68 01/27/20 06:27 Respiratory Rate 18 01/28/20 03:32 Blood Pressure 125/77 01/27/20 06:27 O2 Sat by Pulse Oximetry (%) Laboratory Tests 01/26/20 01/26/20 01/26/20 07:20 07:20 07:20 WBC 6.4 RBC 4.09 Hgb 11.7 Hct 33.8 L MCV 82.6 MCH 28.6 MCHC 34.6 RDW 14.7 Plt Count 181 D MPV 8.1 Sodium 142 Potassium 4.2 Chloride 107 Carbon Dioxide 32 Anion Gap 2 L BUN 10.1 Creatinine 1.0 Est GFR (CKD-EPI)AfAm 103.42 Est GFR (CKD-EPI)NonAf 89.23 Random Glucose 88 Calcium 7.9 L Total Bilirubin 0.4 AST 46 H ALT 53 Alkaline Phosphatase 83 Total Protein 6.9 Albumin 3.7 RPR Titer Nonreactive ROS: + c/o muscle spasm (this morning). Denies chills, sweats and n/v/d. PE alert and oriented x 3 skin warm and dry +perrla, eoms intact bl ms + ls muscular discomfort ext full rom, amb ad brian denies si/hi a/p: LBP ( treated with robaxin 500mg tid prn when evaluated this am) Alcohol/Opiod dependence Paitent signed out AMA - Treatment Hospital Course: Patient admitted to rehab for alcohol/opiod dependence on 01/25/2020. Evaluated this am for LBP. Has been attending group meetings during hospital course and 1: 1 counseling sessions. Later in afternoon, approximately 1:20pm, patient requested to sign out AMA. Patient informed staff " I just want to leave." Staff encouraged patient to stay in treatment and explained risk factors of reoccurrence with signing out AMA. Despite interventions, patient continued with AMA process. He is medically stable at this time. No SI/HI reported. Encouraged to attend AA/NA group meetings and connect with sponsor to maintain sobriety. Ambulatory Orders Olanzapine [Zyprexa] 10 mg PO HS 08/02/19 Gabapentin [Neurontin -] 300 mg PO TID #90 capsule 01/03/20 Sertraline HCl [Zoloft] 100 mg PO DAILY #30 tablet 01/03/20 Trazodone HCl 150 mg PO HS #30 tablet 01/03/20 - Medication Discharge Medications: Ambulatory Orders Olanzapine [Zyprexa] 10 mg PO HS 08/02/19 Gabapentin [Neurontin -] 300 mg PO TID #90 capsule 01/03/20 Sertraline HCl [Zoloft] 100 mg PO DAILY #30 tablet 01/03/20 Trazodone HCl 150 mg PO HS #30 tablet 01/03/20 - Medication-Assisted Treatment (MAT) Medication-Assisted Treatment (MAT): No - Discharge Instructions Diet, activity, other medical instructions: Diet: regular Activity: as tolerated Other medical instructions: f/u with pcp as recommended. - Follow-up Referral Minutes to complete discharge: 35 - AMA Did Patient Leave Against Medical Advice: Yes
[2020-01-28] MEDS ORDERED: METHOCARBAMOL 500 MG TABLET PO SCH (14:00)
== END 2020-01-28 14:20 | disposition left against medical advice (07) | DRG 770 ==
LOC: YASAS 19:55 → UNDOADMIN 22:23 → Y3W 22:23
PROVIDERS: ADMIT Allergy & Immunology; ATTEND Allergy & Immunology
PROC: HZ42ZZZ Group Counseling for Substance Abuse Treatment, Cognitive-Behavioral (ICD-10-PCS; principal; 2020-01-25)
DX: F10.20 Alcohol dependence, uncomplicated (principal); F11.20 Opioid dependence, uncomplicated; F13.20 Sedative, hypnotic or anxiolytic dependence, uncomplicated; F12.20 Cannabis dependence, uncomplicated; F17.210 Nicotine dependence, cigarettes, uncomplicated; F41.8 Other specified anxiety disorders; F32.9 Major depressive disorder, single episode, unspecified; F43.10 Post-traumatic stress disorder, unspecified; G47.00 Insomnia, unspecified; K21.9 Gastro-esophageal reflux disease without esophagitis; R12 Heartburn
CPT/HCPCS: 36415; 80053; 85027; 86593

== ENCOUNTER 2020-06-19 12:39 | Inpatient (IN) | payer OTHER ==
--- NOTE | 2020-06-19 13:57 | BHS.RME ---
Substance Use & Tx History - Substance Use History Alcohol Substance amount: one pint Vodka, 8 x 12 ounce beer Frequency of use: Daily Substance route: Oral Date of Last Use: 06/19/20 (First use age 17 y, No seizure, no Blackouts. 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 OD x 2, last OD 2016. Has Narcan at home) Cocaine-Crack Substance amount: $40 Frequency of use: Less than 5 times a year Substance route: Smoking Date of Last Use: 06/14/20 (First use age 16y) Xanax Substance amount: 2 mg Frequency of use: Less than 3 times per week Substance route: Oral Date of Last Use: 06/16/20 (First use age 22y) Cannabis Substance amount: one blunt Frequency of use: Once a month Substance route: Smoking Date of Last Use: 05/29/20 (First use age 14 y) Nicotine Substance amount: one pack Frequency of use: Daily Substance route: Smoking Date of Last Use: 06/19/20 (First use age 14y) - Last Treatment Date of last treatment: 05/05 to 05/10/20 Treatment type: Substance Use Disorder (YENY) Where was last treatment: Detox Physical/Psych/Mental Status - Behavior General Behavior: Increased activity (restlessness, agitation) Eye Contact: Normal - Cooperativeness Cooperativeness: Cooperative - Thinking Thought Processes: Tight Thought content: Future oriented - Physical Health Problems Is patient presently having any pain?: No Does patient presently have any injuries (include location): No Does patient currently have a fever: No COWS - Scale Resting Pulse: 0= [place] 80 or Below Sweatin=Flushed/Facial Moisture Restless Observation: 1= Difficult to Sit Still Pupil Size: 0= Normal to Room Light Bone or Joint Aches: 1= Mild Discomfort Runny Nose/ Eye Tearin= None GI Upset > 30mins: 1= Stomach Cramp Tremor Observation: 2= Slight Tremor Visible Yawning Observation: 0= None Anxiety or Irritability: 2=Irritable/Anxious Goose Flesh Skin: 0=Smooth Skin COWS Score: 9 CIWA Nausea/Vomitin-Mild Nausea/No Vomiting Muscle Tremors: 3 Anxiety: 3 Agitation: 1-Slight > Activity Paroxysmal Sweats: 3 Orientation: 0-Oriented Tacttile Disturbances: 0-None Auditory Disturbances: 0-None Visual Disturbances: 0-None Headache: 0-None Present CIWA-Ar Total Score: 11
--- NOTE | 2020-06-19 15:04 | HP ---
COWS - Scale Resting Pulse: 0= [place] 80 or Below Sweatin=Flushed/Facial Moisture Restless Observation: 1= Difficult to Sit Still Pupil Size: 0= Normal to Room Light Bone or Joint Aches: 1= Mild Discomfort Runny Nose/ Eye Tearin= None GI Upset > 30mins: 1= Stomach Cramp Tremor Observation: 2= Slight Tremor Visible Yawning Observation: 0= None Anxiety or Irritability: 2=Irritable/Anxious Goose Flesh Skin: 0=Smooth Skin COWS Score: 9 CIWA Score Nausea/Vomitin-Mild Nausea/No Vomiting Muscle Tremors: 3 Anxiety: 3 Agitation: 1-Slight > Activity Paroxysmal Sweats: 3 Orientation: 0-Oriented Tacttile Disturbances: 0-None Auditory Disturbances: 0-None Visual Disturbances: 0-None Headache: 0-None Present CIWA-Ar Total Score: 11 - Admission Criteria OASAS Guidelines: Admission for Medically Managed Detox: Requires at least one of the followin. CIWA greater than 12 2. Seizures within the past 24 hours 3. Delirium tremens within the past 24 hours 4. Hallucinations within the past 24 hours 5. Acute intervention needed for co occurring medical disorder 6. Acute intervention needed for co occurring psychiatric disorder 7. Severe withdrawal that cannot be handled at a lower level of care (continued vomiting, continued diarrhea, abnormal vital signs) requiring intravenous medication and/or fluids 8. Admitting History and Physical - Admission Chief Complaint: " I want to stop drugging." History of Present Illness: 50 year old male with history of alcohol dependence with withdrawal, opioid dependence with withdrawal, cocaine use disorder, sedative use disorder, cannabis use disorder, nicotine dependence. Substance Use & Tx History - Substance Use History Alcohol Substance amount: one pint Vodka, 8 x 12 ounce beer Frequency of use: Daily Substance route: Oral Date of Last Use: 06/19/20 (First use age 17 y, No seizure, no Blackouts. 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 OD x 2, last OD 2016. Has Narcan at home) Cocaine-Crack Substance amount: $40 Frequency of use: Less than 5 times a year Substance route: Smoking Date of Last Use: 06/14/20 (First use age 16y) Xanax Substance amount: 2 mg Frequency of use: Less than 3 times per week Substance route: Oral Date of Last Use: 06/16/20 (First use age 22y) Cannabis Substance amount: one blunt Frequency of use: Once a month Substance route: Smoking Date of Last Use: 05/29/20 (First use age 14 y) Nicotine Substance amount: one pack Frequency of use: Daily Substance route: Smoking Date of Last Use: 06/19/20 (First use age 14y) PMH: None Psurg: None Psych: Depression, Anxiety ( zoloft, kayla, trazodone, zyprexa) LAURIE: 0.000 CIWA=11 COWs=9 He meets criteria for detox as he had multiple failures, is at high risk at relapse, and has psychiatric co-morbidity. History Source: Patient Limitations to Obtaining History: No Limitations - Smoking History Smoking history: Current every day smoker Have you smoked in the past 12 months: Yes Aproximately how many cigarettes per day: 20 - Alcohol/Substance Use Hx Alcohol Use: Yes History of Substance Use: reports: Heroin, Marijuana, Prescription, Tranquilizers - Social History ADL: Independent History of Recent Travel: No Admission [facility] Allergies/Adverse Reactions: Allergies Allergy/AdvReac Type Severity Reaction Status Date / Time Fish Containing Products Allergy Severe Swelling Verified 05/05/20 14:20 No Known Drug Allergies Allergy Verified 05/05/20 14:20 Exam Limitations: No Limitations - Ebola screening Have you traveled outside of the country in the last 21 days: No Have you had contact with anyone from an Ebola affected area: No Have you been sick,other than usual withdrawal symptoms: No Do you have a fever: No - Review of Systems Constitutional: Chills, Diaphoresis EENT: reports: No Symptoms Reported Respiratory: reports: No Symptoms reported Cardiac: reports: No Symptoms Reported GI: reports: No Symptoms Reported : reports: No Symptoms Reported Musculoskeletal: reports: No Symptoms Reported Integumentary: reports: No Symptoms Reported Neuro: reports: No Symptoms reported Endocrine: reports: No Symptoms Reported Hematology: reports: No Symptoms Reported Psychiatric: reports: Judgement Intact, Mood/Affect Appropiate, Orientated x3, Agitated, Anxious Other Systems: Reviewed and Negative Patient History - Patient Medical History Hx Anemia: No Hx Asthma: No Hx Chronic Obstructive Pulmonary Disease (COPD): No Hx Cancer: No Hx Cardiac Disorders: No Hx Congestive Heart Failure: No Hx Hypertension: No Hx Hypercholesterolemia: No Hx Pacemaker: No HX Cerebrovascular Accident: No Hx Seizures: No Hx Dementia: No Hx Diabetes: No Hx Gastrointestinal Disorders: Yes (GERD) Hx Liver Disease: No Hx Genitourinary Disorders: No Hx Sexually Transmitted Disorders: No Hx Renal Disease (ESRD): No Hx Thyroid Disease: No Hx Human Immunodeficiency Virus (HIV): No (Negative 2018) Hx Hepatitis C: No Hx Depression: Yes Hx Suicide Attempt: No (Denies suicidal ideation at this time) Hx Bipolar Disorder: No Hx Schizophrenia: No - Patient Surgical History Past Surgical History: No Hx Neurologic Surgery: No Hx Cataract Extraction: No Hx Cardiac Surgery: No Hx Lung Surgery: No Hx Breast Surgery: No Hx Breast Biopsy: No Hx Abdominal Surgery: No Hx Appendectomy: No Hx Cholecystectomy: No Hx Genitourinary Surgery: No Hx Section: No Hx Orthopedic Surgery: No Anesthesia Reaction: No - PPD History Previous Implant?: Yes Documented Results: Negative w/proof Implanted On Prior [facility] Admission?: Yes Date: 12/20/19 Results: 0 mm PPD to be Administered?: No - Smoking Cessation Smoking history: Current every day smoker Have you smoked in the past 12 months: Yes Aproximately how many cigarettes per day: 20 Cigars Per Day: 0 Hx Chewing Tobacco Use: No Initiated information on smoking cessation: Yes 'Breaking Loose' booklet given: 06/19/20 - Substances abused Alcohol Substance route: Oral Frequency: Daily Amount used: 1 pint vodka Age of first use: 17 Date of last use: 06/19/20 Heroin Substance route: Injection Amount used: 10 bags Age of first use: 21 Date of last use: 06/19/20 Crack Substance route: Smoking Frequency: 1-3 times last 30 days Amount used: $40 Age of first use: 16 Date of last use: 06/14/20 Marijuana/Hashish Substance route: Smoking Frequency: Daily Amount used: 1 blunt Age of first use: 14 Date of last use: 05/29/20 Admission Physical Exam BHS - Physical General Appearance: Yes: Nourished, Appropriately Dressed, Mild Distress, Thin, Tremorous, Irritable, Sweating, Anxious HEENTM: Yes: EOMI, Hearing grossly Normal, Normal ENT Inspection, Normocephalic, Normal Voice, MADELYN, Pharynx Normal, Tm's normal Respiratory: Yes: Chest Non-Tender, Lungs Clear, Normal Breath Sounds, No Respiratory Distress, No Accessory Muscle Use Neck: Yes: No masses,lesions,Nodules, Supple, Trachea in good position Breast: Yes: Within Normal Limits Cardiology: Yes: Regular Rhythm, Regular Rate, S1, S2 Abdominal: Yes: Normal Bowel Sounds, Non Tender, Flat, Soft Genitourinary: Yes: Within Normal Limits Back: Yes: Normal Inspection Musculoskeletal: Yes: full range of Motion, Gait Steady, Pelvis Stable Extremities: Yes: Normal Capillary Refill, Normal Inspection, Normal Range of Motion, Non-Tender Neurological: Yes: windows systems admin II-XII NML intact, Fully Oriented, Alert, Motor Strength 5/5, Normal Mood/Affect, Normal Response Integumentary: Yes: Normal Color, Dry, Warm Lymphatic: Yes: Within Normal Limits - Diagnostic (1) Alcohol dependence with uncomplicated withdrawal Current Visit: Yes Status: Acute (2) Marijuana dependence Current Visit: Yes Status: Acute (3) Opioid dependence with withdrawal Current Visit: Yes Status: Acute (4) Substance-induced sleep disorder Current Visit: Yes Status: Acute (5) Anxiety disorder Current Visit: Yes Status: Chronic (6) Cannabis dependence Current Visit: Yes Status: Chronic (7) Cocaine abuse Current Visit: Yes Status: Chronic (8) Depressive disorder Current Visit: Yes Status: Chronic (9) Insomnia Current Visit: Yes Status: Chronic (10) Nicotine dependence Current Visit: Yes Status: Chronic Qualifiers: Nicotine product type: cigarettes (11) Non-compliance Current Visit: Yes Status: Chronic Cleared for Admission S - Detox or Rehab [facility] Level of Care: Medically Managed Detox Regimen/Protocol: Methadone/Librium Claeared for Rehab Admission: No Screened but not Admitted - Documentation of Visit Screened but not Admitted: No Breathalyzer - Breathalyzer Breathalyzer: 0 Urine Drug Screen - Test Device Lot number: [id number] Expiration date: 10/27/21 - Control Is test valid?: Yes - Results Drug screen NEGATIVE: No Urine drug screen results: MOP-Opiates, BZO-Benzodiazepines Inpatient Rehab Admission - Rehab Decision to Admit Inpatient rehab admission?: No
[2020-06-19] MEDS ORDERED: cloNIDine HCL 0.1 MG TABLET PO PRN (15:12)
[2020-06-19] MEDS ORDERED: ACETAMINOPHEN 325 MG TABLET (FP) PO PRN ×2 (15:12)
[2020-06-19] MEDS ORDERED: METHADONE HCL 10 MG TABLET (FOR DETOX USE ONLY) PO ONE (15:12)
[2020-06-19] MEDS ORDERED: MAG HYDROX/AL HYDROX/SIMETH 30 ML UNIT-DOSE CUP PO PRN (15:12)
[2020-06-19] MEDS ORDERED: MENTHOL/PHENOL 1 EACH UD MM PRN (15:12)
[2020-06-19] MEDS ORDERED: chlordiazePOXIDE HCL 25 MG CAPSULE PO PRN (15:12)
[2020-06-19] MEDS ORDERED: IBUPROFEN 400 MG TABLET (FP) PO PRN (15:12)
[2020-06-19] MEDS ORDERED: BISMUTH SUBSALICYLATE 524 MG/30 ML UD PO PRN (15:12)
[2020-06-19] MEDS ORDERED: MAGNESIUM CITRATE 300 ML BOTTLE PO PRN (15:12)
[2020-06-19] MEDS ORDERED: MAGNESIUM HYDROX 2400MG/30ML ORAL SUSPENSION 30 ML CUP PO PRN (15:12)
[2020-06-19] MEDS ORDERED: NICOTINE POLACRILEX 2 MG GUM BUC PRN (15:12)
[2020-06-19 15:32] VITALS: BMI 26.2
[2020-06-19] MEDS ORDERED: PNEUMOC 13-VAL CONJ-DIP CRM/PF 0.5 ML DISP.SYRIN IM ONE (15:42)
[2020-06-19] MEDS ORDERED: ONDANSETRON *ODT* 4 MG TABLET SL ONE (16:00)
[2020-06-19] MEDS ORDERED: PNEUMOCOCCAL 23 VACCINE 0.5 ML VIAL IM ONE (16:30)
[2020-06-19 17:22] LABS: HEMATOCRIT 38.3 % (35.4-49); HEMOGLOBIN 12.8 GM/dL (11.7-16.9); MCHC 33.5 g/dl (32.0-35.9); MEAN CELL VOLUME 83.6 fl (80-96); MEAN PLT VOLUME 8.6 fl (7.5-11.1); PLATELET COUNT 167 K/MM3 (134-434); RBC 4.58 M/mm3 (4.00-5.60); RDW 14.9 % (11.9-15.9); WHITE BLOOD COUNT 5.1 K/mm3 (4.0-10.0)
[2020-06-19 17:36] LABS: ALBUMIN 4.4 g/dl (3.4-5.0); BILIRUBIN,TOTAL 0.5 mg/dL (0.2-1); BLOOD UREA NITROGEN 15.2 mg/dL (7-18); CALCIUM 9.4 mg/dL (8.5-10.1); CREATININE 1.2 mg/dL (0.55-1.3); POTASSIUM 4.7 mmol/L (3.5-5.1); TOT PROT 8.1 g/dl (6.4-8.2)
[2020-06-19] MEDS: chlordiazePOXIDE HCL 25 MG CAPSULE PO SCH ×2 (17:42→22:38)
[2020-06-19] MEDS: PRENATAL VITAMINS W/ FOLIC ACID TABLET (FP) PO SCH (17:43)
[2020-06-19] MEDS: hydrOXYzine PAMOATE 25 MG CAPSULE (FP) PO SCH ×2 (17:43→22:38)
[2020-06-19] MEDS: NICOTINE 7 MG/24 HOURS TOPICAL PATCH TD SCH (17:44)
[2020-06-19] MEDS: MELATONIN 5 MG TABLETS PO SCH (22:38)
[2020-06-19] MEDS: THIAMINE HCL 100 MG TABLET (FP) PO SCH (22:38)
[2020-06-20] MEDS: chlordiazePOXIDE HCL 25 MG CAPSULE PO SCH ×4 (05:24→22:18)
[2020-06-20] MEDS: hydrOXYzine PAMOATE 25 MG CAPSULE (FP) PO SCH ×5 (05:24→22:18)
[2020-06-20] MEDS ORDERED: METHADONE HCL 10 MG TABLET (FOR DETOX USE ONLY) ONE (09:55)
[2020-06-20] MEDS ORDERED: METHADONE HCL 5 MG TABLET (FOR DETOX USE ONLY) ONE (09:56)
[2020-06-20] MEDS ORDERED: METHADONE (DETOX) 20 MG, METHADONE (DETOX) 5 MG PO ONE (10:00)
--- NOTE | 2020-06-20 10:43 | PN ---
[facility] CIWA - CIWA Score Nausea/Vomitin-Mild Nausea/No Vomiting Muscle Tremors: 2 Anxiety: 1-Mildly Anxious Agitation: 0-Normal Activity Paroxysmal Sweats: 2 Orientation: 0-Oriented Tacttile Disturbances: 0-None Auditory Disturbances: 0-None Visual Disturbances: 0-None Headache: 0-None Present CIWA-Ar Total Score: 6 BHS COWS - Scale Resting Pulse: 0= [place] 80 or Below Sweatin= Chills/Flushing Restless Observation: 0= Sits Still Pupil Size: 0= Normal to Room Light Bone or Joint Aches: 1= Mild Discomfort Runny Nose/ Eye Tearin= None GI Upset > 30mins: 0= None Tremor Observation of Outstretched Hands: 1= Tremor [place], Not Seen Yawning Observation: 1= 1-2x During Session Anxiety or Irritability: 1=Feels Anxious/Irritable Goose Flesh Skin: 3=Piloerection COWS Score: 8 BHS Progress Note (SOAP) Subjective: Patient says he is feeling very sick. Objective: Patient is a 50yo man being managed for alcohol, xaxax and heroin detox. He is being managed with librium and methadone. Completing detox on 06/24/20 06/20/20 10:49 Assessment: Patient is being treated for alcohol, xaxax and heroin. He is also being managed for depression and anxiety. He also has a hx of Marijuana, Prescription, Tranquilizers use. 06/20/20 10:52 06/20/20 10:59 06/20/20 11:02 Plan: Continue librium, methadone and other supporting meds as prescribed.
--- NOTE | 2020-06-20 11:01 | CONSULT ---
[facility] Psychiatric Consult - Data Date of interview: 06/20/20 Admission source: Self-referred Identifying data: Mr Lester is a 49 years old single male, unemployed receiving public assistance, homeless living with cousin in the [place] seeking detox treatment for alcohol, opioid, cocaine, benzodiazepine and cannabis Substance Abuse History: Reports history of alcohol, heroin, cocaine, xanax and marijuana use. Refer to addiction counselor's summary for further information Medical History: Significant for GERD. Smokes cigarettes 1 ppd Psychiatric History: Patient is known for multiple previous admissions to this facility. He reports that his first psychiatric contact occured in December 2016 when he was admitted to [facility], diagnosed with MDD and started on psychotropic medications. Reports multiple subsequent psychiatric hospitalizations at same facility. Reports that he still receives outpatient psychiatic treatment at [facility] with Dr Edmondson and most recently saw him a month ago. Reports that he is currently prescribed Zoloft 100 mg/day, Trazodone 100 mg/hs, Gabapentin 300 mg/tid and Zyprexa 10 mg/hs. Reportedly he had one suicide attempt via deliberate overdose with heroin in 2015. At present, denies experiencing depressive symptoms, S/H ideations. However, reports feeling anxious and sleeping poorly without medications. Requests to continue his psychotropic medications as prescribed Physical/Sexual Abuse/Trauma History: Denies history of abuse as a child or DV relationship as an adult Mental Status Exam - Mental Status Exam Alert and Oriented to: Time, Place, Person Cognitive Function: Fair Patient Appearance: Disheveled Mood: Anxious Affect: Appropriate Patient Behavior: Cooperative Speech Pattern: Clear Voice Loudness: Normal Thought Process: Intact, Goal Oriented Thought Disorder: Not Present Hallucinations: Denies Suicidal Ideation: Denies Homicidal Ideation: Denies Insight/Judgement: Poor Sleep: Poorly Appetite: Good Muscle strength/Tone: Normal Gait/Station: Normal Psychiatric Findings - Problem List ([place] 1, 2,3) (1) Depressive disorder Current Visit: Yes Status: Chronic (2) MDD (major depressive disorder), recurrent episode, moderate Current Visit: No Status: Ruled-out (3) Substance-induced anxiety disorder Current Visit: Yes Status: Acute (4) Substance-induced sleep disorder Current Visit: Yes Status: Acute (5) Alcohol dependence with uncomplicated withdrawal Current Visit: Yes Status: Acute (6) Opioid dependence with withdrawal Current Visit: Yes Status: Acute (7) Cocaine abuse Current Visit: Yes Status: Chronic (8) Sedative, hypnotic or anxiolytic use disorder, mild, abuse Current Visit: No Status: Acute (9) Cannabis abuse Current Visit: Yes Status: Acute (10) Nicotine dependence Current Visit: Yes Status: Chronic Qualifiers: Nicotine product type: cigarettes (11) GERD (gastroesophageal reflux disease) Current Visit: No Status: Chronic - Initial Treatment Plan Initial Treatment Plan: 1) Continue Zoloft 100 mg po daily, Gabapentin 300 mg po TID, Zyprexa 10 mg po HS and Trazadone 100 mg po HS. 2) Continue inpatient detoxification
[2020-06-20] MEDS: PRENATAL VITAMINS W/ FOLIC ACID TABLET (FP) PO SCH (11:06)
[2020-06-20] MEDS: NICOTINE 7 MG/24 HOURS TOPICAL PATCH TD SCH (11:07)
[2020-06-20] MEDS ORDERED: PNEUMOCOCCAL 23 VACCINE 0.5 ML VIAL IM ONE (12:00)
--- NOTE | 2020-06-20 13:49 | CONSULT ---
[facility] Psychiatric Consult - Data Date of interview: 06/20/20 Admission source: Self-referred Psychiatric Findings - Problem List ([place] 1, 2,3) (1) Depressive disorder Current Visit: Yes Status: Chronic (2) MDD (major depressive disorder), recurrent episode, moderate Current Visit: No Status: Ruled-out
[2020-06-20] MEDS: SERTRALINE HCL 50 MG TABLET (FP) PO SCH (14:55)
[2020-06-20] MEDS: GABAPENTIN 300 MG CAPSULE PO SCH ×2 (14:55→22:18)
[2020-06-20] MEDS: traZODone HCL 100 MG TABLET (FP) PO SCH (22:18)
[2020-06-20] MEDS: THIAMINE HCL 100 MG TABLET (FP) PO SCH (22:18)
[2020-06-20] MEDS: MELATONIN 5 MG TABLETS PO SCH (22:18)
[2020-06-20] MEDS: OLANZapine 10 MG TABLET PO SCH (22:18)
[2020-06-21] MEDS: hydrOXYzine PAMOATE 25 MG CAPSULE (FP) PO SCH ×5 (06:10→22:12)
[2020-06-21] MEDS: GABAPENTIN 300 MG CAPSULE PO SCH ×3 (06:10→22:08)
[2020-06-21] MEDS: chlordiazePOXIDE HCL 25 MG CAPSULE PO SCH ×4 (06:10→22:09)
[2020-06-21] MEDS ORDERED: METHADONE HCL 10 MG TABLET (FOR DETOX USE ONLY) PO ONE (10:00)
[2020-06-21] MEDS: PRENATAL VITAMINS W/ FOLIC ACID TABLET (FP) PO SCH (10:21)
[2020-06-21] MEDS: SERTRALINE HCL 50 MG TABLET (FP) PO SCH (10:22)
[2020-06-21] MEDS: NICOTINE 7 MG/24 HOURS TOPICAL PATCH TD SCH (10:23)
[2020-06-21] MEDS: METHOCARBAMOL 500 MG TABLET PO PRN (14:43)
--- NOTE | 2020-06-21 15:34 | PN ---
[facility] CIWA - CIWA Score Nausea/Vomitin-No Nausea/No Vomiting Muscle Tremors: 2 Anxiety: 3 Agitation: 0-Normal Activity Paroxysmal Sweats: 3 Orientation: 0-Oriented Tacttile Disturbances: 1-Very Mild Itch/Numbness Auditory Disturbances: 0-None Visual Disturbances: 2-Mild Sensitivity Headache: 0-None Present CIWA-Ar Total Score: 11 S COWS - Scale Resting Pulse: 0= [place] 80 or Below Sweatin= Chills/Flushing Restless Observation: 0= Sits Still Pupil Size: 0= Normal to Room Light Bone or Joint Aches: 2= Severe Diffuse Aches Runny Nose/ Eye Tearin= None GI Upset > 30mins: 0= None Tremor Observation of Outstretched Hands: 2= Slight Tremor Visible Yawning Observation: 0= None Anxiety or Irritability: 2=Irritable/Anxious Goose Flesh Skin: 3=Piloerection COWS Score: 10 S Progress Note (SOAP) Subjective: Body Aches, Aches, Chills, Sweating, Fatigue. Objective: Patient A & O X 3; In No Acute Distress. 06/21/20 15:33 Vital Signs Temperature 98.1 F 06/21/20 12:37 Pulse Rate 73 06/21/20 12:37 Respiratory Rate 16 06/21/20 12:37 Blood Pressure 114/64 06/21/20 12:37 O2 Sat by Pulse Oximetry (%) 97 06/21/20 12:37 Laboratory Tests 06/19/20 06/19/20 06/19/20 15:00 15:00 15:00 WBC 5.1 RBC 4.58 Hgb 12.8 Hct 38.3 MCV 83.6 MCH 28.0 MCHC 33.5 RDW 14.9 Plt Count 167 MPV 8.6 Sodium 138 Potassium 4.7 Chloride 101 Carbon Dioxide 32 Anion Gap 5 L BUN 15.2 Creatinine 1.2 Est GFR (CKD-EPI)AfAm 82.38 Est GFR (CKD-EPI)NonAf 71.08 Random Glucose 106 Calcium 9.4 Total Bilirubin 0.5 AST 33 ALT 45 Alkaline Phosphatase 86 Total Protein 8.1 Albumin 4.4 Syphilis Serology Non-reactive COVID-19 (NANCI) HIV Ag/Ab Combo Qual 06/19/20 06/19/20 15:00 16:00 WBC RBC Hgb Hct MCV MCH MCHC RDW Plt Count MPV Sodium Potassium Chloride Carbon Dioxide Anion Gap BUN Creatinine Est GFR (CKD-EPI)AfAm Est GFR (CKD-EPI)NonAf Random Glucose Calcium Total Bilirubin AST ALT Alkaline Phosphatase Total Protein Albumin Syphilis Serology COVID-19 (NANCI) Not detected HIV Ag/Ab Combo Qual Negative Lab Results Noted. Assessment: 06/21/20 15:33 WITHDRAWAL SYMPTOMS. Plan: Continue Detox. Increase Daily oral water intake.
[2020-06-21] MEDS: MELATONIN 5 MG TABLETS PO SCH (22:08)
[2020-06-21] MEDS: traZODone HCL 100 MG TABLET (FP) PO SCH (22:09)
[2020-06-21] MEDS: THIAMINE HCL 100 MG TABLET (FP) PO SCH (22:09)
[2020-06-21] MEDS: OLANZapine 10 MG TABLET PO SCH (22:09)
[2020-06-22] MEDS ORDERED: chlordiazePOXIDE HCL 10 MG CAPSULE PO PRN
[2020-06-22] MEDS: hydrOXYzine PAMOATE 25 MG CAPSULE (FP) PO SCH ×5 (06:05→22:02)
[2020-06-22] MEDS: GABAPENTIN 300 MG CAPSULE PO SCH ×3 (06:05→22:02)
[2020-06-22] MEDS: chlordiazePOXIDE HCL 10 MG CAPSULE PO SCH ×4 (06:06→22:02)
[2020-06-22] MEDS ORDERED: METHADONE HCL 10 MG TABLET (FOR DETOX USE ONLY) ONE (09:05)
[2020-06-22] MEDS ORDERED: METHADONE HCL 5 MG TABLET (FOR DETOX USE ONLY) ONE (09:06)
[2020-06-22] MEDS ORDERED: METHADONE (DETOX) 10 MG, METHADONE (DETOX) 5 MG PO ONE (10:00)
[2020-06-22] MEDS: PRENATAL VITAMINS W/ FOLIC ACID TABLET (FP) PO SCH (10:07)
[2020-06-22] MEDS: SERTRALINE HCL 50 MG TABLET (FP) PO SCH (10:08)
[2020-06-22] MEDS: NICOTINE 7 MG/24 HOURS TOPICAL PATCH TD SCH (10:08)
[2020-06-22] MEDS: METHOCARBAMOL 500 MG TABLET PO PRN ×2 (10:10→17:45)
--- NOTE | 2020-06-22 13:18 | PN ---
S CIWA - CIWA Score Nausea/Vomitin-Mild Nausea/No Vomiting Muscle Tremors: 2 Anxiety: 2 Agitation: 1-Slight > Activity Paroxysmal Sweats: No Perspiration Orientation: 0-Oriented Tacttile Disturbances: 0-None Auditory Disturbances: 0-None Visual Disturbances: 1-Very Mild Sensitivity Headache: 1-Very Mild CIWA-Ar Total Score: 8 S COWS - Scale Resting Pulse: 0= [place] 80 or Below Sweatin= Chills/Flushing Restless Observation: 0= Sits Still Pupil Size: 1= Pupils >than Normal Bone or Joint Aches: 1= Mild Discomfort Runny Nose/ Eye Tearin= None GI Upset > 30mins: 1= Stomach Cramp Tremor Observation of Outstretched Hands: 2= Slight Tremor Visible Yawning Observation: 0= None Anxiety or Irritability: 2=Irritable/Anxious Goose Flesh Skin: 0=Smooth Skin COWS Score: 8 S Progress Note (SOAP) Subjective: 50 years old male admitted on 06/19/20 for alcohol and benzo and opiate withdrawal sx management treating with librium and methadone detox regiment feeling better today ate breakfast and lunch in room social with peers in day room discussing medication assisted treatment program and picking up narcan from pharmacy upon discharge from detox Objective: 06/22/20 13:20 Vital Signs - 24 hr 06/21/20 06/22/20 06/22/20 20:27 06:56 08:32 Temperature 97.5 F L 97.5 F L 96.2 F L Pulse Rate 69 59 L 68 Respiratory 18 18 18 Rate Blood Pressure 102/65 99/53 L 110/80 O2 Sat by Pulse 96 96 96 Oximetry (%) 06/22/20 12:15 Temperature 97.1 F L Pulse Rate 73 Respiratory 18 Rate Blood Pressure 122/82 O2 Sat by Pulse 96 Oximetry (%) Laboratory Tests 06/19/20 06/19/20 06/19/20 15:00 15:00 15:00 WBC 5.1 RBC 4.58 Hgb 12.8 Hct 38.3 MCV 83.6 MCH 28.0 MCHC 33.5 RDW 14.9 Plt Count 167 MPV 8.6 Sodium 138 Potassium 4.7 Chloride 101 Carbon Dioxide 32 Anion Gap 5 L BUN 15.2 Creatinine 1.2 Est GFR (CKD-EPI)AfAm 82.38 Est GFR (CKD-EPI)NonAf 71.08 Random Glucose 106 Calcium 9.4 Total Bilirubin 0.5 AST 33 ALT 45 Alkaline Phosphatase 86 Total Protein 8.1 Albumin 4.4 Syphilis Serology Non-reactive COVID-19 (NANCI) HIV Ag/Ab Combo Qual 06/19/20 06/19/20 15:00 16:00 WBC RBC Hgb Hct MCV MCH MCHC RDW Plt Count MPV Sodium Potassium Chloride Carbon Dioxide Anion Gap BUN Creatinine Est GFR (CKD-EPI)AfAm Est GFR (CKD-EPI)NonAf Random Glucose Calcium Total Bilirubin AST ALT Alkaline Phosphatase Total Protein Albumin Syphilis Serology COVID-19 (NANCI) Not detected HIV Ag/Ab Combo Qual Negative lab noted Assessment: 06/22/20 13:20 alcohol benzo opiate withdrawal Plan: librium and methadone regiment
[2020-06-22] MEDS: OLANZapine 10 MG TABLET PO SCH (22:02)
[2020-06-22] MEDS: MELATONIN 5 MG TABLETS PO SCH (22:02)
[2020-06-22] MEDS: traZODone HCL 100 MG TABLET (FP) PO SCH (22:02)
[2020-06-22] MEDS: THIAMINE HCL 100 MG TABLET (FP) PO SCH (22:02)
[2020-06-23] MEDS: chlordiazePOXIDE HCL 10 MG CAPSULE PO SCH ×2 (05:47→17:54)
[2020-06-23] MEDS: hydrOXYzine PAMOATE 25 MG CAPSULE (FP) PO SCH ×5 (05:48→22:29)
[2020-06-23] MEDS: GABAPENTIN 300 MG CAPSULE PO SCH ×3 (05:48→22:30)
--- NOTE | 2020-06-23 09:45 | PN ---
[facility] CIWA - CIWA Score Nausea/Vomitin-No Nausea/No Vomiting Muscle Tremors: 1-None Visible, but [place] Anxiety: 2 Agitation: 1-Slight > Activity Paroxysmal Sweats: No Perspiration Orientation: 0-Oriented Tacttile Disturbances: 0-None Auditory Disturbances: 0-None Visual Disturbances: 1-Very Mild Sensitivity Headache: 0-None Present CIWA-Ar Total Score: 5 S COWS - Scale Resting Pulse: 0= [place] 80 or Below Sweatin= No chills or Flushing Restless Observation: 0= Sits Still Pupil Size: 0= Normal to Room Light Bone or Joint Aches: 1= Mild Discomfort Runny Nose/ Eye Tearin= None GI Upset > 30mins: 1= Stomach Cramp Tremor Observation of Outstretched Hands: 1= Tremor [place], Not Seen Yawning Observation: 0= None Anxiety or Irritability: 2=Irritable/Anxious Goose Flesh Skin: 0=Smooth Skin COWS Score: 5 S Progress Note (SOAP) Subjective: 50 years old male admitted on 06/19/20 for alcohol benzo opiate withdrawal sx management treating with librium and methadone detox regiment feeling better today sitting on the edge of the bed eating breakfast tolerating food well alert oriented x 3 speech clearly discussing aftercare with staff prefers [facility] than out patient substance abuse treatment Objective: 06/23/20 09:47 Vital Signs - 24 hr 06/22/20 06/22/20 06/22/20 12:15 16:34 20:58 Temperature 97.1 F L 97.3 F L 97.3 F L Pulse Rate 73 66 69 Respiratory 18 18 18 Rate Blood Pressure 122/82 113/69 120/81 O2 Sat by Pulse 96 95 Oximetry (%) 06/23/20 06/23/20 05:40 08:48 Temperature 97.8 F 97.3 F L Pulse Rate 63 65 Respiratory 18 18 Rate Blood Pressure 89/60 L 118/79 O2 Sat by Pulse 95 Oximetry (%) Laboratory Tests 06/19/20 06/19/20 06/19/20 15:00 15:00 15:00 WBC 5.1 RBC 4.58 Hgb 12.8 Hct 38.3 MCV 83.6 MCH 28.0 MCHC 33.5 RDW 14.9 Plt Count 167 MPV 8.6 Sodium 138 Potassium 4.7 Chloride 101 Carbon Dioxide 32 Anion Gap 5 L BUN 15.2 Creatinine 1.2 Est GFR (CKD-EPI)AfAm 82.38 Est GFR (CKD-EPI)NonAf 71.08 Random Glucose 106 Calcium 9.4 Total Bilirubin 0.5 AST 33 ALT 45 Alkaline Phosphatase 86 Total Protein 8.1 Albumin 4.4 Syphilis Serology Non-reactive COVID-19 (NANCI) HIV Ag/Ab Combo Qual 06/19/20 06/19/20 15:00 16:00 WBC RBC Hgb Hct MCV MCH MCHC RDW Plt Count MPV Sodium Potassium Chloride Carbon Dioxide Anion Gap BUN Creatinine Est GFR (CKD-EPI)AfAm Est GFR (CKD-EPI)NonAf Random Glucose Calcium Total Bilirubin AST ALT Alkaline Phosphatase Total Protein Albumin Syphilis Serology COVID-19 (NANCI) Not detected HIV Ag/Ab Combo Qual Negative lab noted Assessment: 06/23/20 09:48 alcohol benzo opiate withdrawal Plan: librium and methadone regiment
[2020-06-23] MEDS ORDERED: METHADONE HCL 10 MG TABLET (FOR DETOX USE ONLY) PO ONE (10:00)
[2020-06-23] MEDS: SERTRALINE HCL 50 MG TABLET (FP) PO SCH (10:21)
[2020-06-23] MEDS: NICOTINE 7 MG/24 HOURS TOPICAL PATCH TD SCH (10:21)
[2020-06-23] MEDS: PRENATAL VITAMINS W/ FOLIC ACID TABLET (FP) PO SCH (10:21)
[2020-06-23] MEDS: METHOCARBAMOL 500 MG TABLET PO PRN ×2 (10:23→22:31)
[2020-06-23] MEDS: traZODone HCL 100 MG TABLET (FP) PO SCH (22:30)
[2020-06-23] MEDS: OLANZapine 10 MG TABLET PO SCH (22:30)
[2020-06-23] MEDS: THIAMINE HCL 100 MG TABLET (FP) PO SCH (22:32)
[2020-06-23] MEDS: MELATONIN 5 MG TABLETS PO SCH (22:32)
[2020-06-24] MEDS ORDERED: chlordiazePOXIDE HCL 10 MG CAPSULE PO ONE (05:00)
[2020-06-24] MEDS: hydrOXYzine PAMOATE 25 MG CAPSULE (FP) PO SCH ×2 (05:48→10:38)
[2020-06-24] MEDS: GABAPENTIN 300 MG CAPSULE PO SCH (05:48)
[2020-06-24] MEDS ORDERED: METHADONE HCL 5 MG TABLET (FOR DETOX USE ONLY) PO ONE (06:00)
--- NOTE | 2020-06-24 08:46 | DS ---
[facility] Detox Discharge Summary Admission Date: 06/19/20 Discharge Date: 06/24/20 - History Present History: Alcohol Dependence, Opioid Dependence, Sedative Dependence Additional Comments: 50 years old male admitted on 06/19/20 for alcohol benzo opiate withdrawal sx management treated with librium and methadone detox regiments seen by psychiatrist resume gabapentin zyprexa zoloft and tradodone ms yost has completed librium and methadone regiments and is tolerated well alert oriented x 3 speech clearly coherently ambulating with steady gaits cardiac s1s2 regular rate rhythm respiratory clear lung sounds bilaterally on auscultation extremities full range of motion Pertinent Past History: time for discharge 45 minutes transferred order from detox to rehab - Physical Exam Results Vital Signs: Vital Signs Temperature 97.1 F L 06/24/20 06:42 Pulse Rate 70 06/24/20 06:42 Respiratory Rate 18 06/24/20 06:42 Blood Pressure 100/65 06/24/20 06:42 O2 Sat by Pulse Oximetry (%) 97 06/24/20 06:42 Pertinent Admission Physical Exam Findings: alcohol benzo opiate withdrawal Laboratory Tests 06/19/20 06/19/20 06/19/20 15:00 15:00 15:00 WBC 5.1 RBC 4.58 Hgb 12.8 Hct 38.3 MCV 83.6 MCH 28.0 MCHC 33.5 RDW 14.9 Plt Count 167 MPV 8.6 Sodium 138 Potassium 4.7 Chloride 101 Carbon Dioxide 32 Anion Gap 5 L BUN 15.2 Creatinine 1.2 Est GFR (CKD-EPI)AfAm 82.38 Est GFR (CKD-EPI)NonAf 71.08 Random Glucose 106 Calcium 9.4 Total Bilirubin 0.5 AST 33 ALT 45 Alkaline Phosphatase 86 Total Protein 8.1 Albumin 4.4 Syphilis Serology Non-reactive COVID-19 (NANCI) HIV Ag/Ab Combo Qual 06/19/20 06/19/20 15:00 16:00 WBC RBC Hgb Hct MCV MCH MCHC RDW Plt Count MPV Sodium Potassium Chloride Carbon Dioxide Anion Gap BUN Creatinine Est GFR (CKD-EPI)AfAm Est GFR (CKD-EPI)NonAf Random Glucose Calcium Total Bilirubin AST ALT Alkaline Phosphatase Total Protein Albumin Syphilis Serology COVID-19 (NANCI) Not detected HIV Ag/Ab Combo Qual Negative lab noted - Treatment Hospital Course: Detox Protocol Followed, Detoxed Safely, Responded well, Discharged Condition Good, Rehab Referral Accepted Patient has Accepted [facility] Ref[facility] - Medication Discharge Medications: Ambulatory Orders Olanzapine [Zyprexa] 10 mg PO HS 08/02/19 Gabapentin [Neurontin -] 300 mg PO TID #90 capsule 01/03/20 Sertraline HCl [Zoloft] 100 mg PO DAILY #30 tablet 01/03/20 Trazodone HCl 100 mg PO HS 05/05/20 Naloxone HCl [Narcan] 4 mg NS ASDIR PRN #1 spray 06/22/20 - Diagnosis (1) Alcohol dependence with uncomplicated withdrawal Current Visit: Yes Status: Acute (2) Opioid dependence with withdrawal Current Visit: Yes Status: Acute (3) Nicotine dependence Current Visit: Yes Status: Acute Qualifiers: Nicotine product type: cigarettes Substance use status: in withdrawal Qualified Code(s): F17.213 - Nicotine dependence, cigarettes, with withdrawal (4) Sedative, hypnotic or anxiolytic use disorder, mild, abuse Current Visit: Yes Status: Acute (5) Substance induced mood disorder Current Visit: Yes Status: Suspected - AMA Did Patient Leave Against Medical Advice: No CIWA Score - CIWA Score Nausea/Vomitin-No Nausea/No Vomiting Muscle Tremors: 1-None Visible, but [place] Anxiety: 1-Mildly Anxious Agitation: 0-Normal Activity Paroxysmal Sweats: No Perspiration Orientation: 0-Oriented Tacttile Disturbances: 0-None Auditory Disturbances: 0-None Visual Disturbances: 0-None Headache: 0-None Present CIWA-Ar Total Score: 2 COWS (PN) - Opiate Withdrawal Resting Pulse: 0= [place] 80 or Below Sweatin= No chills or Flushing Restless Observation: 0= Sits Still Pupil Size: 0= Normal to Room Light Bone or Joint Aches: 1= Mild Discomfort Runny Nose/ Eye Tearin= None GI Upset > 30mins: 0= None Tremor Observation of Outstretched Hands: 0= None Yawning Observation: 0= None Anxiety or Irritability: 1=Feels Anxious/Irritable Goose Flesh Skin: 0=Smooth Skin COWS Score: 2
[2020-06-24 08:57] VITALS: BP 119/84; PULSE 81; TEMP 97.4
[2020-06-24] MEDS: NICOTINE 7 MG/24 HOURS TOPICAL PATCH TD SCH (10:39)
[2020-06-24] MEDS: PRENATAL VITAMINS W/ FOLIC ACID TABLET (FP) PO SCH (10:39)
[2020-06-24] MEDS: METHOCARBAMOL 500 MG TABLET PO PRN (10:40)
[2020-06-24] MEDS: SERTRALINE HCL 50 MG TABLET (FP) PO SCH (10:41)
== END 2020-06-24 10:15 | disposition other institution (70) | DRG 773 ==
LOC: YASAS 12:39 → Y3N 16:05
PROVIDERS: ADMIT Allergy & Immunology; ATTEND Allergy & Immunology
PROC: HZ2ZZZZ Detoxification Services for Substance Abuse Treatment (ICD-10-PCS; principal; 2020-06-19)
DX: F10.230 Alcohol dependence with withdrawal, uncomplicated (principal); F11.23 Opioid dependence with withdrawal; F13.230 Sedative, hypnotic or anxiolytic dependence with withdrawal, uncomplicated; F14.10 Cocaine abuse, uncomplicated; F12.10 Cannabis abuse, uncomplicated; F17.210 Nicotine dependence, cigarettes, uncomplicated; F19.282 Other psychoactive substance dependence with psychoactive substance-induced sleep disorder; F19.24 Other psychoactive substance dependence with psychoactive substance-induced mood disorder; F41.9 Anxiety disorder, unspecified; F32.9 Major depressive disorder, single episode, unspecified; K21.9 Gastro-esophageal reflux disease without esophagitis; Z91.018 Allergy to other foods; Z56.0 Unemployment, unspecified; Z59.0 Homelessness
CPT/HCPCS: 36415; 80053; 85027; 86780; 87389; U0003

== ENCOUNTER 2020-06-24 11:00 | Inpatient (IN) | payer OTHER ==
--- NOTE | 2020-06-24 08:47 | HP ---
[facility] Rehab Assess/Revision - Admission History Admitted to Rehab from: [facility] Date of Admission to Rehab: 06/24/20 - Findings Detox History & Physical reviewed: Yes Concur with findings: Yes Comments/Additional Findings: trasnferred from detox to rehab admission as per protocol Inpatient Rehab Admission - Rehab Decision to Admit Inpatient rehab admission?: Yes - Initial Determination Are CD services needed?: Yes Free of communicable disease: Yes Not in need of hospitalization: Yes - Rehab Admission Criteria Previous failed treatment: Yes Poor recovery environment: Yes Comorbidities: Yes Lacks judgement: Yes Patient is meeting Inpatient Rehab admission criteria:: Yes
[2020-06-24] MEDS ORDERED: P-EPHED 60MG/TRIPROLIDI 2.5MG TABLET PO PRN (11:05)
[2020-06-24] MEDS ORDERED: MAG HYDROX/AL HYDROX/SIMETH 30 ML UNIT-DOSE CUP PO PRN (11:05)
[2020-06-24] MEDS ORDERED: guaiFENesin 200 MG/10 ML 10 ML UNIT-DOSE CUPS PO PRN (11:05)
[2020-06-24] MEDS ORDERED: ACETAMINOPHEN 325 MG TABLET (FP) PO PRN (11:05)
[2020-06-24] MEDS ORDERED: LOPERAMIDE HCL 2 MG CAPSULE PO PRN (11:05)
[2020-06-24] MEDS ORDERED: NICOTINE POLACRILEX 2 MG GUM BUC PRN (11:05)
[2020-06-24] MEDS ORDERED: MAGNESIUM HYDROX 2400MG/30ML ORAL SUSPENSION 30 ML CUP PO PRN (11:05)
[2020-06-24] MEDS ORDERED: MAGNESIUM CITRATE 300 ML BOTTLE PO PRN (11:05)
--- NOTE | 2020-06-24 13:04 | CONSULT ---
[facility] Psychiatric Consult - Data Date of interview: 06/24/20 Admission source: 3N Identifying data: Mr Lester is a 49 years old single male, unemployed receiving public assistance, homeless living with cousin in the [place] admitted from detox on 06/24/20 for inpatient rehabilitation treatment for alcohol, opioid, cocaine, benzodiazepine and cannabis Substance Abuse History: Reports history of alcohol, heroin, cocaine, xanax and marijuana use. Refer to addiction counselor's summary for further information Medical History: Significant for GERD. Smokes cigarettes 1 ppd Psychiatric History: Patient is known for multiple previous admissions to this facility and he was recently seen by securities underwriter on 06/20/20 while admitted to detox. He reports that his first psychiatric contact occured in December 2016 when he was admitted to [facility], diagnosed with MDD and started on psychotropic medications. Reports multiple subsequent psychiatric hospitalizations at same facility. Reports that he still receives outpatient psychiatic treatment at [facility] with Dr Edmondson and most recently saw him a month ago. Reports that he is currently prescribed Zoloft 100 mg/day, Trazodone 100 mg/hs, Gabapentin 300 mg/tid and Zyprexa 10 mg/hs. When seen by securities underwriter in detox, he was continued on above medications. Reportedly he had one suicide attempt via deliberate overdose with heroin in 2016. At present, denies experiencing depressive symptoms, S/H ideations. However, reports feeling anxious and sleeping poorly without medications. Requests to continue his psychotropic medications as prescribed Physical/Sexual Abuse/Trauma History: Denies history of abuse as a child or DV relationship as an adult Mental Status Exam - Mental Status Exam Alert and Oriented to: Time, Place, Person Cognitive Function: Fair Patient Appearance: Disheveled Mood: Hopeful, Euthymic Affect: Appropriate Patient Behavior: Cooperative Speech Pattern: Clear Voice Loudness: Normal Thought Process: Intact, Goal Oriented Thought Disorder: Not Present Hallucinations: Denies Suicidal Ideation: Denies Homicidal Ideation: Denies Insight/Judgement: Fair Sleep: Poorly Appetite: Good Muscle strength/Tone: Normal Gait/Station: Normal Psychiatric Findings - Problem List ([place] 1, 2,3) (1) GERD (gastroesophageal reflux disease) Current Visit: No Status: Chronic (2) MDD (major depressive disorder), recurrent episode, moderate Current Visit: No Status: Ruled-out (3) Substance-induced sleep disorder Current Visit: Yes Status: Acute (4) Alcohol dependence Current Visit: Yes Status: Acute (5) Opioid dependence Current Visit: Yes Status: Acute (6) Cocaine abuse Current Visit: Yes Status: Acute (7) Sedative, hypnotic or anxiolytic use disorder, mild, abuse Current Visit: No Status: Acute (8) Cannabis abuse Current Visit: No Status: Acute (9) Nicotine dependence Current Visit: No Status: Chronic Qualifiers: Nicotine product type: cigarettes Substance use status: in withdrawal Qualified Code(s): F17.213 - Nicotine dependence, cigarettes, with withdrawal (10) GERD (gastroesophageal reflux disease) Current Visit: Yes Status: Chronic - Initial Treatment Plan Initial Treatment Plan: 1) Continue Zoloft 100 mg po daily, Gabapentin 300 mg po TID, Zyprexa 10 mg po HS and Trazadone 100 mg po HS. 2) Continue inpatient rehabilitation
[2020-06-24] MEDS: GABAPENTIN 300 MG CAPSULE PO SCH ×2 (14:42→21:09)
[2020-06-24] MEDS: traZODone HCL 100 MG TABLET (FP) PO SCH (21:09)
[2020-06-24] MEDS: MELATONIN 5 MG TABLETS PO SCH (21:09)
[2020-06-24] MEDS: THIAMINE HCL 100 MG TABLET (FP) PO SCH (21:09)
[2020-06-24] MEDS: OLANZapine 10 MG TABLET PO SCH (21:09)
[2020-06-25] MEDS: GABAPENTIN 300 MG CAPSULE PO SCH ×3 (06:22→21:27)
[2020-06-25] MEDS: SERTRALINE HCL 50 MG TABLET (FP) PO SCH (10:17)
[2020-06-25] MEDS: PRENATAL VITAMINS W/ FOLIC ACID TABLET (FP) PO SCH (10:17)
[2020-06-25] MEDS: NICOTINE 7 MG/24 HOURS TOPICAL PATCH TD SCH (10:18)
[2020-06-25] MEDS: traZODone HCL 100 MG TABLET (FP) PO SCH (21:27)
[2020-06-25] MEDS: OLANZapine 10 MG TABLET PO SCH (21:27)
[2020-06-25] MEDS: MELATONIN 5 MG TABLETS PO SCH (21:27)
[2020-06-25] MEDS: THIAMINE HCL 100 MG TABLET (FP) PO SCH (21:27)
[2020-06-25] MEDS: hydrOXYzine PAMOATE 25 MG CAPSULE (FP) PO PRN (21:27)
[2020-06-26] MEDS: GABAPENTIN 300 MG CAPSULE PO SCH ×3 (06:45→21:05)
[2020-06-26] MEDS: NICOTINE 7 MG/24 HOURS TOPICAL PATCH TD SCH (09:15)
[2020-06-26] MEDS: PRENATAL VITAMINS W/ FOLIC ACID TABLET (FP) PO SCH (09:15)
[2020-06-26] MEDS: SERTRALINE HCL 50 MG TABLET (FP) PO SCH (09:15)
--- NOTE | 2020-06-26 09:29 | PN ---
S Progress Note Note: patient admitted to [facility] yesterday, stable, no complaints, no urgent medical problems at this time. Vital Signs Period Temp Pulse Resp BP Sys/Morrell Pulse Ox Last 24 Hr 97.8 F-98 F 70 18 108/69 95-96 P/E general: no apparent distress HEENTM: normocephalic Neck: supple MSK: full ROM Neuro: A+Ox4
[2020-06-26] MEDS: MELATONIN 5 MG TABLETS PO SCH (21:04)
[2020-06-26] MEDS: THIAMINE HCL 100 MG TABLET (FP) PO SCH (21:05)
[2020-06-26] MEDS: traZODone HCL 100 MG TABLET (FP) PO SCH (21:05)
[2020-06-26] MEDS: hydrOXYzine PAMOATE 25 MG CAPSULE (FP) PO PRN (21:05)
[2020-06-26] MEDS: OLANZapine 10 MG TABLET PO SCH (21:05)
[2020-06-27] MEDS: GABAPENTIN 300 MG CAPSULE PO SCH ×3 (06:11→21:20)
[2020-06-27] MEDS: PRENATAL VITAMINS W/ FOLIC ACID TABLET (FP) PO SCH (10:04)
[2020-06-27] MEDS: SERTRALINE HCL 50 MG TABLET (FP) PO SCH (10:04)
[2020-06-27] MEDS: hydrOXYzine PAMOATE 25 MG CAPSULE (FP) PO PRN ×3 (10:04→21:20)
[2020-06-27] MEDS: NICOTINE 7 MG/24 HOURS TOPICAL PATCH TD SCH (10:05)
[2020-06-27] MEDS: OLANZapine 10 MG TABLET PO SCH (21:20)
[2020-06-27] MEDS: traZODone HCL 100 MG TABLET (FP) PO SCH (21:20)
[2020-06-27] MEDS: MELATONIN 5 MG TABLETS PO SCH (21:20)
[2020-06-27] MEDS: THIAMINE HCL 100 MG TABLET (FP) PO SCH (21:20)
[2020-06-28] MEDS: GABAPENTIN 300 MG CAPSULE PO SCH ×3 (06:22→21:05)
[2020-06-28] MEDS: hydrOXYzine PAMOATE 25 MG CAPSULE (FP) PO PRN ×2 (09:42→21:06)
[2020-06-28] MEDS: PRENATAL VITAMINS W/ FOLIC ACID TABLET (FP) PO SCH (09:42)
[2020-06-28] MEDS: SERTRALINE HCL 50 MG TABLET (FP) PO SCH (09:42)
[2020-06-28] MEDS: NICOTINE 7 MG/24 HOURS TOPICAL PATCH TD SCH (09:43)
[2020-06-28] MEDS: THIAMINE HCL 100 MG TABLET (FP) PO SCH (21:05)
[2020-06-28] MEDS: traZODone HCL 100 MG TABLET (FP) PO SCH (21:05)
[2020-06-28] MEDS: OLANZapine 10 MG TABLET PO SCH (21:05)
[2020-06-28] MEDS: MELATONIN 5 MG TABLETS PO SCH (21:05)
[2020-06-29] MEDS: GABAPENTIN 300 MG CAPSULE PO SCH ×3 (05:59→21:24)
[2020-06-29] MEDS: SERTRALINE HCL 50 MG TABLET (FP) PO SCH (10:06)
[2020-06-29] MEDS: hydrOXYzine PAMOATE 25 MG CAPSULE (FP) PO PRN ×2 (10:06→21:24)
[2020-06-29] MEDS: PRENATAL VITAMINS W/ FOLIC ACID TABLET (FP) PO SCH (10:06)
[2020-06-29] MEDS: NICOTINE 7 MG/24 HOURS TOPICAL PATCH TD SCH (10:07)
[2020-06-29] MEDS: OLANZapine 10 MG TABLET PO SCH (21:24)
[2020-06-29] MEDS: traZODone HCL 100 MG TABLET (FP) PO SCH (21:24)
[2020-06-29] MEDS: THIAMINE HCL 100 MG TABLET (FP) PO SCH (21:24)
[2020-06-29] MEDS: MELATONIN 5 MG TABLETS PO SCH (21:24)
[2020-06-30] MEDS: GABAPENTIN 300 MG CAPSULE PO SCH ×3 (06:23→21:19)
[2020-06-30] MEDS: NICOTINE 7 MG/24 HOURS TOPICAL PATCH TD SCH (09:57)
[2020-06-30] MEDS: SERTRALINE HCL 50 MG TABLET (FP) PO SCH (09:57)
[2020-06-30] MEDS: PRENATAL VITAMINS W/ FOLIC ACID TABLET (FP) PO SCH (09:57)
[2020-06-30] MEDS: hydrOXYzine PAMOATE 25 MG CAPSULE (FP) PO PRN ×2 (09:58→21:19)
[2020-06-30] MEDS: IBUPROFEN 400 MG TABLET (FP) PO PRN ×2 (09:58→21:20)
[2020-06-30] MEDS: OLANZapine 10 MG TABLET PO SCH (21:19)
[2020-06-30] MEDS: traZODone HCL 100 MG TABLET (FP) PO SCH (21:19)
[2020-06-30] MEDS: MELATONIN 5 MG TABLETS PO SCH (21:19)
[2020-06-30] MEDS: THIAMINE HCL 100 MG TABLET (FP) PO SCH (21:19)
[2020-07-01] MEDS: GABAPENTIN 300 MG CAPSULE PO SCH ×3 (06:33→21:25)
[2020-07-01] MEDS: SERTRALINE HCL 50 MG TABLET (FP) PO SCH (10:34)
[2020-07-01] MEDS: hydrOXYzine PAMOATE 25 MG CAPSULE (FP) PO PRN ×2 (10:34→21:25)
[2020-07-01] MEDS: PRENATAL VITAMINS W/ FOLIC ACID TABLET (FP) PO SCH (10:34)
[2020-07-01] MEDS: NICOTINE 7 MG/24 HOURS TOPICAL PATCH TD SCH (10:34)
[2020-07-01] MEDS: traZODone HCL 100 MG TABLET (FP) PO SCH (21:25)
[2020-07-01] MEDS: THIAMINE HCL 100 MG TABLET (FP) PO SCH (21:25)
[2020-07-01] MEDS: MELATONIN 5 MG TABLETS PO SCH (21:25)
[2020-07-01] MEDS: OLANZapine 10 MG TABLET PO SCH (21:25)
[2020-07-01] MEDS: IBUPROFEN 400 MG TABLET (FP) PO PRN (21:26)
[2020-07-02] MEDS: GABAPENTIN 300 MG CAPSULE PO SCH ×3 (06:30→21:18)
[2020-07-02] MEDS: PRENATAL VITAMINS W/ FOLIC ACID TABLET (FP) PO SCH (09:39)
[2020-07-02] MEDS: SERTRALINE HCL 50 MG TABLET (FP) PO SCH (09:39)
[2020-07-02] MEDS: NICOTINE 7 MG/24 HOURS TOPICAL PATCH TD SCH (09:40)
[2020-07-02] MEDS: hydrOXYzine PAMOATE 25 MG CAPSULE (FP) PO PRN (21:18)
[2020-07-02] MEDS: MELATONIN 5 MG TABLETS PO SCH (21:18)
[2020-07-02] MEDS: traZODone HCL 100 MG TABLET (FP) PO SCH (21:18)
[2020-07-02] MEDS: THIAMINE HCL 100 MG TABLET (FP) PO SCH (21:18)
[2020-07-02] MEDS: OLANZapine 10 MG TABLET PO SCH (21:19)
[2020-07-02] MEDS: IBUPROFEN 400 MG TABLET (FP) PO PRN (21:20)
[2020-07-03] MEDS: GABAPENTIN 300 MG CAPSULE PO SCH ×3 (06:48→21:29)
[2020-07-03] MEDS: NICOTINE 7 MG/24 HOURS TOPICAL PATCH TD SCH (10:19)
[2020-07-03] MEDS: SERTRALINE HCL 50 MG TABLET (FP) PO SCH (10:19)
[2020-07-03] MEDS: PRENATAL VITAMINS W/ FOLIC ACID TABLET (FP) PO SCH (10:19)
[2020-07-03] MEDS: traZODone HCL 100 MG TABLET (FP) PO SCH (21:29)
[2020-07-03] MEDS: OLANZapine 10 MG TABLET PO SCH (21:29)
[2020-07-03] MEDS: THIAMINE HCL 100 MG TABLET (FP) PO SCH (21:29)
[2020-07-03] MEDS: MELATONIN 5 MG TABLETS PO SCH (21:29)
[2020-07-03] MEDS: hydrOXYzine PAMOATE 25 MG CAPSULE (FP) PO PRN (21:29)
[2020-07-03] MEDS: IBUPROFEN 400 MG TABLET (FP) PO PRN (21:30)
[2020-07-04] MEDS: GABAPENTIN 300 MG CAPSULE PO SCH ×3 (06:35→21:22)
[2020-07-04] MEDS: NICOTINE 7 MG/24 HOURS TOPICAL PATCH TD SCH (10:13)
[2020-07-04] MEDS: PRENATAL VITAMINS W/ FOLIC ACID TABLET (FP) PO SCH (10:13)
[2020-07-04] MEDS: hydrOXYzine PAMOATE 25 MG CAPSULE (FP) PO PRN ×2 (10:13→22:32)
[2020-07-04] MEDS: SERTRALINE HCL 50 MG TABLET (FP) PO SCH (10:13)
[2020-07-04] MEDS: traZODone HCL 100 MG TABLET (FP) PO SCH (21:22)
[2020-07-04] MEDS: OLANZapine 10 MG TABLET PO SCH (21:22)
[2020-07-04] MEDS: THIAMINE HCL 100 MG TABLET (FP) PO SCH (21:22)
[2020-07-04] MEDS: MELATONIN 5 MG TABLETS PO SCH (21:22)
[2020-07-04] MEDS: IBUPROFEN 400 MG TABLET (FP) PO PRN (22:32)
[2020-07-05] MEDS: GABAPENTIN 300 MG CAPSULE PO SCH ×2 (06:15→13:19)
[2020-07-05 07:38] VITALS: BP 111/75; PULSE 69; TEMP 97.3
[2020-07-05] MEDS: NICOTINE 7 MG/24 HOURS TOPICAL PATCH TD SCH (10:31)
[2020-07-05] MEDS: SERTRALINE HCL 50 MG TABLET (FP) PO SCH (10:31)
[2020-07-05] MEDS: PRENATAL VITAMINS W/ FOLIC ACID TABLET (FP) PO SCH (10:31)
[2020-07-05] MEDS: hydrOXYzine PAMOATE 25 MG CAPSULE (FP) PO PRN (10:32)
--- NOTE | 2020-07-05 15:28 | DS ---
[facility] Rehab Discharge Summary - [facility] Rehab Discharge Summary Admission Date: 06/24/20 Discharge Date: 07/05/20 - History Present History: Alcohol dependence, Cannabis dependence, Cocaine dependence, Opioid dependence, Sedative dependence Pertinent Past History: Depression, neuropathy - Discharge Physical Exam Vital Signs: Vital Signs Temperature 97.3 F L 07/05/20 07:36 Pulse Rate 69 07/05/20 07:36 Respiratory Rate 18 07/05/20 07:36 Blood Pressure 111/75 07/05/20 07:36 O2 Sat by Pulse Oximetry (%) 98 07/05/20 14:14 - Medication Discharge Medications: Ambulatory Orders Olanzapine [Zyprexa] 10 mg PO HS 08/02/19 Gabapentin [Neurontin -] 300 mg PO TID #90 capsule 01/03/20 Sertraline HCl [Zoloft] 100 mg PO DAILY #30 tablet 01/03/20 Trazodone HCl 100 mg PO HS 05/05/20 Naloxone HCl [Narcan] 4 mg NS ASDIR PRN #1 spray 06/22/20 - Medication-Assisted Treatment (MAT) Medication-Assisted Treatment (MAT): No - Discharge Instructions Diet, activity, other medical instructions: Diet: Activity: Other medical instructions: - Diagnosis (1) Alcohol dependence with uncomplicated withdrawal Status: Acute (2) Opioid dependence with withdrawal Status: Acute (3) GERD (gastroesophageal reflux disease) Status: Chronic (4) Nicotine dependence Status: Chronic Qualifiers: Nicotine product type: cigarettes Substance use status: in withdrawal Qualified Code(s): F17.213 - Nicotine dependence, cigarettes, with withdrawal - AMA Did Patient Leave Against Medical Advice: No Additional Comments: Patient requested to be discharged before scheduled discharge date
== END 2020-07-05 17:05 | disposition home or self-care (01) | DRG 772 ==
LOC: YASAS 11:00 → Y3W 11:02
PROVIDERS: ADMIT Allergy & Immunology; ATTEND Allergy & Immunology
PROC: HZ42ZZZ Group Counseling for Substance Abuse Treatment, Cognitive-Behavioral (ICD-10-PCS; principal; 2020-06-24)
DX: F11.20 Opioid dependence, uncomplicated (principal); F10.20 Alcohol dependence, uncomplicated; F13.10 Sedative, hypnotic or anxiolytic abuse, uncomplicated; F12.10 Cannabis abuse, uncomplicated; F17.213 Nicotine dependence, cigarettes, with withdrawal; F19.282 Other psychoactive substance dependence with psychoactive substance-induced sleep disorder; K21.9 Gastro-esophageal reflux disease without esophagitis

== ENCOUNTER 2020-08-05 16:12 | Inpatient (IN) | payer OTHER ==
--- NOTE | 2020-08-05 17:42 | BHS.RME ---
Substance Use & Tx History - Substance Use History Alcohol Substance amount: 1 pint vodka and 6 x 12oz. beer Frequency of use: Daily Substance route: Oral Date of Last Use: 08/04/20 Heroin Substance amount: 12-15 bags Frequency of use: Daily Substance route: Injection (ex: intravenous or skin popping) Date of Last Use: 08/05/20 Physical/Psych/Mental Status - Cooperativeness Cooperativeness: Cooperative - Thinking Thought Processes: Logical Thought content: Future oriented - Physical Health Problems Is patient presently having any pain?: Yes (body aches) Does patient presently have any injuries (include location): No Does patient currently have a fever: No COWS - Scale Resting Pulse: 0= [place] 80 or Below Sweatin=Flushed/Facial Moisture Restless Observation: 0= Sits Still Pupil Size: 0= Normal to Room Light Bone or Joint Aches: 4=Acute Joint/Muscle Pain Runny Nose/ Eye Tearin= None GI Upset > 30mins: 1= Stomach Cramp Tremor Observation: 2= Slight Tremor Visible Yawning Observation: 1= 1-2x During Session Anxiety or Irritability: 4=Extreme Anxiety Goose Flesh Skin: 0=Smooth Skin COWS Score: 14 CIWA Nausea/Vomitin Muscle Tremors: 4-Moderate,w/Arms Extend Anxiety: 3 Agitation: 2 Paroxysmal Sweats: 2 Orientation: 0-Oriented Tacttile Disturbances: 0-None Auditory Disturbances: 0-None Visual Disturbances: 0-None Headache: 0-None Present CIWA-Ar Total Score: 13 Treatment Recommendation - Level of Care Level of Care: Opioid Treatment Program (OTP)
--- NOTE | 2020-08-05 17:47 | HP ---
COWS - Scale Resting Pulse: 0= [place] 80 or Below Sweatin=Flushed/Facial Moisture Restless Observation: 0= Sits Still Pupil Size: 0= Normal to Room Light Bone or Joint Aches: 4=Acute Joint/Muscle Pain Runny Nose/ Eye Tearin= None GI Upset > 30mins: 1= Stomach Cramp Tremor Observation: 2= Slight Tremor Visible Yawning Observation: 1= 1-2x During Session Anxiety or Irritability: 4=Extreme Anxiety Goose Flesh Skin: 0=Smooth Skin COWS Score: 14 CIWA Score Nausea/Vomitin Muscle Tremors: 4-Moderate,w/Arms Extend Anxiety: 3 Agitation: 2 Paroxysmal Sweats: 2 Orientation: 0-Oriented Tacttile Disturbances: 0-None Auditory Disturbances: 0-None Visual Disturbances: 0-None Headache: 0-None Present CIWA-Ar Total Score: 13 - Admission Criteria OASAS Guidelines: Admission for Medically Managed Detox: Requires at least one of the followin. CIWA greater than 12 2. Seizures within the past 24 hours 3. Delirium tremens within the past 24 hours 4. Hallucinations within the past 24 hours 5. Acute intervention needed for co occurring medical disorder 6. Acute intervention needed for co occurring psychiatric disorder 7. Severe withdrawal that cannot be handled at a lower level of care (continued vomiting, continued diarrhea, abnormal vital signs) requiring intravenous medication and/or fluids 8. Admitting History and Physical - Smoking History Smoking history: Current every day smoker Have you smoked in the past 12 months: Yes Aproximately how many cigarettes per day: 20 - Alcohol/Substance Use Hx Alcohol Use: Yes History of Substance Use: reports: Heroin, Marijuana, Prescription, Tranquilizers - Social History ADL: Independent History of Recent Travel: No Admission ROS [facility] Chief Complaint: Seeking admission to detox from alcohol and heroin Allergies/Adverse Reactions: Allergies Allergy/AdvReac Type Severity Reaction Status Date / Time Fish Containing Products Allergy Severe Swelling Verified 06/24/20 11:12 No Known Drug Allergies Allergy Verified 06/24/20 11:12 History of Present Illness: 50 years old male with a long history of alcohol and heroin dependence is seeking admission to detox. His last admission was for the period 06/19/2020 - 07/05/2020 and he reports that he relapsed 4 days post discharge. He reports use of 12-15 bags of heroin and 1 pint of Vodka and 6 x 12oz. beer daily. He reports medical history of GERD, psych. history of depression, anxiety, insomnia and denies suicidal ideation at this time. He is unemployed, lives in a prison in [place] and denies legal issues. He reports + eye pediatric cns, blackouts, overdose (2016) and denies alcohol related seizures. Exam Limitations: No Limitations - Ebola screening Have you traveled outside of the country in the last 21 days: No Have you had contact with anyone from an Ebola affected area: No Have you been sick,other than usual withdrawal symptoms: No Do you have a fever: No - Review of Systems Constitutional: Chills, Malaise, Night Sweats, Changes in sleep EENT: reports: No Symptoms Reported Respiratory: reports: No Symptoms reported Cardiac: reports: No Symptoms Reported GI: reports: Constipated, Poor Appetite, Poor Fluid Intake, Abdominal cramping : reports: No Symptoms Reported Musculoskeletal: reports: Back Pain, Other (body aches) Integumentary: reports: Dryness, Flushing Neuro: reports: Tremors Endocrine: reports: No Symptoms Reported Hematology: reports: No Symptoms Reported Psychiatric: reports: Orientated x3, Anxious, Depressed Other Systems: Reviewed and Negative Patient History - Patient Medical History Hx Anemia: No Hx Asthma: No Hx Chronic Obstructive Pulmonary Disease (COPD): No Hx Cancer: No Hx Cardiac Disorders: No Hx Congestive Heart Failure: No Hx Hypertension: No Hx Hypercholesterolemia: No Hx Pacemaker: No HX Cerebrovascular Accident: No Hx Seizures: No Hx Dementia: No Hx Diabetes: No Hx Gastrointestinal Disorders: No Hx Liver Disease: No Hx Genitourinary Disorders: No Hx Sexually Transmitted Disorders: No Hx Renal Disease (ESRD): No Hx Thyroid Disease: No Hx Human Immunodeficiency Virus (HIV): No (Negative 2020) Hx Hepatitis C: No Hx Depression: Yes (+ Anxiety ) Hx Suicide Attempt: No (Denies suicidal ideation at this time) Hx Bipolar Disorder: No Hx Schizophrenia: No - Patient Surgical History Past Surgical History: No Hx Neurologic Surgery: No Hx Cataract Extraction: No Hx Cardiac Surgery: No Hx Lung Surgery: No Hx Abdominal Surgery: No Hx Appendectomy: No Hx Cholecystectomy: No Hx Genitourinary Surgery: No Hx Orthopedic Surgery: No Anesthesia Reaction: No - PPD History Previous Implant?: Yes Documented Results: Negative w/proof Implanted On Prior [facility] Admission?: Yes Date: 12/20/19 Results: Negative PPD to be Administered?: No - Reproductive History Patient is a Female of Child Bearing Age (11 -55 yrs old): No (Male) - Smoking Cessation Smoking history: Current every day smoker Have you smoked in the past 12 months: Yes Aproximately how many cigarettes per day: 20 Hx Chewing Tobacco Use: No Initiated information on smoking cessation: Yes 'Breaking Loose' booklet given: 08/05/20 - Substance & Tx. History Hx Alcohol Use: Yes Hx Substance Use: Yes Substance Use Type: Alcohol, Heroin, Opiates Hx Substance Use Treatment: Yes ([facility]) - Substances abused Alcohol Substance route: Oral Frequency: Daily Amount used: 1 pint of Vodka and 6 x 12oz. beer Age of first use: 14 Date of last use: 08/04/20 Heroin Substance route: Injection Frequency: Daily Amount used: 12-15 bags Age of first use: 21 Date of last use: 08/05/20 Admission Physical Exam [facility] - Physical General Appearance: Yes: Moderate Distress, Tremorous, Irritable, Sweating, Anxious HEENTM: Yes: Within Normal Limits Respiratory: Yes: Lungs Clear, Normal Breath Sounds, No Respiratory Distress Neck: Yes: Within Normal Limits Breast: Yes: Breast Exam Deferred Cardiology: Yes: Within Normal Limits Abdominal: Yes: Normal Bowel Sounds Back: Yes: Normal Inspection Musculoskeletal: Yes: Within Normal Limits Extremities: Yes: Tremors Neurological: Yes: Within Normal Limits Integumentary: Yes: Warm, Track Patel (both arms) Lymphatic: Yes: Within Normal Limits - Diagnostic (1) Alcohol dependence with uncomplicated withdrawal Current Visit: Yes Status: Acute (2) Opioid dependence with withdrawal Current Visit: Yes Status: Acute (3) Anxiety disorder Current Visit: Yes Status: Chronic (4) Depressive disorder Current Visit: Yes Status: Chronic (5) GERD (gastroesophageal reflux disease) Current Visit: Yes Status: Chronic Qualifiers: Esophagitis presence: esophagitis presence not specified Qualified Code(s): K21.9 - Gastro-esophageal reflux disease without esophagitis (6) Insomnia Current Visit: Yes Status: Chronic Cleared for Admission [facility] - Detox or Rehab [facility] Level of Care: Medically Managed Detox Regimen/Protocol: Methadone/Librium Claeared for Rehab Admission: No Breathalyzer - Breathalyzer Breathalyzer: 0 Urine Drug Screen - Test Device Lot number: [id number] Expiration date: 07/28/21 - Control Is test valid?: Yes - Results Drug screen NEGATIVE: No Urine drug screen results: MOP-Opiates, MTD-Methadone, BZO-Benzodiazepines Inpatient Rehab Admission - Rehab Decision to Admit Inpatient rehab admission?: No
[2020-08-05] MEDS ORDERED: MAGNESIUM HYDROX 2400MG/30ML ORAL SUSPENSION 30 ML CUP PO PRN (18:01)
[2020-08-05] MEDS ORDERED: NICOTINE POLACRILEX 2 MG GUM BUC PRN (18:01)
[2020-08-05] MEDS ORDERED: MAG HYDROX/AL HYDROX/SIMETH 30 ML UNIT-DOSE CUP PO PRN (18:01)
[2020-08-05] MEDS ORDERED: MAGNESIUM CITRATE 300 ML BOTTLE PO PRN (18:01)
[2020-08-05] MEDS ORDERED: ACETAMINOPHEN 325 MG TABLET (FP) PO PRN ×2 (18:01)
[2020-08-05] MEDS ORDERED: IBUPROFEN 400 MG TABLET (FP) PO PRN (18:01)
[2020-08-05] MEDS ORDERED: MENTHOL/PHENOL 1 EACH UD MM PRN (18:01)
[2020-08-05] MEDS ORDERED: BISMUTH SUBSALICYLATE 524 MG/30 ML UD PO PRN (18:01)
[2020-08-05] MEDS ORDERED: ONDANSETRON *ODT* 4 MG TABLET SL PRN (18:01)
[2020-08-05 18:55] VITALS: BMI 26.7
[2020-08-05] MEDS ORDERED: METHADONE HCL 10 MG TABLET (FOR DETOX USE ONLY) PO ONE (20:35)
[2020-08-05] MEDS ORDERED: cloNIDine HCL 0.1 MG TABLET PO PRN (20:35)
[2020-08-05] MEDS ORDERED: chlordiazePOXIDE HCL 25 MG CAPSULE PO PRN (20:35)
[2020-08-05] MEDS: hydrOXYzine PAMOATE 25 MG CAPSULE (FP) PO PRN (20:38)
[2020-08-05] MEDS: THIAMINE HCL 100 MG TABLET (FP) PO SCH (21:42)
[2020-08-05] MEDS: MELATONIN 5 MG TABLETS PO SCH (21:42)
[2020-08-05] MEDS: chlordiazePOXIDE HCL 25 MG CAPSULE PO SCH (22:43)
[2020-08-06] MEDS: chlordiazePOXIDE HCL 25 MG CAPSULE PO SCH ×4 (06:28→22:18)
[2020-08-06] MEDS ORDERED: METHADONE HCL 10 MG TABLET (FOR DETOX USE ONLY) ONE (09:42)
[2020-08-06] MEDS ORDERED: METHADONE HCL 5 MG TABLET (FOR DETOX USE ONLY) ONE (09:43)
[2020-08-06] MEDS ORDERED: METHADONE (DETOX) 20 MG, METHADONE (DETOX) 5 MG PO ONE (10:00)
[2020-08-06] MEDS: METHOCARBAMOL 500 MG TABLET PO PRN (10:32)
[2020-08-06] MEDS: PRENATAL VITAMINS W/ FOLIC ACID TABLET (FP) PO SCH (10:32)
[2020-08-06] MEDS: NICOTINE 21 MG/24 HOURS TOPICAL PATCH TD SCH (10:32)
[2020-08-06 10:35] LABS: BILIRUBIN,TOTAL 0.5 mg/dL (0.2-1); BLOOD UREA NITROGEN 12.7 mg/dL (7-18); CALCIUM 8.6 mg/dL (8.5-10.1); HEMATOCRIT 37.9 % (35.4-49); HEMOGLOBIN 12.4 GM/dL (11.7-16.9); MCHC 32.8 g/dl (32.0-35.9); MEAN CELL VOLUME 82.3 fl (80-96); MEAN PLT VOLUME 8.5 fl (7.5-11.1); PLATELET COUNT 154 K/MM3 (134-434); RBC 4.61 M/mm3 (4.00-5.60); RDW 14.6 % (11.9-15.9); TOT PROT 7.2 g/dl (6.4-8.2); WHITE BLOOD COUNT 5.5 K/mm3 (4.0-10.0)
--- NOTE | 2020-08-06 11:43 | PN ---
S CIWA - CIWA Score Nausea/Vomitin-Mild Nausea/No Vomiting Muscle Tremors: 2 Anxiety: 2 Agitation: 1-Slight > Activity Paroxysmal Sweats: 1-Minimal Palms Moist Orientation: 0-Oriented Tacttile Disturbances: 0-None Auditory Disturbances: 0-None Visual Disturbances: 2-Mild Sensitivity Headache: 3-Moderate CIWA-Ar Total Score: 12 BHS COWS - Scale Resting Pulse: 0= [place] 80 or Below Sweatin= Chills/Flushing Restless Observation: 0= Sits Still Pupil Size: 1= Pupils >than Normal Bone or Joint Aches: 1= Mild Discomfort Runny Nose/ Eye Tearin= None GI Upset > 30mins: 2= Nausea/Diarrhea Tremor Observation of Outstretched Hands: 2= Slight Tremor Visible Yawning Observation: 0= None Anxiety or Irritability: 2=Irritable/Anxious Goose Flesh Skin: 3=Piloerection COWS Score: 12 S Progress Note (SOAP) Subjective: 50 years old male was admitted on 08/05/20 for alcohol and opiate withdrawal sx management treating with librium and methadone detox regiments feels ok today ate breakfast in room tolerated food well Objective: 08/06/20 11:48 Vital Signs - 24 hr 08/05/20 08/05/20 08/05/20 18:52 19:18 20:40 Temperature 98.1 F 98.1 F 97.1 F L Pulse Rate 70 70 71 Respiratory 19 19 20 Rate Blood Pressure 109/74 109/74 116/74 O2 Sat by Pulse 99 Oximetry (%) 08/06/20 08/06/20 06:32 08:34 Temperature 96.8 F L 97.3 F L Pulse Rate 55 L 60 Respiratory 18 18 Rate Blood Pressure 103/67 106/72 O2 Sat by Pulse 97 Oximetry (%) Laboratory Tests 08/06/20 08/06/20 07:50 07:50 WBC 5.5 RBC 4.61 Hgb 12.4 Hct 37.9 MCV 82.3 MCH 27.0 MCHC 32.8 RDW 14.6 Plt Count 154 MPV 8.5 Sodium 141 Potassium 4.0 Chloride 105 Carbon Dioxide 33 H Anion Gap 3 L BUN 12.7 Creatinine 1.0 Est GFR (CKD-EPI)AfAm 102.69 Est GFR (CKD-EPI)NonAf 88.61 Random Glucose 90 Calcium 8.6 Total Bilirubin 0.5 AST 21 ALT 30 Alkaline Phosphatase 81 Total Protein 7.2 Albumin 4.0 08/06/20 11:48 covid pending Assessment: 08/06/20 11:49 alcohol and opiate withdrawal Plan: librium and methadone regiments
--- NOTE | 2020-08-06 13:18 | CONSULT ---
[facility] Psychiatric Consult - Data Date of interview: 08/06/20 Admission source: [facility] Identifying data: Readmission to [facility] at [address] [place] [address] for this 50 y/o male self-referred for detoxification treatment. YENY issues : alcohol, heroin, nicotine. Patient is single without children, homeless (detention resident), unemployed and supported on welfare. Substance Abuse History: Discussed with the patient. YENY profile as follows : Smoking history: Current every day smoker. Have you smoked in the past 12 months: Yes. Approximately how many cigarettes per day: 20. Hx Chewing Tobacco Use: No. Initiated information on smoking cessation: Yes. 'Breaking Loose' booklet given: 08/05/20. - Substance & Tx. History. Hx Alcohol Use: Yes. Hx Substance Use: Yes. Substance Use Type: Alcohol, Heroin, Opiates. Hx Substance Use Treatment: Yes ([facility]). - Substances abused. Alcohol. Substance route: Oral. Frequency: Daily. Amount used: 1 pint of Vodka and 6 x 12oz. beer. Age of first use: 14. Date of last use: 08/04/20. Heroin. Substance route: Injection. Frequency: Daily. Amount used: 12-15 bags. Age of first use: 21. Date of last use: 08/05/20. History of multiple YENY treatment failures. Medical History: Patient endorses good general health. Psychiatric History: Mr Lester is known for his frequent utilization of YENY services at [facility] ([facility]). Longitudinal history as follows : multiple psychiatric hospitalizations (all are reported to be at [facility]). Diagnoses endorsed : MDD, PTSD and Anxiety Disorder. Current maintenance medications : zoloft 100 mg/day + trazodone 100 mg/hs + gabapentin 300 mg/tid + zyprexa 10 mg/hs. No longer in affiliation with [facility]. Patient is still under the care of Dr Edmondson at the [facility] mental health clinic in [place], on [address] [place] [address] and [facility]. Patient denies history of suicide attempts (records, however, indicate a history of one suicide attempt via deliberate overdose with heroin in 2016). Physical/Sexual Abuse/Trauma History: Patient denies. Additional Comment: Urine drug screen results: MOP-Opiates, MTD-Methadone, BZO- Benzodiazepines. Noted. Mental Status Exam - Mental Status Exam Alert and Oriented to: Time, Place, Person Cognitive Function: Good Patient Appearance: Well Groomed Mood: Withdrawn Affect: Appropriate, Normal Range Patient Behavior: Fatigued, Appropriate, Cooperative Speech Pattern: Clear, Appropriate Voice Loudness: Normal Thought Process: Intact, Goal Oriented Thought Disorder: Not Present Hallucinations: Denies Suicidal Ideation: Denies Homicidal Ideation: Denies Sleep: Poorly, Difficulty falling asleep Appetite: Good Gait/Station: Normal Psychiatric Findings - Problem List ([place] 1, 2,3) (1) Alcohol dependence with uncomplicated withdrawal Current Visit: Yes Status: Acute (2) Opioid dependence with withdrawal Current Visit: Yes Status: Acute (3) Nicotine dependence Current Visit: Yes Status: Chronic Qualifiers: Nicotine product type: cigarettes Substance use status: in withdrawal Qualified Code(s): F17.213 - Nicotine dependence, cigarettes, with withdrawal (4) Substance induced mood disorder Current Visit: Yes Status: Chronic (5) Insomnia Current Visit: Yes Status: Chronic - Initial Treatment Plan Initial Treatment Plan: Psychoeducation. Sleep hygiene. Detoxification. Resumed at patient's request : olanzapine 5 mg po hs (reduced) + trazodone 50 mg po hs (reduced as well as a precaution for oversedation). Side effects/benefits discussed with the patient. Consent granted to MD. Harrison.
--- NOTE | 2020-08-06 13:32 | EKG ---
Test Reason : Blood Pressure : / mmHG Vent. Rate : 063 BPM Atrial Rate : 063 BPM P-R Int : 144 ms QRS Dur : 082 ms QT Int : 388 ms P-R-T Axes : 056 060 057 degrees QTc Int : 397 ms NORMAL SINUS RHYTHM NORMAL ECG Confirmed by MD WEAVER GREGORY ([id number]) on 08/06/2020 1:32:08 PM Referred By: Confirmed By:ELSA WEAVER MD
[2020-08-06] MEDS: MELATONIN 5 MG TABLETS PO SCH (22:17)
[2020-08-06] MEDS: OLANZapine 5 MG TABLET PO SCH (22:17)
[2020-08-06] MEDS: THIAMINE HCL 100 MG TABLET (FP) PO SCH (22:18)
[2020-08-06] MEDS: traZODone HCL 50 MG TABLET (FP) PO SCH (22:18)
[2020-08-07] MEDS: chlordiazePOXIDE HCL 25 MG CAPSULE PO SCH ×4 (06:08→22:50)
[2020-08-07] MEDS ORDERED: METHADONE HCL 10 MG TABLET (FOR DETOX USE ONLY) PO ONE (10:00)
[2020-08-07] MEDS: NICOTINE 21 MG/24 HOURS TOPICAL PATCH TD SCH (10:30)
[2020-08-07] MEDS: METHOCARBAMOL 500 MG TABLET PO PRN ×2 (10:30→22:50)
[2020-08-07] MEDS: PRENATAL VITAMINS W/ FOLIC ACID TABLET (FP) PO SCH (10:30)
--- NOTE | 2020-08-07 14:59 | PN ---
S CIWA - CIWA Score Nausea/Vomitin Muscle Tremors: 2 Anxiety: 2 Agitation: 2 Paroxysmal Sweats: No Perspiration Orientation: 0-Oriented Tacttile Disturbances: 1-Very Mild Itch/Numbness Auditory Disturbances: 0-None Visual Disturbances: 0-None Headache: 2-Mild CIWA-Ar Total Score: 11 BHS COWS - Scale Resting Pulse: 0= [place] 80 or Below Sweatin= No chills or Flushing Restless Observation: 0= Sits Still Pupil Size: 0= Normal to Room Light Bone or Joint Aches: 2= Severe Diffuse Aches Runny Nose/ Eye Tearin= Nasal Congestion GI Upset > 30mins: 2= Nausea/Diarrhea Tremor Observation of Outstretched Hands: 2= Slight Tremor Visible Yawning Observation: 1= 1-2x During Session Anxiety or Irritability: 2=Irritable/Anxious Goose Flesh Skin: 0=Smooth Skin COWS Score: 10 BHS Progress Note (SOAP) Subjective: alert,irritable,anxious,interrupted sleep,tremor,pain in the body and dk k,aching pain,nausea,diarrhea Objective: 08/07/20 14:57 Vital Signs Temperature 97.1 F L 08/07/20 12:47 Pulse Rate 61 08/07/20 12:47 Respiratory Rate 18 08/07/20 12:47 Blood Pressure 98/62 08/07/20 12:47 O2 Sat by Pulse Oximetry (%) 95 08/07/20 12:47 08/07/20 14:57 Laboratory Last Values WBC 5.5 K/mm3 (4.0-10.0) 08/06/20 07:50 RBC 4.61 M/mm3 (4.00-5.60) 08/06/20 07:50 Hgb 12.4 GM/dL (11.7-16.9) 08/06/20 07:50 Hct 37.9 % (35.4-49) 08/06/20 07:50 MCV 82.3 fl (80-96) 08/06/20 07:50 MCH 27.0 pg (25.7-33.7) 08/06/20 07:50 MCHC 32.8 g/dl (32.0-35.9) 08/06/20 07:50 RDW 14.6 % (11.9-15.9) 08/06/20 07:50 Plt Count 154 K/MM3 (134-434) 08/06/20 07:50 MPV 8.5 fl (7.5-11.1) 08/06/20 07:50 Sodium 141 mmol/L (136-145) 08/06/20 07:50 Potassium 4.0 mmol/L (3.5-5.1) 08/06/20 07:50 Chloride 105 mmol/L (98-107) 08/06/20 07:50 Carbon Dioxide 33 mmol/L (21-32) H 08/06/20 07:50 Anion Gap 3 MMOL/L (8-16) L 08/06/20 07:50 BUN 12.7 mg/dL (7-18) 08/06/20 07:50 Creatinine 1.0 mg/dL (0.55-1.3) 08/06/20 07:50 Est GFR (CKD-EPI)AfAm 102.69 08/06/20 07:50 Est GFR (CKD-EPI)NonAf 88.61 08/06/20 07:50 Random Glucose 90 mg/dL (74-106) 08/06/20 07:50 Calcium 8.6 mg/dL (8.5-10.1) 08/06/20 07:50 Total Bilirubin 0.5 mg/dL (0.2-1) 08/06/20 07:50 AST 21 U/L (15-37) 08/06/20 07:50 ALT 30 U/L (13-61) 08/06/20 07:50 Alkaline Phosphatase 81 U/L (45-117) 08/06/20 07:50 Total Protein 7.2 g/dl (6.4-8.2) 08/06/20 07:50 Albumin 4.0 g/dl (3.4-5.0) 08/06/20 07:50 Syphilis Serology Non-reactive (NONREACTIVE) 08/06/20 07:50 COVID-19 (NANCI) Not detected (Not Detected) 08/05/20 19:30 Assessment: 08/07/20 14:58 withdrawal symptom Plan: continue detox methadone and librium regimen,fluid
[2020-08-07] MEDS: hydrOXYzine PAMOATE 25 MG CAPSULE (FP) PO PRN ×2 (17:42→22:50)
[2020-08-07] MEDS: THIAMINE HCL 100 MG TABLET (FP) PO SCH (22:50)
[2020-08-07] MEDS: traZODone HCL 50 MG TABLET (FP) PO SCH (22:50)
[2020-08-07] MEDS: MELATONIN 5 MG TABLETS PO SCH (22:50)
[2020-08-07] MEDS: OLANZapine 5 MG TABLET PO SCH (22:53)
[2020-08-08] MEDS ORDERED: chlordiazePOXIDE HCL 10 MG CAPSULE PO PRN
[2020-08-08] MEDS: chlordiazePOXIDE HCL 10 MG CAPSULE PO SCH ×4 (06:16→22:34)
[2020-08-08] MEDS ORDERED: METHADONE HCL 10 MG TABLET (FOR DETOX USE ONLY) ONE (08:56)
[2020-08-08] MEDS ORDERED: METHADONE HCL 5 MG TABLET (FOR DETOX USE ONLY) ONE (08:57)
--- NOTE | 2020-08-08 09:51 | PN ---
S CIWA - CIWA Score Nausea/Vomitin-No Nausea/No Vomiting Muscle Tremors: 2 Anxiety: 1-Mildly Anxious Agitation: 0-Normal Activity Paroxysmal Sweats: 1-Minimal Palms Moist Orientation: 2-Disoriented Date<2 days Tacttile Disturbances: 0-None Auditory Disturbances: 1-Very Mild Visual Disturbances: 1-Very Mild Sensitivity Headache: 0-None Present CIWA-Ar Total Score: 8 S COWS - Scale Resting Pulse: 0= [place] 80 or Below Sweatin= No chills or Flushing Restless Observation: 0= Sits Still Pupil Size: 0= Normal to Room Light Bone or Joint Aches: 1= Mild Discomfort Runny Nose/ Eye Tearin= None GI Upset > 30mins: 0= None Tremor Observation of Outstretched Hands: 1= Tremor [place], Not Seen Yawning Observation: 0= None Anxiety or Irritability: 1=Feels Anxious/Irritable Goose Flesh Skin: 0=Smooth Skin COWS Score: 3 S Progress Note (SOAP) Subjective: Mild withdrawal sx as above Objective: 08/08/20 09:48 PE Gnl: WDWN, in bed in no distress MS: nl mentation Motor: moves limbs well Coord: mild tremor with arms extended Laboratory Tests 08/05/20 08/06/20 08/06/20 19:30 07:50 07:50 WBC 5.5 RBC 4.61 Hgb 12.4 Hct 37.9 MCV 82.3 MCH 27.0 MCHC 32.8 RDW 14.6 Plt Count 154 MPV 8.5 Sodium Potassium Chloride Carbon Dioxide Anion Gap BUN Creatinine Est GFR (CKD-EPI)AfAm Est GFR (CKD-EPI)NonAf Random Glucose Calcium Total Bilirubin AST ALT Alkaline Phosphatase Total Protein Albumin Syphilis Serology Non-reactive COVID-19 (NANCI) Not detected 08/06/20 07:50 WBC RBC Hgb Hct MCV MCH MCHC RDW Plt Count MPV Sodium 141 Potassium 4.0 Chloride 105 Carbon Dioxide 33 H Anion Gap 3 L BUN 12.7 Creatinine 1.0 Est GFR (CKD-EPI)AfAm 102.69 Est GFR (CKD-EPI)NonAf 88.61 Random Glucose 90 Calcium 8.6 Total Bilirubin 0.5 AST 21 ALT 30 Alkaline Phosphatase 81 Total Protein 7.2 Albumin 4.0 Syphilis Serology COVID-19 (NANCI) Home Medication List Medication Instructions Recorded Confirmed Type Olanzapine [Zyprexa] 10 mg PO HS 08/02/19 08/05/20 History Trazodone HCl 100 mg PO HS 05/05/20 08/05/20 History Active Medications Generic Name Dose Route Start Last Admin Trade Name Freq PRN Reason Stop Dose Admin Acetaminophen 650 mg 08/05/20 18:01 Tylenol - PO Q6H PRN PAIN LEVEL 4 - 6 Acetaminophen 650 mg 08/05/20 18:01 Tylenol - PO Q6H PRN FEVER Al Hydroxide/Mg Hydroxide 30 ml 08/05/20 18:01 Mylanta Oral Suspension - PO Q6H PRN DYSPEPSIA Bismuth Subsalicylate 524 mg 08/05/20 18:01 Pepto-Bismol - PO Q1H PRN DIARRHEA Chlordiazepoxide HCl 10 mg 08/08/20 05:00 08/08/20 06:16 Librium - PO 08/08/20 23:01 Not Given [id number] JEROME Chlordiazepoxide HCl 10 mg 08/09/20 05:00 Librium - PO 08/09/20 17:01 Q12H JEROME Chlordiazepoxide HCl 10 mg 08/08/20 00:00 Librium - PO 08/09/20 00:00 Q4H PRN WITHDRAWAL(CONT SUBST) Chlordiazepoxide HCl 10 mg 08/10/20 05:00 Librium - PO 08/10/20 05:01 ONCE@0500 ONE Eucalyptus/Menthol/Phenol/Sorbitol 1 each 08/05/20 18:01 Cepastat Lozenge - MM 08/11/20 18:02 Q4H PRN SORE THROAT Hydroxyzine Pamoate 25 mg 08/05/20 18:01 08/07/20 22:50 Vistaril - PO 08/11/20 18:05 25 mg Q4HWA PRN Administration ANXIETY Ibuprofen 400 mg 08/05/20 18:01 Motrin - PO Q6H PRN PAIN LEVEL 1 - 3 Magnesium Citrate 300 ml 08/05/20 18:01 Citroma - PO Q48H PRN CONSTIPATION Magnesium Hydroxide 30 ml 08/05/20 18:01 Milk Of Magnesia - PO PRN PRN CONSTIPATION Melatonin 5 mg 08/05/20 22:00 08/07/20 22:50 Melatonin PO 5 mg HS JEROME Administration Methadone HCl 5 mg 08/10/20 06:00 Dolophine - PO 08/10/20 06:01 ONCE@0600 ONE Methadone HCl 10 mg 08/09/20 10:00 Dolophine - PO 08/09/20 10:01 ONCE ONE Methadone HCl 10 mg/ Methadone 15 mg 08/08/20 10:00 HCl 5 mg PO 08/08/20 10:01 ONCE ONE Methocarbamol 500 mg 08/05/20 18:01 08/07/20 22:50 Robaxin - PO 08/11/20 18:02 500 mg Q6H PRN Administration MUSCLE SPASMS Nicotine 21 mg 08/06/20 10:00 08/07/20 10:30 Nicoderm Patch - TD Not Given DAILY JEROME Nicotine Polacrilex 2 mg 08/05/20 18:01 Nicorette Gum - BUC Q2H PRN NICOTINE REPLACEMENT RX Olanzapine 5 mg 08/06/20 22:00 08/07/20 22:53 Zyprexa - PO 5 mg HS JEROME Administration Ondansetron HCl 4 mg 08/05/20 18:01 Zofran Odt - SL Q8H PRN Nausea/Vomiting Multivit/Folic Acid/Iron 1 tab 08/06/20 10:00 08/07/20 10:30 Vitamins (Sjr) - PO 1 tab DAILY JEROME Administration Thiamine HCl 100 mg 08/05/20 22:00 08/07/20 22:50 Vitamin B1 - PO 100 mg HS JEROME Administration Trazodone HCl 50 mg 08/06/20 22:00 08/07/20 22:50 Desyrel - PO 50 mg HS JEROME Administration Vital Signs Temperature 97.5 F L 08/07/20 20:48 Pulse Rate 69 08/07/20 20:48 Respiratory Rate 16 08/07/20 20:48 Blood Pressure 106/69 08/07/20 20:48 O2 Sat by Pulse Oximetry (%) 95 08/07/20 20:48 Assessment: 08/08/20 09:47 1. Alcohol withdrawal uncomplicated 2. Opioid withdrawal 3. Hx of depressoin, anxiety, insomnia 4. Homeless, lives in a fci in [place] 5. Seen by Psychiatry: substance induced mood disorder, insomnia - Initial Treatment Plan Initial Treatment Plan: Psychoeducation. Sleep hygiene. Detoxification. Resumed at patient's request : olanzapine 5 mg po hs (reduced) + trazodone 50 mg po hs (reduced as well as a precaution for oversedation). Side effects/benefits discussed with the patient. Consent granted to MD. Harrison. 08/08/20 09:54 Plan: 1. Librium detox protocol 2. Methadone detox protocol, projected completion on 08/10. 3. Per Psychiatry: - Psychoeducation. Sleep hygiene. Detoxification. Resumed at patient's request : olanzapine 5 mg po hs (reduced) + trazodone 50 mg po hs (reduced as well as a precaution for oversedation). Side effects/benefits discussed with the patient. Consent granted to MD. Harrison.
[2020-08-08] MEDS ORDERED: METHADONE (DETOX) 10 MG, METHADONE (DETOX) 5 MG PO ONE (10:00)
[2020-08-08] MEDS: PRENATAL VITAMINS W/ FOLIC ACID TABLET (FP) PO SCH (10:46)
[2020-08-08] MEDS: NICOTINE 21 MG/24 HOURS TOPICAL PATCH TD SCH (10:46)
[2020-08-08] MEDS: THIAMINE HCL 100 MG TABLET (FP) PO SCH (22:34)
[2020-08-08] MEDS: traZODone HCL 50 MG TABLET (FP) PO SCH (22:34)
[2020-08-08] MEDS: OLANZapine 5 MG TABLET PO SCH (22:34)
[2020-08-08] MEDS: MELATONIN 5 MG TABLETS PO SCH (22:34)
[2020-08-09] MEDS: chlordiazePOXIDE HCL 10 MG CAPSULE PO SCH ×2 (07:30→19:35)
[2020-08-09] MEDS ORDERED: METHADONE HCL 10 MG TABLET (FOR DETOX USE ONLY) PO ONE (10:00)
[2020-08-09] MEDS: NICOTINE 21 MG/24 HOURS TOPICAL PATCH TD SCH (11:00)
[2020-08-09] MEDS: PRENATAL VITAMINS W/ FOLIC ACID TABLET (FP) PO SCH (11:00)
--- NOTE | 2020-08-09 12:19 | PN ---
[facility] CIWA - CIWA Score Nausea/Vomitin-No Nausea/No Vomiting Muscle Tremors: None Anxiety: 2 Agitation: 0-Normal Activity Paroxysmal Sweats: 1-Minimal Palms Moist Orientation: 0-Oriented Tacttile Disturbances: 0-None Auditory Disturbances: 0-None Visual Disturbances: 0-None Headache: 0-None Present CIWA-Ar Total Score: 3 S COWS - Scale Resting Pulse: 0= [place] 80 or Below Sweatin= No chills or Flushing Restless Observation: 0= Sits Still Pupil Size: 0= Normal to Room Light Bone or Joint Aches: 0= None Runny Nose/ Eye Tearin= None GI Upset > 30mins: 0= None Tremor Observation of Outstretched Hands: 0= None Yawning Observation: 0= None Anxiety or Irritability: 2=Irritable/Anxious Goose Flesh Skin: 0=Smooth Skin COWS Score: 2 [facility] Progress Note (SOAP) Subjective: c/o mild withdrawal symptoms. Objective: 08/09/20 12:18 Vital Signs 08/09/20 08/09/20 05:08 08:26 Temperature 97.3 F L 97.3 F L Pulse Rate 55 L 55 L Respiratory 20 20 Rate Blood Pressure 94/64 94/64 O2 Sat by Pulse 95 95 Oximetry (%) Laboratory Last Values WBC 5.5 K/mm3 (4.0-10.0) 08/06/20 07:50 RBC 4.61 M/mm3 (4.00-5.60) 08/06/20 07:50 Hgb 12.4 GM/dL (11.7-16.9) 08/06/20 07:50 Hct 37.9 % (35.4-49) 08/06/20 07:50 MCV 82.3 fl (80-96) 08/06/20 07:50 MCH 27.0 pg (25.7-33.7) 08/06/20 07:50 MCHC 32.8 g/dl (32.0-35.9) 08/06/20 07:50 RDW 14.6 % (11.9-15.9) 08/06/20 07:50 Plt Count 154 K/MM3 (134-434) 08/06/20 07:50 MPV 8.5 fl (7.5-11.1) 08/06/20 07:50 Sodium 141 mmol/L (136-145) 08/06/20 07:50 Potassium 4.0 mmol/L (3.5-5.1) 08/06/20 07:50 Chloride 105 mmol/L (98-107) 08/06/20 07:50 Carbon Dioxide 33 mmol/L (21-32) H 08/06/20 07:50 Anion Gap 3 MMOL/L (8-16) L 08/06/20 07:50 BUN 12.7 mg/dL (7-18) 08/06/20 07:50 Creatinine 1.0 mg/dL (0.55-1.3) 08/06/20 07:50 Est GFR (CKD-EPI)AfAm 102.69 08/06/20 07:50 Est GFR (CKD-EPI)NonAf 88.61 08/06/20 07:50 Random Glucose 90 mg/dL (74-106) 08/06/20 07:50 Calcium 8.6 mg/dL (8.5-10.1) 08/06/20 07:50 Total Bilirubin 0.5 mg/dL (0.2-1) 08/06/20 07:50 AST 21 U/L (15-37) 08/06/20 07:50 ALT 30 U/L (13-61) 08/06/20 07:50 Alkaline Phosphatase 81 U/L (45-117) 08/06/20 07:50 Total Protein 7.2 g/dl (6.4-8.2) 08/06/20 07:50 Albumin 4.0 g/dl (3.4-5.0) 08/06/20 07:50 Syphilis Serology Non-reactive (NONREACTIVE) 08/06/20 07:50 COVID-19 (NANCI) Not detected (Not Detected) 08/05/20 19:30 Labs noted. Assessment: 08/09/20 12:19 AOX3, in no acute respiratory distress. Full ROM, ambulating in the unit. Mild Withdrawal symptoms. For d/c tomorrow. Plan: continue detox. D/C in AM.
[2020-08-09] MEDS: OLANZapine 5 MG TABLET PO SCH (22:43)
[2020-08-09] MEDS: THIAMINE HCL 100 MG TABLET (FP) PO SCH (22:43)
[2020-08-09] MEDS: traZODone HCL 50 MG TABLET (FP) PO SCH (22:43)
[2020-08-09] MEDS: MELATONIN 5 MG TABLETS PO SCH (22:43)
[2020-08-10] MEDS ORDERED: chlordiazePOXIDE HCL 10 MG CAPSULE PO ONE (05:00)
[2020-08-10] MEDS ORDERED: METHADONE HCL 5 MG TABLET (FOR DETOX USE ONLY) PO ONE (06:00)
[2020-08-10 09:40] VITALS: BP 106/76; PULSE 66; TEMP 96.8
[2020-08-10] MEDS: PRENATAL VITAMINS W/ FOLIC ACID TABLET (FP) PO SCH (11:09)
[2020-08-10] MEDS: NICOTINE 21 MG/24 HOURS TOPICAL PATCH TD SCH (11:09)
--- NOTE | 2020-08-10 11:47 | DS ---
[facility] Detox Discharge Summary Admission Date: 08/05/20 Discharge Date: 08/10/20 - History Present History: Alcohol Dependence, Opioid Dependence Additional Comments: 50 years old male was admitted on 08/05/20 for alcohol and opiate withdrawal sx management treated with librium and methadone detox regiments seen by psychiatrist rahat zyprexa and trazodone mr yost has completed the librium and methadone regiments and is tolerated well General Appearance: Yes: no Distress, mild Tremorous, not Irritable, no Sweating, less Anxious HEENTM: Yes: Within Normal Limits Respiratory: Yes: Lungs Clear, Normal Breath Sounds, No Respiratory Distress Neck: Yes: Within Normal Limits Breast: Yes: Breast Exam Deferred Cardiology: Yes: Within Normal Limits Abdominal: Yes: Normal Bowel Sounds Back: Yes: Normal Inspection Musculoskeletal: Yes: Within Normal Limits Extremities: Yes: Tremors Neurological: Yes: Within Normal Limits Integumentary: Yes: Warm, Track Patel (both arms) Lymphatic: Yes: Within Normal Limits Pertinent Past History: time for discharge 44 minutes transferred order set from detox to rehab - Physical Exam Results Vital Signs: Vital Signs Temperature 96.8 F L 08/10/20 09:00 Pulse Rate 66 08/10/20 09:00 Respiratory Rate 18 08/10/20 09:00 Blood Pressure 106/76 08/10/20 09:00 O2 Sat by Pulse Oximetry (%) 96 08/10/20 05:54 Pertinent Admission Physical Exam Findings: alcohol and opiate withdrawal Vital Signs - 24 hr 08/09/20 08/09/20 08/09/20 12:33 16:31 20:42 Temperature 97.2 F L 97.2 F L 97.7 F Pulse Rate 59 L 58 L 59 L Respiratory 17 18 18 Rate Blood Pressure 117/77 110/77 122/86 O2 Sat by Pulse 99 99 Oximetry (%) 08/10/20 08/10/20 05:54 09:00 Temperature 96.9 F L 96.8 F L Pulse Rate 55 L 66 Respiratory 18 18 Rate Blood Pressure 97/59 L 106/76 O2 Sat by Pulse 96 Oximetry (%) Laboratory Tests 08/05/20 08/06/20 08/06/20 19:30 07:50 07:50 WBC 5.5 RBC 4.61 Hgb 12.4 Hct 37.9 MCV 82.3 MCH 27.0 MCHC 32.8 RDW 14.6 Plt Count 154 MPV 8.5 Sodium Potassium Chloride Carbon Dioxide Anion Gap BUN Creatinine Est GFR (CKD-EPI)AfAm Est GFR (CKD-EPI)NonAf Random Glucose Calcium Total Bilirubin AST ALT Alkaline Phosphatase Total Protein Albumin Syphilis Serology Non-reactive COVID-19 (NANCI) Not detected 08/06/20 07:50 WBC RBC Hgb Hct MCV MCH MCHC RDW Plt Count MPV Sodium 141 Potassium 4.0 Chloride 105 Carbon Dioxide 33 H Anion Gap 3 L BUN 12.7 Creatinine 1.0 Est GFR (CKD-EPI)AfAm 102.69 Est GFR (CKD-EPI)NonAf 88.61 Random Glucose 90 Calcium 8.6 Total Bilirubin 0.5 AST 21 ALT 30 Alkaline Phosphatase 81 Total Protein 7.2 Albumin 4.0 Syphilis Serology COVID-19 (NANCI) lab noted - Treatment Hospital Course: Detox Protocol Followed, Detoxed Safely, Responded well, Discharged Condition Good, Rehab Referral Accepted Patient has Accepted [facility] Ref[facility] - Medication Discharge Medications: Ambulatory Orders Olanzapine [Zyprexa] 10 mg PO HS 08/02/19 Gabapentin [Neurontin -] 300 mg PO TID #90 capsule 01/03/20 Sertraline HCl [Zoloft] 100 mg PO DAILY #30 tablet 01/03/20 Trazodone HCl 100 mg PO HS 05/05/20 Naloxone HCl [Narcan] 4 mg NS ASDIR PRN #1 spray 06/22/20 - Diagnosis (1) Alcohol dependence with uncomplicated withdrawal Current Visit: Yes Status: Acute (2) Opioid dependence with withdrawal Current Visit: Yes Status: Acute (3) GERD (gastroesophageal reflux disease) Current Visit: Yes Status: Chronic Qualifiers: Esophagitis presence: esophagitis presence not specified Qualified Code(s): K21.9 - Gastro-esophageal reflux disease without esophagitis (4) Nicotine dependence Current Visit: Yes Status: Acute Qualifiers: Nicotine product type: cigarettes Substance use status: in withdrawal Qualified Code(s): F17.213 - Nicotine dependence, cigarettes, with withdrawal (5) Substance induced mood disorder Current Visit: Yes Status: Suspected (6) GERD (gastroesophageal reflux disease) Current Visit: Yes Status: Chronic Qualifiers: Esophagitis presence: without esophagitis Qualified Code(s): K21.9 - Gastro-esophageal reflux disease without esophagitis - AMA Did Patient Leave Against Medical Advice: No CIWA Score - CIWA Score Nausea/Vomitin-No Nausea/No Vomiting Muscle Tremors: None Anxiety: 2 Agitation: 0-Normal Activity Paroxysmal Sweats: No Perspiration Orientation: 0-Oriented Tacttile Disturbances: 0-None Auditory Disturbances: 0-None Visual Disturbances: 0-None Headache: 0-None Present CIWA-Ar Total Score: 2 COWS (PN) - Opiate Withdrawal Resting Pulse: 0= [place] 80 or Below Sweatin= No chills or Flushing Restless Observation: 0= Sits Still Pupil Size: 0= Normal to Room Light Bone or Joint Aches: 1= Mild Discomfort Runny Nose/ Eye Tearin= None GI Upset > 30mins: 0= None Tremor Observation of Outstretched Hands: 0= None Yawning Observation: 0= None Anxiety or Irritability: 1=Feels Anxious/Irritable Goose Flesh Skin: 0=Smooth Skin COWS Score: 2
== END 2020-08-10 13:41 | disposition other institution (70) | DRG 773 ==
LOC: YASAS 16:12 → Y3N 19:14
PROVIDERS: ADMIT Allergy & Immunology; ATTEND Allergy & Immunology
PROC: HZ2ZZZZ Detoxification Services for Substance Abuse Treatment (ICD-10-PCS; principal; 2020-08-05)
DX: F10.230 Alcohol dependence with withdrawal, uncomplicated (principal); F11.23 Opioid dependence with withdrawal; F17.213 Nicotine dependence, cigarettes, with withdrawal; F19.24 Other psychoactive substance dependence with psychoactive substance-induced mood disorder; F41.9 Anxiety disorder, unspecified; F32.9 Major depressive disorder, single episode, unspecified; G47.00 Insomnia, unspecified; K21.9 Gastro-esophageal reflux disease without esophagitis; Z91.013 Allergy to seafood; Z56.0 Unemployment, unspecified; Z59.0 Homelessness
CPT/HCPCS: 36415; 80053; 85027; 86780; 93005; 93010; U0003

== ENCOUNTER 2020-08-10 12:56 | Inpatient (IN) | payer OTHER ==
--- NOTE | 2020-08-10 12:06 | HP ---
[facility] Re[facility] Assess/Revision - Admission History Admitted to Rehab from: [facility] Date of Admission to Rehab: 08/10/20 - Findings Detox History & Physical reviewed: Yes Concur with findings: Yes Comments/Additional Findings: transferred from detox to rehab admission as per protocol Inpatient Rehab Admission - Rehab Decision to Admit Inpatient rehab admission?: Yes - Initial Determination Are CD services needed?: Yes Free of communicable disease: Yes Not in need of hospitalization: Yes - Rehab Admission Criteria Previous failed treatment: Yes Poor recovery environment: Yes Comorbidities: Yes Lacks judgement: Yes Patient is meeting Inpatient Rehab admission criteria:: Yes
[~2020-08-10 12:56] MED LIST changes: -MENTHOL/PHENOL 1 EACH UD MM PRN; -NICOTINE POLACRILEX 2 MG GUM BUC PRN; +NICOTINE POLACRILEX 4 MG GUM BC PRN
--- NOTE | 2020-08-10 13:16 | CONSULT ---
[facility] Psychiatric Consult - Data Date of interview: 08/10/20 Admission source: [facility] Identifying data: Patient is a 50 year old single male, without children, unemployed, resides in a long term, and is supported with food stamps. This is one of multiple admissions for patient. Patient admitted to for alcohol and opiate dependence. Substance Abuse History: Smoking Cessation. Smoking history: Current every day smoker. Have you smoked in the past 12 months: Yes. Aproximately how many cigarettes per day: 20. Hx Chewing Tobacco Use: No. Initiated information on smoking cessation: Yes. 'Breaking Loose' booklet given: 08/05/20. - Substance & Tx. History. Hx Alcohol Use: Yes. Hx Substance Use: Yes. Substance Use Type: Alcohol, Heroin, Opiates. Hx Substance Use Treatment: Yes ([facility]). - Substances abused. Alcohol. Substance route: Oral. Frequency: Daily. Amount used: 1 pint of Vodka and 6 x 12oz. beer. Age of first use: 14. Date of last use: 08/04/20. Heroin. Substance route: Injection. Frequency: Daily. Amount used: 12-15 bags. Age of first use: 21. Date of last use: 08/05/20 Medical History: GERD Psychiatric History: Patient states that his first psychiatric contact was in 2009 due [facility]. Mr. Lester first psychiatric hospitalization occured at [facility] due to depressed mood. States that he was diagnosed with MDD and treated with psychotropic medication. Reports multiple subsequent psychiatric hospitalizations at [facility]. Mr. Lester is currently provided with outpatient psychiatric care by Dr. Edmondson at [facility] outpatient clinic and is prescribed Zoloft 100mg daily + Gabapentin 300mg TID + Zyprexa 10mg HS + Trazodone 100mg HS. Patient reports medication compliance before admission to detox. Mr. Lester denies history of suicide attempt but as per record, patient has a history of one suicide attempt via overdose with heroin in 2016. At present patient reports difficulty sleeping and is requesting to resume his psychotropic medications. Physical/Sexual Abuse/Trauma History: denies. Mental Status Exam - Mental Status Exam Alert and Oriented to: Time, Place, Person Cognitive Function: Good Patient Appearance: Well Groomed Mood: Hopeful Affect: Appropriate Patient Behavior: Appropriate, Cooperative Speech Pattern: Appropriate Voice Loudness: Normal Thought Process: Goal Oriented Thought Disorder: Not Present Hallucinations: Denies Suicidal Ideation: Denies Homicidal Ideation: Denies Insight/Judgement: Poor Sleep: Poorly Appetite: Fair Muscle strength/Tone: Normal Gait/Station: Normal Psychiatric Findings - Problem List ([place] 1, 2,3) (1) Alcohol use disorder Status: Chronic (2) Opioid dependence Status: Chronic (3) History of depression Status: Chronic (4) Insomnia Status: Acute - Initial Treatment Plan Initial Treatment Plan: Psychoeducation provided. Detoxification in progress. Will order Zoloft 100mg daily + Gabapentin 300mg TID + Zyprexa 10mg HS + Trazodone 100mg HS. Benefits and side effects discussed. Verbal consent given.
[2020-08-10] MEDS: GABAPENTIN 300 MG CAPSULE PO SCH ×2 (15:25→21:28)
[2020-08-10] MEDS: OLANZapine 10 MG TABLET PO SCH (21:28)
[2020-08-10] MEDS: traZODone HCL 100 MG TABLET (FP) PO SCH (21:28)
[2020-08-10] MEDS: THIAMINE HCL 100 MG TABLET (FP) PO SCH (21:28)
[2020-08-10] MEDS: MELATONIN 5 MG TABLETS PO SCH (21:28)
[2020-08-10] MEDS ORDERED: OLANZAPINE 5 MG PO SCH (22:00)
[2020-08-10] MEDS ORDERED: TRAZODONE HCL 50 MG PO SCH (22:00)
[2020-08-11] MEDS: GABAPENTIN 300 MG CAPSULE PO SCH ×3 (06:25→21:22)
[2020-08-11] MEDS: SERTRALINE HCL 50 MG TABLET (FP) PO SCH (09:59)
[2020-08-11] MEDS: NICOTINE 21 MG/24 HOURS TOPICAL PATCH TD SCH (09:59)
[2020-08-11] MEDS: PRENATAL VITAMINS W/ FOLIC ACID TABLET (FP) PO SCH (09:59)
[2020-08-11] MEDS: MELATONIN 5 MG TABLETS PO SCH (21:22)
[2020-08-11] MEDS: OLANZapine 10 MG TABLET PO SCH (21:22)
[2020-08-11] MEDS: traZODone HCL 100 MG TABLET (FP) PO SCH (21:22)
[2020-08-11] MEDS: THIAMINE HCL 100 MG TABLET (FP) PO SCH (21:22)
[2020-08-12] MEDS: GABAPENTIN 300 MG CAPSULE PO SCH ×2 (06:29→21:54)
[2020-08-12] MEDS: SERTRALINE HCL 50 MG TABLET (FP) PO SCH (10:02)
[2020-08-12] MEDS: PRENATAL VITAMINS W/ FOLIC ACID TABLET (FP) PO SCH (10:02)
[2020-08-12] MEDS: NICOTINE 21 MG/24 HOURS TOPICAL PATCH TD SCH (10:02)
[2020-08-12] MEDS: IBUPROFEN 400 MG TABLET (FP) PO PRN ×2 (10:03→21:22)
[2020-08-12] MEDS: OLANZapine 10 MG TABLET PO SCH (21:20)
[2020-08-12] MEDS: traZODone HCL 100 MG TABLET (FP) PO SCH (21:20)
[2020-08-12] MEDS: THIAMINE HCL 100 MG TABLET (FP) PO SCH (21:20)
[2020-08-12] MEDS: MELATONIN 5 MG TABLETS PO SCH (21:22)
[2020-08-13] MEDS: GABAPENTIN 300 MG CAPSULE PO SCH (06:31)
[2020-08-13 06:59] VITALS: BP 113/71; PULSE 65; TEMP 98
[2020-08-13] MEDS: PRENATAL VITAMINS W/ FOLIC ACID TABLET (FP) PO SCH (10:29)
[2020-08-13] MEDS: SERTRALINE HCL 50 MG TABLET (FP) PO SCH (10:29)
[2020-08-13] MEDS: NICOTINE 21 MG/24 HOURS TOPICAL PATCH TD SCH (10:29)
--- NOTE | 2020-08-13 13:41 | DS ---
[facility] Rehab Discharge Summary - [facility] Rehab Discharge Summary Admission Date: 08/10/20 Discharge Date: 08/13/20 - History Present History: Alcohol dependence, Opioid dependence Pertinent Past History: 50 years old male with a long history of alcohol and heroin dependence. His last admission was for the period 06/19/2020 - 07/05/2020 and he reports that he relapsed 4 days post discharge. He reports use of 12-15 bags of heroin and 1 pint of Vodka and 6 x 12oz. beer daily. He reports medical history of GERD, psych. history of depression, anxiety, insomnia and denies suicidal ideation at this time. He is unemployed, lives in a longterm in [place] and denies legal issues. 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 - Discharge Physical Exam Vital Signs: Vital Signs Temperature 98 F 08/13/20 06:32 Pulse Rate 65 08/13/20 06:32 Respiratory Rate 18 08/13/20 06:32 Blood Pressure 113/71 08/13/20 06:32 O2 Sat by Pulse Oximetry (%) 96 08/13/20 06:32 Pertinent Admission Physical Exam Findings: Physical General Appearance: No apparent distress HEENTM: Normocephalic, EOMI, PERRLA Respiratory:No Respiratory Distress Neck: supple Abdominal: +Bowel Sounds Musculoskeletal: Full ROM, steady gait Neurological: No cognitive deficits Integumentary: Warm, Track Patel on both arms - Treatment Discharge Condition: Discharge condition good (Medically stable for discharge.), Outpatient referral accepted ([facility]) Hospital Course: Patient attended groups, had 1:1 with his counselor, was seen by the psychiatric service. He was adherent to his medication regimen and treatment plan. He had not acute or urgent medical problems while in rehab. - Medication Discharge Medications: Ambulatory Orders Olanzapine [Zyprexa] 10 mg PO HS 08/02/19 Gabapentin [Neurontin -] 300 mg PO TID #90 capsule 01/03/20 Sertraline HCl [Zoloft] 100 mg PO DAILY #30 tablet 01/03/20 Trazodone HCl 50 mg PO HS 05/05/20 Naloxone HCl [Narcan] 4 mg NS ASDIR PRN #1 spray 08/13/20 - Medication-Assisted Treatment (MAT) Medication-Assisted Treatment (MAT): No - Discharge Instructions Diet, activity, other medical instructions: Diet:as tolerated Activity: as tolerated Other medical instructions: Please follow up with aftercare appointment. - Diagnosis (1) Alcohol use disorder Current Visit: Yes Status: Chronic (2) Opioid dependence Current Visit: Yes Status: Chronic (3) Cocaine abuse Current Visit: No Status: Chronic - Follow-up Referral Minutes to complete discharge: 15 - AMA Did Patient Leave Against Medical Advice: No
== END 2020-08-13 14:10 | disposition home or self-care (01) | DRG 772 ==
LOC: YASAS 12:56 → Y3W 12:58
PROVIDERS: ADMIT Allergy & Immunology; ATTEND Allergy & Immunology
PROC: HZ42ZZZ Group Counseling for Substance Abuse Treatment, Cognitive-Behavioral (ICD-10-PCS; principal; 2020-08-10)
DX: F11.20 Opioid dependence, uncomplicated (principal); F10.20 Alcohol dependence, uncomplicated; F17.210 Nicotine dependence, cigarettes, uncomplicated; F41.8 Other specified anxiety disorders; F32.9 Major depressive disorder, single episode, unspecified; G47.00 Insomnia, unspecified; K21.9 Gastro-esophageal reflux disease without esophagitis; Z56.0 Unemployment, unspecified; Z59.0 Homelessness; Z91.5 Personal history of self-harm; Z91.013 Allergy to seafood